=== PATIENT | female | born 1955 | race Caucasian/White ===

== ENCOUNTER 2020-09-03 09:40 | Outpatient (REF) | payer MEDICARE, SELFPAY ==
[2020-09-03 10:13] LABS: MANUAL DIFF FLAG NO
[2020-09-03 10:24] LABS: Basophils Absolute Auto 0.1 X10*3/uL (0.0-0.2); Basophils Percent Auto 0.5 % (0-2); Eosinophils Absolute Auto 0.2 X10*3/uL (0.0-0.4); Eosinophils Percent Auto 1.7 % (0-4); Hematocrit 38.8 % (37-47); Hemoglobin 12.1 g/dl (12.0-16.0); Imm Gran Abs Auto 0.03 X10*3/uL (0.00-0.03); Imm Gran Pct Auto 0.3 % (0.0-0.4); Lymphocytes Absolute Auto 2.8 X10*3/uL (1.2-4.9); Lymphocytes Percent Auto 29.8 % (20-40); Mean Corpuscular HGB Conc 31.2 g/dl (31.0-35.0); Mean Corpuscular Hemoglobin 27.4 pg (27.0-33.0); Mean Corpuscular Volume 87.8 fL (80-98); Mean Platelet Volume 11.3 fL (9.4-12.3); Monocytes Absolute Auto 0.6 X10*3/uL (0.1-1.2); Monocytes Percent Auto 5.9 % (2-11); Neutrophils Absolute Auto 5.7 X10*3/uL (2.0-8.3); Neutrophils Percent Auto 61.8 % (45-73); Platelet Count 336 X10*3/uL (160-400); Red Blood Count 4.42 X10*6/uL (4.20-5.50); Red Cell Distribution Width 13.7 % (11.0-16.0); White Blood Count 9.3 X10*3/uL (4.8-10.8)
[2020-09-03 10:55] LABS: Alanine Aminotransferase 14 U/L (0-31); Alkaline Phosphatase 103 U/L (39-117); Anion Gap 11 (12-20); Aspartate Amino Transferase 11 U/L (5-31); Bilirubin Total 0.3 mg/dL (0.0-1.0); Blood Urea Nitrogen 16 mg/dL (9-16); Calcium 9.3 mg/dL (8.4-10.2); Carbon Dioxide 34 mmol/L (22-29); Chloride 99 mmol/L (96-108); Cholesterol 141 mg/dL; Estimated Glomerular Filt Rate 60; Glucose Fasting 133 mg/dL (60-99); HDL Cholesterol 48 mg/dL; LDL Cholesterol Calculated 68 mg/dl; Potassium 4.7 mmol/l (3.3-5.1); Sodium 139 mmol/L (135-145); Total Protein 6.7 g/dL (6.5-8.0); Triglycerides 129 mg/dL
[2020-09-03 11:17] LABS: Folate 11.9 ng/mL (> or = 4.0); Vitamin B12 220 pg/mL (200-900)
[2020-09-03 11:19] LABS: Creatinine Urine 150.27 mg/dL; Microalbum/Creatinine Ratio Ur 4.6 ug/mg cr
[2020-09-03 13:29] LABS: Vitamin D 25-OH Total 45.3 ng/mL (>30)
== END 2020-09-03 09:41 | disposition home or self-care (01) ==
LOC: HO.LAB 09:40
PROVIDERS: PCP Internal Medicine; Visit Provider Internal Medicine
DX: E78.00 Pure hypercholesterolemia, unspecified (principal); E11.9 Type 2 diabetes mellitus without complications; D51.9 Vitamin B12 deficiency anemia, unspecified; E55.9 Vitamin D deficiency, unspecified
CPT/HCPCS: 36415; 80053; 80061; 82043; 82306; 82607; 82746; 85025

== ENCOUNTER → 2020-09-24 13:54 | Outpatient (BNVA) | payer MEDICARE, MEDICAID, SELFPAY | PROVIDERS: PCP Internal Medicine; Referring Provider Internal Medicine; Visit Provider Internal Medicine Endocrinology, Diabetes & Metabolism | DX: E11.65 Type 2 diabetes mellitus with hyperglycemia (principal); E11.42 Type 2 diabetes mellitus with diabetic polyneuropathy; E11.3299 Type 2 diabetes mellitus with mild nonproliferative diabetic retinopathy without macular edema, unspecified eye; I10 Essential (primary) hypertension; E78.5 Hyperlipidemia, unspecified; E66.01 Morbid (severe) obesity due to excess calories; E55.9 Vitamin D deficiency, unspecified; M85.80 Other specified disorders of bone density and structure, unspecified site; B37.2 Candidiasis of skin and nail; Z79.4 Long term (current) use of insulin | CPT/HCPCS: 82947; 99212 ==

== ENCOUNTER → 2020-09-29 | Outpatient (REF) | payer MEDICARE, MEDICAID, SELFPAY | LOC: HO.SL | PROVIDERS: Visit Provider Internal Medicine | DX: G47.30 Sleep apnea, unspecified (principal); E66.01 Morbid (severe) obesity due to excess calories; G47.10 Hypersomnia, unspecified | CPT/HCPCS: 95806 ==

== ENCOUNTER → 2020-10-15 12:58 | Outpatient (BNVA) | payer MEDICARE, SELFPAY | PROVIDERS: PCP Internal Medicine; Visit Provider Internal Medicine Pulmonary Disease | DX: G47.33 Obstructive sleep apnea (adult) (pediatric) (principal) | CPT/HCPCS: 99202 ==

== ENCOUNTER 2020-12-12 13:49 | Emergency (ER) | payer MEDICARE, SELFPAY ==
--- NOTE | ~2020-12-12 | CT_ITS ---
EXAMINATION: CT ABDOMEN AND PELVIS WITH CONTRAST CLINICAL INFORMATION: multiple abd surgeries. lower ttp. epigastric ttp COMPARISON: CTA chest 08/05/2017, CT abdomen pelvis 03/12/2016 TECHNIQUE: Multidetector volumetric images were obtained from the superior aspect of the liver through the pubic symphysis following administration 85 mL of Omnipaque 350 intravenous contrast. Sagittal and coronal reformatted images were obtained on the technologist's workstation. Oral contrast: No This CT examination was performed using dose optimization techniques as appropriate, variously including the following: *Automated exposure control *Adjustment of mA and/or kV according to patient size (this includes techniques or standardized protocols for targeted exams where dose is matched to indication/reason for exam; i.e. extremities or head) *Use of iterative reconstruction technique DLP: 1334 mGy-cm FINDINGS: LUNG BASES: The visualized lung bases are unremarkable. LIVER, GALLBLADDER, AND BILIARY TREE: The liver is normal in size, shape, and attenuation. No focal hepatic lesion or biliary ductal dilatation is present. The gallbladder is unremarkable with no evidence of radiopaque gallstones, gallbladder wall thickening, or obvious pericholecystic inflammatory changes. PANCREAS: Unremarkable. SPLEEN: Unremarkable. ADRENAL GLANDS: Unremarkable. KIDNEYS AND URETERS: The kidneys are normal in size, shape, and attenuation. An exophytic right upper pole 3.7 cm benign renal cysts present. No solid renal masses are seen. No hydronephrosis, hydroureter, or calculi seen. No perinephric stranding. BLADDER: Unremarkable. GASTROINTESTINAL TRACT: The small and large bowel are unremarkable. The appendix is not seen. ABDOMINAL WALL: No significant hernia is appreciated. LYMPH NODES: Normal. VASCULAR: Unremarkable. PELVIC VISCERA: Status post hysterectomy. An abnormal adnexal mass is not seen. No free intraperitoneal fluid is present OSSEOUS STRUCTURES: Unremarkable. A hemangioma is noted in L4. Mild degenerative changes are present in the lower thoracic spine. CT/CT abdomen pelvis w con IMPRESSION: No significant abnormality is seen. Incidental findings as described above.
[2020-12-12 14:05] VITALS: BP 143/68; PULSE 84; RESP 16; TEMP 36.1; O2SAT 95; BMI 46.5
[2020-12-12 14:35] LABS: Glucose Urine UA NEG (NEG); Leukocyte Esterase Urine NEG (NEG); Nitrite Urine NEG (NEG); Specific Gravity - Urine 1.025 (1.005-1.025); Urine Blood NEG (NEG); Urine Ketones 15 MG/DL (NEG); Urine Protein 1+ MG/DL (NEG-TRACE)
[2020-12-12 14:36] LABS: Appearance Urine HAZY; Color Urine DARK YELLOW
[2020-12-12 14:42] LABS: Bacteria Urine 2+ /LPF; Mucus Urine TRACE /LPF; RBC Urine 0 /HPF (0); Squamous Epithelial Cell Urine 2+ /LPF
--- NOTE | 2020-12-12 15:39 | ED.ABDPAIN ---
HPI - Abdominal Pain General Chief Complaint: Abdominal Pain Stated Complaint: VAGINAL PAIN Time Seen by Provider: 12/12/20 14:45 Source: patient Mode of arrival: ambulatory History of Present Illness HPI narrative: 65-year-old female with a past medical history of diabetes, hyperlipidemia, hypertension, morbid obesity, appendectomy, cholecystectomy, hysterectomy, adhesion removal surgery, presenting to the ED complaining of lower abdominal discomfort and dysuria x5 days. Also reports mid back pain. Denies fever, chills, nausea, vomiting, diarrhea, constipation, hematuria, vaginal bleeding/discharge MD elicited complaint: abdominal pain Related Data Previous Rx's Medication Instructions Recorded amitriptyline 50 mg tablet 50 mg PO BEDTIME 90 Days #90 tab 10/27/20 blood sugar diagnostic #150 ea 10/27/20 cholecalciferol (vitamin D3) 125 125 mcg PO DAILY 90 Days #90 cap 10/27/20 mcg (5,000 unit) capsule insulin lispro 100 unit/mL 10 unit SUBCUT TID 30 Days #9 ml 10/27/20 subcutaneous pen lancets 28 gauge 33 gauge MISCELLANEOUS QID 30 Days 10/27/20 #150 cap liraglutide 0.6 mg/0.1 mL (18 mg/3 1.8 mg SUBCUT DAILY 30 Days #9 ml 10/27/20 mL) subcutaneous pen injector lisinopril 10 mg tablet 10 mg PO DAILY 90 Days #90 tab 10/27/20 metformin 1,000 mg tablet 1,000 mg PO BID 90 Days #180 tab 10/27/20 nystatin 100,000 unit/gram topical 1 appl TOPICAL BID 30 Days #60 g 10/27/20 powder omeprazole 20 mg capsule,delayed 20 mg PO DAILY 90 Days #90 cap 10/27/20 release simvastatin 20 mg tablet 20 mg PO DAILY 90 Days #90 tab 10/27/20 insulin glargine 100 unit/mL (3 35 unit SUBCUT QPM 30 Days #10.5 ml 12/10/20 mL) subcutaneous pen cefuroxime axetil 250 mg PO BID 7 Days #14 tab 12/12/20 phenazopyridine [Pyridium] 100 mg PO TID PRN #6 tab 12/12/20 Allergies Allergy/AdvReac Type Severity Reaction Status Date / Time Beef Containing Products Allergy Mild HIVES/STOMACH Verified 10/30/20 13:57 [BEEF CONTAINING PRODUCTS] ISSUES mayonnaise [MAYONNAISE] Allergy Mild HIVES Verified 10/30/20 13:57 codeine Allergy Unknown fainting Verified 10/30/20 13:57 fish derived [FISH] Allergy Unknown N&V, Verified 10/30/20 13:57 ABDOMEN DISTENDED, ANAPHYLAXIS Review of Systems Review of Systems Constitutional: No Fever, No Chills Cardiovascular: No Chest Pain, No SOB Respiratory: No Cough, No Dyspnea Gastrointestinal: No Nausea, No Vomiting, No Diarrhea, No Constipation, + Abdominal pain Genitourinary: No irregular bleeding, + Dysuria, No Urinary Frequency, No Hematuria, No Flank Pain, No Urinary Flow Changes, No vaginal discharge or bleeding Musculoskeletal: No joint pain, No Myalgias, No Joint Swelling Skin: No Skin Lesions, No rash Yes all other systems are reviewed and are negative Physical Exam Vital Signs: Vital Signs: Last Vital Signs Temp 97.0 F 12/12/20 14:05 Pulse 84 12/12/20 14:05 Resp 16 12/12/20 14:05 BP 143/68 H 12/12/20 14:05 Pulse Ox 95 12/12/20 14:05 Body Mass Index 46.5 Const: General: cooperative and healthy appearing Orientation/consciousness: patient oriented x3 Limitations: no limitations HENMT: Head: Yes normal to inspection Ears: hearing grossly normal bilaterally General nose exam: Normal external nose present Face and sinus: Yes normal facial exam Eyes: General: appearance normal, both eyes and all related structures EOM: EOMs intact bilaterally Neck: Neck: Yes normal visual inspection Resp: Effort & Inspection: normal respiratory effort Auscultation: crackles Cardio: Rate: regular rate GI: Inspection: Yes normal to inspection Palpation (GI): Soft to palpation, Tenderness to palpation present (GI) in the epigastrum, in the LLQ, in the RLQ and suprapubicly; with no rebound tenderness, no guarding and not rigid : General: Yes no CVA tenderness Back/Spine/Pelvis: Back: no CVA tenderness Skin: Rashes: no rashes Wounds: no wounds Neuro: General: patient oriented x3 Gait exam (Neuro): Normal gait present Extrem: General: Yes normal to inspection Course Course Course Narrative: -potassium mildly elevated at 5.3 > Kayexalate ordered. Labs otherwise unremarkable -UA contaminated but with 2+ bacteria and mucus. Due to patient being symptomatic, with shared decision making will treat with antibiotics CT abdomen pelvis w con IMPRESSION: No significant abnormality is seen. Incidental findings as described above. > results discussed with patient in medical reception. Worrisome signs and symptoms and strict return precautions discussed. She verbalized understanding feel safe for discharge home MDM - Abdominal Pain MDM Narrative Medical decision making narrative: 65-year-old female with a past medical history of diabetes, hyperlipidemia, hypertension, morbid obesity, appendectomy, cholecystectomy, hysterectomy, adhesion removal surgery, presenting to the ED complaining of lower abdominal discomfort and dysuria x5 days. On exam VSS, NAD, well appearing, abd ttp diffusely lower and in epigastric region. Concern for diverticulitis vs SBO vs UTI vs ?pyelo. Plan: Labs, UA, CTAP, Re-evaluate Lab Data Result diagrams: 12/12/20 15:44 12/12/20 15:44 Labs: Lab Results 12/12/20 12/12/20 12/12/20 Range/Units 14:23 15:44 15:44 WBC 10.2 (4.8-10.8) X10*3/uL RBC 4.53 (4.20-5.50) X10*6/uL Hgb 12.0 (12.0-16.0) g/dl Hct 39.3 (37-47) % MCV 86.8 (80-98) fL MCH 26.5 L (27.0-33.0) pg MCHC 30.5 L (31.0-35.0) g/dl RDW 13.2 (11.0-16.0) % Plt Count 324 (160-400) X10*3/uL MPV 11.6 (9.4-12.3) fL Immature Gran % (Auto) 0.3 (0.0-0.4) % Neut % (Auto) 60.6 (45-73) % Lymph % (Auto) 30.2 (20-40) % [place] % (Auto) 6.8 (2-11) % Eos % (Auto) 1.6 (0-4) % Baso % (Auto) 0.5 (0-2) % Lymph # (Auto) 3.1 (1.2-4.9) X10*3/uL [place] # (Auto) 0.7 (0.1-1.2) X10*3/uL Eos # (Auto) 0.2 (0.0-0.4) X10*3/uL Baso # (Auto) 0.1 (0.0-0.2) X10*3/uL Abs Immat Gran (auto) 0.03 (0.00-0.03) X10*3/uL Absolute Neuts (auto) 6.2 (2.0-8.3) X10*3/uL Absolute Nucleated RBC 0.000 (0.0-0.012) X10*3/uL Nucleated RBC % (auto) 0.0 (0.0-0.2) /100WBC Hold Blue Top SEE NOTE Sodium (135-145) mmol/L Potassium (3.3-5.1) mmol/L Chloride (96-108) mmol/L Carbon Dioxide (22-29) mmol/L Anion Gap (12-20) BUN (9-16) mg/dL Creatinine (0.5-1.4) mg/dL Estim Creat Clear Calc Estimated GFR Random Glucose (60-115) mg/dL Calcium (8.4-10.2) mg/dL Magnesium (1.6-2.6) mg/dL Total Bilirubin (0.0-1.0) mg/dL Direct Bilirubin (0.0-0.5) mg/dL AST (5-31) U/L ALT (0-31) U/L Alkaline Phosphatase (39-117) U/L Total Protein (6.5-8.0) g/dL Albumin (3.5-5.0) g/dL Lipase (8-78) U/L Urine Color DARK YELLOW Urine Appearance HAZY Urine pH 6.0 (5.0-8.0) Ur Specific Christmas 1.025 (1.005-1.025) Urine Protein 1+ H (NEG-TRACE) MG/DL Urine Glucose (UA) NEG (NEG) MG/DL Urine Ketones 15 (NEG) MG/DL Urine Blood NEG (NEG) Urine Nitrite NEG (NEG) Ur Leukocyte Esterase NEG (NEG) Urine RBC 0 (0) /HPF Urine WBC 1-4 (0-4) /HPF Ur Squamous Epith Cells 2+ /LPF Urine Bacteria 2+ /LPF Urine Mucus TRACE /LPF 12/12/20 Range/Units 15:44 WBC (4.8-10.8) X10*3/uL RBC (4.20-5.50) X10*6/uL Hgb (12.0-16.0) g/dl Hct (37-47) % MCV (80-98) fL MCH (27.0-33.0) pg MCHC (31.0-35.0) g/dl RDW (11.0-16.0) % Plt Count (160-400) X10*3/uL MPV (9.4-12.3) fL Immature Gran % (Auto) (0.0-0.4) % Neut % (Auto) (45-73) % Lymph % (Auto) (20-40) % [place] % (Auto) (2-11) % Eos % (Auto) (0-4) % Baso % (Auto) (0-2) % Lymph # (Auto) (1.2-4.9) X10*3/uL [place] # (Auto) (0.1-1.2) X10*3/uL Eos # (Auto) (0.0-0.4) X10*3/uL Baso # (Auto) (0.0-0.2) X10*3/uL Abs Immat Gran (auto) (0.00-0.03) X10*3/uL Absolute Neuts (auto) (2.0-8.3) X10*3/uL Absolute Nucleated RBC (0.0-0.012) X10*3/uL Nucleated RBC % (auto) (0.0-0.2) /100WBC Hold Blue Top Sodium 138 (135-145) mmol/L Potassium 5.3 H (3.3-5.1) mmol/L Chloride 99 (96-108) mmol/L Carbon Dioxide 30 H (22-29) mmol/L Anion Gap 14 (12-20) BUN 16 (9-16) mg/dL Creatinine 0.98 (0.5-1.4) mg/dL Estim Creat Clear Calc 76.8 Estimated GFR 57 Random Glucose 182 H (60-115) mg/dL Calcium 9.6 (8.4-10.2) mg/dL Magnesium 1.6 (1.6-2.6) mg/dL Total Bilirubin 0.3 (0.0-1.0) mg/dL Direct Bilirubin < 0.2 (0.0-0.5) mg/dL AST 16 D (5-31) U/L ALT 13 (0-31) U/L Alkaline Phosphatase 115 (39-117) U/L Total Protein 7.3 (6.5-8.0) g/dL Albumin 3.9 (3.5-5.0) g/dL Lipase 29 (8-78) U/L Urine Color Urine Appearance Urine pH (5.0-8.0) Ur Specific Christmas (1.005-1.025) Urine Protein (NEG-TRACE) MG/DL Urine Glucose (UA) (NEG) MG/DL Urine Ketones (NEG) MG/DL Urine Blood (NEG) Urine Nitrite (NEG) Ur Leukocyte Esterase (NEG) Urine RBC (0) /HPF Urine WBC (0-4) /HPF Ur Squamous Epith Cells /LPF Urine Bacteria /LPF Urine Mucus /LPF Discharge Plan Discharge Clinical Impression: Abdominal pain Qualifiers: Abdominal location: lower abdomen, unspecified Qualified Code(s): R10.30 - Lower abdominal pain, unspecified Patient Disposition: Home, Self-Care Instructions: Dysuria (ED), Abdominal Pain (ED) Additional Instructions: Your blood work was reassuring today in the ED. Her urine was contaminated but had some elements of an infection. Ceftin as an antibiotic, take as prescribed. The CT scan did not show any acute findings. Follow up with her primary care doctor. If her symptoms persist or worsen, become unbearable, you have fever, nausea/vomiting, or diarrhea return to the ED Gutierrez an?lisis de garrett fue reconfortante hoy en el servicio de urgencias. Gutierrez orina estaba contaminada wilian ten?a algunos elementos de zain infecci?n. Ceftin cal antibi?tre, colby seg?n lo prescrito. La tomograf?a computarizada no mostr? seth?n hallazgo ana. Emigdio un seguimiento con gutierrez m?dico de atenci?n primaria. Si rudy s?ntomas persisten o empeoran, se vuelven insoportables, tiene fiebre, n?useas / v?mitos o diarrea, vuelva al servicio de urgencias. Prescriptions: New cefuroxime axetil 250 mg tablet 250 mg PO BID 7 Days Qty: 14 RF: 0 phenazopyridine [Pyridium] 100 mg tablet 100 mg PO TID PRN (Reason: pain) Qty: 6 RF: 0 No Action amitriptyline 50 mg tablet 50 mg PO BEDTIME 90 Days Qty: 90 RF: 3 (DME) FreeStyle Test Strip See Rx Instructions .ROUTE .MEDSUPPLY Qty: 150 RF: 6 cholecalciferol (vitamin D3) 125 mcg (5,000 unit) capsule 125 mcg PO DAILY 90 Days Qty: 90 RF: 3 insulin lispro [Humalog KwikPen Insulin] 100 unit/mL insulin pen 10 unit subcut TID 30 Days Qty: 9 RF: 3 lancets [TRUEplus Lancets] 28 gauge misc 33 gauge miscellaneous QID 30 Days Qty: 150 RF: 5 Victoza 3-Kareem 0.6 mg/0.1 mL (18 mg/3 mL) pen injector 1.8 mg subcut DAILY 30 Days Qty: 9 RF: 6 lisinopril 10 mg tablet 10 mg PO DAILY 90 Days Qty: 90 RF: 3 metformin 1,000 mg tablet 1,000 mg PO BID 90 Days Qty: 180 RF: 2 nystatin 100,000 unit/gram powder 1 appl topical BID 30 Days Qty: 60 RF: 3 omeprazole 20 mg capsule,delayed release(DR/EC) 20 mg PO DAILY 90 Days Qty: 90 RF: 3 simvastatin 20 mg tablet 20 mg PO DAILY 90 Days Qty: 90 RF: 3 Lantus Solostar U-100 Insulin 100 unit/mL (3 mL) insulin pen 35 unit subcut QPM 30 Days Qty: 10.5 RF: 1 Referrals: Jojo Chand MD [Primary Care Provider] - 2 days Print Language: Japanese [facility] Past Medical History Attestation statement: The following information was validated with the patient. 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 Maternal Grandfather Prostate cancer Maternal Uncle Throat cancer Social History Social History (Updated 10/30/20 @ 13:58 by Jojo Alcantar MD) Alcohol intake: never Smoking Status: Former smoker Tobacco Type: Cigarette Advance Directives: Yes Advance Directives Information Provided: Yes Advance Directives on File: No
[2020-12-12] MEDS: Famotidine/PF 20 MG/2 ML VIAL IVPUSH (15:46)
[2020-12-12] MEDS: Magnesium Hydrox/Alum Hydrox 30 ML ORAL.SUSP PO (15:46)
[2020-12-12] MEDS: Lidocaine HCl Viscous 2 % 15 ML SOLUTION MUCOUS MEM (15:46)
[2020-12-12 16:16] LABS: MANUAL DIFF FLAG NO
[2020-12-12 16:18] LABS: Basophils Absolute Auto 0.1 X10*3/uL (0.0-0.2); Basophils Percent Auto 0.5 % (0-2); Eosinophils Absolute Auto 0.2 X10*3/uL (0.0-0.4); Eosinophils Percent Auto 1.6 % (0-4); Hematocrit 39.3 % (37-47); Imm Gran Abs Auto 0.03 X10*3/uL (0.00-0.03); Imm Gran Pct Auto 0.3 % (0.0-0.4); Lymphocytes Absolute Auto 3.1 X10*3/uL (1.2-4.9); Lymphocytes Percent Auto 30.2 % (20-40); Mean Corpuscular HGB Conc 30.5 g/dl (31.0-35.0); Mean Corpuscular Hemoglobin 26.5 pg (27.0-33.0); Mean Corpuscular Volume 86.8 fL (80-98); Mean Platelet Volume 11.6 fL (9.4-12.3); Monocytes Absolute Auto 0.7 X10*3/uL (0.1-1.2); Monocytes Percent Auto 6.8 % (2-11); Neutrophils Absolute Auto 6.2 X10*3/uL (2.0-8.3); Neutrophils Percent Auto 60.6 % (45-73); Platelet Count 324 X10*3/uL (160-400); Red Blood Count 4.53 X10*6/uL (4.20-5.50); Red Cell Distribution Width 13.2 % (11.0-16.0); White Blood Count 10.2 X10*3/uL (4.8-10.8)
[2020-12-12 16:55] LABS: Alanine Aminotransferase 13 U/L (0-31); Albumin Level 3.9 g/dL (3.5-5.0); Alkaline Phosphatase 115 U/L (39-117); Anion Gap 14 (12-20); Aspartate Amino Transferase 16 U/L (5-31); Bilirubin Direct < 0.2 mg/dL (0.0-0.5); Bilirubin Total 0.3 mg/dL (0.0-1.0); Blood Urea Nitrogen 16 mg/dL (9-16); Calcium 9.6 mg/dL (8.4-10.2); Carbon Dioxide 30 mmol/L (22-29); Chloride 99 mmol/L (96-108); Creatinine Clr Calc Pharmacy 76.8; Estimated Glomerular Filt Rate 57; Glucose Random 182 mg/dL (60-115); Lipase 29 U/L (8-78); Magnesium 1.6 mg/dL (1.6-2.6); Potassium 5.3 mmol/L (3.3-5.1); Sodium 138 mmol/L (135-145); Total Protein 7.3 g/dL (6.5-8.0)
[2020-12-12] MEDS: iohexoL 350 MG/ML 100 ML INFUS..BTL IV (17:37)
--- NOTE | 2020-12-12 18:13 | ECG_ITS ---
Test Reason : elevated K+ Blood Pressure : / mmHG Vent. Rate : 083 BPM Atrial Rate : 083 BPM P-R Int : 148 ms QRS Dur : 102 ms QT Int : 374 ms P-R-T Axes : 068 016 063 degrees QTc Int : 439 ms Normal sinus rhythm Normal ECG When compared with ECG of 05-AUG-2017 18:56, No significant change was found Referred By: Bindu Menon Electronically Signed By:Greg Sheth
[2020-12-12] MEDS: Sodium Polystyrene Sulfon/Sorb 15 GM/60 ML ORAL.SUSP 30 GM PO (18:31)
[2020-12-12 18:44] VITALS: BP 139/58; PULSE 79; RESP 14; TEMP 37; O2SAT 93
== END 2020-12-12 19:45 | disposition home or self-care (01) ==
PROVIDERS: Physician Assistant; Emergency Provider Internal Medicine; PCP Internal Medicine
DX: R10.30 Lower abdominal pain, unspecified (principal); R10.2 Pelvic and perineal pain; I10 Essential (primary) hypertension; E78.5 Hyperlipidemia, unspecified; Z79.899 Other long term (current) drug therapy
CPT/HCPCS: 36415; 74177; 80048; 80076; 81001; 83690; 83735; 85025; 93005; 96374; 99283; 99284; Q9967

== ENCOUNTER → 2020-12-17 12:51 | Outpatient (BNVA) | payer MEDICARE, SELFPAY | PROVIDERS: PCP Internal Medicine; Visit Provider Internal Medicine Pulmonary Disease | DX: G47.33 Obstructive sleep apnea (adult) (pediatric) (principal) | CPT/HCPCS: 99212 ==

== ENCOUNTER 2020-12-19 13:49 | Outpatient (REF) | payer MEDICARE, SELFPAY ==
--- NOTE | ~2020-12-19 | MM_ITS ---
EXAMINATION: MM DIAGNOSTIC DIGITAL BREAST TOMOSYNTHESIS, BILATERAL CLINICAL INFORMATION: Right breast yearly screening. 6 month follow-up left breast study for calcifications. The lifetime risk of breast cancer based on the Tyrer-Cuzick Model is 2.2%. COMPARISON: Mammography: May 12, 2020 and studies dating back to April 25, 2012 TECHNIQUE: Digital breast tomosynthesis is performed in both the craniocaudal and mediolateral oblique views along with computer-aided detection (CAD). Synthesized 2D images are generated from the tomosynthesis. Spot magnification views in craniocaudal and 90 degree mediolateral views of the left breast performed. FINDINGS: The breasts are almost entirely fatty (ACR BI-RADS breast composition Category a). There are no new significant masses, abnormal calcifications, or other abnormalities. There is stable appearance of calcifications about the medial aspect of the left breast compared to prior studies of November 15, 2019 and May 12, 2020. Recommend bilateral mammography in one year with magnification views of the left breast at that time. Results are provided to the patient at time of visit by the technologist. MM/MM tomosynthesis diagnostic BI IMPRESSION: There are no significant changes from prior study. ASSESSMENT: BI-RADS 3: Probably Benign RECOMMENDATION: Diagnostic mammography at time of next annual exam, due in 12 months. This patient's information was entered into a reminder system with a target due date for their next mammogram.
== END 2020-12-19 13:50 | disposition home or self-care (01) ==
LOC: HO.MAMMO 13:49
PROVIDERS: PCP Internal Medicine; Visit Provider Internal Medicine
DX: R92.1 Mammographic calcification found on diagnostic imaging of breast (principal)
CPT/HCPCS: 77062; 77066

== ENCOUNTER → 2021-01-22 10:20 | Outpatient (BNVA) | payer MEDICARE, SELFPAY | PROVIDERS: PCP Internal Medicine; Referring Provider Internal Medicine; Visit Provider Nurse Practitioner Gerontology | DX: E11.65 Type 2 diabetes mellitus with hyperglycemia (principal); I10 Essential (primary) hypertension | CPT/HCPCS: 82947; 99212 ==

== ENCOUNTER → 2021-02-03 09:56 | Outpatient (BNVA) | payer MEDICARE, SELFPAY | PROVIDERS: PCP Internal Medicine; Visit Provider Internal Medicine Endocrinology, Diabetes & Metabolism | DX: Z13.89 Encounter for screening for other disorder (principal) | CPT/HCPCS: Q3014 ==

== ENCOUNTER 2021-02-16 07:48 | Outpatient (REF) | payer MEDICARE, MEDICAID, SELFPAY ==
[2021-02-16 09:00] LABS: Alanine Aminotransferase 8 U/L (0-31); Albumin Level 3.9 g/dL (3.5-5.0); Alkaline Phosphatase 102 U/L (39-117); Anion Gap 14 (12-20); Aspartate Amino Transferase 11 U/L (5-31); Bilirubin Total 0.4 mg/dL (0.0-1.0); Blood Urea Nitrogen 14 mg/dL (9-16); Calcium 9.5 mg/dL (8.4-10.2); Carbon Dioxide 31 mmol/L (22-29); Chloride 101 mmol/L (96-108); Cholesterol 134 mg/dL; Estimated Glomerular Filt Rate > 60; Glucose Fasting 153 mg/dL (60-99); HDL Cholesterol 48 mg/dL; LDL Cholesterol Calculated 59 mg/dl; Potassium 4.7 mmol/L (3.3-5.1); Sodium 141 mmol/L (135-145); Total Protein 6.7 g/dL (6.5-8.0); Triglycerides 138 mg/dL
[2021-02-24 11:12] LABS: Vitamin D 25-OH, D2 <4 ng/mL; Vitamin D 25-OH, D3 61 ng/mL; Vitamin D 25-OH, Total 61 ng/mL (30-100)
== END 2021-02-16 07:49 | disposition home or self-care (01) ==
LOC: HO.LAB 07:48
PROVIDERS: Absent Provider Internal Medicine Endocrinology, Diabetes & Metabolism; PCP Internal Medicine; Visit Provider Internal Medicine
DX: E78.5 Hyperlipidemia, unspecified (principal); E11.65 Type 2 diabetes mellitus with hyperglycemia; E55.9 Vitamin D deficiency, unspecified
CPT/HCPCS: 36415; 80053; 80061; 82306

== ENCOUNTER → 2021-05-05 09:51 | Outpatient (BNVA) | payer MEDICARE, MEDICAID, SELFPAY | PROVIDERS: PCP Internal Medicine; Visit Provider Internal Medicine Endocrinology, Diabetes & Metabolism | DX: E11.65 Type 2 diabetes mellitus with hyperglycemia (principal); E11.42 Type 2 diabetes mellitus with diabetic polyneuropathy; E11.3293 Type 2 diabetes mellitus with mild nonproliferative diabetic retinopathy without macular edema, bilateral; I10 Essential (primary) hypertension; E78.5 Hyperlipidemia, unspecified; E66.01 Morbid (severe) obesity due to excess calories; E55.9 Vitamin D deficiency, unspecified; M85.80 Other specified disorders of bone density and structure, unspecified site; Z79.4 Long term (current) use of insulin | CPT/HCPCS: 82947; 99212 ==

== ENCOUNTER → 2021-05-19 12:46 | Outpatient (REF) | payer MEDICARE, MEDICAID, SELFPAY ==
--- NOTE | 2021-05-19 13:14 | ECG_ITS ---
Hook-up date: 2021-05-19 13:07:00 Duration: 47:59:00 Test Indications: PALPITATIONS Medications: 492132 QRS complexes 7 Ventricular ectopics which represent <1 % of total QRS comp. 210 Supraventricular ectopics which represent <1 % of total QRS comp. * Paced QRS complexs which represent % of total QRS comp. VENTRICULAR ECTOPY 7 Isolated 0 Bigeminal Cycles 0 Couplets 0 Runs 0 Beats in Runs * Beats LONGEST at * BPM at :: -- * Beats FASTEST at * BPM at :: -- SUPRAVENTRICULAR ECTOPY 184 Isolated 8 Couplets 3 Runs 10 Beats in Runs 4 Beats LONGEST at 148 BPM at 00:29:02 2021-05-21 4 Beats FASTEST at 148 BPM at 00:29:02 2021-05-21 HEART RATES 55 MIN at 01:05:34 2021-05-20 80 AVG 117 MAX at 11:36:57 2021-05-21 LONGEST RR 1.2640 secs at 00:55:05 2021-05-20 S-T LEVELS Channel 1 - 128 mm at 13:07:00 2021-05-19 - 128 mm at 13:07:00 2021-05-19 Channel 2 - 128 mm at 13:07:00 2021-05-19 - 128 mm at 13:07:00 2021-05-19 Channel 3 - 128 mm at 03:22:61 -- - 128 mm at 03:22:61 Underlying rhythm is sinus; Average ventricular rate 80/min; range 55-117/min; Occasional Premature atrial complexes ; Rare Premature ventricular complexes ; No sustained arrhythmias; Chest pain in patient diary associated with sinus rhythm. Referred By: Jojo Alcantar Overread By: PHAN GAITAN
== END ==
LOC: HO.CARD 12:46
PROVIDERS: Visit Provider Internal Medicine
DX: R00.2 Palpitations (principal)
CPT/HCPCS: 93225; 93226

== ENCOUNTER 2021-08-21 08:42 | Outpatient (REF) | payer MEDICARE, MEDICAID, SELFPAY ==
[2021-08-21 09:42] LABS: Alanine Aminotransferase 9 U/L (0-31); Albumin Level 3.8 g/dL (3.5-5.0); Alkaline Phosphatase 108 U/L (39-117); Anion Gap 12 (12-20); Aspartate Amino Transferase 11 U/L (5-31); Bilirubin Total 0.3 mg/dL (0.0-1.0); Blood Urea Nitrogen 20 mg/dL (9-16); Calcium 9.4 mg/dL (8.4-10.2); Carbon Dioxide 31 mmol/L (22-29); Chloride 103 mmol/L (96-108); Cholesterol 128 mg/dL; Estimated Glomerular Filt Rate 58; Glucose Fasting 159 mg/dL (60-99); HDL Cholesterol 45 mg/dL; LDL Cholesterol Calculated 58 mg/dl; Potassium 4.6 mmol/L (3.3-5.1); Sodium 141 mmol/L (135-145); Total Protein 6.4 g/dL (6.5-8.0); Triglycerides 126 mg/dL
[2021-08-21 10:32] LABS: Creatinine Urine 103.64 mg/dL; Microalbumin Urine < 5.0 mg/L
== END 2021-08-21 08:43 | disposition home or self-care (01) ==
LOC: HO.LAB 08:42
PROVIDERS: PCP Internal Medicine; Visit Provider Internal Medicine
DX: E78.5 Hyperlipidemia, unspecified (principal); E11.65 Type 2 diabetes mellitus with hyperglycemia
CPT/HCPCS: 36415; 80053; 80061; 82043

== ENCOUNTER → 2021-12-17 12:46 | Outpatient (BNVA) | payer MEDICARE, SELFPAY | PROVIDERS: PCP Internal Medicine; Visit Provider Internal Medicine Pulmonary Disease | DX: G47.33 Obstructive sleep apnea (adult) (pediatric) (principal); Z99.89 Dependence on other enabling machines and devices | CPT/HCPCS: 99212 ==

== ENCOUNTER 2021-12-25 12:47 | Outpatient (REF) | payer MEDICARE, SELFPAY ==
--- NOTE | ~2021-12-25 | MM_ITS ---
EXAMINATION: MM DIAGNOSTIC DIGITAL BREAST TOMOSYNTHESIS, BILATERAL CLINICAL INFORMATION: Due for yearly. Follow-up calcifications medial left breast. The lifetime risk of breast cancer based on the Tyrer-Cuzick Model is 2%. COMPARISON: Mammography: 12/19/2020, 05/12/2020, 11/15/2019, 11/07/2019 (BI-RADS 0), 08/30/2018 TECHNIQUE: Digital breast tomosynthesis is performed in both the craniocaudal and mediolateral oblique views along with computer-aided detection (CAD). Synthesized 2D images are generated from the tomosynthesis. Additional views are obtained: Right CC, right MLO, left CC, left MLO, magnification left CC, magnification left LM. FINDINGS: There are scattered areas of fibroglandular density (ACR BI-RADS breast composition Category b). Parenchymal pattern is similar to prior exams and there is no developing density or interval mass or architectural abnormality. There are scattered vascular calcifications again seen. Axillary nodes are unremarkable. Skin contours are smooth. Calcifications for follow-up mid medial breast 9:00 position are similar in number and distribution to prior diagnostic exams. There has been no interval coarsening of the calcifications to confirm fibroadenomatous change. In addition, the calcifications appear heterogeneously coarse with some smaller foci of small groups. Stereotactic sampling is suggested. Results are discussed with the patient at time of visit. Management options discussed with patient. Patient is in agreement for stereotactic sampling. Results and recommendation called to office ([place]) for Dr. Armani Alcantar on 12/25/2021. MM/MM tomosynthesis diagnostic BI IMPRESSION: 1. Left: Although the left breast calcifications are stable in number, they remain heterogeneously coarse and show no interval fibroadenomatous type changes to clearly confirm benignity. 2. Right: No mammographic evidence of malignancy. ASSESSMENT: BI-RADS 4: Suspicious (subcategory 4A: Low suspicion for malignancy) RECOMMENDATION: Stereotactic sampling left breast calcifications. This patient's information was entered into a reminder system with a target due date for their next mammogram.
== END 2021-12-25 12:48 | disposition home or self-care (01) ==
LOC: HO.MAMMO 12:47
PROVIDERS: PCP Internal Medicine; Visit Provider Internal Medicine
DX: R92.1 Mammographic calcification found on diagnostic imaging of breast (principal)
CPT/HCPCS: 77062; 77066

== ENCOUNTER → 2021-12-28 07:51 | Outpatient (BNVA) | payer MEDICARE, SELFPAY | PROVIDERS: PCP Internal Medicine; Referring Provider Internal Medicine; Visit Provider Surgery | DX: R92.1 Mammographic calcification found on diagnostic imaging of breast (principal) | CPT/HCPCS: 99202 ==

== ENCOUNTER 2021-12-29 07:40 | Outpatient (REF) | payer MEDICARE, SELFPAY ==
--- NOTE | ~2021-12-29 | MM_ITS ---
EXAMINATION: STEREOTACTIC TOMOSYNTHESIS-GUIDED VACUUM-ASSISTED BREAST BIOPSY, LEFT SPECIMEN RADIOGRAPH, LEFT POST PROCEDURE DIGITAL MAMMOGRAM, LEFT CLINICAL INFORMATION: Heterogeneous coarse calcifications medial left breast for sampling. COMPARISON: Mammography 12/25/2021, 12/19/2020, 05/12/2020. TECHNIQUE/PROCEDURE: Informed consent was obtained from the patient after discussion of the benefits, risks, and alternatives to biopsy today. Patient appeared to understand. Gave opportunity for questions. Patient signed consent form. BIOPSY TABLE: [email or web address] Aff[employer]one Biopsy System. LESION: Heterogeneous coarse calcifications in linear distribution mid medial left breast. LOCAL ANESTHESIA: 10 mL carbonated 1% lidocaine; 10 mL 1% lidocaine with epinephrine. DERMATOTOMY: Single skin mae dermatotomy performed. NEEDLE: [employer] [place] 9-gauge vacuum assisted core biopsy device. APPROACH: medial lateral. TARGETING: Combination of digital breast tomosynthesis and stereotactic digital mammography used for targeting. CORES: 6. CLIP: [employer] Cylinder shaped marker. SPECIMEN RADIOGRAPH: Specimen radiograph is taken in separate room using digital mammography. The index calcifications are in the excised cores. There are over 15 calcifications in the cores. POST PROCEDURE UNILATERAL DIGITAL MAMMOGRAM: The post biopsy mammogram is performed in separate room using separate digital mammography equipment from the biopsy procedure. CC and ML views are obtained. There are scattered areas of fibroglandular density (breast composition category: b). The clip marker is in position. The calcifications are decreased at the biopsy site. No gross hematoma. The patient tolerated the procedure well. No immediate complications. Home instructions reviewed with the patient. Final pathology results are pending. MM/MM stereotactic biopsy LT IMPRESSION: 1. Digital tomosynthesis-guided core biopsy left breast with clip placement. 2. Specimen radiograph taken and post procedure mammogram. There is satisfactory positioning of the biopsy clip. 3. Final pathology results pending. An addendum report will be issued.
[2021-12-29] MEDS: Lidocaine HCl 1 % 20 ML VIAL 9 ML SUBCUT (09:09)
[2021-12-29] MEDS: Sodium Bicarbonate 8.4% 50 MEQ/50 ML VIAL SUBCUT (09:10)
== END 2021-12-29 07:41 | disposition home or self-care (01) ==
LOC: HO.MAMMO 07:40
PROVIDERS: PCP Surgery; Visit Provider Surgery
DX: R92.1 Mammographic calcification found on diagnostic imaging of breast (principal)
CPT/HCPCS: 19081; 88305; A4648

== ENCOUNTER → 2022-01-06 11:27 | Outpatient (BNVA) | payer MEDICARE, SELFPAY | PROVIDERS: PCP Internal Medicine; Visit Provider Surgery | DX: R92.1 Mammographic calcification found on diagnostic imaging of breast (principal) | CPT/HCPCS: 99212 ==

== ENCOUNTER 2022-01-21 09:07 | Outpatient (REF) | payer MEDICARE, SELFPAY ==
--- NOTE | ~2022-01-21 | MM_ITS ---
EXAMINATION: BONE DENSITOMETRY CLINICAL INDICATION: Menopause. COMPARISON: Previous BD dated 11/22/2018 and baseline BD dated 06/30/2012. TECHNIQUE: Using a [employer] DXA System (software version: 13.1) manufactured by [employer], dual-energy x-ray absorptiometry was performed of the lumbar spine and left hip. The images are of good technical quality. Summary results are attached. FINDINGS: AP SPINE L1-L4: Current: BMD 1.124 g/cm2, Z-score 0.0, T-score -0.5, normal, 0.6% increase from previous, 7.8% increase from baseline (<5% change is not significant). Prior: BMD 1.117 g/cm2. Baseline: BMD 1.043 g/cm2. LEFT FEMUR, NECK: Current: BMD 1.091 g/cm2, Z-score 1.1, T-score 0.4, normal. Prior: BMD 1.113 g/cm2. Baseline: BMD 1.040 g/cm2. LEFT FEMUR, TOTAL: Current: BMD 1.171 g/cm2, Z-score 1.7, T-score 1.3, normal, 1.3% decrease from previous, 0.8% decrease from baseline (<5% change is not significant). Prior: BMD 1.187 g/cm2. Baseline: BMD 1.180 g/cm2. IDENTIFIED RISK FACTORS: Early menopause, bilateral oophorectomy, hysterectomy, secondary osteoporosis. HISTORY OF FRACTURE: None listed. MEDICATIONS: None listed. MM/XR DEXA axial skeleton IMPRESSION: 1. DIAGNOSIS: Normal bone density based on the lowest T-score value of -0.5 in the lumbar spine applying World Health Organization criteria. 2. 10-YEAR FRACTURE RISK PREDICTION, FRAX: According to the guidelines, FRAX calculation should only be performed on patients in the osteopenia bone density category. Therefore, FRAX was not performed on this patient. 3. Treatment Recommendations: NOF guidelines recommend consideration for treatment in postmenopausal women and men age 50 and older presenting with the following: -A hip or vertebral (clinical or morphometric) fracture. -T-score less than or equal to -2.5 at the femoral neck or spine after appropriate evaluation to exclude secondary causes. -Low bone mass at the hip or spine and a 10-year fracture probability by FRAX of greater than or equal to 3% for hip fracture or greater than or equal to 20% for major osteoporotic fracture based on the [place] adapted WHO algorithm. 4. Other Recommendations: All treatment decisions require clinical judgment and consideration of individual patient factors, including patient preferences, comorbidities, previous drug use, risk factors not captured in the FRAX model (e.g. frailty, falls, vitamin D deficiency, increased bone turnover, interval significant decline in bone density) and possible under or overestimation of fracture risk by FRAX. FUTURE SCAN RECOMMENDATION: People with diagnosed cases of osteoporosis or at high risk for fracture should have regular bone mineral density tests. For patients eligible for Medicare, routine testing is allowed once every 2 years. The testing frequency can be increased to one year for patients who have rapidly progressing disease, those who are receiving or discontinuing medical therapy to restore bone mass, or have additional risk factors.
== END 2022-01-21 09:08 | disposition home or self-care (01) ==
LOC: HO.MAMMO 09:07
PROVIDERS: PCP Internal Medicine; Visit Provider Internal Medicine
DX: Z13.820 Encounter for screening for osteoporosis (principal); Z78.0 Asymptomatic menopausal state
CPT/HCPCS: 77080

== ENCOUNTER → 2022-02-10 09:22 | Outpatient (BNVA) | payer MEDICARE, SELFPAY | PROVIDERS: PCP Internal Medicine; Visit Provider Nurse Practitioner Gerontology | DX: E11.65 Type 2 diabetes mellitus with hyperglycemia (principal); E11.42 Type 2 diabetes mellitus with diabetic polyneuropathy; E11.3293 Type 2 diabetes mellitus with mild nonproliferative diabetic retinopathy without macular edema, bilateral; I10 Essential (primary) hypertension; E78.5 Hyperlipidemia, unspecified; E66.01 Morbid (severe) obesity due to excess calories; Z68.42 Body mass index [BMI] 45.0-49.9, adult; E55.9 Vitamin D deficiency, unspecified; Z79.4 Long term (current) use of insulin | CPT/HCPCS: 82947; 99212 ==

== ENCOUNTER 2022-04-27 09:02 | Outpatient (REF) | payer OTHER, SELFPAY ==
[2022-04-27 10:17] LABS: Creatinine Urine 84.22 mg/dL; Microalbum/Creatinine Ratio Ur 5.9 ug/mg cr
[2022-04-27 10:31] LABS: Alanine Aminotransferase 13 U/L (0-31); Albumin Level 3.8 g/dL (3.5-5.0); Alkaline Phosphatase 110 U/L (39-117); Anion Gap 11 (12-20); Aspartate Amino Transferase 13 U/L (5-31); Bilirubin Total 0.2 mg/dL (0.0-1.0); Blood Urea Nitrogen 19 mg/dL (9-16); Calcium 8.9 mg/dL (8.4-10.2); Carbon Dioxide 31 mmol/L (22-29); Chloride 101 mmol/L (96-108); Cholesterol 130 mg/dL; Estimated Glomerular Filt Rate > 60; Glucose Fasting 170 mg/dL (60-99); HDL Cholesterol 45 mg/dL; LDL Cholesterol Calculated 56 mg/dl; Potassium 5.2 mmol/L (3.3-5.1); Sodium 138 mmol/L (135-145); Total Protein 6.6 g/dL (6.5-8.0); Triglycerides 148 mg/dL
[2022-04-30 17:12] LABS: Vitamin D 25-OH, D2 <4 ng/mL; Vitamin D 25-OH, D3 34 ng/mL; Vitamin D 25-OH, Total 34 ng/mL (30-100)
== END 2022-04-27 09:03 | disposition home or self-care (01) ==
LOC: HO.LAB 09:02
PROVIDERS: PCP Internal Medicine; Visit Provider Internal Medicine
DX: K21.9 Gastro-esophageal reflux disease without esophagitis (principal); E11.9 Type 2 diabetes mellitus without complications; E78.5 Hyperlipidemia, unspecified; E55.9 Vitamin D deficiency, unspecified
CPT/HCPCS: 36415; 80053; 80061; 82043; 82306

== ENCOUNTER → 2022-05-04 10:03 | Outpatient (REF) | payer OTHER, SELFPAY ==
--- NOTE | 2022-05-04 10:08 | ECG_ITS ---
Test Reason : R07.9 CP Blood Pressure : / mmHG Vent. Rate : 078 BPM Atrial Rate : 078 BPM P-R Int : 162 ms QRS Dur : 108 ms QT Int : 378 ms P-R-T Axes : 066 031 068 degrees QTc Int : 430 ms Normal sinus rhythm Normal ECG When compared with ECG of 12-DEC-2020 19:37, No significant change was found Referred By: Jojo Alcantar Electronically Signed By:DAJUAN CORNEJO MD
== END ==
LOC: HO.CARD 10:03
PROVIDERS: PCP Internal Medicine; Visit Provider Internal Medicine
DX: R07.9 Chest pain, unspecified (principal)
CPT/HCPCS: 93005

== ENCOUNTER 2022-08-23 08:43 | Outpatient (REF) | payer OTHER, SELFPAY ==
[2022-08-23 09:34] LABS: Creatinine Urine 81.22 mg/dL; Microalbum/Creatinine Ratio Ur 8.6 ug/mg cr
[2022-08-23 10:34] LABS: Alanine Aminotransferase 16 U/L (0-31); Albumin Level 3.9 g/dL (3.5-5.0); Alkaline Phosphatase 131 U/L (39-117); Anion Gap 14 (12-20); Aspartate Amino Transferase 14 U/L (5-31); Bilirubin Total 0.2 mg/dL (0.0-1.0); Blood Urea Nitrogen 23 mg/dL (9-16); Calcium 9.8 mg/dL (8.4-10.2); Carbon Dioxide 33 mmol/L (22-29); Chloride 103 mmol/L (96-108); Cholesterol 126 mg/dL; Estimated Glomerular Filt Rate > 60; Glucose Fasting 54 mg/dL (60-99); HDL Cholesterol 48 mg/dL; LDL Cholesterol Calculated 57 mg/dl; Potassium 4.8 mmol/L (3.3-5.1); Sodium 145 mmol/L (135-145); Total Protein 6.6 g/dL (6.5-8.0); Triglycerides 105 mg/dL
== END 2022-08-23 08:44 | disposition home or self-care (01) ==
LOC: HO.LAB 08:43
PROVIDERS: PCP Internal Medicine; Visit Provider Internal Medicine
DX: E11.65 Type 2 diabetes mellitus with hyperglycemia (principal); E78.5 Hyperlipidemia, unspecified
CPT/HCPCS: 36415; 80053; 80061; 82043

== ENCOUNTER 2022-12-24 07:56 | Outpatient (REF) | payer OTHER, SELFPAY ==
[2022-12-24 09:30] LABS: Creatinine Urine 166.56 mg/dL
[2022-12-24 09:32] LABS: Alanine Aminotransferase 12 U/L (0-31); Albumin Level 3.8 g/dL (3.5-5.0); Alkaline Phosphatase 118 U/L (39-117); Anion Gap 15 (12-20); Aspartate Amino Transferase 13 U/L (5-31); Bilirubin Total 0.3 mg/dL (0.0-1.0); Blood Urea Nitrogen 19 mg/dL (9-16); Calcium 9.3 mg/dL (8.4-10.2); Carbon Dioxide 30 mmol/L (22-29); Chloride 102 mmol/L (96-108); Cholesterol 170 mg/dL; Estimated Glomerular Filt Rate > 60; Glucose Fasting 143 mg/dL (60-99); HDL Cholesterol 40 mg/dL; LDL Cholesterol Calculated 99 mg/dl; Sodium 142 mmol/L (135-145); Total Protein 6.8 g/dL (6.5-8.0); Triglycerides 159 mg/dL
[2022-12-24 09:53] LABS: Vitamin D 25-OH Total 42.1 ng/mL (>30)
== END 2022-12-24 07:57 | disposition home or self-care (01) ==
LOC: HO.LAB 07:56
PROVIDERS: PCP Internal Medicine; Visit Provider Internal Medicine
DX: E11.42 Type 2 diabetes mellitus with diabetic polyneuropathy (principal); E78.5 Hyperlipidemia, unspecified; E55.9 Vitamin D deficiency, unspecified
CPT/HCPCS: 36415; 80053; 80061; 82043; 82306

== ENCOUNTER 2022-12-29 15:11 | Outpatient (REF) | payer OTHER, SELFPAY ==
--- NOTE | ~2022-12-29 | XR_ITS ---
EXAMINATION: XR CHEST CLINICAL INFORMATION: R05.9 - Cough, unspecified COMPARISON: Chest radiographs 08/16/2019, 08/05/2017; CT abdomen 12/12/2020. TECHNIQUE: 2 views of the chest were obtained. FINDINGS: The lungs are clear and there is no airspace consolidation or groundglass opacity. The costophrenic sulci are well-defined. There is mild prominence cardiopericardial silhouette similar to prior studies. There is epicardial areolar tissue on CT likely relating to the overall size. The hilar and mediastinal contours and visualized bony structures are stable. XR/XR chest 2V IMPRESSION: No acute intrathoracic disease.
--- NOTE | ~2022-12-29 | XR_ITS ---
EXAMINATION: XR LUMBOSACRAL SPINE CLINICAL INFORMATION: Left sciatica. COMPARISON: None TECHNIQUE: AP and lateral views of the lumbar spine and lateral view of the lumbosacral junction. FINDINGS: Vertebral body heights and alignment are normal. There is moderate disc space narrowing at L5-S1. The remaining disc spaces are well-maintained. No acute fracture or spondylolisthesis is seen. There is multi-level thoracolumbar spondylosis. The posterior elements are intact. There are aortic atherosclerotic calcifications. XR/XR lumbar spine 2-3V IMPRESSION: 1. There is moderate degenerative disc disease at L5-S1. 2. There is multi-level thoracolumbar spondylosis.
[2022-12-29 16:30] LABS: Influenza A PCR NEGATIVE (Negative); Influenza B PCR NEGATIVE (Negative); Resp Syncy Virus RNA Qual PCR NEGATIVE (Negative); SARS COV2 PCR INHOUSE NEGATIVE (Negative)
== END 2022-12-29 15:12 | disposition home or self-care (01) ==
LOC: HO.XRAY 15:11
PROVIDERS: PCP Internal Medicine; Visit Provider Internal Medicine
DX: Z20.822 Contact with and (suspected) exposure to COVID-19 (principal); R05.9 Cough, unspecified; M54.32 Sciatica, left side; R09.89 Other specified symptoms and signs involving the circulatory and respiratory systems
CPT/HCPCS: 0241U; 71046; 72100

== ENCOUNTER → 2023-01-19 13:13 | Outpatient (BNVA) | payer OTHER, SELFPAY | PROVIDERS: PCP Internal Medicine; Visit Provider Internal Medicine Pulmonary Disease | DX: G47.33 Obstructive sleep apnea (adult) (pediatric) (principal); E66.01 Morbid (severe) obesity due to excess calories; Z68.42 Body mass index [BMI] 45.0-49.9, adult; Z99.89 Dependence on other enabling machines and devices | CPT/HCPCS: 99212 ==

== ENCOUNTER 2023-01-31 14:30 | Outpatient (REF) | payer OTHER, SELFPAY ==
--- NOTE | ~2023-01-31 | MM_ITS ---
EXAMINATION: MM SCREENING DIGITAL BREAST TOMOSYNTHESIS, BILATERAL CLINICAL INFORMATION: Screening. Asymptomatic. Benign left stereotactic biopsy 12/29/2021 (fibroadenomatous change and calcifications). The lifetime risk of breast cancer based on the Tyrer-Cuzick Model is 2%. COMPARISON: Mammography: 12/29/2021, 12/25/2021, 12/19/2020, 05/12/2020 TECHNIQUE: Digital breast tomosynthesis is performed in both the craniocaudal and mediolateral oblique views along with computer-aided detection (CAD). Synthesized 2D images are generated from the tomosynthesis. Additional views are obtained: Right CC, left CC x2, bilateral MLO. FINDINGS: There are scattered areas of fibroglandular density (ACR BI-RADS breast composition Category b). There are no significant masses, abnormal calcifications, or other abnormalities. No architectural abnormality or developing density or significant change from prior studies. There is biopsy clip marker mid 9:00 left breast. The axilla and skin contours are unremarkable. MM/MM tomosynthesis screening BI IMPRESSION: No mammographic evidence of malignancy. ASSESSMENT: BI-RADS 1: Negative RECOMMENDATION: Routine annual mammography screening. This patient's information was entered into a reminder system with a target due date for their next mammogram.
== END 2023-01-31 14:31 | disposition home or self-care (01) ==
LOC: HO.MAMMO 14:30
PROVIDERS: Visit Provider Internal Medicine
DX: Z12.31 Encounter for screening mammogram for malignant neoplasm of breast (principal)
CPT/HCPCS: 77063; 77067

== ENCOUNTER 2023-02-21 13:00 | Outpatient (RCR) | payer OTHER, SELFPAY ==
--- NOTE | 2023-02-10 15:59 | MHC.PT.EP ---
[facility] [place] Office [place] Office [place] Office [address] Renard Araujo [address] [phone] F: [phone] F: [phone] F: [phone] F: [phone] Physical Therapy Plan of Care Date of Evaluation: Date of Surgery: N/A Diagnosis: intervertebral disc degeneration of lumbar region (RC) Assessment: pt is a 67 y/o female presenting to physical therapy w/ referring diagnosis of intervertebral disc degeneration. pt stated she has had PT in the past w/ little effect. She did not seem interested in education provided by this therapist. pt overall does not seem very motivated. Impairments include pain, decreased range of motion, decreased strength, impaired functional mobility, impaired postural awareness, and altered ambulation mechanics. pt is a poor candidate for skilled PT due to age, potential remediation of impairments, typical disease/condition progression and prognosis, comorbidities, and motivation. pt would benefit from skilled PT intervention to provide a tailored strengthening and stretching exercise program, functional training, gait training, postural re-training, neuromuscular re-education, modalities as needed for pain, equipment safety demonstration. Frequency and Duration: The patient will be seen 2x/wk for 3 wks Short Term Goals: pt will be I w/ HEP to promote self-management of condition. pt will use lumbar roll to promote neutral spine w/ seated ADLs. Long-Term Goals: pt will report a statistically significant improvement in self-reported outcome measure, LEFI, to promote return to PLOF. pt will demo proper sit<>stand mechanics x5 reps w/o verbal cueing. Treatment Plan: Modalities to reduce pain, spasms and effusion. Manual therapy to restore motion and function. Therapeutic exercise to improve strength and flexibility. Neuromuscular re-education for posture and balance. Therapeutic activities to return to functional activities of daily living. Electronically signed by: Gabriela Patino PT, DPT Please sign and return to therapist. Thank you for your referral.
--- NOTE | 2023-02-21 13:37 | MHC.PT.DC ---
[facility] [place] Office [place] Office [place] Office [address] Renard Araujo 140 [facility] [phone] F: [phone] F: [phone] F: [phone] F: [phone] Physical Therapy Discharge Report Diagnosis: intervertebral disc degeneration of lumbar region (RC) Date of Surgery: N/A Date of Evaluation: 02/10/23 Date of Discharge: 02/21/23 Treatments to Date: 3 Cancellations to Date: 0 No Shows to Date: 0 Discharge Status: Patient Elected to Stop Recommend MD Follow-up Discharge Summary: The patient expressed at the initial evaluation that she has tried physical therapy in the past with no relief. She did not want to participate in physical therapy this time but was encouraged to try some gentle therapeutic exercise. She was not motivated and refused to even try gentle seated exercises. She was educated that if she is not going to participate she will be discharged from physical therapy. She decided she does not wish to return to PT at this time. Please ensure the patient is willing to comply with recommendations from physical therapy before sending another referral. Electronically signed by: Gabriela Patino PT, DPT Please sign and return to therapist. Thank you for your referral.
== END 2023-02-21 13:37 | disposition home or self-care (01) ==
LOC: HO.PT 13:00
PROVIDERS: PCP Internal Medicine; Visit Provider Internal Medicine
DX: M51.36 Other intervertebral disc degeneration, lumbar region (principal)
CPT/HCPCS: 97110; 97162

== ENCOUNTER 2023-06-04 19:44 | Emergency (ER) | payer OTHER, SELFPAY ==
--- NOTE | ~2023-06-04 | XR_ITS ---
EXAMINATION: XR CHEST CLINICAL INFORMATION: Pain. COMPARISON: Chest radiograph 12/29/2022. TECHNIQUE: 2 views of the chest were obtained. FINDINGS: Stable prominence of the cardiomediastinal silhouette. Similar degree of mild diffuse interstitial thickening. No new focal airspace opacity, pleural effusion or pneumothorax. No acute osseous findings. The visualized upper abdomen is within normal limits. Thoracic spondylosis. XR/XR chest 2V IMPRESSION: No acute cardiopulmonary findings.
[2023-06-04 19:46] VITALS: BP 128/55; PULSE 82; RESP 19; TEMP 36.6; O2SAT 94; BMI 45.3
--- NOTE | 2023-06-04 19:46 | ECG_ITS ---
Test Reason : CHEST PAIN Blood Pressure : / mmHG Vent. Rate : 083 BPM Atrial Rate : 083 BPM P-R Int : 154 ms QRS Dur : 104 ms QT Int : 358 ms P-R-T Axes : 028 005 054 degrees QTc Int : 420 ms Normal sinus rhythm Cannot rule out Anterior infarct , age undetermined Abnormal ECG When compared with ECG of 04-MAY-2022 10:14, No significant change was found Referred By: Yoan Walker Electronically Signed By:Greg Sheth
--- NOTE | 2023-06-04 19:51 | ED_ITS ---
HPI - General Adult General Chief complaint: Chest Pain Stated complaint: chest pain Time Seen by Provider: 06/04/23 22:15 Source: patient, family and provider relations specialist Mode of arrival: ambulatory Limitations: no limitations History of Present Illness HPI narrative: 67-year-old female came in for evaluation of sternal chest pain for 3 days, pain started as intermittent for the 1st 2 days now the pain is constant patient feel it like dull aching pain in the midsternum pain is radiating to the left shoulder and left arm, pain is worse with taking a deep breath, no trauma to the chest, no recent travel, no lower extremity swelling or edema. Pain is not associated with shortness of breath or coughing, patient gets chest pain sporadically. Related Data Home Medications Medication Instructions Recorded Confirmed pen needle, diabetic 32 gauge x #50 ea 03/11/21 12/29/22 (BD Ultra-Fine Mary Lou Pen Needle) Previous Rx's Medication Instructions Recorded blood-glucose meter (OneTouch #1 ea 01/06/21 Verio Flex Start kit) nystatin 100,000 unit/gram topical 1 appl topical BID 30 days #60 02/03/21 powder grams lancets 28 gauge (TRUEplus Lancets) 33 gauge miscellaneous QID 30 days 05/05/21 #150 caps lisinopril 10 mg tablet 10 mg PO DAILY 90 days #90 tabs 10/07/21 insulin lispro 100 unit/mL 12 - 16 unit (0.12 - 0.16 mL) 02/10/22 subcutaneous pen (Humalog KwikPen subcut TID 30 days #15 mL (U-100) Insulin) blood sugar diagnostic (OneTouch #100 ea 06/02/22 Verio test strips) albuterol sulfate 2.5 mg/3 mL 2.5 mg (3 mL) inhalation Q6H PRN 09/24/22 (0.083 %) solution for nebulization bronchospasm 30 days #75 mL Ventolin HFA 90 mcg/actuation 2 puff inhalation Q6H PRN 01/19/23 aerosol inhaler (albuterol sulfate) shortness of breath or wheezing 30 days #8 grams amitriptyline 50 mg tablet 50 mg PO BEDTIME 90 days #90 tabs 01/19/23 montelukast 10 mg tablet 10 mg PO DAILY 90 days #90 tabs 01/31/23 pen needle, diabetic 32 gauge x #400 ea 01/31/23 5/32 (BD Mary Lou 2nd Gen Pen Needle) omeprazole 40 mg capsule,delayed 40 mg PO DAILY 90 days #90 caps 03/10/23 release naproxen 500 mg tablet 500 mg PO BID 90 days #180 tabs 03/17/23 insulin glargine U-300 conc 300 40 unit (0.1333 mL) subcut BEDTIME 05/02/23 unit/mL (3 mL) subcutaneous pen 30 days #3.999 mL (Toujeo Max U-300 SoloStar) metformin 1,000 mg tablet 1,000 mg PO BID 90 days #180 tabs 05/02/23 liraglutide 0.6 mg/0.1 mL (18 mg/3 1.8 mg (0.3 mL) subcut DAILY 30 05/30/23 mL) subcutaneous pen injector days #9 mL (Victoza 3-Kareem) simvastatin 20 mg tablet 20 mg PO DAILY 90 days #90 tabs 06/03/23 lisinopril 10 mg tablet 10 mg PO DAILY 90 days #90 tabs 06/17/23 Allergies Allergy/AdvReac Type Severity Reaction Status Date / Time codeine Allergy Intermediate fainting Verified 06/04/23 19:55 fish derived [FISH] Allergy Intermediate N&V, Verified 06/04/23 19:55 ABDOMEN DISTENDED, ANAPHYLAXIS Beef Containing Products Allergy Mild HIVES/STOMACH Verified 06/04/23 19:55 [BEEF CONTAINING PRODUCTS] ISSUES mayonnaise [MAYONNAISE] Allergy Mild HIVES Verified 06/04/23 19:55 Review of Systems Review of Systems: All other systems are reviewed and are negative Constitutional: Reports as per HPI and Reports no additional constitutional complaints Eyes: Reports as per HPI and Reports no additional eye complaints Reports system reviewed and no additional complaints, except as documented Cardiovascular: Reports as per HPI and Reports no additional cardiovascular complaints Respiratory: Reports as per HPI and Reports no additional respiratory complaints Gastrointestinal: Reports as per HPI and Reports no additional gastrointestinal complaints Genitourinary: Reports no additional female genitourinary complaints Musculoskeletal: Reports no additional musculoskeletal complaints Skin/Breast: Reports system reviewed and no additional complaints, except as docu Psychiatric: Reports no additional psychiatric complaints Endocrine: Reports no additional endocrine complaints Hematologic/Lymphatic: Reports no additional hematologic/lymphatic complaints Allergic/Immunologic: Reports no additional allergic/immunologic complaints Reports system reviewed and no additional complaints, except as documented and Reports Abnormal speech present [facility] Past Medical History Medical History Breast calcification, left Diabetes type 2, uncontrolled Diabetic polyneuropathy associated with type 2 diabetes mellitus Dyslipidemia GERD (gastroesophageal reflux disease) Hypertension longterm (current) use of insulin Mild non proliferative diabetic retinopathy Morbid obesity Osteopenia Palpitation Physical exam Postmenopausal Vitamin D deficiency Yeast dermatitis Surgical History History of appendectomy History of cholecystectomy History of surgery S/P LYNDA-BSO (total abdominal hysterectomy and bilateral salpingo-oophorectomy) Family History Family History Father Hypertension Diabetes CVD (cardiovascular disease) Mother No problems noted. Maternal Grandfather Prostate cancer Maternal Uncle Throat cancer Sister Ovary cancer Social History Social History Housing: Apartment Alcohol intake: never Patient Tobacco Use Status: Former Tobacco user Tobacco use type: Cigarette e-Cigarette/Vaping Use: Never Used Second Hand Smoke Exposure: No Advance Directives: No Advance Directives Information Provided: No service: No Current occupational status: disabled Cognitive needs: Yes Hearing needs: No Vision needs: Yes Physical Exam ED Vital Signs: Vital Signs - 24 hr 06/04/23 19:46 06/04/23 20:49 06/04/23 22:21 Temperature 98 F 99.0 F 98.7 F Pulse Rate 82 88 86 Respiratory Rate 19 15 17 Blood Pressure 128/55 L 117/48 L 117/48 L Pulse Oximetry 94 97 94 Oxygen Delivery Method Room Air Room Air Nasal Cannula Oxygen Flow Rate 2 BMI result Body Mass Index 45.3 Vital signs have been reviewed as appeared to be correct. Blood pressure normal. Heart rate normal. Respiration rate normal. Temperature normal. Oxygen saturation normal. Appearance: Alert. Oriented X3. No acute distress. Head: Normal external exam. Normocephalic. Atraumatic. No Nava signs noted. No raccoon eyes noted Eyes: PERRLA. EOMI. Conjunctiva and sclera normal. Eyelids normal. ENT: TM's Normal. Pharynx normal. Uvula midline. Moist mucous membranes. No trismus noted. No drooling noted. No muffled voice noted. Neck: Normal inspection. Neck supple. FROM. No adenopathy. Thyroid Normal. No meningeal signs. No neck mass noted. CVS: Normal heart rate and rhythm. Heart sound normal. No murmurs noted. Pulses normal throughout. Respiratory: No respiratory distress. Painless inspiration. Breath sounds normal. No wheezes/rales/rhonchi noted. Reproducible chest pain over the sternum. No accessory muscle usage noted or decreased air movement noted. Abdomen: Soft and nontender. Bowel sounds normal in all 4 quadrants. No distention noted. No organomegaly noted. No visible injury noted. Back: No CVA tenderness. Full range of motion noted. Skin: Skin warm and dry. Normal skin color. Normal skin turgor. No rashes/lesions/lacerations noted. Extremities: No lower extremity edema. Extremities exhibit normal range of motion. Extremities nontender. Neuro: Oriented X 3. Cranial nerve exam: II-XII are grossly intact No motor deficit. No sensory deficit. Reflexes normal. Course Course Course Narrative: RME- 67-year-old female presents for evaluation of chest pain that has been present for the last 2 days. Plan for labs, EKG, chest x-ray. Medications Administered Discontinued Medications Generic Name Dose Route Start Last Admin Trade Name Freq PRN Reason Stop Dose Admin Al Hydroxide/Mg Hydroxide 30 ml 06/04/23 22:46 06/04/23 23:13 Magnesium Hydrox/Alum Hydrox 30 Ml Oral.Susp PO 06/04/23 22:47 30 ml ONCE ONE Administration Oxycodone HCl 5 mg 06/04/23 22:45 06/04/23 23:13 Oxycodone Hcl Immed Release 5 Mg Tablet PO 06/04/23 22:46 5 mg ONCE ONE Administration Medical Decision Making Lab Data 06/04/23 20:16 06/04/23 20:16 Labs: Lab Results 06/04/23 06/04/23 06/04/23 Range/Units 20:16 20:16 20:16 WBC 11.4 H (4.8-10.8) X10*3/uL RBC 4.36 (4.20-5.50) X10*6/uL Hgb 11.7 L (12.0-16.0) g/dl Hct 37.6 (37.0-47.0) % MCV 86.2 (80.0-98.0) fL MCH 26.8 L (27.0-33.0) pg MCHC 31.1 (31.0-35.0) g/dl RDW 13.4 (11.0-16.0) % Plt Count 301 (160-400) X10*3/uL MPV 11.1 (9.4-12.3) fL Immature Gran % (Auto) 0.4 (0.0-0.4) % Neut % (Auto) 62.1 (45-73) % Lymph % (Auto) 29.4 (20-40) % [place] % (Auto) 5.3 (2-11) % Eos % (Auto) 2.4 (0-4) % Baso % (Auto) 0.4 (0-2) % Lymph # (Auto) 3.3 (1.2-4.9) X10*3/uL [place] # (Auto) 0.6 (0.1-1.2) X10*3/uL Eos # (Auto) 0.3 (0.0-0.4) X10*3/uL Baso # (Auto) 0.1 (0.0-0.2) X10*3/uL Abs Immat Gran (auto) 0.04 H (0.00-0.03) X10*3/uL Absolute Neuts (auto) 7.1 (2.0-8.3) x10*3/uL Absolute Nucleated RBC 0.000 (0.0-0.012) X10*3/uL Nucleated RBC % (auto) 0.0 (0.0-0.2) /100WBC PT 10.8 L (11.1-13.3) SEC INR 0.9 (0.9-1.1) APTT 32.3 (26.0-36.4) SEC D-Dimer High Sensitivty < 150 NG/ML Sodium 141 (135-145) mmol/L Potassium 4.8 (3.3-5.1) mmol/L Chloride 103 (96-108) mmol/L Carbon Dioxide 30 H (22-29) mmol/L Anion Gap 13 (12-20) BUN 14 (9-16) mg/dL Creatinine 0.94 (0.5-1.4) mg/dL Estim Creat Clear Calc 76.6 Estimated GFR 59 Random Glucose 181 H (60-115) mg/dL Calcium 9.9 D (8.4-10.2) mg/dL Total Bilirubin 0.2 (0.0-1.0) mg/dL AST 10 (5-31) U/L ALT 12 (0-31) U/L Alkaline Phosphatase 101 (39-117) U/L Troponin I High Sens (<3.5-17.0) ng/L Total Protein 7.1 (6.5-8.0) g/dL Albumin 3.7 (3.5-5.0) g/dL Lipase 17 (8-78) U/L 06/04/23 Range/Units 20:16 WBC (4.8-10.8) X10*3/uL RBC (4.20-5.50) X10*6/uL Hgb (12.0-16.0) g/dl Hct (37.0-47.0) % MCV (80.0-98.0) fL MCH (27.0-33.0) pg MCHC (31.0-35.0) g/dl RDW (11.0-16.0) % Plt Count (160-400) X10*3/uL MPV (9.4-12.3) fL Immature Gran % (Auto) (0.0-0.4) % Neut % (Auto) (45-73) % Lymph % (Auto) (20-40) % [place] % (Auto) (2-11) % Eos % (Auto) (0-4) % Baso % (Auto) (0-2) % Lymph # (Auto) (1.2-4.9) X10*3/uL [place] # (Auto) (0.1-1.2) X10*3/uL Eos # (Auto) (0.0-0.4) X10*3/uL Baso # (Auto) (0.0-0.2) X10*3/uL Abs Immat Gran (auto) (0.00-0.03) X10*3/uL Absolute Neuts (auto) (2.0-8.3) x10*3/uL Absolute Nucleated RBC (0.0-0.012) X10*3/uL Nucleated RBC % (auto) (0.0-0.2) /100WBC PT (11.1-13.3) SEC INR (0.9-1.1) APTT (26.0-36.4) SEC D-Dimer High Sensitivty NG/ML Sodium (135-145) mmol/L Potassium (3.3-5.1) mmol/L Chloride (96-108) mmol/L Carbon Dioxide (22-29) mmol/L Anion Gap (12-20) BUN (9-16) mg/dL Creatinine (0.5-1.4) mg/dL Estim Creat Clear Calc Estimated GFR Random Glucose (60-115) mg/dL Calcium (8.4-10.2) mg/dL Total Bilirubin (0.0-1.0) mg/dL AST (5-31) U/L ALT (0-31) U/L Alkaline Phosphatase (39-117) U/L Troponin I High Sens < 2.7 (<3.5-17.0) ng/L Total Protein (6.5-8.0) g/dL Albumin (3.5-5.0) g/dL Lipase (8-78) U/L Discharge Plan Discharge Clinical Impression: Atypical chest pain Patient Disposition: Home, Self-Care Instructions: Chest Pain (ED) Prescriptions: No Action (DME) blood-glucose meter [OneTouch Verio Flex Start] Kit See Rx Instructions .ROUTE .MEDSUPPLY Qty: 1 0RF Rx Instructions: Four times a day (DME) pen needle, diabetic [BD Ultra-Fine Mary Lou Pen Needle] 32 gauge x 5/32 needle See Rx Instructions .ROUTE .MEDSUPPLY Qty: 50 Rx Instructions: As directed 5 times a day lisinopril 10 mg tablet 10 mg PO DAILY 90 Days Qty: 90 3RF Hold Instructions: Dose Change (DME) OneTouch Verio test strips Strip See Rx Instructions .ROUTE .MEDSUPPLY Qty: 100 11RF Rx Instructions: Four times a day albuterol sulfate 2.5 mg /3 mL (0.083 %) solution for nebulization 2.5 mg inhalation Q6H PRN (Reason: bronchospasm) 30 Days Qty: 75 0RF albuterol sulfate [Ventolin HFA] 90 mcg/actuation HFA aerosol inhaler 2 puff inhalation Q6H PRN (Reason: shortness of breath or wheezing) 30 Days Qty: 8 1RF amitriptyline 50 mg tablet 50 mg PO BEDTIME 90 Days Qty: 90 3RF montelukast 10 mg tablet 10 mg PO DAILY 90 Days Qty: 90 3RF (DME) pen needle, diabetic [BD Mary Lou 2nd Gen Pen Needle] 32 gauge x 5/32 needle See Rx Instructions .MEDSUPPLY Qty: 400 4RF Rx Instructions: 5 times a day omeprazole 40 mg capsule,delayed release(DR/EC) 40 mg PO DAILY 90 Days Qty: 90 1RF naproxen 500 mg tablet 500 mg PO BID 90 Days Qty: 180 1RF metformin 1,000 mg tablet 1,000 mg PO BID 90 Days Qty: 180 2RF Toujeo Max U-300 SoloStar 300 unit/mL (3 mL) insulin pen 40 unit subcut BEDTIME 30 Days Qty: 3.999 4RF Victoza 3-Kareem 0.6 mg/0.1 mL (18 mg/3 mL) pen injector 1.8 mg subcut DAILY 30 Days Qty: 9 0RF simvastatin 20 mg tablet 20 mg PO DAILY 90 Days Qty: 90 0RF lisinopril 10 mg tablet 10 mg PO DAILY 90 Days Qty: 90 0RF nystatin 100,000 unit/gram powder 1 appl topical BID 30 Days Qty: 60 3RF lancets [TRUEplus Lancets] 28 gauge misc 33 gauge miscellaneous QID 30 Days Qty: 150 5RF insulin lispro [Humalog KwikPen Insulin] 100 unit/mL insulin pen 12 - 16 unit subcut TID 30 Days Qty: 15 6RF Referrals: Jojo Chand MD [Primary Care Provider] - Discharge Date/Time: 06/05/23 00:15
[2023-06-04 20:20] LABS: MANUAL DIFF FLAG NO
[2023-06-04 20:22] LABS: Basophils Absolute Auto 0.1 X10*3/uL (0.0-0.2); Basophils Percent Auto 0.4 % (0-2); Eosinophils Absolute Auto 0.3 X10*3/uL (0.0-0.4); Eosinophils Percent Auto 2.4 % (0-4); Hematocrit 37.6 % (37.0-47.0); Hemoglobin 11.7 g/dl (12.0-16.0); Imm Gran Abs Auto 0.04 X10*3/uL (0.00-0.03); Imm Gran Pct Auto 0.4 % (0.0-0.4); Lymphocytes Absolute Auto 3.3 X10*3/uL (1.2-4.9); Lymphocytes Percent Auto 29.4 % (20-40); Mean Corpuscular HGB Conc 31.1 g/dl (31.0-35.0); Mean Corpuscular Hemoglobin 26.8 pg (27.0-33.0); Mean Corpuscular Volume 86.2 fL (80.0-98.0); Mean Platelet Volume 11.1 fL (9.4-12.3); Monocytes Absolute Auto 0.6 X10*3/uL (0.1-1.2); Monocytes Percent Auto 5.3 % (2-11); Neutrophils Absolute Auto 7.1 x10*3/uL (2.0-8.3); Neutrophils Percent Auto 62.1 % (45-73); Platelet Count 301 X10*3/uL (160-400); Red Blood Count 4.36 X10*6/uL (4.20-5.50); Red Cell Distribution Width 13.4 % (11.0-16.0); White Blood Count 11.4 X10*3/uL (4.8-10.8)
[2023-06-04 20:37] LABS: Alanine Aminotransferase 12 U/L (0-31); Albumin Level 3.7 g/dL (3.5-5.0); Alkaline Phosphatase 101 U/L (39-117); Anion Gap 13 (12-20); Aspartate Amino Transferase 10 U/L (5-31); Bilirubin Total 0.2 mg/dL (0.0-1.0); Blood Urea Nitrogen 14 mg/dL (9-16); Calcium 9.9 mg/dL (8.4-10.2); Carbon Dioxide 30 mmol/L (22-29); Chloride 103 mmol/L (96-108); Creatinine Clr Calc Pharmacy 76.6; Estimated Glomerular Filt Rate 59; Glucose Random 181 mg/dL (60-115); Lipase 17 U/L (8-78); Potassium 4.8 mmol/L (3.3-5.1); Sodium 141 mmol/L (135-145); Total Protein 7.1 g/dL (6.5-8.0)
[2023-06-04 20:49] VITALS: BP 117/48; PULSE 88; RESP 15; TEMP 37.2; O2SAT 97
[2023-06-04 20:51] LABS: INTERNATIONAL NORM RATIO 0.9 (0.9-1.1); Prothrombin Time 10.8 SEC (11.1-13.3)
[2023-06-04 20:54] LABS: Partial Thromboplastin Time 32.3 SEC (26.0-36.4)
[2023-06-04 20:58] LABS: Troponin-I High Sensitivity < 2.7 ng/L (<3.5-17.0)
[2023-06-04 22:21] VITALS: BP 117/48; PULSE 86; RESP 17; TEMP 37.1; O2SAT 94
--- NOTE | 2023-06-04 22:45 | ED_ITS ---
HPI - Chest Pain General Chief Complaint: Chest Pain Stated Complaint: chest pain Time Seen by Provider: 06/04/23 22:15 Related Data Home Medications Medication Instructions Recorded Confirmed pen needle, diabetic 32 gauge x #50 ea 03/11/21 12/29/22 (BD Ultra-Fine Mary Lou Pen Needle) Previous Rx's Medication Instructions Recorded blood-glucose meter (OneTouch #1 ea 01/06/21 Verio Flex Start kit) nystatin 100,000 unit/gram topical 1 appl topical BID 30 days #60 02/03/21 powder grams lancets 28 gauge (TRUEplus Lancets) 33 gauge miscellaneous QID 30 days 05/05/21 #150 caps lisinopril 10 mg tablet 10 mg PO DAILY 90 days #90 tabs 10/07/21 insulin lispro 100 unit/mL 12 - 16 unit (0.12 - 0.16 mL) 02/10/22 subcutaneous pen (Humalog KwikPen subcut TID 30 days #15 mL (U-100) Insulin) blood sugar diagnostic (OneTouch #100 ea 06/02/22 Verio test strips) albuterol sulfate 2.5 mg/3 mL 2.5 mg (3 mL) inhalation Q6H PRN 09/24/22 (0.083 %) solution for nebulization bronchospasm 30 days #75 mL Ventolin HFA 90 mcg/actuation 2 puff inhalation Q6H PRN 01/19/23 aerosol inhaler (albuterol sulfate) shortness of breath or wheezing 30 days #8 grams amitriptyline 50 mg tablet 50 mg PO BEDTIME 90 days #90 tabs 01/19/23 montelukast 10 mg tablet 10 mg PO DAILY 90 days #90 tabs 01/31/23 pen needle, diabetic 32 gauge x #400 ea 01/31/23 (BD Mary Lou 2nd Gen Pen Needle) omeprazole 40 mg capsule,delayed 40 mg PO DAILY 90 days #90 caps 03/10/23 release naproxen 500 mg tablet 500 mg PO BID 90 days #180 tabs 03/17/23 lisinopril 10 mg tablet 10 mg PO DAILY 90 days #90 tabs 03/23/23 insulin glargine U-300 conc 300 40 unit (0.1333 mL) subcut BEDTIME 05/02/23 unit/mL (3 mL) subcutaneous pen 30 days #3.999 mL (Toujeo Max U-300 SoloStar) metformin 1,000 mg tablet 1,000 mg PO BID 90 days #180 tabs 05/02/23 liraglutide 0.6 mg/0.1 mL (18 mg/3 1.8 mg (0.3 mL) subcut DAILY 30 05/30/23 mL) subcutaneous pen injector days #9 mL (Victoza 3-Kareem) simvastatin 20 mg tablet 20 mg PO DAILY 90 days #90 tabs 06/03/23 Allergies Allergy/AdvReac Type Severity Reaction Status Date / Time codeine Allergy Intermediate fainting Verified 06/04/23 19:55 fish derived [FISH] Allergy Intermediate N&V, Verified 06/04/23 19:55 ABDOMEN DISTENDED, ANAPHYLAXIS Beef Containing Products Allergy Mild HIVES/STOMACH Verified 06/04/23 19:55 [BEEF CONTAINING PRODUCTS] ISSUES mayonnaise [MAYONNAISE] Allergy Mild HIVES Verified 06/04/23 19:55 PMFSH Past Medical History Medical History Breast calcification, left Diabetes type 2, uncontrolled Diabetic polyneuropathy associated with type 2 diabetes mellitus Dyslipidemia GERD (gastroesophageal reflux disease) Hypertension correction (current) use of insulin Mild non proliferative diabetic retinopathy Morbid obesity Osteopenia Palpitation Physical exam Postmenopausal Vitamin D deficiency Yeast dermatitis Surgical History History of appendectomy History of cholecystectomy History of surgery S/P LYNDA-BSO (total abdominal hysterectomy and bilateral salpingo-oophorectomy) Family History Family History Father Hypertension Diabetes CVD (cardiovascular disease) Mother No problems noted. Maternal Grandfather Prostate cancer Maternal Uncle Throat cancer Sister Ovary cancer Social History Social History Housing: Apartment Alcohol intake: never Patient Tobacco Use Status: Former Tobacco user Tobacco use type: Cigarette e-Cigarette/Vaping Use: Never Used Second Hand Smoke Exposure: No Advance Directives: No Advance Directives Information Provided: No service: No Current occupational status: disabled Cognitive needs: Yes Hearing needs: No Vision needs: Yes Physical Exam Vital Signs: Vital Signs: Last Vital Signs Temp 98.7 F 06/04/23 22:21 Pulse 86 06/04/23 22:21 Resp 17 06/04/23 22:21 BP 117/48 L 06/04/23 22:21 Pulse Ox 94 06/04/23 22:21 O2 Del Method Nasal Cannula 06/04/23 22:21 O2 Flow Rate 2 06/04/23 22:21 BMI result Body Mass Index 45.3 Vital signs have been reviewed as appeared to be correct. Blood pressure normal. Heart rate normal. Respiration rate normal. Temperature normal. Oxygen saturation normal. Appearance: Alert. Oriented X3. No acute distress. Head: Normal external exam. Normocephalic. Atraumatic. No Nava signs noted. No raccoon eyes noted Eyes: PERRLA. EOMI. Conjunctiva and sclera normal. Eyelids normal. ENT: TM's Normal. Pharynx normal. Uvula midline. Moist mucous membranes. No trismus noted. No drooling noted. No muffled voice noted. Neck: Normal inspection. Neck supple. FROM. No adenopathy. Thyroid Normal. No meningeal signs. No neck mass noted. CVS: Normal heart rate and rhythm. Heart sound normal. No murmurs noted. Pulses normal throughout. Respiratory: No respiratory distress. Painless inspiration. Breath sounds normal. No wheezes/rales/rhonchi noted. Chest nontender. No accessory muscle usage noted or decreased air movement noted. Abdomen: Soft and nontender. Bowel sounds normal in all 4 quadrants. No distention noted. No organomegaly noted. No visible injury noted. Back: No CVA tenderness. Full range of motion noted. Skin: Skin warm and dry. Normal skin color. Normal skin turgor. No rashe s/lesions/lacerations noted. Extremities: No lower extremity edema. Extremities exhibit normal range of motion. Extremities nontender. Neuro: Oriented X 3. Cranial nerve exam: II-XII are grossly intact No motor deficit. No sensory deficit. Reflexes normal. Course Course Course Narrative: Feels better after was given GI cocktail, oxycodone. Medications Administered Discontinued Medications Generic Name Dose Route Start Last Admin Trade Name Freq PRN Reason Stop Dose Admin Al Hydroxide/Mg Hydroxide 30 ml 06/04/23 22:46 06/04/23 23:13 Magnesium Hydrox/Alum Hydrox 30 Ml Oral.Susp PO 06/04/23 22:47 30 ml ONCE ONE Administration Oxycodone HCl 5 mg 06/04/23 22:45 06/04/23 23:13 Oxycodone Hcl Immed Release 5 Mg Tablet PO 06/04/23 22:46 5 mg ONCE ONE Administration Medical Decision Making Differential Diagnosis Differential Diagnoses: The differential diagnosis associated with the presentation includes (ACS, pulmonary embolism, pneumonia, pneumothorax, electrolyte abnormality, severe anemia.) Admission/Observation Consideration of admission/observation: Escalation of care including admission/observation considered Lab Data MDM Lab Attestation statement: I reviewed the patient's lab results. 06/04/23 20:16 06/04/23 20:16 Labs: Lab Results 06/04/23 06/04/23 06/04/23 Range/Units 20:16 20:16 20:16 WBC 11.4 H (4.8-10.8) X10*3/uL RBC 4.36 (4.20-5.50) X10*6/uL Hgb 11.7 L (12.0-16.0) g/dl Hct 37.6 (37.0-47.0) % MCV 86.2 (80.0-98.0) fL MCH 26.8 L (27.0-33.0) pg MCHC 31.1 (31.0-35.0) g/dl RDW 13.4 (11.0-16.0) % Plt Count 301 (160-400) X10*3/uL MPV 11.1 (9.4-12.3) fL Immature Gran % (Auto) 0.4 (0.0-0.4) % Neut % (Auto) 62.1 (45-73) % Lymph % (Auto) 29.4 (20-40) % [place] % (Auto) 5.3 (2-11) % Eos % (Auto) 2.4 (0-4) % Baso % (Auto) 0.4 (0-2) % Lymph # (Auto) 3.3 (1.2-4.9) X10*3/uL [place] # (Auto) 0.6 (0.1-1.2) X10*3/uL Eos # (Auto) 0.3 (0.0-0.4) X10*3/uL Baso # (Auto) 0.1 (0.0-0.2) X10*3/uL Abs Immat Gran (auto) 0.04 H (0.00-0.03) X10*3/uL Absolute Neuts (auto) 7.1 (2.0-8.3) x10*3/uL Absolute Nucleated RBC 0.000 (0.0-0.012) X10*3/uL Nucleated RBC % (auto) 0.0 (0.0-0.2) /100WBC PT 10.8 L (11.1-13.3) SEC INR 0.9 (0.9-1.1) APTT 32.3 (26.0-36.4) SEC D-Dimer High Sensitivty < 150 NG/ML Sodium 141 (135-145) mmol/L Potassium 4.8 (3.3-5.1) mmol/L Chloride 103 (96-108) mmol/L Carbon Dioxide 30 H (22-29) mmol/L Anion Gap 13 (12-20) BUN 14 (9-16) mg/dL Creatinine 0.94 (0.5-1.4) mg/dL Estim Creat Clear Calc 76.6 Estimated GFR 59 Random Glucose 181 H (60-115) mg/dL Calcium 9.9 D (8.4-10.2) mg/dL Total Bilirubin 0.2 (0.0-1.0) mg/dL AST 10 (5-31) U/L ALT 12 (0-31) U/L Alkaline Phosphatase 101 (39-117) U/L Troponin I High Sens (<3.5-17.0) ng/L Total Protein 7.1 (6.5-8.0) g/dL Albumin 3.7 (3.5-5.0) g/dL Lipase 17 (8-78) U/L 06/04/23 Range/Units 20:16 WBC (4.8-10.8) X10*3/uL RBC (4.20-5.50) X10*6/uL Hgb (12.0-16.0) g/dl Hct (37.0-47.0) % MCV (80.0-98.0) fL MCH (27.0-33.0) pg MCHC (31.0-35.0) g/dl RDW (11.0-16.0) % Plt Count (160-400) X10*3/uL MPV (9.4-12.3) fL Immature Gran % (Auto) (0.0-0.4) % Neut % (Auto) (45-73) % Lymph % (Auto) (20-40) % [place] % (Auto) (2-11) % Eos % (Auto) (0-4) % Baso % (Auto) (0-2) % Lymph # (Auto) (1.2-4.9) X10*3/uL [place] # (Auto) (0.1-1.2) X10*3/uL Eos # (Auto) (0.0-0.4) X10*3/uL Baso # (Auto) (0.0-0.2) X10*3/uL Abs Immat Gran (auto) (0.00-0.03) X10*3/uL Absolute Neuts (auto) (2.0-8.3) x10*3/uL Absolute Nucleated RBC (0.0-0.012) X10*3/uL Nucleated RBC % (auto) (0.0-0.2) /100WBC PT (11.1-13.3) SEC INR (0.9-1.1) APTT (26.0-36.4) SEC D-Dimer High Sensitivty NG/ML Sodium (135-145) mmol/L Potassium (3.3-5.1) mmol/L Chloride (96-108) mmol/L Carbon Dioxide (22-29) mmol/L Anion Gap (12-20) BUN (9-16) mg/dL Creatinine (0.5-1.4) mg/dL Estim Creat Clear Calc Estimated GFR Random Glucose (60-115) mg/dL Calcium (8.4-10.2) mg/dL Total Bilirubin (0.0-1.0) mg/dL AST (5-31) U/L ALT (0-31) U/L Alkaline Phosphatase (39-117) U/L Troponin I High Sens < 2.7 (<3.5-17.0) ng/L Total Protein (6.5-8.0) g/dL Albumin (3.5-5.0) g/dL Lipase (8-78) U/L Independent Interpretation I performed an independent interpretation of an: EKG (Normal sinus rhythm at 84 beats per minute, normal intervals, no ST-T changes, no change from previous EKG pr and) and Plain X-Ray (Chest: No acute intrathoracic pathology.) Radiology Impression Discussion of test interpretation with radiology: I have reviewed the radiologist's reading. Discharge Plan Discharge Clinical Impression: Atypical chest pain Patient Disposition: Home, Self-Care Instructions: Chest Pain (ED) Prescriptions: No Action (DME) blood-glucose meter [OneTouch Verio Flex Start] Kit See Rx Instructions .ROUTE .MEDSUPPLY Qty: 1 0RF Rx Instructions: Four times a day (DME) pen needle, diabetic [BD Ultra-Fine Mary Lou Pen Needle] 32 gauge x 5/32 needle See Rx Instructions .ROUTE .MEDSUPPLY Qty: 50 Rx Instructions: As directed 5 times a day lisinopril 10 mg tablet 10 mg PO DAILY 90 Days Qty: 90 3RF Hold Instructions: Dose Change (DME) OneTouch Verio test strips Strip See Rx Instructions .ROUTE .MEDSUPPLY Qty: 100 11RF Rx Instructions: Four times a day albuterol sulfate 2.5 mg /3 mL (0.083 %) solution for nebulization 2.5 mg inhalation Q6H PRN (Reason: bronchospasm) 30 Days Qty: 75 0RF albuterol sulfate [Ventolin HFA] 90 mcg/actuation HFA aerosol inhaler 2 puff inhalation Q6H PRN (Reason: shortness of breath or wheezing) 30 Days Qty: 8 1RF amitriptyline 50 mg tablet 50 mg PO BEDTIME 90 Days Qty: 90 3RF montelukast 10 mg tablet 10 mg PO DAILY 90 Days Qty: 90 3RF (DME) pen needle, diabetic [BD Mary Lou 2nd Gen Pen Needle] 32 gauge x 5/32 needle See Rx Instructions .MEDSUPPLY Qty: 400 4RF Rx Instructions: 5 times a day omeprazole 40 mg capsule,delayed release(DR/EC) 40 mg PO DAILY 90 Days Qty: 90 1RF naproxen 500 mg tablet 500 mg PO BID 90 Days Qty: 180 1RF lisinopril 10 mg tablet 10 mg PO DAILY 90 Days Qty: 90 0RF metformin 1,000 mg tablet 1,000 mg PO BID 90 Days Qty: 180 2RF Toujeo Max U-300 SoloStar 300 unit/mL (3 mL) insulin pen 40 unit subcut BEDTIME 30 Days Qty: 3.999 4RF Victoza 3-Kareem 0.6 mg/0.1 mL (18 mg/3 mL) pen injector 1.8 mg subcut DAILY 30 Days Qty: 9 0RF simvastatin 20 mg tablet 20 mg PO DAILY 90 Days Qty: 90 0RF nystatin 100,000 unit/gram powder 1 appl topical BID 30 Days Qty: 60 3RF lancets [TRUEplus Lancets] 28 gauge misc 33 gauge miscellaneous QID 30 Days Qty: 150 5RF insulin lispro [Humalog KwikPen Insulin] 100 unit/mL insulin pen 12 - 16 unit subcut TID 30 Days Qty: 15 6RF Referrals: Jojo Chand MD [Primary Care Provider] -
[2023-06-04 23:09] LABS: D Dimer High Sensitivity < 150 NG/ML
[2023-06-04] MEDS: Magnesium Hydrox/Alum Hydrox 30 ML ORAL.SUSP PO (23:13)
[2023-06-04] MEDS: oxyCODONE HCl Immed Release 5 MG TABLET PO (23:13)
[2023-06-05 00:14] VITALS: BP 124/46; PULSE 76; RESP 18; TEMP 37.2; O2SAT 93
== END 2023-06-05 00:15 | disposition home or self-care (01) ==
PROVIDERS: Physician Assistant; Emergency Provider Emergency Medicine; PCP Internal Medicine
DX: R07.89 Other chest pain (principal); I10 Essential (primary) hypertension; E11.9 Type 2 diabetes mellitus without complications; E78.5 Hyperlipidemia, unspecified; E66.01 Morbid (severe) obesity due to excess calories; Z68.42 Body mass index [BMI] 45.0-49.9, adult; Z79.4 Long term (current) use of insulin; Z79.899 Other long term (current) drug therapy
CPT/HCPCS: 36415; 71046; 80053; 83690; 84484; 85025; 85379; 85610; 85730; 93005; 99284

== ENCOUNTER → 2023-06-04 19:46 | Outpatient (BNV) | payer OTHER, SELFPAY | PROVIDERS: Emergency Provider Emergency Medicine; PCP Internal Medicine; Visit Provider Internal Medicine Cardiovascular Disease | DX: R94.31 Abnormal electrocardiogram [ECG] [EKG] (principal); R07.9 Chest pain, unspecified | CPT/HCPCS: 93010 ==

== ENCOUNTER 2023-08-01 21:44 | Emergency (ER) | payer OTHER, SELFPAY ==
[2023-08-01 22:18] VITALS: BP 142/57; PULSE 90; RESP 16; TEMP 36.4; O2SAT 92; BMI 44.9
[2023-08-01 23:02] LABS: Alanine Aminotransferase 9 U/L (0-31); Alkaline Phosphatase 112 U/L (39-117); Anion Gap 16 (12-20); Aspartate Amino Transferase 11 U/L (5-31); Bilirubin Total 0.3 mg/dL (0.0-1.0); Blood Urea Nitrogen 17 mg/dL (9-16); Calcium 9.5 mg/dL (8.4-10.2); Carbon Dioxide 25 mmol/L (22-29); Chloride 104 mmol/L (96-108); Creatinine Clr Calc Pharmacy 79.6; Estimated Glomerular Filt Rate > 60; Glucose Random 196 mg/dL (60-115); Potassium 4.2 mmol/L (3.3-5.1); Sodium 141 mmol/L (135-145); Total Protein 7.5 g/dL (6.5-8.0)
[2023-08-01 23:10] LABS: Troponin-I High Sensitivity < 2.7 ng/L (<3.5-17.0)
[2023-08-01 23:29] VITALS: BP 150/60; PULSE 76; PULSE 78; RESP 18; TEMP 37; O2SAT 91
--- NOTE | 2023-08-01 23:35 | ED.CHESTPAIN ---
HPI - Chest Pain General Chief Complaint: Chest Pain Stated Complaint: chest pain Time Seen by Provider: 08/01/23 23:29 Source: patient Mode of arrival: ambulatory Limitations: no limitations History of Present Illness HPI narrative: Patient with history of diabetes, dyslipidemia, hypertension, sleep apnea on CPAP and oxygen at night time comes in for midsternal chest pain sharp in character started at 20:00 while at rest with pain in the shoulder also pain increases on deep inspiration had similar pain in 06/15 workup was negative but patient never followed up with PCP or medical investigator for further workup Related Data Home Medications Medication Instructions Recorded Confirmed pen needle, diabetic 32 gauge x #50 ea 03/11/21 12/29/22 (BD Ultra-Fine Mary Lou Pen Needle) Previous Rx's Medication Instructions Recorded blood-glucose meter (OneTouch #1 ea 01/06/21 Verio Flex Start kit) nystatin 100,000 unit/gram topical 1 appl topical BID 30 days #60 02/03/21 powder grams lancets 28 gauge (TRUEplus Lancets) 33 gauge miscellaneous QID 30 days 05/05/21 #150 caps lisinopril 10 mg tablet 10 mg PO DAILY 90 days #90 tabs 10/07/21 albuterol sulfate 2.5 mg/3 mL 2.5 mg (3 mL) inhalation Q6H PRN 09/24/22 (0.083 %) solution for nebulization bronchospasm 30 days #75 mL Ventolin HFA 90 mcg/actuation 2 puff inhalation Q6H PRN 01/19/23 aerosol inhaler (albuterol sulfate) shortness of breath or wheezing 30 days #8 grams amitriptyline 50 mg tablet 50 mg PO BEDTIME 90 days #90 tabs 01/19/23 montelukast 10 mg tablet 10 mg PO DAILY 90 days #90 tabs 01/31/23 pen needle, diabetic 32 gauge x #400 ea 01/31/23 (BD Mary Lou 2nd Gen Pen Needle) omeprazole 40 mg capsule,delayed 40 mg PO DAILY 90 days #90 caps 03/10/23 release naproxen 500 mg tablet 500 mg PO BID 90 days #180 tabs 03/17/23 insulin glargine U-300 conc 300 40 unit (0.1333 mL) subcut BEDTIME 05/02/23 unit/mL (3 mL) subcutaneous pen 30 days #3.999 mL (Toujeo Max U-300 SoloStar) metformin 1,000 mg tablet 1,000 mg PO BID 90 days #180 tabs 05/02/23 simvastatin 20 mg tablet 20 mg PO DAILY 90 days #90 tabs 06/03/23 lisinopril 10 mg tablet 10 mg PO DAILY 90 days #90 tabs 06/17/23 insulin lispro 100 unit/mL 12 - 16 unit (0.12 - 0.16 mL) 06/23/23 subcutaneous pen (Humalog KwikPen subcut TID 30 days #15 mL (U-100) Insulin) blood sugar diagnostic (OneTouch #100 ea 07/26/23 Verio test strips) liraglutide 0.6 mg/0.1 mL (18 mg/3 1.8 mg (0.3 mL) subcut DAILY 30 08/01/23 mL) subcutaneous pen injector days #9 mL (Victoza 3-Kareem) Allergies Allergy/AdvReac Type Severity Reaction Status Date / Time codeine Allergy Intermediate fainting Verified 08/01/23 22:21 fish derived [FISH] Allergy Intermediate N&V, Verified 08/01/23 22:21 ABDOMEN DISTENDED, ANAPHYLAXIS Beef Containing Products Allergy Mild HIVES/STOMACH Verified 08/01/23 22:21 [BEEF CONTAINING PRODUCTS] ISSUES mayonnaise [MAYONNAISE] Allergy Mild HIVES Verified 08/01/23 22:21 Review of Systems Review of Systems: Yes all other systems are reviewed and are negative [facility] Past Medical History Medical History Breast calcification, left Diabetes type 2, uncontrolled Diabetic polyneuropathy associated with type 2 diabetes mellitus Dyslipidemia GERD (gastroesophageal reflux disease) Hypertension snf (current) use of insulin Mild non proliferative diabetic retinopathy Morbid obesity Osteopenia Palpitation Physical exam Postmenopausal Vitamin D deficiency Yeast dermatitis Surgical History History of appendectomy History of cholecystectomy History of surgery S/P LYNDA-BSO (total abdominal hysterectomy and bilateral salpingo-oophorectomy) Family History Family History Father Hypertension Diabetes CVD (cardiovascular disease) Mother No problems noted. Maternal Grandfather Prostate cancer Maternal Uncle Throat cancer Sister Ovary cancer Social History Social History Housing: Apartment Alcohol intake: never Patient Tobacco Use Status: Former Tobacco user Tobacco use type: Cigarette e-Cigarette/Vaping Use: Never Used Second Hand Smoke Exposure: No Advance Directives: No Advance Directives Information Provided: Yes service: No Current occupational status: disabled Cognitive needs: Yes Hearing needs: No Vision needs: Yes Physical Exam Vital Signs: Vital Signs: Last Vital Signs Temp 98.6 F 08/01/23 23:29 Pulse 78 08/01/23 23:29 Resp 18 08/01/23 23:29 BP 150/60 H 08/01/23 23:29 Pulse Ox 96 08/01/23 23:44 O2 Del Method Nasal Cannula 08/01/23 23:44 O2 Flow Rate 2 08/01/23 23:44 BMI result Body Mass Index 44.9 Appearance: Alert. Oriented X3. No acute distress. Eyes: No pallor or icterus ENT: Pharynx normal. Oral Mucosa moist Neck: Normal inspection. Neck supple. CVS: Normal heart rate and rhythm. Pulses normal. No murmur/rub or gallop, tenderness to lower mid chest Respiratory: No respiratory distress. Equal air entry bilateral, no wheezing/rales/rhonchi Abdomen: Soft and nontender. Bowel sounds are present, no mass palpable, no CVA tenderness Skin: Skin warm and dry. Normal skin color. Normal skin turgor. Extremities: No lower extremity edema. No calf tenderness Neuro: Oriented X 3. No motor deficit. Medications Administered Discontinued Medications Generic Name Dose Route Start Last Admin Trade Name Freq PRN Reason Stop Dose Admin Aspirin 162 mg 08/02/23 00:10 08/02/23 00:20 Aspirin 81 Mg Tab.Chew PO 08/02/23 00:11 162 mg ONCE ONE Administration Medical Decision Making Medical Decision Making [facility] Narrative: Patient has atypical chest pain with history of same 2 months ago with workup negative patient had normal EKG and normal troponin will repeat a troponin 2 hours re-evaluate meanwhile patient will receive aspirin Repeat troponin also negative vitals are stable discharge patient home advised to take aspirin daily and advised to follow-up with PCP for further evaluate Differential Diagnosis Differential Diagnoses: The differential diagnosis associated with the presentation includes ACS/atypical chest pain/costochondritis/musculoskeletal pain Lab Data [facility] Lab Attestation statement: I reviewed the patient's lab results. 08/01/23 22:38 08/01/23 22:38 Labs: Lab Results 08/01/23 08/02/23 Range/Units 22:38 00:28 WBC 11.8 H (4.8-10.8) X10*3/uL RBC 4.29 (4.20-5.50) X10*6/uL Hgb 11.5 L (12.0-16.0) g/dl Hct 37.0 (37.0-47.0) % MCV 86.2 (80.0-98.0) fL MCH 26.8 L (27.0-33.0) pg MCHC 31.1 (31.0-35.0) g/dl RDW 13.6 (11.0-16.0) % Plt Count 320 (160-400) X10*3/uL MPV 11.1 (9.4-12.3) fL Absolute Nucleated RBC 0.000 (0.0-0.012) X10*3/uL Nucleated RBC % (auto) 0.0 (0.0-0.2) /100WBC Sodium 141 (135-145) mmol/L Potassium 4.2 (3.3-5.1) mmol/L Chloride 104 (96-108) mmol/L Carbon Dioxide 25 (22-29) mmol/L Anion Gap 16 (12-20) BUN 17 H (9-16) mg/dL Creatinine 0.90 (0.5-1.4) mg/dL Estim Creat Clear Calc 79.6 Estimated GFR > 60 Random Glucose 196 H (60-115) mg/dL Calcium 9.5 (8.4-10.2) mg/dL Total Bilirubin 0.3 (0.0-1.0) mg/dL AST 11 (5-31) U/L ALT 9 (0-31) U/L Alkaline Phosphatase 112 (39-117) U/L Troponin I High Sens < 2.7 < 2.7 (<3.5-17.0) ng/L Total Protein 7.5 (6.5-8.0) g/dL Albumin 4.0 (3.5-5.0) g/dL Independent Interpretation I performed an independent interpretation of an: EKG Interpretation: Normal sinus rhythm heart rate 89 beats per minute normal interval normal axis no acute ST-T changes no acute ischemia Discharge Plan Discharge Clinical Impression: Atypical chest pain Patient Disposition: Home, Self-Care Instructions: Chest Pain (ED) Additional Instructions: Cause of your chest pain is not very clear, so far your blood workup is normal and your cardiogram is normal Take baby aspirin daily and follow with PCP for further evaluation Prescriptions: No Action (DME) blood-glucose meter [Basketball [place]Touch Verio Flex Start] Kit See Rx Instructions .ROUTE .MEDSUPPLY Qty: 1 0RF Rx Instructions: Four times a day (DME) pen needle, diabetic [BD Ultra-Fine Mary Lou Pen Needle] 32 gauge x 5/32 needle See Rx Instructions .ROUTE .MEDSUPPLY Qty: 50 Rx Instructions: As directed 5 times a day lisinopril 10 mg tablet 10 mg PO DAILY 90 Days Qty: 90 3RF Hold Instructions: Dose Change albuterol sulfate 2.5 mg /3 mL (0.083 %) solution for nebulization 2.5 mg inhalation Q6H PRN (Reason: bronchospasm) 30 Days Qty: 75 0RF albuterol sulfate [Ventolin HFA] 90 mcg/actuation HFA aerosol inhaler 2 puff inhalation Q6H PRN (Reason: shortness of breath or wheezing) 30 Days Qty: 8 1RF amitriptyline 50 mg tablet 50 mg PO BEDTIME 90 Days Qty: 90 3RF montelukast 10 mg tablet 10 mg PO DAILY 90 Days Qty: 90 3RF (DME) pen needle, diabetic [BD Mary Lou 2nd Gen Pen Needle] 32 gauge x 5/32 needle See Rx Instructions .MEDSUPPLY Qty: 400 4RF Rx Instructions: 5 times a day omeprazole 40 mg capsule,delayed release(DR/EC) 40 mg PO DAILY 90 Days Qty: 90 1RF naproxen 500 mg tablet 500 mg PO BID 90 Days Qty: 180 1RF metformin 1,000 mg tablet 1,000 mg PO BID 90 Days Qty: 180 2RF Toujeo Max U-300 SoloStar 300 unit/mL (3 mL) insulin pen 40 unit subcut BEDTIME 30 Days Qty: 3.999 4RF simvastatin 20 mg tablet 20 mg PO DAILY 90 Days Qty: 90 0RF lisinopril 10 mg tablet 10 mg PO DAILY 90 Days Qty: 90 0RF insulin lispro [Humalog KwikPen Insulin] 100 unit/mL insulin pen 12 - 16 unit subcut TID 30 Days Qty: 15 6RF (DME) OneTouch Verio test strips Strip See Rx Instructions .ROUTE .MEDSUPPLY Qty: 100 11RF Rx Instructions: Four times a day Victoza 3-Kareem 0.6 mg/0.1 mL (18 mg/3 mL) pen injector 1.8 mg subcut DAILY 30 Days Qty: 9 0RF nystatin 100,000 unit/gram powder 1 appl topical BID 30 Days Qty: 60 3RF lancets [TRUEplus Lancets] 28 gauge misc 33 gauge miscellaneous QID 30 Days Qty: 150 5RF
--- NOTE | 2023-08-01 23:43 | PC.NURSE ---
pt placed on 2L NC as pt reports sob; sats 91% on RA; unsure of baseline. pt reports intermitten o2 use at home. 2x attempts for IV placement; unable to at this time.
[2023-08-01 23:44] VITALS: O2SAT 96
--- NOTE | 2023-08-02 00:43 | PC.NURSE ---
pt medicated per dec. repeat troponin drawn and sent to lab.
== END 2023-08-02 01:46 | disposition home or self-care (01) ==
PROVIDERS: Emergency Provider Internal Medicine
DX: R07.89 Other chest pain (principal); G47.30 Sleep apnea, unspecified; Z87.891 Personal history of nicotine dependence; Z79.899 Other long term (current) drug therapy
CPT/HCPCS: 36415; 80053; 84484; 85027; 93005; 96374; 99284; 99285; J1885

== ENCOUNTER 2023-09-02 10:59 | Outpatient (AMB) | payer OTHER, SELFPAY ==
[2023-09-02 11:09] VITALS: BP 152/60; PULSE 91; O2SAT 92; BMI 44.4
--- NOTE | 2023-09-02 11:09 | MHC.PC.OV ---
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: Yes Fish Cutting Machine Operator Name: [email or web address] [id number] Information Interpreted: non-clinical & clinical Wing Commander: Not Required per policy Accompanied by: Self / Same As Patient Allergies codeine Allergy (Intermediate, Verified 09/02/23 11:38) fainting fish derived [FISH] Allergy (Intermediate, Verified 09/02/23 11:38) N&V, ABDOMEN DISTENDED, ANAPHYLAXIS Beef Containing Products [BEEF CONTAINING PRODUCTS] Allergy (Mild, Verified 09/02/23 11:38) HIVES/STOMACH ISSUES mayonnaise [MAYONNAISE] Allergy (Mild, Verified 09/02/23 11:38) HIVES Medication List - Last Reconciled 09/02/23 by RADHA Arias albuterol sulfate 2.5 mg (3 mL) inhalation Q6H PRN 30 days amitriptyline 50 mg PO BEDTIME 90 days blood sugar diagnostic (Studio BloomedTouch Verio test strips) Four times a day blood-glucose meter ([employer] BloomedTouch Verio Flex Start kit) Four times a day insulin glargine U-300 conc (Toujeo Max U-300 SoloStar) 40 units (0.1333 mL) subcut BEDTIME 30 days insulin lispro (Humalog KwikPen (U-100) Insulin) 12 - 16 units (0.12 - 0.16 mL) subcut TID 30 days lancets (TRUEplus Lancets) 33 gauge miscellaneous QID 30 days liraglutide (Victoza 3-Kareem) 1.8 mg (0.3 mL) subcut DAILY 30 days lisinopril 10 mg PO DAILY 90 days lisinopril 10 mg PO DAILY 90 days metformin 1,000 mg PO BID 90 days montelukast 10 mg PO DAILY 90 days naproxen 500 mg PO BID 90 days nystatin 1 appl topical BID 30 days omeprazole 40 mg PO DAILY 90 days pen needle, diabetic (BD Mary Lou 2nd Gen Pen Needle) 5 times a day pen needle, diabetic (BD Ultra-Fine Mary Lou Pen Needle) As directed 5 times a day simvastatin 20 mg PO DAILY 90 days Ventolin HFA 90 mcg/actuation (albuterol sulfate) 2 puffs inhalation Q6H PRN 30 days NS Tobacco use date assessed: 12/29/22 Fall risk assessment: 2 + Falls in past year Last assessed Fall Risk: 09/02/23 Dental Screening Dental Screen Date: 09/02/23 Did you have a dental visit in the last 12 months?: No Did you have a dental problem in the last 6 months where you did not have access to dental care?: No Was dental information given to patient?: Patient has dentist HPI HPI Comments History of Present Illness Details 68-year-old female PMH significant for type 2 DM, HTN, Vit D deficiency, GERD, QUIRINO and lumbar degenerative disc disease. Patient presents today for ER follow up from June for CP, troponin unremarkable, EKG: Normal sinus rhythm RSR' or QR pattern in V1 suggests right ventricular conduction delay,Intra-ventricular conduction delay, no significant changes from previous EKG. Patient reports she continues to experience chest pain every 3 days or stone patient states chest pain is a left-sided sharp feeling that lasts 5 seconds and then resolves. Patient states it occurs after cleaning and then when she stops to rest she feels the pain. Patient states she was recommended follow-up with PCP for stress test. Denies any chest pain at this time. 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 Maternal Grandfather Prostate cancer Maternal Uncle Throat cancer Sister Ovary cancer Social History Housing: Apartment Alcohol intake: never Patient Tobacco Use Status: Former Tobacco user Tobacco use type: Cigarette e-Cigarette/Vaping Use: Never Used Second Hand Smoke Exposure: No service: No Current occupational status: disabled Cognitive needs: Yes Hearing needs: No Vision needs: Yes Female Reproductive History Menstrual Age of Menarche: 13 Questionnaire PHQ-9 Over the last 2 weeks, how often have you been bothered by any of the following problems? 1. Little interest or pleasure in doing things: not at all 2. Feeling down, depressed, or hopeless: not at all 3. Trouble falling or staying asleep, or sleeping too much: not at all 4. Feeling tired or having little energy: not at all 5. Poor appetite or overeating: not at all 6. Feeling bad about yourself - or that you are a failure or have let yourself or your family down: not at all 7. Trouble concentrating on things, such as reading the newspaper or watching television: not at all 8. Moving or speaking so slowly that other people could have noticed. Or the opposite - being so fidgety or restless that you have been moving around a lot more than usual: not at all 9. Thoughts that you would be better off or of hurting yourself in some way: not at all Total score: 0 Depression Screening Interpretation: Negative Depression Screening Done: Yes [id number] - PHQ-9 Billing: Yes Source: Developed by Drs. Migue Coburn, Sixto Rothman and colleagues, with an educational pepito from [employer] Thrive Questionnaire Date Thrive assessed: 12/29/22 AUDIT C Alcohol Use Questionnaire (AUDIT-C) 1. How often do you have a drink containing alcohol?: Never Total Score: 0 SABRINA-7 AMB Questionnaire SABRINA-7 Date SABRINA - 7 assessed: 12/29/22 Source: Developed by Drs. Migue Coburn, Sixto Rothman and colleagues, with an educational pepito from [employer] Review of Systems Const Denies chills, Denies fatigue, Denies fever(s) and Denies poor appetite Eyes Denies no additional complaints ENT Reports Normal hearing present Card Denies chest pain, Denies syncope, Denies rapid heart rate and Denies dyspnea Resp Denies cough and Denies dyspnea GI Denies change in stool character, Denies constipation, Denies diarrhea, Denies nausea and Denies vomiting Denies urinary frequency, Denies dysuria and Denies urinary urgency Neuro Reports Normal hearing present, Denies confusion and Denies syncope Psych Denies confusion Endo Denies fatigue Physical exam (Primary Care) Vital Signs: Last Vital Signs Pulse 91 09/02/23 11:09 BP 152/60 H 09/02/23 11:09 Pulse Ox 92 09/02/23 11:09 Oxygen Delivery Method Room Air 09/02/23 11:09 BMI result Body Mass Index 44.4 Tobacco/Smoking Status: Tobacco use Status Tobacco use date assessed 12/29/22 09/02/23 11:10 Patient Tobacco Use Status Former Tobacco user 09/02/23 11:10 Tobacco use type Cigarette 09/02/23 11:10 e-Cigarette/Vaping Use Never Used 09/02/23 11:10 PHQ-9: PHQ-9 Score PHQ-9: Total score 0 09/02/23 12:20 Depression Screening Interpretation: Negative Thrive Assessment: Date of Thrive Assessment Date Thrive assessed 12/29/22 09/02/23 11:10 Const General: No confusion Orientation/consciousness: No confusion HENMT Head: Yes normocephalic and Yes atraumatic Eyes Conjunctivae: conjunctivae normal Chest Chest palpation & inspection: normal inspection of the chest Resp Effort & Inspection: normal respiratory effort Auscultation: clear to auscultation bilaterally, no crackles, no rhonchi and no wheezes Cardio Rate: regular rate Rhythm: regular rhythm Heart sounds: S1 normal heart sound present and S2 normal heart sound present GI Inspection: Yes normal to inspection Neuro General: No confusion Cranial nerves: Yes Normal hearing present Extrem General: No edema Assessment and Plan Assessment & Plan (1) Chest pain: Code(s): R07.9 - Chest pain, unspecified Plan: Stress disorder and referral entered to Cardiology for further evaluation. (2) Diabetes type 2, uncontrolled: Code(s): E11.65 - Type 2 diabetes mellitus with hyperglycemia Qualifiers: Glycemic state: with hyperglycemia Qualified Code(s): E11.65 - Type 2 diabetes mellitus with hyperglycemia Plan: Hemoglobin A1c and fasting glucose ordered. Continue on current medications (3) Hypertension: Code(s): I10 - Essential (primary) hypertension Qualifiers: Hypertension type: essential hypertension Qualified Code(s): I10 - Essential (primary) hypertension Plan: Continue on lisinopril 10 mg daily. Follow low-salt diet and exercise. Plan Follow-up with PCP in 3 months. Orders: Orders Hemoglobin A1c Today E11.65 - Type 2 diabetes mellitus with hyperglycemia Lipid Panel Today Z13.220 - Encounter for screening for lipoid disorders CA lexiscan stress w phillip Today R07.9 - Chest pain, unspecified Complete Blood Count Auto Diff Today Z13.0 - Encounter for screening for diseases of the blood and blood-forming organs and certain disorders involving the immune mechanism Comprehensive [place]. Panel Fast Today I10 - Essential (primary) hypertension TSH reflex Free T4 Today Z13.29 - Encounter for screening for other suspected endocrine disorder NM cardiolite stress test Today R07.9 - Chest pain, unspecified Referrals Cardiology Referral R07.9 - Chest pain, unspecified Coding Level of Care Code Est Pt Level 4 (63895) Diagnoses Chest pain R07.9 Uncontrolled type 2 diabetes mellitus with hyperglycemia E11.65 Glycemic state: with hyperglycemia Essential hypertension I10 Hypertension type: essential hypertension
== END 2023-09-02 11:47 | disposition home or self-care (01) ==
PROVIDERS: Visit Provider Nurse Practitioner Family
DX: R07.9 Chest pain, unspecified (principal); E11.65 Type 2 diabetes mellitus with hyperglycemia; I10 Essential (primary) hypertension
CPT/HCPCS: 99214

== ENCOUNTER 2023-09-23 09:43 | Outpatient (AMB) | payer OTHER, SELFPAY ==
[2023-09-23 09:45] VITALS: BP 142/74; PULSE 85; O2SAT 94; BMI 44.6
--- NOTE | 2023-09-23 09:45 | MHC.OFFVIS ---
Intake Vital Signs 09/23/23 09:45 Height 5 ft 5 in Weight 267 lb 13.786 oz BMI 44.6 BP 142/74 H Blood Pressure Location Rt brachial Position Sitting Pulse 85 Pulse Source Doppler Pulse Oximetry (%) 94 Oxygen Delivery Method Room Air Intake Visit Reasons: Pulm Clearance (Colonoscopy/Dr. 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 Sams) HPI Details 68-year-old lady with underlying morbid obesity followed for severe obstructive sleep apnea with respiratory event index of 60.? She continues to use CPAP therapy with good control of her underlying symptoms.? She denies any current pulmonary or sleep related concerns or complaints. Patient is scheduled for surveillance colonoscopy and pulmonary risk assessment was requested. 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 Maternal Grandfather Prostate cancer Maternal Uncle Throat cancer Sister Ovary cancer Social History Housing: Apartment Alcohol intake: never Patient Tobacco Use Status: Former Tobacco user Tobacco use type: Cigarette e-Cigarette/Vaping Use: Never Used Second Hand Smoke Exposure: No service: No Current occupational status: disabled Cognitive needs: Yes Hearing needs: No Vision needs: Yes Female Reproductive History Menstrual Age of Menarche: 13 Review of Systems Const Denies daytime sleepiness, Denies excessive sweating, Denies fatigue, Denies fever(s), Denies lethargy, Denies malaise, Denies night sweats, Denies snoring and Denies weight loss Eyes Denies blurry vision and Denies itchy eyes ENT Denies nasal congestion, Denies post nasal drip, Denies sinus pain, Denies sinus pressure and Denies other ( Thrush) Card Denies chest pain, Denies pedal edema, Denies dyspnea, Denies orthopnea and Denies paroxysmal nocturnal dyspnea Resp Denies cough, Denies hemoptysis, Denies excessive phlegm production, Denies dyspnea, Denies snoring and Denies wheezing GI Denies abdominal pain and Denies heartburn Musc Denies myalgias, Denies arthralgias and Denies joint swelling Skin/Breast Denies rash Neuro Denies memory loss and Denies seizure-like activity Psych Denies abnormal sleep pattern, Denies anxiety and Denies memory loss Endo Denies excessive sweating, Denies fatigue and Denies heat intolerance Bryce/Lymph Denies easy bruising Aller/Immun Denies itchy eyes, Denies seasonal rhinorrhea and Denies wheezing Physical Exam Vital Signs: Last Vital Signs Pulse 85 09/23/23 09:45 BP 142/74 H 09/23/23 09:45 Pulse Ox 94 09/23/23 09:45 Oxygen Delivery Method Room Air 09/23/23 09:45 BMI result Body Mass Index 44.6 Const General: no acute distress and alert Nutritional Appearance: obese Orientation/consciousness: Other orientation findings ( oriented) HEENT Head: Yes atraumatic Eyes General: appearance normal, both eyes and all related structures Sclerae: sclerae normal EOM: EOMs intact bilaterally Neck Neck: Yes supple Lymphatic: no lymphadenopathy noted Resp Effort & Inspection: normal respiratory effort and no use of accessory muscles Auscultation: clear to auscultation bilaterally Cardio Rate: regular rate Rhythm: regular rhythm Heart sounds: no gallops, no murmurs and no rubs Skin General skin exam: other ( warm) Extrem General: No clubbing, No cyanosis and No edema Assessment & Plan Assessment & Plan (1) Sleep apnea: Code(s): G47.30 - Sleep apnea, unspecified Plan: Well controlled on current CPAP therapy. Continue CPAP therapy. (2) Preop pulmonary/respiratory exam: Code(s): Z01.811 - Encounter for preprocedural respiratory examination Plan: Patient is at low risk for pulmonary preoperative complications for the proposed colonoscopy with a cavity at patient is likely to developed intraoperative hypoxia with sedation secondary to underlying severe QUIRINO, unless airway is secured with an LMA or ETT. Coding Level of Care Code Est Pt Level 4 (01533) Diagnoses Sleep apnea G47.30 Preop pulmonary/respiratory exam Z01.811
== END 2023-09-23 09:57 | disposition home or self-care (01) ==
PROVIDERS: PCP Internal Medicine; Visit Provider Internal Medicine Pulmonary Disease
DX: G47.30 Sleep apnea, unspecified (principal); Z01.811 Encounter for preprocedural respiratory examination
CPT/HCPCS: 99214

== ENCOUNTER → 2023-09-23 09:43 | Outpatient (BNVA) | payer OTHER, SELFPAY | PROVIDERS: PCP Internal Medicine; Visit Provider Internal Medicine Pulmonary Disease | DX: Z01.811 Encounter for preprocedural respiratory examination (principal); G47.30 Sleep apnea, unspecified | CPT/HCPCS: 99212 ==

== ENCOUNTER → 2023-10-25 10:10 | Outpatient (REF) | payer OTHER, SELFPAY ==
--- NOTE | 2023-10-25 10:14 | CA_ITS ---
Acquisition Time: 2023-10-25 10:39:03 Total Exercise Time: 00:02:00 Test Indications: CP, LBBB Medications: SEE H Protocol: LEXISCAN Max HR: 105 BPM 69% of Pred: 152 BPM Max BP: 140/070 mmHG Max Work Load: 1.1 METS Pharmacological stress test with Lexiscan injection while sitting and kicking her legs, without anginal symptoms, without arrhythmias, with normotensive response to injection, with nondiagnoisitic EKGs. Aminophylline 75mg IVP given to reverse Lexiscan. Nuclear images pending. Test reviewed with Dr. Sheth. Referred By: Elvia Villela Overread By: Shalini Méndez
== END ==
LOC: HO.CARD 10:10
PROVIDERS: PCP Nurse Practitioner Family; Visit Provider Nurse Practitioner Family
DX: R07.9 Chest pain, unspecified (principal)
CPT/HCPCS: 78452; 93017; A9500; J0280; J2785

== ENCOUNTER → 2023-10-25 10:14 | Outpatient (BNV) | payer OTHER, SELFPAY | PROVIDERS: PCP Nurse Practitioner Family; Visit Provider Nurse Practitioner | DX: R07.9 Chest pain, unspecified (principal) | CPT/HCPCS: 78452; 93016; 93018; 99291 ==

== ENCOUNTER 2023-11-29 13:14 | Outpatient (AMB) | payer OTHER, SELFPAY ==
--- NOTE | 2023-11-29 13:27 | MHC.OFFVIS ---
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/O'Sandra Intake Note: NPV Br[employer] Tube Bender Required: No Accompanied by: Son Allergies codeine Allergy (Intermediate, Verified 11/29/23 13:31) fainting fish derived [FISH] Allergy (Intermediate, Verified 11/29/23 13:31) N&V, ABDOMEN DISTENDED, ANAPHYLAXIS Beef Containing Products [BEEF CONTAINING PRODUCTS] Allergy (Mild, Verified 11/29/23 13:31) HIVES/STOMACH ISSUES mayonnaise [MAYONNAISE] Allergy (Mild, Verified 11/29/23 13:31) HIVES Medication List - Last Reconciled 11/29/23 by Eric Velazuqez MD albuterol sulfate 2.5 mg (3 mL) inhalation Q6H PRN 30 days amitriptyline 50 mg PO BEDTIME blood sugar diagnostic (S[employer] EnergyTouch Verio test strips) Four times a day blood-glucose meter ([employer] Verio Flex Start kit) Four times a day insulin glargine U-300 conc (Toujeo Max U-300 SoloStar) 40 units (0.1333 mL) subcut BEDTIME 30 days insulin lispro (Humalog KwikPen (U-100) Insulin) 12 - 16 units (0.12 - 0.16 mL) subcut TID 30 days lancets (TRUEplus Lancets) 33 gauge miscellaneous QID 30 days liraglutide (Victoza 3-Kareem) 1.8 mg (0.3 mL) subcut DAILY 30 days lisinopril 10 mg PO DAILY 90 days metformin 1,000 mg PO BID 90 days montelukast 10 mg PO DAILY 90 days naproxen 500 mg PO BID 90 days nystatin 1 appl topical BID 30 days omeprazole 40 mg PO DAILY 90 days pen needle, diabetic (BD Mary Lou 2nd Gen Pen Needle) 5 times a day pen needle, diabetic (BD Ultra-Fine Mary Lou Pen Needle) As directed 5 times a day simvastatin 20 mg PO DAILY 90 days Ventolin HFA 90 mcg/actuation (albuterol sulfate) 2 puffs inhalation Q6H PRN 30 days NS HPI HPI Comments History of Present Illness Details Pura is here for consultation regarding chest pains. She has been seen in the past for same reason and has undergone workup including coronary CTA. That did not reveal any significant findings. Patient states that she still gets chest pains off and on. Somewhat random and no specific patterns. Can happen any time. Nonexertional. No known cardiac issues like coronary disease myocardial infarction. She has repeated another stress test recently. 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 Maternal Grandfather Prostate cancer Maternal Uncle Throat cancer Sister Ovary cancer Social History Housing: Apartment Alcohol intake: never Patient Tobacco Use Status: Former Tobacco user Tobacco use type: Cigarette e-Cigarette/Vaping Use: Never Used Second Hand Smoke Exposure: No service: No Current occupational status: disabled Cognitive needs: Yes Hearing needs: No Vision needs: Yes Female Reproductive History Menstrual Age of Menarche: 13 Review of Systems Const Denies chills, Denies daytime sleepiness, Denies fatigue, Denies fever(s), Denies frequent falls, Denies night sweats, Denies snoring, Denies weakness, Denies weight gain and Denies weight loss Eyes Denies loss of vision ENT Denies dizziness and Denies hearing loss Card Denies chest pain, Denies chest pain with activity, Denies syncope, Denies rapid heart rate, Denies edema, Denies claudication, Denies leg edema, Denies lightheadedness and Denies orthopnea Resp Denies cough, Denies excessive phlegm production, Denies snoring and Denies wheezing GI Denies abdominal pain, Denies hematochezia, Denies change in bowel habits, Denies change in stool character, Denies heartburn, Denies nausea and Denies vomiting Denies hematuria, Denies urinary frequency and Denies dysuria Musc Denies arthralgias, Denies muscle weakness, Denies numbness and Denies tingling Skin/Breast Denies nail changes and Denies rash Neuro Denies Abnormal speech present, Denies dizziness, Denies syncope, Denies frequent falls, Denies loss of vision, Denies memory loss, Denies numbness, Denies tingling and Denies weakness Psych Denies depression and Denies memory loss Endo Denies fatigue Aller/Immun Denies wheezing Physical Exam Vital Signs: Last Vital Signs Pulse 92 11/29/23 13:30 BP 142/76 H 11/29/23 13:30 BMI result Body Mass Index 44.4 Const General: comfortable and no acute distress Orientation/consciousness: patient oriented x3 HEENT Other: Unremarkable Head: Yes normal to inspection Neck Neck: Yes normal visual inspection Chest Chest palpation & inspection: normal inspection of the chest Resp Auscultation: clear to auscultation bilaterally Cardio Palpation: normal PMI Heart sounds: S1 normal heart sound present, S2 normal heart sound present, no gallops, Murmur heart sound present systolic II/ and at the right sternal border and no rubs GI Palpation (GI): Soft to palpation Back/Spine/Pelvis Other: unremarkable Skin General skin exam: no rashes or lesions noted Neuro General: patient oriented x3 Speech: No Abnormal speech present Extrem General: Yes normal to inspection Psych Mental Status: mental status grossly normal Assessment & Plan Assessment & Plan (1) Chest pain: Code(s): R07.9 - Chest pain, unspecified (2) Morbid obesity: Code(s): E66.01 - Morbid (severe) obesity due to excess calories (3) Hypertension: Code(s): I10 - Essential (primary) hypertension Qualifiers: Hypertension type: essential hypertension Qualified Code(s): I10 - Essential (primary) hypertension (4) Diabetic polyneuropathy associated with type 2 diabetes mellitus: Code(s): E11.42 - Type 2 diabetes mellitus with diabetic polyneuropathy (5) Dyslipidemia: Code(s): E78.5 - Hyperlipidemia, unspecified Plan Atypical chest pain; multiple risk factors. EKG with sinus rhythm 89/Min; nonspecific interventricular conduction delay but no ischemic findings. Available high sensitivity troponins are unremarkable. Recent myocardial perfusion imaging study shows normal perfusion. She has had a prior perfusion imaging study from 2016 which was also normal. Coronary CTA from 2017 shows no significant CAD. Overall, no clear evidence of coronary etiology for symptoms. For the aortic sclerotic murmur, we will get an echocardiogram. Otherwise, reassurance only. Orders: Orders CA echo transthoracic complete Today I25.10 - Atherosclerotic heart disease of [place] coronary artery without angina pectoris Medications: Changed From amitriptyline 50 mg PO BEDTIME 90 days 90 tabs 3RF To amitriptyline 50 mg PO BEDTIME Coding Level of Care Code New Pt Level 3 (57199) Diagnoses Chest pain R07.9 Morbid obesity E66.01 Essential hypertension I10 Hypertension type: essential hypertension Diabetic polyneuropathy associated with type 2 diabetes mellitus E11.42 Dyslipidemia E78.5
[2023-11-29 13:30] VITALS: BP 142/76; PULSE 92; BMI 44.4
== END 2023-11-29 14:32 | disposition home or self-care (01) ==
PROVIDERS: PCP Nurse Practitioner Family; Visit Provider Internal Medicine
DX: R07.9 Chest pain, unspecified (principal); E66.01 Morbid (severe) obesity due to excess calories; I10 Essential (primary) hypertension; E11.42 Type 2 diabetes mellitus with diabetic polyneuropathy; E78.5 Hyperlipidemia, unspecified
CPT/HCPCS: 99203

== ENCOUNTER → 2023-11-29 13:14 | Outpatient (BNVA) | payer OTHER, SELFPAY | PROVIDERS: PCP Nurse Practitioner Family; Visit Provider Internal Medicine | DX: R07.9 Chest pain, unspecified (principal); I10 Essential (primary) hypertension; E11.42 Type 2 diabetes mellitus with diabetic polyneuropathy; E78.5 Hyperlipidemia, unspecified; E66.01 Morbid (severe) obesity due to excess calories; Z68.41 Body mass index [BMI] 40.0-44.9, adult | CPT/HCPCS: 99202 ==

== ENCOUNTER → 2023-12-20 12:37 | Outpatient (REF) | payer OTHER, SELFPAY ==
--- NOTE | 2023-12-20 12:39 | CA_ITS ---
Transthoracic Echocardiogram Patient (Last, First, Middle): Pura Gamboa, Gender: Female Date of : 1955 Age: 68 Procedure Date: 12/20/2023 Procedure Type: Transthoracic Echocardiogram Location: OP Height: 165.1 cm Weight: 126.1 kg BSA: 2.28 m2 Heart Rate: bpm BP: 132 / 80 mmHg Public Health Outreach Worker: Referring MD: Eric Velazquez MD Symptoms: I25.10 - Atherosclerotic heart disease of [place] coronary artery without... Study Quality: Fair ECG Rhythm: Sinus Conclusions: - The left ventricular systolic function is normal. The calculated ejection fraction is 63% by biplane method. - There is mild aortic valve stenosis. Findings Left Ventricle Normal left ventricular cavity size. There is mildly increased left ventricular wall thickness. The left ventricular systolic function is normal. The calculated ejection fraction is 63% by biplane method. There is no evidence of regional wall motion abnormalities. Diastolic function is normal for age. Right Ventricle Mildly increased right ventricular cavity size. There is normal right ventricular systolic function. Atria Both atria are normal in size. Aortic Valve There is mild calcification of the aortic valve. There is mild aortic valve stenosis. There is no aortic valve regurgitation. Mitral Valve The mitral valve appears normal. There is no mitral valve regurgitation. There is no mitral valve stenosis. Pulmonic Valve The pulmonic valve is likely normal. Tricuspid Valve There is trace tricuspid valve regurgitation. There is no evidence of pulmonary hypertension. Great Vessels The asc aorta is normal in size. Venous The inferior vena cava is normal in size and collapses greater than 50% with inspiration. Pericardium/Pleural There is no evidence of pericardial effusion. Prior Study Comparison Changes noted compared to prior study dated: 12/11/2015. Mild aortic stenosis noted. Measurements 2D Linear Measurements IVSd: 1.26 0.6-0.9/0.6-1.0 cm LVIDd: 5.18 3.9-5.3/4.2-5.9 cm LVIDd Index: 2.27 2.4-3.2/2.2-3.1 cm/m2 LVIDs: 2.97 2.0-3.6 cm LVPWd: 1.26 0.7-1.1 cm Ao Root: 3.30 2.1-3.5 cm LA Diam: 3.80 2.7-3.8/3.0-4.0 cm LAIDs Index: 1.67 1.5-2.3 cm/m2 LV Mass: 330.24 67-162/88-224 g LV Mass Index: 144.84 43-95/49-115 g/m2 LVOT Diam: 2.30 3.0+(-)1.3 cm 2D Systolic Function EF 4C: 65.90 >55% EF 2C: 59.60 >55% EF BiP: 62.80 >55% Mitral Valve MV Pk E: 0.49 MV PK A: 0.67 MV Decel Time: 128.00 E/A: 0.70 E'Lateral: 8.70 E'Medial: 5.44 E/E' Med: 9.10 E/E' Lat: 5.70 PHT: 37.00 MVA PHT: 5.95 Decel Gem: 3.85 Aortic Valve AoV Pk Victor Hugo: 2.38 AoV Mn Victor Hugo: 1.48 AoV VTI: 0.50 AoV Pk Grad: 23.00 Aov Mn Grad: 11.00 LYDIA Cont.VTI: 1.92 LVOT LVOT Pk Victor Hugo: 1.15 LVOT Mn Victor Hugo: 0.72 LVOT VTI: 0.23 LVOT Pk Grad: 5.00 LVOT Mn Grad: 3.00 LVOT Diam: 2.30 LVOT Area: 4.15 Diastolic Function MV Pk E: 0.49 MV Pk A: 0.67 E/A: 0.70 E'Medial: 5.44 E/E' Med: 9.10 E' Laterial: 8.70 E/E' Lat: 5.70 Right Ventricle TAPSE (mm): 29.00 TVS' Victor Hugo: 12.00 Tricuspid Valve TR Pk Victor Hugo: 2.23 TR Pk Grad: 20.00 RA Press: 3.00 RVSP: 23.00 Great Vessels Aorta Ao Root-2D: 3.30 2.0-3.7 cm Ao Asc: 3.50 2.1-3.4 cm Pulmonary Valve PV Pk Victor Hugo: 1.34 Peak PV Grad: 7.00 Updated in Other Vendor System with Status of Final Eric Velazquez MD electronically signed on 12/21/2023 9:27:54 AM with status of Final
== END ==
LOC: HO.CARD 12:37
PROVIDERS: PCP Nurse Practitioner Family; Visit Provider Internal Medicine
DX: I25.10 Atherosclerotic heart disease of native coronary artery without angina pectoris (principal)
CPT/HCPCS: 93306

== ENCOUNTER → 2023-12-20 12:39 | Outpatient (BNV) | payer OTHER, SELFPAY | PROVIDERS: PCP Nurse Practitioner Family; Visit Provider Internal Medicine | DX: I25.10 Atherosclerotic heart disease of native coronary artery without angina pectoris (principal) | CPT/HCPCS: 93306 ==

== ENCOUNTER 2024-01-04 14:18 | Outpatient (AMB) | payer OTHER, SELFPAY ==
[2024-01-04 14:41] VITALS: BP 136/72; BMI 44.6
--- NOTE | 2024-01-04 14:41 | MHC.PC.OV ---
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 Required: No Accompanied by: Self / Same As Patient Allergies codeine Allergy (Intermediate, Verified 01/04/24 15:07) fainting fish derived [FISH] Allergy (Intermediate, Verified 01/04/24 15:07) N&V, ABDOMEN DISTENDED, ANAPHYLAXIS Beef Containing Products [BEEF CONTAINING PRODUCTS] Allergy (Mild, Verified 01/04/24 15:07) HIVES/STOMACH ISSUES mayonnaise [MAYONNAISE] Allergy (Mild, Verified 01/04/24 15:07) HIVES Medication List - Last Reconciled 01/04/24 by Jojo Alcantar MD albuterol sulfate 2.5 mg (3 mL) inhalation Q6H PRN 30 days amitriptyline 50 mg PO BEDTIME blood sugar diagnostic (Playground SessionsTouch Verio test strips) Four times a day blood-glucose meter (Playground Sessions[employer] Verio Flex Start kit) Four times a day insulin glargine U-300 conc (Toujeo Max U-300 SoloStar) 40 units (0.1333 mL) subcut BEDTIME 30 days insulin lispro (Humalog KwikPen (U-100) Insulin) 12 - 16 units (0.12 - 0.16 mL) subcut TID 30 days lancets (TRUEplus Lancets) 33 gauge miscellaneous QID 30 days lisinopril 10 mg PO DAILY 90 days metformin 1,000 mg PO BID 90 days montelukast 10 mg PO DAILY 90 days naproxen 500 mg PO BID 90 days nystatin 1 appl topical BID 30 days omeprazole 40 mg PO DAILY 90 days pen needle, diabetic (BD Mary Lou 2nd Gen Pen Needle) 5 times a day pen needle, diabetic (BD Ultra-Fine Mary Lou Pen Needle) As directed 5 times a day simvastatin 20 mg PO DAILY 90 days tirzepatide (Mounjaro) 2.5 mg (0.5 mL) subcut QWEEK 4 weeks Ventolin HFA 90 mcg/actuation (albuterol sulfate) 2 puffs inhalation Q6H PRN 30 days NS Tobacco use date assessed: 01/04/24 Fall risk assessment: No Falls in past year Last assessed Fall Risk: 01/04/24 Dental Screening Dental Screen Date: 01/04/24 Did you have a dental visit in the last 12 months?: Yes Did you have a dental problem in the last 6 months where you did not have access to dental care?: No Was dental information given to patient?: Patient has dentist HPI HPI Comments History of Present Illness Details This is a 68-year-old female with diabetes mellitus type 2 on long-term current use of insulin and morbid obesity that comes for her physical exam. A1c elevated and I will increase Toujeo from 40 units to 45 units. She will start Mounjaro this week. Diabetic eye exam was close to a year ago when she already has an appointment for this year. Mammogram done 2022. Bone density done 2021. Colonoscopy done 2016 and require another colonoscopy this year but she said that it was canceled and I told her to call them again. No chest pain or shortness of breath. She is morbidly obese with a BMI of 44.6 and declines weight loss surgery. Was advised to do diet and exercise to lose weight. 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 Maternal Grandfather Prostate cancer Maternal Uncle Throat cancer Sister Ovary cancer Social History Housing: Apartment Alcohol intake: never Patient Tobacco Use Status: Former Tobacco user Tobacco use type: Cigarette e-Cigarette/Vaping Use: Never Used Second Hand Smoke Exposure: No service: No Current occupational status: disabled Cognitive needs: Yes Hearing needs: No Vision needs: Yes Female Reproductive History Menstrual Age of Menarche: 13 Questionnaire PHQ-9 Over the last 2 weeks, how often have you been bothered by any of the following problems? 1. Little interest or pleasure in doing things: not at all 2. Feeling down, depressed, or hopeless: not at all 3. Trouble falling or staying asleep, or sleeping too much: not at all 4. Feeling tired or having little energy: not at all 5. Poor appetite or overeating: not at all 6. Feeling bad about yourself - or that you are a failure or have let yourself or your family down: not at all 7. Trouble concentrating on things, such as reading the newspaper or watching television: not at all 8. Moving or speaking so slowly that other people could have noticed. Or the opposite - being so fidgety or restless that you have been moving around a lot more than usual: not at all 9. Thoughts that you would be better off or of hurting yourself in some way: not at all Total score: 0 Depression Screening Interpretation: Negative Depression Screening Done: Yes 67025 - PHQ-9 Billing: Yes Source: Developed by Drs. Migue Coburn, Mone Whatley, Sixto Lynne and colleagues, with an educational pepito from [employer]. Thrive Questionnaire Date Thrive assessed: 01/04/24 I am a: Patient What is your living situation today?: I have a steady place to live Within the past 12 months, did the food you bought not last and you didn't have the money to get more?: Never true Within the past 12 months, did you worry whether your food would run out before you got money to buy more?: Never true Do you have trouble paying for medicines?: No Do you have trouble getting transportation to medical appointments?: No Do you have trouble paying your heating and electricity bill?: No Do you have trouble taking care of your child, family member or friend?: No Do you have trouble with day-to-day activities such as bathing, preparing meals, shopping, managing finances, etc.?: No Are you currently unemployed and looking for a job?: No Are you interested in more education?: No Please select the resources that you would like help with: None Currently or been in a relationship where the following occur: no concerns reported THRIVE Score: 0 AUDIT C Alcohol Use Questionnaire (AUDIT-C) 1. How often do you have a drink containing alcohol?: Never Total Score: 0 Score Reviewed/Action Taken: No SABRINA-7 AMB Questionnaire SABRINA-7 Date SABRINA - 7 assessed: 01/04/24 Feeling nervous, anxious, or on edge: 0 = Not at all Not being able to stop or control worryin = Not at all Worrying too much about different things: 0 = Not at all Trouble relaxin = Not at all Being so restless that it is hard to sit still: 0 = Not at all Becoming easily annoyed or irritable: 0 = Not at all Feeling afraid as if something awful might happen: 0 = Not at all Total SABRINA-7 score (0-4 normal; 5-9 mild; 10-14 moderate; 15-21 severe): 0 Source: Developed by Drs. Migue Coburn, Mone Whatley, Sixto Lynne and colleagues, with an educational pepito from [employer]. Review of Systems Const All systems reviewed & are unremarkable except as noted in HPI and below Eyes Reports no additional complaints, Denies change in vision and Denies other visual disturbances Card Denies chest pain at rest, Denies chest pain with activity, Denies edema, Denies irregular heart rhythm, Denies claudication, Denies dyspnea, Denies dyspnea on exertion, Denies orthopnea, Denies paroxysmal nocturnal dyspnea and Denies slow heart rate Resp Denies cough, Denies dyspnea and Denies dyspnea on exertion GI Denies abdominal pain, Denies change in bowel habits, Denies excessive flatus, Denies nausea and Denies vomiting Denies urinary incontinence, Denies urinary hesitancy and Denies urinary urgency Musc Denies abnormal gait, Denies atrophy, Denies deformity and Denies limited range of motion Skin/Breast Denies bleeding lesions, Denies changing lesions and Denies rash Neuro Denies abnormal gait and Denies lack of coordination Physical exam (Primary Care) Vital Signs: Last Vital Signs BP 136/72 01/04/24 14:41 BMI result Body Mass Index 44.6 Tobacco/Smoking Status: Tobacco use Status Tobacco use date assessed 01/04/24 01/04/24 14:46 Patient Tobacco Use Status Former Tobacco user 01/04/24 14:46 Tobacco use type Cigarette 01/04/24 14:46 e-Cigarette/Vaping Use Never Used 01/04/24 14:46 PHQ-9: PHQ-9 Score PHQ-9: Total score 0 01/04/24 14:46 Depression Screening Interpretation: Negative Thrive Assessment: Date of Thrive Assessment Date Thrive assessed 01/04/24 01/04/24 14:46 Currently or been in a relationship where the following occur: no concerns reported Const Orientation/consciousness: patient oriented x3 HENMT Head: Yes normal to inspection, Yes normocephalic and Yes atraumatic Ears: external ears normal Eyes General: appearance normal, both eyes and all related structures Eyelids: Yes eyelids normal Conjunctivae: conjunctivae normal Neck Neck: Yes normal visual inspection and Yes supple Resp Effort & Inspection: normal respiratory effort Auscultation: clear to auscultation bilaterally Cardio Jugular venous distension: no JVD Rate: regular rate Rhythm: regular rhythm Heart sounds: S1 normal heart sound present and S2 normal heart sound present GI Inspection: Yes normal to inspection Palpation (GI): Soft to palpation and nontender Auscultation: normal bowel sounds Skin General skin exam: no rashes or lesions noted Neuro General: patient oriented x3 and no focal motor deficits Extrem General: Yes full ROM Psych Appearance: grossly normal Results AMB Hemoglobin A1c AMB Hemoglobin A1c 9.2 % Last Edit by JOSSELYN Friedman on 01/04/24 14:48 Results Reviewed Results Reviewed: Laboratory Last Values Hgb A1c (Clinic) 9.2 % (4.0-6.0) H 01/04/24 14:38 Assessment and Plan Assessment & Plan (1) Physical exam: Code(s): Z00.00 - Encounter for general adult medical examination without abnormal findings Plan: Repeat in a year. 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 Start Mounjaro. A1c goal is equal or less than 7%. (3) Morbid obesity: Code(s): E66.01 - Morbid (severe) obesity due to excess calories Plan: Start diet and exercise. BMI goal is less than 30. Orders: Orders XR DEXA axial skeleton Today N95.9 - Unspecified menopausal and perimenopausal disorder AMB Hemoglobin A1c Today E11.9 - Type 2 diabetes mellitus without complications, Z79.4 - longterm (current) use of insulin Complete Blood Count Auto Diff Today D64.9 - Anemia, unspecified IRON PROFILE Today D64.9 - Anemia, unspecified Lipid Panel Today E78.5 - Hyperlipidemia, unspecified Microalbumin, Random (w Creat) Today E11.9 - Type 2 diabetes mellitus without complications Vitamin D 25-OH Total Today E55.9 - Vitamin D deficiency, unspecified Comprehensive [place]. Panel Fast Today E11.9 - Type 2 diabetes mellitus without complications, Z79.4 - longterm (current) use of insulin Medications: Changed From insulin glargine U-300 conc (Toujeo Max U-300 SoloStar) 40 units (0.1333 mL) subcut BEDTIME 30 days 3.999 mL 4RF E11.65 - Type 2 diabetes mellitus with hyperglycemia To insulin glargine U-300 conc (Toujeo Max U-300 SoloStar) 45 units (0.15 mL) subcut BEDTIME 30 days 4.5 mL 4RF E11.65 - Type 2 diabetes mellitus with hyperglycemia Refilled albuterol sulfate 2.5 mg (3 mL) inhalation Q6H 30 days PRN 75 mL 0RF bronchospasm Ventolin HFA 90 mcg/actuation (albuterol sulfate) 2 puffs inhalation Q6H 30 days PRN 8 grams 1RF shortness of breath or wheezing NS Coding Level of Care Code Est Pt Prev Care >65y(82147) Diagnoses Physical exam Z00.00 Diabetes mellitus, with long-term current use of insulin E11.9; Z79.4 Morbid obesity E66.01 Time Spent (min) 36
== END 2024-01-04 15:18 | disposition home or self-care (01) ==
PROVIDERS: Visit Provider Internal Medicine
DX: Z00.00 Encounter for general adult medical examination without abnormal findings (principal); E11.65 Type 2 diabetes mellitus with hyperglycemia; E66.01 Morbid (severe) obesity due to excess calories; Z68.41 Body mass index [BMI] 40.0-44.9, adult; Z79.4 Long term (current) use of insulin
CPT/HCPCS: 83036; 99397

== ENCOUNTER 2024-01-25 11:09 | Outpatient (REF) | payer OTHER, SELFPAY ==
--- NOTE | ~2024-01-25 | MM_ITS ---
EXAMINATION: BONE DENSITOMETRY CLINICAL INDICATION: Menopause. COMPARISON: Previous BD dated 01/21/2022 and baseline BD dated 06/30/2012. TECHNIQUE: Using a Spherix DXA System (software version: 13.1) manufactured by [email or web address], dual-energy x-ray absorptiometry was performed of the lumbar spine and left hip. The images are of good technical quality. Summary results are attached. FINDINGS: LEFT FEMUR, NECK: Current: BMD 1.133 g/cm2, Z-score 1.5, T-score 0.7, normal. Prior: BMD 1.091 g/cm2. Baseline: BMD 1.040 g/cm2. LEFT FEMUR, TOTAL: Current: BMD 1.172 g/cm2, Z-score 1.8, T-score 1.3, normal, 0.1% increase from previous, 0.7% decrease from baseline (<5% change is not significant). Prior: BMD 1.171 g/cm2. Baseline: BMD 1.180 g/cm2. AP SPINE L2-L4 (excluding L1): The data of L1-L4 has been changed to exclude the L1 vertebral body, because degenerative sclerosis at this level may cause overestimation of lumbar spine density. Current: BMD 1.181 g/cm2, Z-score 0.3, T-score -0.2, normal, 5.2% increase from previous, 14.7% increase from baseline (<5% change is not significant). Prior: BMD 1.123 g/cm2. Baseline: BMD 1.030 g/cm2. IDENTIFIED RISK FACTORS: Early menopause, hysterectomy, bilateral oophorectomy, rheumatoid arthritis, secondary osteoporosis. HISTORY OF FRACTURE: None listed. MEDICATIONS: Bisphosphonate. MM/XR DEXA axial skeleton IMPRESSION: 1. DIAGNOSIS: Normal bone density based on the lowest T-score value of -0.2 in the lumbar spine applying World Health Organization criteria. 2. 10-YEAR FRACTURE RISK PREDICTION, FRAX: According to the guidelines, FRAX calculation should only be performed on patients in the osteopenia bone density category. Therefore, FRAX was not performed on this patient. 3. Treatment Recommendations: NOF guidelines recommend consideration for treatment in postmenopausal women and men age 50 and older presenting with the following: -A hip or vertebral (clinical or morphometric) fracture. -T-score less than or equal to -2.5 at the femoral neck or spine after appropriate evaluation to exclude secondary causes. -Low bone mass at the hip or spine and a 10-year fracture probability by FRAX of greater than or equal to 3% for hip fracture or greater than or equal to 20% for major osteoporotic fracture based on the [place] adapted WHO algorithm. 4. Other Recommendations: All treatment decisions require clinical judgment and consideration of individual patient factors, including patient preferences, comorbidities, previous drug use, risk factors not captured in the FRAX model (e.g. frailty, falls, vitamin D deficiency, increased bone turnover, interval significant decline in bone density) and possible under or overestimation of fracture risk by FRAX. FUTURE SCAN RECOMMENDATION: People with diagnosed cases of osteoporosis or at high risk for fracture should have regular bone mineral density tests. For patients eligible for Medicare, routine testing is allowed once every 2 years. The testing frequency can be increased to one year for patients who have rapidly progressing disease, those who are receiving or discontinuing medical therapy to restore bone mass, or have additional risk factors.
== END 2024-01-25 11:10 | disposition home or self-care (01) ==
LOC: HO.MAMMO 11:09
PROVIDERS: PCP Internal Medicine; Visit Provider Internal Medicine
DX: Z13.820 Encounter for screening for osteoporosis (principal); Z78.0 Asymptomatic menopausal state
CPT/HCPCS: 77080

== ENCOUNTER 2024-02-09 13:09 | Outpatient (REF) | payer OTHER, SELFPAY ==
--- NOTE | ~2024-02-09 | MM_ITS ---
EXAMINATION: MM SCREENING DIGITAL BREAST TOMOSYNTHESIS, BILATERAL CLINICAL INFORMATION: Screening. Asymptomatic. COMPARISON: Mammography: This study is compared with prior exams dating back to 2019. TECHNIQUE: Digital breast tomosynthesis is performed in both the craniocaudal and mediolateral oblique views along with computer-aided detection (CAD). Synthesized 2D images are generated from the tomosynthesis. FINDINGS: There are scattered areas of fibroglandular density (ACR BI-RADS breast composition Category b). There are no significant masses, abnormal calcifications, or other abnormalities. There is a tissue marker present in the left breast from prior benign percutaneous biopsy. It is associated with few, unchanged, coarse benign calcifications. MM/MM tomosynthesis screening BI IMPRESSION: No mammographic evidence of malignancy. ASSESSMENT: BI-RADS BI-RADS 2 - Benign Findings RECOMMENDATION: Routine annual mammography screening. 1 year F/U This examination should not preclude the clinical evaluation of a suspicious palpable abnormality. This patient's information was entered into a reminder system with a target due date for their next mammogram.
== END 2024-02-09 13:10 | disposition home or self-care (01) ==
LOC: HO.MAMMO 13:09
PROVIDERS: PCP Internal Medicine; Visit Provider Internal Medicine
DX: Z12.31 Encounter for screening mammogram for malignant neoplasm of breast (principal)
CPT/HCPCS: 77063; 77067

== ENCOUNTER → 2024-02-09 13:30 | Outpatient (BNV) | payer OTHER, SELFPAY | PROVIDERS: PCP Internal Medicine; Visit Provider Radiology Diagnostic Radiology | DX: Z12.31 Encounter for screening mammogram for malignant neoplasm of breast (principal) | CPT/HCPCS: 77063; 77067 ==

== ENCOUNTER 2024-02-20 13:01 | Outpatient (AMB) | payer OTHER, SELFPAY ==
[2024-02-20 13:06] VITALS: BP 128/77; PULSE 76; O2SAT 92; BMI 45.3
--- NOTE | 2024-02-20 13:06 | A.OFFVIS_ITS ---
Vital Signs 02/20/24 13:06 Height 5 ft 5 in Weight 272 lb 4.334 oz BMI 45.3 BP 128/77 Blood Pressure Location Lt brachial Position Sitting Pulse 76 Pulse Source Doppler Pulse Oximetry (%) 92 Oxygen Delivery Method Room Air Intake Visit Reasons: quirino Senior Group Manager Required: Yes Senior Group Manager Name: Mirna Jose Maria Smith Allergies codeine Allergy (Intermediate, Verified 02/20/24 13:11) fainting fish derived [FISH] Allergy (Intermediate, Verified 02/20/24 13:11) N&V, ABDOMEN DISTENDED, ANAPHYLAXIS Beef Containing Products [BEEF CONTAINING PRODUCTS] Allergy (Mild, Verified 02/20/24 13:11) HIVES/STOMACH ISSUES mayonnaise [MAYONNAISE] Allergy (Mild, Verified 02/20/24 13:11) HIVES HPI HPI quirino: Details: 68-year-old lady with underlying morbid obesity followed for severe obstructive sleep apnea with respiratory event index of 60.? She continues to use CPAP therapy with good control of her underlying symptoms.? She denies any current pulmonary or sleep related concerns or complaints. FOR[facility]LY [facility] Medical History Physical exam Postmenopausal Breast calcification, left GERD (gastroesophageal reflux disease) Palpitation Yeast dermatitis Mild non proliferative diabetic retinopathy Osteopenia Vitamin D deficiency Morbid obesity Dyslipidemia Hypertension correction (current) use of insulin Diabetic polyneuropathy associated with type 2 diabetes mellitus Diabetes type 2, uncontrolled Surgical History H/O colonoscopy History of surgery S/P LYNDA-BSO (total abdominal hysterectomy and bilateral salpingo-oophorectomy) History of cholecystectomy History of appendectomy Family History Father Hypertension Diabetes CVD (cardiovascular disease) Mother No problems noted. Maternal Grandfather Prostate cancer Maternal Uncle Throat cancer Sister Ovary cancer Social History Housing: Apartment Alcohol intake: never Patient Tobacco Use Status: Former Tobacco user Tobacco use type: Cigarette e-Cigarette/Vaping Use: Never Used Second Hand Smoke Exposure: No service: No Current occupational status: disabled Cognitive needs: Yes Hearing needs: No Vision needs: Yes Female Reproductive History Menstrual Age of Menarche: 13 Review of Systems Const Denies daytime sleepiness, Denies excessive sweating, Denies fatigue, Denies fever(s), Denies lethargy, Denies malaise, Denies night sweats, Denies snoring and Denies weight loss Eyes Denies blurry vision and Denies itchy eyes ENT Denies nasal congestion, Denies post nasal drip, Denies sinus pain, Denies sinus pressure and Denies other ( Thrush) Card Denies chest pain, Denies pedal edema, Denies dyspnea, Denies orthopnea and Denies paroxysmal nocturnal dyspnea Resp Denies cough, Denies hemoptysis, Denies excessive phlegm production, Denies dyspnea, Denies snoring and Denies wheezing GI Denies abdominal pain and Denies heartburn Musc Denies myalgias, Denies arthralgias and Denies joint swelling Skin/Breast Denies rash Neuro Denies memory loss and Denies seizure-like activity Psych Denies abnormal sleep pattern, Denies anxiety and Denies memory loss Endo Denies excessive sweating, Denies fatigue and Denies heat intolerance Bryce/Lymph Denies easy bruising Aller/Immun Denies itchy eyes, Denies seasonal rhinorrhea and Denies wheezing Physical Exam Vital Signs: Last Vital Signs Pulse 76 02/20/24 13:06 BP 128/77 02/20/24 13:06 Pulse Ox 92 02/20/24 13:06 Oxygen Delivery Method Room Air 02/20/24 13:06 BMI result Body Mass Index 45.3 Const General: no acute distress and alert Nutritional Appearance: obese Orientation/consciousness: Other orientation findings ( oriented) HEENT Head: Yes atraumatic Eyes General: appearance normal, both eyes and all related structures Sclerae: sclerae normal EOM: EOMs intact bilaterally Neck Neck: Yes supple Lymphatic: no lymphadenopathy noted Resp Effort & Inspection: normal respiratory effort and no use of accessory muscles Auscultation: clear to auscultation bilaterally Cardio Rate: regular rate Rhythm: regular rhythm Heart sounds: no gallops, no murmurs and no rubs Skin General skin exam: other ( warm) Extrem General: No clubbing, No cyanosis and No edema Assessment & Plan Assessment & Plan (1) QUIRINO (obstructive sleep apnea): Code(s): G47.33 - Obstructive sleep apnea (adult) (pediatric) Category: Medical Plan: Well controlled on current CPAP therapy. Continue CPAP therapy. Coding Level of Care Code Est Pt Level 3 (09159) Diagnoses QUIRINO (obstructive sleep apnea) G47.33
== END 2024-02-20 13:36 | disposition home or self-care (01) ==
PROVIDERS: PCP Nurse Practitioner Family; Visit Provider Internal Medicine Pulmonary Disease
DX: G47.33 Obstructive sleep apnea (adult) (pediatric) (principal)
CPT/HCPCS: 99213

== ENCOUNTER → 2024-02-20 13:01 | Outpatient (BNVA) | payer OTHER, SELFPAY | PROVIDERS: PCP Nurse Practitioner Family; Visit Provider Internal Medicine Pulmonary Disease | DX: G47.33 Obstructive sleep apnea (adult) (pediatric) (principal); Z99.89 Dependence on other enabling machines and devices | CPT/HCPCS: 99212 ==

== ENCOUNTER 2024-05-04 08:13 | Outpatient (REF) | payer OTHER, SELFPAY ==
[2024-05-04 08:22] LABS: MANUAL DIFF FLAG NO
[2024-05-04 09:06] LABS: Basophils Absolute Auto 0.1 X10*3/uL (0.0-0.2); Basophils Percent Auto 0.8 % (0-2); Eosinophils Absolute Auto 0.2 X10*3/uL (0.0-0.4); Eosinophils Percent Auto 1.8 % (0-4); Hematocrit 37.2 % (37.0-47.0); Hemoglobin 11.1 g/dl (12.0-16.0); Imm Gran Abs Auto 0.02 X10*3/uL (0.00-0.03); Imm Gran Pct Auto 0.2 % (0.0-0.4); Lymphocytes Percent Auto 33.8 % (20-40); Mean Corpuscular HGB Conc 29.8 g/dl (31.0-35.0); Mean Corpuscular Hemoglobin 25.8 pg (27.0-33.0); Mean Corpuscular Volume 86.3 fL (80.0-98.0); Mean Platelet Volume 11.2 fL (9.4-12.3); Monocytes Absolute Auto 0.6 X10*3/uL (0.1-1.2); Monocytes Percent Auto 7.1 % (2-11); Neutrophils Absolute Auto 4.9 x10*3/uL (2.0-8.3); Neutrophils Percent Auto 56.3 % (45-73); Platelet Count 306 X10*3/uL (160-400); Red Blood Count 4.31 X10*6/uL (4.20-5.50); Red Cell Distribution Width 14.6 % (11.0-16.0); White Blood Count 8.8 X10*3/uL (4.8-10.8)
[2024-05-04 09:30] LABS: Creatinine Urine 66.28 mg/dL; Microalbum/Creatinine Ratio Ur 7.5 ug/mg cr (<30)
[2024-05-04 09:35] LABS: Alanine Aminotransferase 9 U/L (0-31); Albumin Level 3.8 g/dL (3.5-5.0); Alkaline Phosphatase 92 U/L (39-117); Anion Gap 11 (12-20); Aspartate Amino Transferase 12 U/L (5-31); Bilirubin Total 0.3 mg/dL (0.0-1.0); Blood Urea Nitrogen 14 mg/dL (9-16); Calcium 9.8 mg/dL (8.4-10.2); Carbon Dioxide 32 mmol/L (22-29); Chloride 104 mmol/L (96-108); Cholesterol 125 mg/dL (<200); Estimated Glomerular Filt Rate > 60; Glucose Fasting 73 mg/dL (60-99); HDL Cholesterol 42 mg/dL (>40); Iron 63 mcg/dL (30-160); LDL Cholesterol Calculated 59 mg/dL (<100); Percent Iron Saturation 20 % (15-50); Potassium 4.6 mmol/L (3.3-5.1); Sodium 142 mmol/L (135-145); Total Iron Binding Capacity 312 mcg/dL (228-428); Triglycerides 120 mg/dL (<150); Unsaturated Iron Binding 249 ug/dL
[2024-05-04 09:51] LABS: Vitamin D 25-OH Total 39.6 ng/mL (>30)
== END 2024-05-04 08:14 | disposition home or self-care (01) ==
LOC: HO.LAB 08:13
PROVIDERS: PCP Internal Medicine; Visit Provider Internal Medicine
DX: D64.9 Anemia, unspecified (principal); R07.9 Chest pain, unspecified; E55.9 Vitamin D deficiency, unspecified; E11.9 Type 2 diabetes mellitus without complications; E78.5 Hyperlipidemia, unspecified
CPT/HCPCS: 36415; 80053; 80061; 82043; 82306; 82570; 83540; 85025

== ENCOUNTER 2024-05-09 14:51 | Outpatient (AMB) | payer OTHER, SELFPAY ==
--- NOTE | 2024-05-09 14:53 | MHC.PC.OV ---
Vital Signs 05/09/24 14:58 Height 5 ft 5 in Weight 266 lb BMI 44.3 BP 136/68 Blood Pressure Location Lt brachial Position Sitting Intake Visit Reasons: 4mth f/u - see comments Intake Note: Patient here for a 4 month follow up Sql Manager Required: No Accompanied by: Self / Same As Patient Allergies codeine Allergy (Intermediate, Verified 05/09/24 15:16) fainting fish derived [FISH] Allergy (Intermediate, Verified 05/09/24 15:16) N&V, ABDOMEN DISTENDED, ANAPHYLAXIS Beef Containing Products [BEEF CONTAINING PRODUCTS] Allergy (Mild, Verified 05/09/24 15:16) HIVES/STOMACH ISSUES mayonnaise [MAYONNAISE] Allergy (Mild, Verified 05/09/24 15:16) HIVES Medication List - Last Reconciled 05/09/24 by Jojo Alcantar MD albuterol sulfate 2.5 mg (3 mL) inhalation Q6H PRN 30 days amitriptyline 50 mg PO BEDTIME 90 days blood sugar diagnostic (OneTouch Verio test strips) Four times a day blood-glucose meter (OneTouch Verio Flex Start kit) Four times a day insulin glargine U-300 conc (Toujeo Max U-300 SoloStar) 45 units (0.15 mL) subcut BEDTIME 30 days insulin lispro (Humalog KwikPen (U-100) Insulin) 12 - 16 units (0.12 - 0.16 mL) subcut TID 30 days lancets (TRUEplus Lancets) 33 gauge miscellaneous QID 30 days lisinopril 10 mg PO DAILY 90 days metformin 1,000 mg PO BID 90 days montelukast 10 mg PO DAILY 90 days naproxen 500 mg PO BID 90 days nystatin 1 appl topical BID 30 days omeprazole 40 mg PO DAILY 90 days pen needle, diabetic (BD Mary Lou 2nd Gen Pen Needle) 5 times a day pen needle, diabetic (BD Ultra-Fine Mary Lou Pen Needle) As directed 5 times a day simvastatin 20 mg PO DAILY 90 days tirzepatide (Mounjaro) 5 mg (0.5 mL) subcut QWEEK 4 weeks Ventolin HFA 90 mcg/actuation (albuterol sulfate) 2 puffs inhalation Q6H PRN 30 days NS Tobacco use date assessed: 01/04/24 Dental Screening Dental Screen Date: 01/04/24 HPI HPI Comments History of Present Illness Details This is a 68-year-old female with hypertension, diabetes mellitus type 2, dyslipidemia and morbid obesity that comes today for follow-up on her conditions. Blood pressure stable. A1c elevated and I will increase Mounjaro and insulin. LDL within goal. Blood pressure stable. She is morbidly obese with a BMI of 44.3 and was advised to do diet and exercise. Declines weight loss surgery. 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 Maternal Grandfather Prostate cancer Maternal Uncle Throat cancer Sister Ovary cancer Social History Housing: Apartment Alcohol intake: never Patient Tobacco Use Status: Former Tobacco user Tobacco use type: Cigarette e-Cigarette/Vaping Use: Never Used Second Hand Smoke Exposure: No service: No Current occupational status: disabled Cognitive needs: Yes Hearing needs: No Vision needs: Yes Female Reproductive History Menstrual Age of Menarche: 13 Questionnaire PHQ-9 Over the last 2 weeks, how often have you been bothered by any of the following problems? 1. Little interest or pleasure in doing things: not at all 2. Feeling down, depressed, or hopeless: not at all 3. Trouble falling or staying asleep, or sleeping too much: not at all 4. Feeling tired or having little energy: not at all 5. Poor appetite or overeating: not at all 6. Feeling bad about yourself - or that you are a failure or have let yourself or your family down: not at all 7. Trouble concentrating on things, such as reading the newspaper or watching television: not at all 8. Moving or speaking so slowly that other people could have noticed. Or the opposite - being so fidgety or restless that you have been moving around a lot more than usual: not at all 9. Thoughts that you would be better off or of hurting yourself in some way: not at all Total score: 0 Depression Screening Interpretation: Negative Depression Screening Done: Yes [id number] - PHQ-9 Billing: Yes Source: Developed by Drs. Migue Coburn, Mone Whatley, Sixto Lynne and colleagues, with an educational pepito from [employer]. Thrive Questionnaire Date Thrive assessed: 01/04/24 AUDIT C Alcohol Use Questionnaire (AUDIT-C) 1. How often do you have a drink containing alcohol?: Never Total Score: 0 SABRINA-7 AMB Questionnaire SABRINA-7 Date SABRINA - 7 assessed: 05/09/24 Feeling nervous, anxious, or on edge: 0 = Not at all Not being able to stop or control worryin = Not at all Worrying too much about different things: 0 = Not at all Trouble relaxin = Not at all Being so restless that it is hard to sit still: 0 = Not at all Becoming easily annoyed or irritable: 0 = Not at all Feeling afraid as if something awful might happen: 0 = Not at all Total SABRINA-7 score (0-4 normal; 5-9 mild; 10-14 moderate; 15-21 severe): 0 Source: Developed by Drs. Migue Coburn, Mone Whatley, Sixto Lynne and colleagues, with an educational pepito from [employer]. SABRINA-7 Assessment Billing SABRINA-7 Assessment Tool: SABRINA-7 Assessment 22218 Review of Systems Const All systems reviewed & are unremarkable except as noted in HPI and below Card Denies chest pain at rest, Denies chest pain with activity, Denies edema, Denies irregular heart rhythm, Denies claudication, Denies dyspnea, Denies dyspnea on exertion, Denies orthopnea, Denies paroxysmal nocturnal dyspnea and Denies slow heart rate Resp Denies cough, Denies dyspnea and Denies dyspnea on exertion GI Denies abdominal pain, Denies change in bowel habits, Denies excessive flatus, Denies nausea and Denies vomiting Physical exam (Primary Care) Vital Signs: Last Vital Signs BP 136/68 05/09/24 14:58 BMI result Body Mass Index 44.3 Tobacco/Smoking Status: Tobacco use Status Tobacco use date assessed 01/04/24 05/09/24 14:56 Patient Tobacco Use Status Former Tobacco user 05/09/24 14:56 Tobacco use type Cigarette 05/09/24 14:56 e-Cigarette/Vaping Use Never Used 05/09/24 14:56 PHQ-9: PHQ-9 Score PHQ-9: Total score 0 05/09/24 16:08 Depression Screening Interpretation: Negative Thrive Assessment: Date of Thrive Assessment Date Thrive assessed 01/04/24 05/09/24 14:56 Resp Effort & Inspection: normal respiratory effort Auscultation: clear to auscultation bilaterally Cardio Jugular venous distension: no JVD Rate: regular rate Rhythm: regular rhythm Heart sounds: S1 normal heart sound present and S2 normal heart sound present Extrem General: Yes full ROM Results AMB Hemoglobin A1c AMB Hemoglobin A1c 8.4 % Last Edit by JOSSELYN Friedman on 05/09/24 15:07 Results Reviewed Results Reviewed: Laboratory Last Values Hgb A1c (Clinic) 8.4 % (4.0-6.0) H 05/09/24 14:52 Assessment and Plan Assessment & Plan (1) Diabetes mellitus, with long-term current use of insulin: Code(s): E11.9 - Type 2 diabetes mellitus without complications; Z79.4 - watermelon inspector (current) use of insulin Qualifiers: Diabetes mellitus type: type 2 Diabetes mellitus complication status: with hyperglycemia Qualified Code(s): E11.65 - Type 2 diabetes mellitus with hyperglycemia; Z79.4 - assisted (current) use of insulin Plan: Increase insulin and Mounjaro. A1c goal is equal or less than 7%. (2) Morbid obesity: Code(s): E66.01 - Morbid (severe) obesity due to excess calories Plan: Declines weight loss surgery. BMI goal is less than 30. Start diet and exercise. (3) Dyslipidemia: Code(s): E78.5 - Hyperlipidemia, unspecified Plan: Continue statins. Repeat lipid panel. LDL goal is less than 70. (4) Hypertension: Code(s): I10 - Essential (primary) hypertension Qualifiers: Hypertension type: essential hypertension Qualified Code(s): I10 - Essential (primary) hypertension Plan: Continue lisinopril. Blood pressure goal is equal or less than 130/80. Orders: Orders Microalbumin, Random (w Creat) 4 Months E11.9 - Type 2 diabetes mellitus without complications AMB Hemoglobin A1c Today E11.9 - Type 2 diabetes mellitus without complications, Z79.4 - assisted (current) use of insulin Lipid Panel 4 Months E78.5 - Hyperlipidemia, unspecified Vitamin D 25-OH Total 4 Months E55.9 - Vitamin D deficiency, unspecified Comprehensive [facility]. Panel Fast 4 Months E11.9 - Type 2 diabetes mellitus without complications, Z79.4 - assisted (current) use of insulin Referrals Gastroenterology Referral Z12.11 - Encounter for screening for malignant neoplasm of colon Medications: New tirzepatide (Mounjaro) 7.5 mg (0.5 mL) subcut QWEEK 4 weeks 2 mL 0RF E11.9 - Type 2 diabetes mellitus without complications, Z79.4 - assisted (current) use of insulin Changed From insulin glargine U-300 conc (Toujeo Max U-300 SoloStar) 45 units (0.15 mL) subcut BEDTIME 30 days 4.5 mL 4RF E11.65 - Type 2 diabetes mellitus with hyperglycemia To insulin glargine U-300 conc (Toujeo Max U-300 SoloStar) 50 units (0.1667 mL) subcut BEDTIME 30 days 5.001 mL 4RF E11.65 - Type 2 diabetes mellitus with hyperglycemia Discontinued tirzepatide (Mounjaro) Discontinued Reason: Patient Completed Course 5 mg (0.5 mL) subcut QWEEK 4 weeks 2 mL 0RF Coding Level of Care Code Est Pt Level 4 (60346) Complex EM visit Add On G2211 Diagnoses Type 2 diabetes mellitus with hyperglycemia, with long-term current use of insulin E11.65; Z79.4 Diabetes mellitus type: type 2 Diabetes mellitus complication status: with hyperglycemia Morbid obesity E66.01 Dyslipidemia E78.5 Essential hypertension I10 Hypertension type: essential hypertension Additional Codes SABRINA-7 Assessment Billing - SABRINA-7 Assessment Tool: SABRINA-7 Assessment [id number] ([id number]) Time Spent (min) 23
[2024-05-09 14:58] VITALS: BP 136/68; BMI 44.3
== END 2024-05-09 15:28 | disposition home or self-care (01) ==
PROVIDERS: PCP Nurse Practitioner Family; Visit Provider Internal Medicine
DX: E11.65 Type 2 diabetes mellitus with hyperglycemia (principal); Z79.4 Long term (current) use of insulin; E66.01 Morbid (severe) obesity due to excess calories; Z68.41 Body mass index [BMI] 40.0-44.9, adult; E11.69 Type 2 diabetes mellitus with other specified complication; E78.5 Hyperlipidemia, unspecified; I10 Essential (primary) hypertension
CPT/HCPCS: 83036; 99214; G2211

== ENCOUNTER 2024-06-13 09:43 | Outpatient (AMB) | payer OTHER, SELFPAY ==
--- NOTE | 2024-06-13 09:46 | A.OFFVIS_ITS ---
Vital Signs 06/13/24 09:59 Pulse 84 Pulse Source Pulse Oximeter Intake Visit Reasons: Type 2 DM-confirmed Intake Note: Patient presents today to re-establish treatment for Type 2 Diabetes Mellitus: Last Diabetic eye exam was on: See flanging roll operator every 3 months for injections, [facility]. next appt 07/04/2024. Last Podiatry exam was on: Does not see a Datastage Consultant Most recent HbA1c: 8.4%, 05/09/2024 Random Glucose- 172mg/dL, Today Anatomic Pathologist Required: Yes Anatomic Pathologist Language: Kettle Tender Services: Anatomic Pathologist Present Anatomic Pathologist Name: JOSSELYN Vaughn/LIBRA Davidson Accompanied by: Self / Same As Patient Allergies codeine Allergy (Intermediate, Verified 06/13/24 10:15) fainting fish derived [FISH] Allergy (Intermediate, Verified 06/13/24 10:15) N&V, ABDOMEN DISTENDED, ANAPHYLAXIS Beef Containing Products [BEEF CONTAINING PRODUCTS] Allergy (Mild, Verified 06/13/24 10:15) HIVES/STOMACH ISSUES mayonnaise [MAYONNAISE] Allergy (Mild, Verified 06/13/24 10:15) HIVES HPI Comments Details: Patient is a 68-year-old female with DM type 2 diagnosed 1986 presenting for follow up. Last seen in endocrine in 2021. Past medical history: Diabetes type 2, hypertension, hyperlipidemia, GERD, depression PTSD, QUIRINO obesity. Micro and macrovascular complications: Neuropathy and h/o CVA Diabetes medications: Toujeo 50 (increased 1 month ago from 45) Humalog 10/04/16, mounjaro 7.5%, metformin 1000 mg bid. Using alpha lipoic acid 600 mg daily for neuropathy. Compliant with medications Blood glucose monitoring: One touch download. Checking 3 times daily. Fasting average 128. Target 56%, low 3%. Majority of high blood glucose readings between 10 and midnight. Patient snacks around 9. Symptoms reported: Reports tingling. Denies numbness, cramping in lower extremities Hypoglycemia: when she goes too long without eating, generally afternoon Hyperglycemia: gets body aches Diet: Breakfast: crackers or hot cereal, coffee, Lunch: soup or skips , Dinner: rice, beans, chicken, Snacks: denies , Drinks throughout day: water, cranberry juice Exercise: limited, uses cane Computer Typesetter - CDE education: in past Datastage Consultant: denies Dental exam: goes every 6 months Ophthalmology evaluation: q3 months. nonproliferative diabetic retinopathy in both eyes ROS CONSTITUTIONAL: Denies weight loss, fever and chills. HEENT: Denies changes in vision and hearing. RESPIRATORY: Denies SOB and cough. CV: Denies palpitations and CP GI: Denies abdominal pain, nausea, vomiting and diarrhea. : Denies dysuria and urinary frequency. MSK: Denies new myalgia and joint pain. SKIN: Denies rash and pruritus. NEUROLOGICAL: Denies headache PSYCHIATRIC: Denies recent changes in mood. PHYSICAL EXAM: GENERAL: Alert and oriented x 3. NAD EYES: EOMI. Anicteric. HENT: Moist mucous membranes. No scleral icterus. No cervical lymphadenopathy. LUNGS: Clear to auscultation bilaterally. CARDIOVASCULAR: Regular rate and rhythm. No murmur. No JVD. ABDOMEN: Soft, non-tender +bs EXTREMITIES: No edema. Non-tender. SKIN: No rashes or lesions. Warm. NEUROLOGIC: No focal neurological deficits. CN II-XII grossly intact PSYCHIATRIC: Cooperative. Appropriate mood and affect COUNTS INCLUDE 234 BEDS AT THE [facility] Medical History Physical exam Postmenopausal Breast calcification, left GERD (gastroesophageal reflux disease) Palpitation Yeast dermatitis Mild non proliferative diabetic retinopathy Osteopenia Vitamin D deficiency Morbid obesity Dyslipidemia Hypertension terminal operator (current) use of insulin Diabetic polyneuropathy associated with type 2 diabetes mellitus Diabetes type 2, uncontrolled Surgical History H/O colonoscopy History of surgery S/P LYNDA-BSO (total abdominal hysterectomy and bilateral salpingo-oophorectomy) History of cholecystectomy History of appendectomy Family History Father Hypertension Diabetes CVD (cardiovascular disease) Mother No problems noted. Maternal Grandfather Prostate cancer Maternal Uncle Throat cancer Sister Ovary cancer Social History Housing: Apartment Alcohol intake: never Patient Tobacco Use Status: Former Tobacco user Tobacco use type: Cigarette e-Cigarette/Vaping Use: Never Used Second Hand Smoke Exposure: No service: No Current occupational status: disabled Cognitive needs: Yes Hearing needs: No Vision needs: Yes Female Reproductive History Menstrual Age of Menarche: 13 Physical Exam Vital Signs: Last Vital Signs Pulse 84 06/13/24 09:59 Assessment & Plan Assessment & Plan (1) Diabetes mellitus, with long-term current use of insulin: Code(s): E11.9 - Type 2 diabetes mellitus without complications; Z79.4 - terminal operator (current) use of insulin Category: Medical Qualifiers: Diabetes mellitus type: type 2 Diabetes mellitus complication status: with hyperglycemia Qualified Code(s): E11.65 - Type 2 diabetes mellitus with hyperglycemia; Z79.4 - terminal operator (current) use of insulin Plan: Patients fasting glucose has improved with the recent increase in mounjaro to 7.5 and the increase of toujeo to 50. Will continue those doses untl next A1C based on readings. Discussed improving evening snack choices-lower carb Return in 2 months (2) Morbid obesity: Code(s): E66.01 - Morbid (severe) obesity due to excess calories Category: Medical Plan: Continue mounjaro (3) Diabetic polyneuropathy associated with type 2 diabetes mellitus: Code(s): E11.42 - Type 2 diabetes mellitus with diabetic polyneuropathy Category: Medical Plan: stable (4) Mild non proliferative diabetic retinopathy: Code(s): E11.3299 - Type 2 diabetes mellitus with mild nonproliferative diabetic retinopathy without macular edema, unspecified eye Category: Medical Qualifiers: Diabetes mellitus type: type 2 Diabetes mellitus macular edema: without macular edema Laterality: bilateral Qualified Code(s): E11.3293 - Type 2 diabetes mellitus with mild nonproliferative diabetic retinopathy without macular edema, bilateral Plan: continue q3 months ophtho Coding Level of Care Code Est Pt Level 4 (04856) Diagnoses Type 2 diabetes mellitus with hyperglycemia, with long-term current use of insulin E11.65; Z79.4 Diabetes mellitus type: type 2 Diabetes mellitus complication status: with hyperglycemia Morbid obesity E66.01 Diabetic polyneuropathy associated with type 2 diabetes mellitus E11.42 Mild nonproliferative diabetic retinopathy of both eyes without macular edema associated with type 2 diabetes mellitus E11.3293 Diabetes mellitus type: type 2 Diabetes mellitus macular edema: without macular edema Laterality: bilateral
[2024-06-13 09:59] VITALS: PULSE 84
[2024-06-13 10:08] LABS: Glucose, Whole Blood 172 mg/dL (60-115)
== END 2024-06-13 10:17 | disposition home or self-care (01) ==
PROVIDERS: PCP Internal Medicine; Visit Provider Internal Medicine
DX: E11.65 Type 2 diabetes mellitus with hyperglycemia (principal); Z79.4 Long term (current) use of insulin; E66.01 Morbid (severe) obesity due to excess calories; E11.42 Type 2 diabetes mellitus with diabetic polyneuropathy; E11.3293 Type 2 diabetes mellitus with mild nonproliferative diabetic retinopathy without macular edema, bilateral
CPT/HCPCS: 99214

== ENCOUNTER → 2024-06-13 09:43 | Outpatient (BNVA) | payer OTHER, SELFPAY | PROVIDERS: PCP Internal Medicine; Visit Provider Internal Medicine | DX: E11.65 Type 2 diabetes mellitus with hyperglycemia (principal); E11.42 Type 2 diabetes mellitus with diabetic polyneuropathy; E11.3293 Type 2 diabetes mellitus with mild nonproliferative diabetic retinopathy without macular edema, bilateral; E66.01 Morbid (severe) obesity due to excess calories; Z79.4 Long term (current) use of insulin | CPT/HCPCS: 82947; 99212 ==

== ENCOUNTER 2024-08-15 10:12 | Outpatient (AMB) | payer OTHER, SELFPAY ==
[2024-08-15 10:19] VITALS: BP 134/70; PULSE 81; BMI 44.0
--- NOTE | 2024-08-15 10:19 | A.OFFVIS_ITS ---
Vital Signs 08/15/24 10:19 Height 5 ft 5 in Weight 264 lb 8.875 oz BMI 44.0 BP 134/70 Blood Pressure Location Rt brachial Position Sitting Pulse 81 Pulse Source Pulse Oximeter Intake Visit Reasons: DM/CONFIRMED Intake Note: Patient presents today for follow-up on Type 2 Diabetes Mellitus: Last Diabetic eye exam was on: See transmission rebuilder every 3 months for injections, [facility]. Next appt 08/16/2024. Last Podiatry exam was on: Does not see a Husker Operator Most recent HbA1c: 7.5%, 08/15/2024 Random Glucose- 154 mg/dL, Today Joy Operator Required: Yes Joy Operator Language: Behavioral Psychologist Services: Joy Operator Present Joy Operator Name: JOSSELYN Vaughn/LIBRA Davidson Accompanied by: Self / Same As Patient Allergies codeine Allergy (Intermediate, Verified 06/13/24 10:15) fainting fish derived [FISH] Allergy (Intermediate, Verified 06/13/24 10:15) N&V, ABDOMEN DISTENDED, ANAPHYLAXIS Beef Containing Products [BEEF CONTAINING PRODUCTS] Allergy (Mild, Verified 06/13/24 10:15) HIVES/STOMACH ISSUES mayonnaise [MAYONNAISE] Allergy (Mild, Verified 06/13/24 10:15) HIVES HPI Comments Details: Patient is a 68-year-old female with DM type 2 diagnosed 1986 presenting for follow up Past medical history: Diabetes type 2, hypertension, hyperlipidemia, GERD, depression PTSD, QUIRINO, obesity. Micro and macrovascular complications: Neuropathy and h/o CVA Diabetes medications: Toujeo 50 Humalog 10/04/16, mounjaro 7.5%, metformin 1000 mg bid. A1C 7.5% from 8.4%. Using alpha lipoic acid 600 mg daily for neuropathy. Compliant with medications Blood glucose monitoring: One touch download. Checking 3 times daily. Average 114 range 50-200. A few lows between 3 and 7 pm. Says she has skipped lunch after taking lunch time insulin at times. Her appetite is decreased with the mounjaro Symptoms reported: Mild lower extremity neuropathy Hypoglycemia: when she goes too long without eating, generally afternoon. 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 nonproliferative diabetic retinopathy in both eyes ROS CONSTITUTIONAL: Denies weight loss, fever and chills. HEENT: Denies changes in vision and hearing. RESPIRATORY: Denies SOB and cough. CV: Denies palpitations and CP GI: Denies abdominal pain, nausea, vomiting and diarrhea. : Denies dysuria and urinary frequency. MSK: Denies new myalgia and joint pain. SKIN: Denies rash and pruritus. NEUROLOGICAL: Denies headache PSYCHIATRIC: Denies recent changes in mood. PHYSICAL EXAM: GENERAL: Alert and oriented x 3. NAD EYES: EOMI. Anicteric. HENT: Moist mucous membranes. No scleral icterus. No cervical lymphadenopathy. LUNGS: Clear to auscultation bilaterally. CARDIOVASCULAR: Regular rate and rhythm. No murmur. No JVD. ABDOMEN: Soft, non-tender +bs EXTREMITIES: No edema. Non-tender. SKIN: No rashes or lesions. Warm. NEUROLOGIC: No focal neurological deficits. CN II-XII grossly intact PSYCHIATRIC: Cooperative. Appropriate mood and affect [facility] Medical History Physical exam Postmenopausal Breast calcification, left GERD (gastroesophageal reflux disease) Palpitation Yeast dermatitis Mild non proliferative diabetic retinopathy Osteopenia Vitamin D deficiency Morbid obesity Dyslipidemia Hypertension intermediate (current) use of insulin Diabetic polyneuropathy associated with type 2 diabetes mellitus Diabetes type 2, uncontrolled Surgical History H/O colonoscopy History of surgery S/P LYNDA-BSO (total abdominal hysterectomy and bilateral salpingo-oophorectomy) History of cholecystectomy History of appendectomy Family History Father Hypertension Diabetes CVD (cardiovascular disease) Mother No problems noted. Maternal Grandfather Prostate cancer Maternal Uncle Throat cancer Sister Ovary cancer Social History Housing: Apartment Alcohol intake: never Patient Tobacco Use Status: Former Tobacco user Tobacco use type: Cigarette e-Cigarette/Vaping Use: Never Used Second Hand Smoke Exposure: No service: No Current occupational status: disabled Cognitive needs: Yes Hearing needs: No Vision needs: Yes Female Reproductive History Menstrual Age of Menarche: 13 Physical Exam Vital Signs: Last Vital Signs Pulse 81 08/15/24 10:19 BP 134/70 08/15/24 10:19 BMI result Body Mass Index 44.0 Results AMB Hemoglobin A1c AMB Hemoglobin A1c 7.5 % Last Edit by JOSSELYN Vaughn on 08/15/24 10:53 Results Reviewed Results Reviewed: Laboratory Last Values Glucose (Clinic) 157 mg/dL (60-115) H 08/15/24 10:24 Hgb A1c (Clinic) 7.5 % (4.0-6.0) H 08/15/24 10:52 Assessment & Plan Assessment & Plan (1) Diabetes mellitus, with long-term current use of insulin: Code(s): E11.9 - Type 2 diabetes mellitus without complications; Z79.4 - intermediate (current) use of insulin Category: Medical Qualifiers: Diabetes mellitus complication status: with hyperglycemia Diabetes mellitus type: type 2 Qualified Code(s): E11.65 - Type 2 diabetes mellitus with hyperglycemia; Z79.4 - intermediate (current) use of insulin Plan: Continue current medication regimen. She continues to lose weight with mounjaro. Stop lunch time humalog as she often ends up not eating. Return in 3 months. Advised to call if experiencing hypoglycemia in interim Orders: Orders AMB Hemoglobin A1c Today E11.42 - Type 2 diabetes mellitus with diabetic polyneuropathy Medications: Changed From insulin lispro (Humalog KwikPen (U-100) Insulin) 12 - 16 units (0.12 - 0.16 mL) subcut TID 30 days 15 mL 6RF E11.65 - Type 2 diabetes mellitus with hyperglycemia To insulin lispro (Humalog KwikPen (U-100) Insulin) 12 - 16 units (0.12 - 0.16 mL) subcut BID 15 mL 6RF 30 days E11.65 - Type 2 diabetes mellitus with hyperglycemia Coding Level of Care Code Est Pt Level 4 (23094) Diagnoses Type 2 diabetes mellitus with hyperglycemia, with long-term current use of insulin E11.65; Z79.4 Diabetes mellitus complication status: with hyperglycemia Diabetes mellitus type: type 2
[2024-08-15 10:29] LABS: Glucose, Whole Blood 157 mg/dL (60-115)
== END 2024-08-15 10:38 | disposition home or self-care (01) ==
PROVIDERS: PCP Internal Medicine; Visit Provider Internal Medicine
DX: E11.65 Type 2 diabetes mellitus with hyperglycemia (principal); Z79.4 Long term (current) use of insulin; E11.42 Type 2 diabetes mellitus with diabetic polyneuropathy

== ENCOUNTER → 2024-08-15 10:12 | Outpatient (BNVA) | payer OTHER, SELFPAY | PROVIDERS: PCP Internal Medicine; Visit Provider Internal Medicine | DX: E11.65 Type 2 diabetes mellitus with hyperglycemia (principal); Z79.4 Long term (current) use of insulin | CPT/HCPCS: 82947; 83036; 99212 ==

== ENCOUNTER 2024-08-27 06:38 | Outpatient (REF) | payer OTHER, SELFPAY ==
[2024-08-27 06:55] LABS: MANUAL DIFF FLAG NO
[2024-08-27 07:39] LABS: Basophils Absolute Auto 0.1 X10*3/uL (0.0-0.2); Basophils Percent Auto 0.7 % (0-2); Eosinophils Absolute Auto 0.3 X10*3/uL (0.0-0.4); Eosinophils Percent Auto 2.9 % (0-4); Hematocrit 37.2 % (37.0-47.0); Hemoglobin 11.3 g/dl (12.0-16.0); Imm Gran Abs Auto 0.04 X10*3/uL (0.00-0.03); Imm Gran Pct Auto 0.4 % (0.0-0.4); Lymphocytes Percent Auto 32.7 % (20-40); Mean Corpuscular HGB Conc 30.4 g/dl (31.0-35.0); Mean Corpuscular Hemoglobin 26.2 pg (27.0-33.0); Mean Corpuscular Volume 86.1 fL (80.0-98.0); Mean Platelet Volume 11.1 fL (9.4-12.3); Monocytes Absolute Auto 0.7 X10*3/uL (0.1-1.2); Monocytes Percent Auto 7.3 % (2-11); Neutrophils Absolute Auto 5.1 x10*3/uL (2.0-8.3); Platelet Count 308 X10*3/uL (160-400); Red Blood Count 4.32 X10*6/uL (4.20-5.50); Red Cell Distribution Width 15.9 % (11.0-16.0); White Blood Count 9.1 X10*3/uL (4.8-10.8)
[2024-08-27 08:04] LABS: Estimated Average Glucose 160 mg/dL; Hemoglobin A1C 165.8107 umol/L; Hemoglobin A1c % 7.2 % (<6.0); Total Hemoglobin (HGBA1C) 3018.1086 umol/L
[2024-08-27 08:29] LABS: Microalbum/Creatinine Ratio Ur 26.8 ug/mg cr (<30)
[2024-08-27 08:47] LABS: Alanine Aminotransferase 16 U/L (0-31); Albumin Level 3.8 g/dL (3.5-5.0); Alkaline Phosphatase 106 U/L (39-117); Anion Gap 15 (12-20); Aspartate Amino Transferase 23 U/L (5-31); Bilirubin Total 0.2 mg/dL (0.0-1.0); Blood Urea Nitrogen 22 mg/dL (9-16); Calcium 9.2 mg/dL (8.4-10.2); Carbon Dioxide 27 mmol/L (22-29); Chloride 102 mmol/L (96-108); Cholesterol 111 mg/dL (<200); Estimated Glomerular Filt Rate 60; Glucose Fasting 126 mg/dL (60-99); HDL Cholesterol 40 mg/dL (>40); LDL Cholesterol Calculated 37 mg/dL (<100); Potassium 4.3 mmol/L (3.3-5.1); Sodium 140 mmol/L (135-145); Triglycerides 173 mg/dL (<150)
[2024-08-27 08:51] LABS: TSH reflex Free T4 2.66 uIU/mL (0.32-4.0)
[2024-08-27 08:52] LABS: Vitamin D 25-OH Total 37.6 ng/mL (>30)
== END 2024-08-27 06:39 | disposition home or self-care (01) ==
LOC: HO.LAB 06:38
PROVIDERS: Nurse Practitioner Family; PCP Internal Medicine; Visit Provider Internal Medicine
DX: E11.65 Type 2 diabetes mellitus with hyperglycemia (principal); Z13.0 Encounter for screening for diseases of the blood and blood-forming organs and certain disorders involving the immune mechanism; Z13.29 Encounter for screening for other suspected endocrine disorder; Z13.220 Encounter for screening for lipoid disorders; I10 Essential (primary) hypertension; E55.9 Vitamin D deficiency, unspecified; E11.9 Type 2 diabetes mellitus without complications
CPT/HCPCS: 36415; 80053; 80061; 82043; 82306; 82570; 83036; 84443; 85025

== ENCOUNTER 2024-09-17 16:02 | Outpatient (AMB) | payer OTHER, SELFPAY ==
--- NOTE | 2024-09-17 16:12 | MHC.PC.OV ---
Vital Signs 09/17/24 16:19 Height 5 ft 5 in Weight 264 lb BMI 43.9 BP 132/70 Blood Pressure Location Lt brachial Position Sitting Intake Visit Reasons: dm Intake Note: Patient here for a follow up DM Car Chaser Required: No Accompanied by: Self / Same As Patient Allergies codeine Allergy (Intermediate, Verified 09/17/24 16:53) fainting fish derived [FISH] Allergy (Intermediate, Verified 09/17/24 16:53) N&V, ABDOMEN DISTENDED, ANAPHYLAXIS Beef Containing Products [BEEF CONTAINING PRODUCTS] Allergy (Mild, Verified 09/17/24 16:53) HIVES/STOMACH ISSUES mayonnaise [MAYONNAISE] Allergy (Mild, Verified 09/17/24 16:53) HIVES Medication List - Last Reconciled 09/17/24 by Jojo Alcantar MD albuterol sulfate 2.5 mg (3 mL) inhalation Q6H PRN 30 days amitriptyline 50 mg PO BEDTIME 90 days blood sugar diagnostic (TechTol ImagingTouch Verio test strips) Four times a day blood-glucose meter (TechTol ImagingTouch Verio Flex Start kit) Four times a day insulin glargine U-300 conc (Toujeo Max U-300 SoloStar) 50 units (0.1667 mL) subcut BEDTIME 30 days insulin lispro (Humalog KwikPen (U-100) Insulin) 12 - 16 units (0.12 - 0.16 mL) subcut BID 30 days lancets (TRUEplus Lancets) 33 gauge miscellaneous QID 30 days lisinopril 10 mg PO DAILY 90 days metformin 1,000 mg PO BID 90 days montelukast 10 mg PO DAILY 90 days naproxen 500 mg PO BID 90 days nystatin 1 appl topical BID 30 days omeprazole 40 mg PO DAILY 90 days pen needle, diabetic (BD Mary Lou 2nd Gen Pen Needle) 5 times a day pen needle, diabetic (BD Ultra-Fine Mary Lou Pen Needle) As directed 5 times a day simvastatin 20 mg PO DAILY 90 days tirzepatide (Mounjaro) 7.5 mg (0.5 mL) subcut QWEEK 4 weeks Ventolin HFA 90 mcg/actuation (albuterol sulfate) 2 puffs inhalation Q6H PRN 30 days NS Tobacco use date assessed: 01/04/24 Fall risk assessment: No Falls in past year Last assessed Fall Risk: 09/17/24 Dental Screening Dental Screen Date: 09/17/24 Did you have a dental visit in the last 12 months?: No Did you have a dental problem in the last 6 months where you did not have access to dental care?: No Was dental information given to patient?: Patient has dentist HPI HPI Comments History of Present Illness Details The patient is a 69-year-old female presenting with diabetes, hypertension, hyperlipidemia, and obesity for follow-up. The patient has a history of type 2 diabetes mellitus managed with Metformin 1000 mg twice daily. Recent labs indicated an HbA1c of 7.2%, which is slightly above the target goal of 7%. Hypertension is well-controlled at present, with a blood pressure reading of 132/70 mmHg. She is on Lisinopril 10 mg daily. The patient also manages hyperlipidemia with Simvastatin 20 mg daily, and recent labs show LDL levels below 70 mg/dL. The patient has a BMI of 43.9, indicating morbid obesity, and is on a weekly GLP-1 receptor agonist therapy. A history of depression is being treated with Amitriptyline 50 mg nightly. Allergic rhinitis is treated with Montelukast 10 mg. The patient experiences chronic back pain and uses Naproxen 500 mg as needed. She has allergies to codeine, fish, and mayonnaise. Recent diagnostic tests, including a stress test, were completed with negative findings. A minor elevation in urinalysis protein was noted, warranting re-evaluation in December if persistent. [facility] Medical History Physical exam Postmenopausal Breast calcification, left GERD (gastroesophageal reflux disease) Palpitation Yeast dermatitis Mild non proliferative diabetic retinopathy Osteopenia Vitamin D deficiency Morbid obesity Dyslipidemia Hypertension senior living (current) use of insulin Diabetic polyneuropathy associated with type 2 diabetes mellitus Diabetes type 2, uncontrolled Surgical History H/O colonoscopy History of surgery S/P LYNDA-BSO (total abdominal hysterectomy and bilateral salpingo-oophorectomy) History of cholecystectomy History of appendectomy Family History Father Hypertension Diabetes CVD (cardiovascular disease) Mother No problems noted. Maternal Grandfather Prostate cancer Maternal Uncle Throat cancer Sister Ovary cancer Social History Housing: Apartment Alcohol intake: never Patient Tobacco Use Status: Former Tobacco user Tobacco use type: Cigarette e-Cigarette/Vaping Use: Never Used Second Hand Smoke Exposure: No service: No Current occupational status: disabled Cognitive needs: Yes Hearing needs: No Vision needs: Yes Female Reproductive History Menstrual Age of Menarche: 13 Questionnaire Thrive Questionnaire Date Thrive assessed: 01/04/24 SABRINA-7 AMB Questionnaire SABRINA-7 Date SABRINA - 7 assessed: 05/09/24 Source: Developed by Drs. Migue Coburn, Mone Whatley, Sixto Lynne and colleagues, with an educational pepito from [employer]. Review of Systems Const All systems reviewed & are unremarkable except as noted in HPI and below Card Denies chest pain at rest, Denies chest pain with activity, Denies edema, Denies irregular heart rhythm, Denies claudication, Denies dyspnea, Denies dyspnea on exertion, Denies orthopnea, Denies paroxysmal nocturnal dyspnea and Denies slow heart rate Resp Denies cough, Denies dyspnea and Denies dyspnea on exertion GI Denies abdominal pain, Denies change in bowel habits, Denies excessive flatus, Denies nausea and Denies vomiting Denies urinary incontinence, Denies urinary hesitancy and Denies urinary urgency Musc Denies atrophy, Denies deformity and Denies limited range of motion Skin/Breast Denies bleeding lesions, Denies changing lesions and Denies rash Physical exam (Primary Care) Vital Signs: Last Vital Signs BP 132/70 09/17/24 16:19 BMI result Body Mass Index 43.9 BMI Assessment/Plan discussion: High BMI High, discussed plan: lifestyle, weight reduction, dietary and physical activity Tobacco/Smoking Status: Tobacco use Status Tobacco use date assessed 01/04/24 09/17/24 16:15 Patient Tobacco Use Status Former Tobacco user 09/17/24 16:15 Tobacco use type Cigarette 09/17/24 16:15 e-Cigarette/Vaping Use Never Used 09/17/24 16:15 Thrive Assessment: Date of Thrive Assessment Date Thrive assessed 01/04/24 09/17/24 16:15 Resp Effort & Inspection: normal respiratory effort Auscultation: clear to auscultation bilaterally Cardio Jugular venous distension: no JVD Rate: regular rate Rhythm: regular rhythm Heart sounds: S1 normal heart sound present and S2 normal heart sound present Extrem General: Yes full ROM Office Procedures Flu Questionnaire Does the patient have a severe egg allergy?: No Does the patient have severe life threatening allergies?: No Does the patient have a fever or illness today?: No Has the patient ever had Guillain-Palestine Syndrome?: No Has the patient ever had any past reaction to a flu shot?: No Immunizations Fluarix Triv 5299-2254 (PF) 45 mcg (15 mcg x 3)/0.5 mL IM syringe Performing Provider: Jojo Alcantar MD [facility] [place] [facility] Administered by: JOSSELYN Friedman on 09/17/24 16:26 Dose Route Admin Location Dispensed Lot Number Expiration Date NDC Developer Programmer Analyst 0.5 mL IM Left Deltoid 0.5 mL [id number] 04/22/25 [id number] [employer] VIS Given Date VIS Provided VIS Publication Date 09/17/24 Single Vaccine 21 Eligibility Eligibility Date Funding Source Not [facility] Eligible 09/17/24 Private Coding Level of Care Code Est Pt Level 4 (75468) Complex EM visit Add On G2211 Diagnoses Type 2 diabetes mellitus with hyperglycemia, with long-term current use of insulin E11.65; Z79.4 Diabetes mellitus type: type 2 Diabetes mellitus complication status: with hyperglycemia Morbid obesity E66.01 Dyslipidemia E78.5 Essential hypertension I10 Hypertension type: essential hypertension Time Spent (min) 23 Assessment & Plan Assessment & Plan (1) Diabetes mellitus, with long-term current use of insulin: Code(s): E11.9 - Type 2 diabetes mellitus without complications; Z79.4 - senior living (current) use of insulin Category: Medical Qualifiers: Diabetes mellitus type: type 2 Diabetes mellitus complication status: with hyperglycemia Qualified Code(s): E11.65 - Type 2 diabetes mellitus with hyperglycemia; Z79.4 - senior living (current) use of insulin (2) Morbid obesity: Code(s): E66.01 - Morbid (severe) obesity due to excess calories Category: Medical (3) Dyslipidemia: Code(s): E78.5 - Hyperlipidemia, unspecified Category: Medical (4) Hypertension: Code(s): I10 - Essential (primary) hypertension Category: Medical Qualifiers: Hypertension type: essential hypertension Qualified Code(s): I10 - Essential (primary) hypertension Plan - Type 2 Diabetes Mellitus: Continue Metformin 1000 mg BID. Aim for A1c reduction to meet target. Maintain diet and exercise intervention. Consider GLP-1 receptor agonist adherence and adjust as necessary. - Essential Hypertension: Continue Lisinopril 10 mg. Monitor blood pressure regularly. - Hyperlipidemia: Continue Simvastatin 20 mg daily. - Morbid Obesity: Continue GLP-1 receptor agonist therapy once a week. Encourage diet and exercise. - Depression: Continue Amitriptyline 50 mg nightly. - Allergic Rhinitis: Continue Montelukast 10 mg. - Chronic Back Pain: Use Naproxen 500 mg as needed for pain relief. - Medication Allergies: Production Repairer on avoiding codeine, fish, and mayonnaise. Patient was informed and verbally consented to the use of an ambient scribe for clinic note documentation during this visit. During the visit, I discussed with the patient the importance of maintaining good glycemic control to prevent complications related to type 2 diabetes mellitus. We reviewed her current medication regimen and emphasized adherence to both pharmacologic and lifestyle measures. For hypertension and hyperlipidemia, I highlighted the positive impact of current medication and encouraged ongoing monitoring and adherence to therapy. In regard to obesity, we discussed the significance of weight loss and the role of GLP-1 receptor agonists, as well as the importance of diet and exercise. I advised reevaluating the slightly elevated protein in the urine in December to determine if physical therapy resident referral is necessary. We addressed the patient's allergies and ensured she avoids known allergens. Orders: Orders Microalbumin, Random (w Creat) 4 Months R80.9 - Proteinuria, unspecified Comprehensive Bath. Panel Fast 4 Months E11.65 - Type 2 diabetes mellitus with hyperglycemia, Z79.4 - senior living (current) use of insulin Influenza [id number] Immunization Today Z23 - Encounter for immunization Lipid Panel 4 Months E78.5 - Hyperlipidemia, unspecified Medications: Refilled tirzepatide (Mounjaro) 7.5 mg (0.5 mL) subcut QWEEK 2 mL 0RF 4 weeks E11.9 - Type 2 diabetes mellitus without complications, Z79.4 - keno terminal operator (current) use of insulin insulin glargine U-300 conc (Toujeo Max U-300 SoloStar) 50 units (0.1667 mL) subcut BEDTIME 5.001 mL 4RF 30 days E11.65 - Type 2 diabetes mellitus with hyperglycemia Patient Instructions: - Continue current medication regimen as prescribed. - Monitor blood sugar and blood pressure at home as advised. - Adhere to prescribed diet and exercise plan for weight management. - Schedule lab work for December to reassess protein levels in urine. - Avoid allergenic substances: codeine, fish, and mayonnaise. - Return for follow-up as scheduled or if new symptoms develop.
[2024-09-17 16:19] VITALS: BP 132/70; BMI 43.9
== END 2024-09-17 17:00 | disposition home or self-care (01) ==
PROVIDERS: PCP Internal Medicine; Visit Provider Internal Medicine
DX: E11.65 Type 2 diabetes mellitus with hyperglycemia (principal); Z79.4 Long term (current) use of insulin; E66.01 Morbid (severe) obesity due to excess calories; Z68.41 Body mass index [BMI] 40.0-44.9, adult; E78.5 Hyperlipidemia, unspecified; I10 Essential (primary) hypertension

== ENCOUNTER → 2024-09-17 16:02 | Outpatient (BNVA) | payer OTHER, SELFPAY | PROVIDERS: PCP Internal Medicine; Visit Provider Internal Medicine | DX: Z23 Encounter for immunization (principal); E11.65 Type 2 diabetes mellitus with hyperglycemia; E66.01 Morbid (severe) obesity due to excess calories; E78.5 Hyperlipidemia, unspecified; I10 Essential (primary) hypertension; Z79.4 Long term (current) use of insulin | CPT/HCPCS: 90471; 90656; 99212 ==

== ENCOUNTER 2024-10-05 12:36 | Outpatient (AMB) | payer OTHER, SELFPAY ==
--- OUTSIDE RECORDS SUMMARY | 2024-10-05 12:38 | XMS_ITS ---
Author Organization [facility] Address [address] [place] [address] Care Team Providers Care Brim Rounder Name Role Phone Jojo Chand Primary Care Provider Unavailab Migue Singh Unavailable [phone] REASON FOR VISIT screening, hx polyps Encounters Encounter Location Date Provider Diagnosis [facility] [address] [place], [place] [id number] 09/28/2023 Migue Sams PLAN OF TREATMENT No Information
--- OUTSIDE RECORDS SUMMARY | 2024-10-05 12:38 | XMS_ITS ---
Author Organization [facility] Address [address] [place] [address] Care Team Providers Care Rotor Balancer Name Role Phone Jojo Chand Primary Care Provider Unavailab Migue Singh Unavailable [phone] REASON FOR VISIT cancel appt Encounters Encounter Location Date Provider Diagnosis [facility] [address] [place] [address] 09/26/2023 Migue Sams PLAN OF TREATMENT No Information
--- OUTSIDE RECORDS SUMMARY | 2024-10-05 12:38 | XMS_ITS ---
Author Organization [facility] Address [address] [place] [address] Care Team Providers Care Breastfeeding Program Coordinator Name Role Phone Jojo Chand Primary Care Provider Unavailab Migue Singh [phone] Fink pulmonary clearance and Victoza adjustment for the 09/28 procedure Encounters Encounter Location Date Provider Diagnosis [facility] [address] [place] [id number] 09/21/2023 Migue Sams PLAN OF TREATMENT No Information
--- OUTSIDE RECORDS SUMMARY | 2024-10-05 12:39 | XMS_ITS | Patient Health Record ---
Author Organization [facility] Address [address] [place] [address] Care Team Providers Care Credit Card Specialist Name Role Phone Jojo Chand Primary Care Provider UnavailMigue Rajput Unavailable [phone] ALLERGIES Allergen (clinical drug ingredient) Drug/Non Drug Allergy documented on EMR Reaction Allergy Type Onset Date Status Codeine Phosphate Unknown Drug Allergy Active beef, mayonaise (uncoded) Unknown Allergy Active REASON FOR REFERRAL No Information MEDICATIONS Medication SIG (Take, Route, Frequency, Duration) Notes Start Date End Date Status Dulcolax (colon prep) 5 MG take at 3:00 p.m and 7:00p.m. Orally two tablets twice a day for one day for 1 day 06/24/2023 Active ProAir HFA Active flovent HFA Active Simvastatin Active MiraLax (colon prep) 17 GM/SCOOP 1 238Gm bottle mixed with Gatorade or Crystal Light Orally begin at 5:00 p.m. the day before the procedure for 1 days 06/24/2023 Active Amitriptyline HCl Ac tive iron Not-Taking Calcium Carbonate-Vitamin D3 Active Vitamin B12 Active V-Go 30 Active Ergocalciferol Activ e Cyanocobalamin ER Ac tive Omeprazole 20 MG Orally Once a day Active Lisinopril Active HumaLOG Active Singulair Active metFORMIN HCl Active Aspir-81 81 MG 1 tablet Orally Once a day Not-Taking Victoza Active Acetaminophen 500 MG 2 capsules as neede d Orally every 6 hrs Active IMMUNIZATIONS Vaccine Route Administration Date Status Comme nts Influenza Unknown 09/14/2022 Administered SOCIAL HISTORY Tobacco Use: Social History Observation Description Date Details (start date - stop date) Former Smoker NA - NA Sex Assigned At : Social History Observation Description Sex Assigned At Unknown Tobacco Use/Smoking Question Answer Notes Patient is a former smoker How long has it been since you last smoked? > 10 years Alcohol Screen Question Answer Notes Did you have a drink containing alcohol in the p ast year? No Points 0 Interpretation Negative PROBLEMS Problem Type ICD Code Onset Dates Problem Status W/U Status Risk SNOMED Code Notes Problem Encounter for screening for malignant neoplasm of colon (Z12.11) Active confirmed 344078507 Problem Preprocedural examination (Z01.818) Active confirmed 998957636 Problem Hx of adenomatous colonic polyps (Z86.010) Active confirmed 258330497 Problem Diarrhea, unspecified type (R19.7) Active confirmed 18380703 Problem History of adenomatous polyp of colon (Z86.010) Active confirmed 269546094 Problem Colon cancer screening (Z12.11) Active confirmed [id number] PLAN OF TREATMENT Future Test Test Name Order Date COLONOSCOPY 04/12/2017 COLONOSCOPY 06/24/2023 Insurance Providers Payer Name Payer Address Payer Phone Subscriber Number Group Number Insured Name Patient Relationship to Insured Coverage Start Date Coverage End Date [facility] [address] [address] [place] [address] [id number] PRANYA MARX Self - patient is the insured MEDICARE OF [place] [address] [place] [address] [id number] MARXPRANAY MERCHANT Self - patient is the insured MEDICAID OF [facility] [address] [place] [address] [id number] MARXPRANAY MERCHANT Self - patient is the insured MEDICAL (GENERAL) HISTORY Medical History History ICD Code IDDM type 2 Hypertension Hypercholesterolemia Sciatica Depression Anemia- due to Vit B12 deficiency Asthma GERD Vitamin D deficency Negative colonoscopy in 03/[address] Rodriguez EGD with me in 1999--GERD-no Ortega's Sleep apnea--uses CPAP and nighttime oxy gen Colonoscopy 06/2017--1 small tubular adenoma, diverticulosis--somewhat limited prep Denies SC,CVA,renal disease Surgical History Surgery Date(Month/Year) LYNDA Cholecystectomy Appendectomy
--- NOTE | 2024-10-05 12:51 | MHC.OFFVIS ---
Vital Signs 10/05/24 13:08 Height 5 ft 5 in Weight 261 lb 7.492 oz BMI 43.5 BP 122/70 Blood Pressure Location Lt brachial Position Sitting Pulse 80 Pulse Source Pulse Oximeter Pulse Oximetry (%) 94 Oxygen Delivery Method Room Air Intake Visit Reasons: pre colonoscopy Intake Note: PT REPORTS NEW ONSET OF CHEST PAIN/TIGHTNESS, SHORTNESS OF BREATH, LABORED BREATHING, LOW OXYGEN SATURATION. PT STATES THAT SHE HAS HAD SIMILAR SX BEFORE BUT THAT TODAY FEELS SOMEWHAT DIFFERENT. NEW PATIENT Pura presents in office today for a scheduled colo scrn Prior hx of colo/egd? [address] Sams. Pt did not want to see [facility] anymore because of their lack of communication and organization. Meds and Allergies reviewed? Y Any significant concerns or questions? Pt has B/L lower quadrant abd pain which radiates into their back. Pt also reports intermittent diarrhea. Pt denies any other sx at this time. Pharmacy verified? [facility] Security Flex Utility Officer Required: Yes Security Flex Utility Officer Services: Security Flex Utility Officer Offered & Declined Security Flex Utility Officer Name: Humberto Kathleen632 Information Interpreted: non-clinical & clinical Accompanied by: Spouse Allergies codeine Allergy (Intermediate, Verified 10/05/24 12:59) fainting fish derived [FISH] Allergy (Intermediate, Verified 10/05/24 12:59) N&V, ABDOMEN DISTENDED, ANAPHYLAXIS Beef Containing Products [BEEF CONTAINING PRODUCTS] Allergy (Mild, Verified 10/05/24 12:59) HIVES/STOMACH ISSUES mayonnaise [MAYONNAISE] Allergy (Mild, Verified 10/05/24 12:59) HIVES HPI HPI pre colonoscopy: Details: 69-year-old female here for preprocedural meeting to discuss a screening colonoscopy. She is referred by Jojo Chand. PMX QUIRINO Diabetes Morbid obesity Hypertension High cholesterol Lumbar degenerative disc disease with sciatica Diabetic retinopathy Osteopenia GERD Tubular adenoma * SURGICAL HISTORY Colonoscopy-2011, 2017= small TA; Sams Abdominal adhesion surgery Hysterectomy Cholecystectomy Appendectomy * ALLERGIES Codeine Fish - vomiting (NOT CONFIRMED WITH ALLERGY TESTING) Beef - vomiting Mayonnaise - vomiting * YellowSchedule LABS: Laboratory Tests 08/27/24 06:53 WBC 9.1 Hgb 11.3 L Hct 37.2 MCV 86.1 MCH 26.2 L Plt Count 308 Estimated GFR 60 Hemoglobin A1c % 7.2 H Total Bilirubin 0.2 AST 23 ALT 16 Alkaline Phosphatase [address] GAITAN NOTE Plan Atypical chest pain; multiple risk factors. EKG with sinus rhythm 89/Min; nonspecific interventricular conduction delay but no ischemic findings. Available high sensitivity troponins are unremarkable. Recent myocardial perfusion imaging study shows normal perfusion. She has had a prior perfusion imaging study from 2016 which was also normal. Coronary CTA from 2017 shows no significant CAD. Overall, no clear evidence of coronary etiology for symptoms. For the aortic sclerotic murmur, we will get an echocardiogram. Otherwise, reassurance only. TODAY'S VISIT The patient had prior scopes by Dr. Sams the last in 2017 with a small tubular adenoma. She says she had a scope scheduled with Dr. Sams, but she had already prepped when they called to cancel!! The patient says that her chest tightness has been going on for a while and has been ruled as non cardiac and likely muscular by cardiology. She has a bulge and pain in the rectum, likely a roid and she usually has some bowel irritability going back and forth between CIC and diarrhea. Mostly she has CIC and in the past used Miralax, senna, fiber, colace and dulcolax w/o sufficient effect. This has worsened since she has been on Mounjaro. I will start a trial of Linzess 145mcg. She has GERD that is well controlled on her omeprazole. She denies any respiratory problems. There are no prior problems with anesthesia and sedation. No ID problems. She had a TA in 2017. Return office visit in 6 weeks to evaluate the Linzess. [facility] Medical History (Updated 10/05/24 @ 15:07 by RIKA Gore) Diabetes type 2, uncontrolled Yeast dermatitis Palpitation Postmenopausal Physical exam Sleep apnea Cough Chest pain Preop pulmonary/respiratory exam Screen for colon cancer Breast calcification, left GERD (gastroesophageal reflux disease) Mild non proliferative diabetic retinopathy Osteopenia Vitamin D deficiency Morbid obesity Dyslipidemia Hypertension FDC (current) use of insulin Diabetic polyneuropathy associated with type 2 diabetes mellitus Surgical History (Updated 10/04/24 @ 13:58 by JOSSELYN Gore H/O colonoscopy History of surgery S/P LYNDA-BSO (total abdominal hysterectomy and bilateral salpingo-oophorectomy) History of cholecystectomy History of appendectomy Family History Father Hypertension Diabetes CVD (cardiovascular disease) Mother No problems noted. Maternal Grandfather Prostate cancer Maternal Uncle Throat cancer Sister Ovary cancer Social History Housing: Apartment Alcohol intake: never Patient Tobacco Use Status: Former Tobacco user Tobacco use type: Cigarette e-Cigarette/Vaping Use: Never Used Second Hand Smoke Exposure: No service: No Current occupational status: disabled Cognitive needs: Yes Hearing needs: No Vision needs: Yes Female Reproductive History Menstrual Age of Menarche: 13 Review of Systems Const Denies fatigue, Denies fever(s), Denies night sweats, Denies poor appetite, Reports snoring and Denies weight loss ENT Reports Normal hearing present, Denies dental pain, Denies dysphagia, Denies hearing loss, Denies mouth pain, Denies odynophagia, Denies throat swelling, Denies tongue swelling and Reports other (Dentition adequate) Card Reports no additional complaints Resp Reports snoring GI Details: Denies abdominal pain, Denies melena, Denies bloating, Reports hematochezia, Reports constipation, Denies GI cramping, Denies dysphagia, Denies excessive flatus, Denies early satiety, Reports heartburn, Denies diarrhea, Denies nausea, Denies odynophagia, Denies vomiting and Denies hematemesis Musc Details: Noncardiac costochondritis Reports back pain Skin/Breast Denies pruritus, Denies lesions, Denies rash and Denies jaundice Neuro Reports Normal hearing present and Denies Abnormal speech present Endo Denies fatigue Aller/Immun Denies throat swelling and Denies tongue swelling Physical Exam Vital Signs: Last Vital Signs Pulse 80 10/05/24 13:08 BP 122/70 10/05/24 13:08 Pulse Ox 94 10/05/24 13:08 Oxygen Delivery Method Room Air 10/05/24 13:08 BMI result Body Mass Index 43.5 Const General: cooperative, no acute distress, well developed and well groomed Nutritional Appearance: well nourished and obese Orientation/consciousness: oriented to person, oriented to place and oriented to time Limitations: language barrier and ambulation with cane HEENT Head: Yes normocephalic and Yes atraumatic Eyes General: appearance normal, both eyes and all related structures Pupils: Equal, round and reactive pupils present Neck Neck: Yes normal visual inspection and Yes no lymphadenopathy Thyroid: Thyroid normal Resp Effort & Inspection: normal respiratory effort and able to speak in complete sentences Auscultation: clear to auscultation bilaterally Cardio Rate: regular rate Rhythm: regular rhythm Heart sounds: Normal, physiologic split S2 sound present Peripheral pulses: radial pulses present and posterior tibial pulses present GI Inspection: No distended, Yes Abdominal panniculus present, Yes obesity and Yes scar Palpation (GI): Soft to palpation, nontender, no guarding, not rigid and No hepatosplenomegaly present Percussion: Yes normal to percussion Auscultation: normal bowel sounds Rectal Exam - Female: deferred Abdomen image: 1. surgical scars 2. Skin General skin exam: no rashes or lesions noted, turgor normal, skin not dry, no jaundice, No spider nevi and no striae Rashes: no rashes Nails: normal Neuro General: oriented to person, oriented to place and oriented to time Cranial nerves: Yes Equal, round and reactive pupils present and Yes Normal hearing present Speech: No Abnormal speech present Extrem General: Yes normal to inspection, No clubbing, No cyanosis and No edema Psych Appearance: grossly normal and well kempt Mental Status: mental status grossly normal Speech and movement: Normal speech and movement present Affect: normal affect Attitude: cooperative Thought process: Normal thought process present and not confabulating Thought content: Normal thought content present Insight: Limited insight present (Psych) Judgement: Limited judgement present (Psych) Assessment & Plan Assessment & Plan (1) Pre-op examination: Code(s): Z01.818 - Encounter for other preprocedural examination Category: Medical (2) Tubular adenoma of colon: Code(s): D12.6 - Benign neoplasm of colon, unspecified Category: Medical (3) Chronic idiopathic constipation: Code(s): K59.04 - Chronic idiopathic constipation Category: Medical (4) QUIRINO (obstructive sleep apnea): Code(s): G47.33 - Obstructive sleep apnea (adult) (pediatric) Category: Medical (5) Morbid obesity: Code(s): E66.01 - Morbid (severe) obesity due to excess calories Category: Medical Plan The patient had prior scopes by Dr. Sams the last in 2017 with a small tubular adenoma. She says she had a scope scheduled with Dr. Sams, but she had already prepped when they called to cancel!! The patient says that her chest tightness has been going on for a while and has been ruled as non cardiac and likely muscular by cardiology. She has a bulge and pain in the rectum, likely a roid and she usually has some bowel irritability going back and forth between CIC and diarrhea. Mostly she has CIC and in the past used Miralax, senna, fiber, colace and dulcolax w/o sufficient effect. This has worsened since she has been on Mounjaro. I will start a trial of Linzess 145mcg. She has GERD that is well controlled on her omeprazole. She denies any respiratory problems, but she does have QUIRINO and is morbidly obese. There are no prior problems with anesthesia and sedation. No ID problems. She had a TA in 2017. Return office visit in 6 weeks to evaluate the Linzess. Orders: Orders Colonoscopy - GI Use Only Today D12.6 - Benign neoplasm of colon, unspecified, E66.01 - Morbid (severe) obesity due to excess calories, G47.33 - Obstructive sleep apnea (adult) (pediatric), Z01.818 - Encounter for other preprocedural examination Medications: New bisacodyl (Dulcolax (bisacodyl)) 10 mg (2 x 5 mg) PO BEDTIME 4 tabs 0RF 2 days linaclotide (Linzess) Take first thing in the morning with a full glass of water. 145 mcg PO QAM 30 caps 3RF K58.1 - Irritable bowel syndrome with constipation polyethylene glycol 3350 (Miralax) 238 grams PO ONCE 238 grams 0RF colonoscopy prep 1 day Coding Level of Care Code New Pt Level 3 (01727) Diagnoses Pre-op examination Z01.818 Tubular adenoma of colon D12.6 Chronic idiopathic constipation K59.04 QUIRINO (obstructive sleep apnea) G47.33 Morbid obesity E66.01
[2024-10-05 13:08] VITALS: BP 122/70; PULSE 80; O2SAT 94; BMI 43.5
== END 2024-10-05 13:42 | disposition home or self-care (01) ==
PROVIDERS: PCP Internal Medicine; Visit Provider Nurse Practitioner
DX: K59.04 Chronic idiopathic constipation (principal); Z01.818 Encounter for other preprocedural examination; Z86.0100 Personal history of colon polyps, unspecified
CPT/HCPCS: 99203

== ENCOUNTER → 2024-10-05 12:36 | Outpatient (BNVA) | payer OTHER, SELFPAY | PROVIDERS: PCP Internal Medicine; Visit Provider Nurse Practitioner | DX: Z01.818 Encounter for other preprocedural examination (principal); K58.1 Irritable bowel syndrome with constipation; K59.04 Chronic idiopathic constipation; D12.6 Benign neoplasm of colon, unspecified; G47.33 Obstructive sleep apnea (adult) (pediatric); E66.01 Morbid (severe) obesity due to excess calories; Z68.41 Body mass index [BMI] 40.0-44.9, adult | CPT/HCPCS: 99202 ==

== ENCOUNTER 2024-11-15 10:06 | Outpatient (AMB) | payer OTHER, SELFPAY ==
[2024-11-15 10:09] VITALS: BP 118/76; PULSE 76; BMI 43.3
--- NOTE | 2024-11-15 10:09 | A.OFFVIS_ITS ---
Vital Signs 11/15/24 10:09 Height 5 ft 5 in Weight 260 lb 2.327 oz BMI 43.3 BP 118/76 Blood Pressure Location Rt brachial Position Sitting Pulse 76 Pulse Source Pulse Oximeter Intake Visit Reasons: Type 2 DM Intake Note: Patient presents today for follow-up on Type 2 Diabetes Mellitus: Last Diabetic eye exam was on: See parliamentary librarian every 3 months for injections, last appt on 08/16/2024. Last Podiatry exam was on: Does not see a Lehr Tender Most recent HbA1c: 7.2%, 08/27/2024 Random Glucose- 195 mg/dL, Today Optical Manager Required: Yes Optical Manager Language: Machinist First Class Services: Optical Manager Present Optical Manager Name: JOSSELYN Vaughn/LIBRA Davidson Accompanied by: Self / Same As Patient Allergies codeine Allergy (Intermediate, Verified 11/15/24 10:14) fainting fish derived [FISH] Allergy (Intermediate, Verified 11/15/24 10:14) N&V, ABDOMEN DISTENDED, ANAPHYLAXIS Beef Containing Products [BEEF CONTAINING PRODUCTS] Allergy (Mild, Verified 11/15/24 10:14) HIVES/STOMACH ISSUES mayonnaise [MAYONNAISE] Allergy (Mild, Verified 11/15/24 10:14) HIVES Medication List - Last Reconciled 11/15/24 by Babita Perez MD albuterol sulfate 2.5 mg (3 mL) inhalation Q6H PRN 30 days amitriptyline 50 mg PO BEDTIME 90 days bisacodyl (Dulcolax (bisacodyl)) 10 mg (2 x 5 mg) PO BEDTIME 2 days blood sugar diagnostic (Array StormTouch Verio test strips) Four times a day blood-glucose meter (OneTouch Verio Flex Start kit) Four times a day insulin glargine U-300 conc (Toujeo Max U-300 SoloStar) 50 units (0.1667 mL) subcut BEDTIME 30 days insulin lispro (Humalog KwikPen (U-100) Insulin) 12 - 16 units (0.12 - 0.16 mL) subcut BID 30 days lancets (TRUEplus Lancets) 33 gauge miscellaneous QID 30 days linaclotide (Linzess) 145 mcg PO QAM lisinopril 10 mg PO DAILY 90 days metformin 1,000 mg PO BID 90 days montelukast 10 mg PO DAILY 90 days naproxen 500 mg PO BID 90 days nystatin 1 appl topical BID 30 days omeprazole 40 mg PO DAILY 90 days pen needle, diabetic (BD Mary Lou 2nd Gen Pen Needle) 5 times a day pen needle, diabetic (BD Ultra-Fine Mary Lou Pen Needle) As directed 5 times a day polyethylene glycol 3350 (Miralax) 238 grams PO ONCE 1 day simvastatin 20 mg PO DAILY 90 days tirzepatide (Mounjaro) 7.5 mg (0.5 mL) subcut QWEEK 4 weeks Ventolin HFA 90 mcg/actuation (albuterol sulfate) 2 puffs inhalation Q6H PRN 30 days NS HPI Comments Details: Patient is a 69 year-old female with DM type 2 diagnosed 1986 presenting for follow up Past medical history: Diabetes type 2, hypertension, hyperlipidemia, GERD, depression PTSD, QUIRINO, obesity. Micro and macrovascular complications: Neuropathy and h/o CVA Diabetes medications: Toujeo 50 Humalog 12/usually skips lunch 16, mounjaro 7.5%, metformin 1000 mg bid. A1C 7.2% from 7.5% from 8.4%. Using alpha lipoic acid 600 mg daily for neuropathy. Compliant with medications Blood glucose monitoring: One touch download. Checking 3 times daily. Average 162 range 110-317. A few lows between 3 and 7 pm. Says she has skipped lunch after taking lunch time insulin at times. Her appetite is decreased with the mounjaro Symptoms reported: Mild lower extremity neuropathy Hypoglycemia: when she goes too long without eating, generally afternoon. Infrequent Hyperglycemia: gets body aches Diet: Breakfast: crackers or hot cereal, coffee, Lunch: soup or skips , Dinner: rice, beans, chicken, Snacks: denies , Drinks throughout day: water, cranberry juice Exercise: limited, uses cane Technology Architect - CDE education: in past Lehr Tender: denies Dental exam: goes every 6 months Ophthalmology evaluation: q3 months. nonproliferative diabetic retinopathy in both eyes ROS CONSTITUTIONAL: Denies weight loss, fever and chills. HEENT: Denies changes in vision and hearing. RESPIRATORY: Denies SOB and cough. CV: Denies palpitations and CP GI: Denies abdominal pain, nausea, vomiting and diarrhea. : Denies dysuria and urinary frequency. MSK: Denies new myalgia and joint pain. SKIN: Denies rash and pruritus. NEUROLOGICAL: Denies headache PSYCHIATRIC: Denies recent changes in mood. PHYSICAL EXAM: GENERAL: Obese Alert and oriented x 3. NAD EYES: EOMI. Anicteric. HENT: Moist mucous membranes. No scleral icterus. No cervical lymphadenopathy. LUNGS: Clear to auscultation bilaterally. CARDIOVASCULAR: Regular rate and rhythm. systolic murmur. No JVD. ABDOMEN: Soft, non-tender +bs EXTREMITIES: No edema. Non-tender. SKIN: No rashes or lesions. Warm. NEUROLOGIC: No focal neurological deficits. CN II-XII grossly intact PSYCHIATRIC: Cooperative. 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 Maternal Grandfather Prostate cancer Maternal Uncle Throat cancer Sister Ovary cancer Social History Housing: Apartment Alcohol intake: never Patient Tobacco Use Status: Former Tobacco user Tobacco use type: Cigarette e-Cigarette/Vaping Use: Never Used Second Hand Smoke Exposure: No service: No Current occupational status: disabled Cognitive needs: Yes Hearing needs: No Vision needs: Yes Female Reproductive History Menstrual Age of Menarche: 13 Physical Exam Vital Signs: Last Vital Signs Pulse 76 11/15/24 10:09 BP 118/76 11/15/24 10:09 BMI result Body Mass Index 43.3 Results Reviewed Results Reviewed: Laboratory Last Values Glucose (Clinic) 195 mg/dL (60-115) H 11/15/24 10:15 Assessment & Plan Assessment & Plan (1) Diabetes mellitus, with long-term current use of insulin: Code(s): E11.9 - Type 2 diabetes mellitus without complications; Z79.4 - jail (current) use of insulin Category: Medical Qualifiers: Diabetes mellitus complication status: with hyperglycemia Diabetes mellitus type: type 2 Qualified Code(s): E11.65 - Type 2 diabetes mellitus with hyperglycemia; Z79.4 - ad terminal makeup operator (current) use of insulin Plan: close to controlled on current regimen though some highs over the past two weeks She still could benefit from significant weight loss-will increase her mounjaro which she has been tolerating well She will return in 3 months for follow up (2) Mild non proliferative diabetic retinopathy: Code(s): E11.3299 - Type 2 diabetes mellitus with mild nonproliferative diabetic retinopathy without macular edema, unspecified eye Category: Medical Qualifiers: Diabetes mellitus macular edema: without macular edema Diabetes mellitus type: type 2 Laterality: bilateral Qualified Code(s): E11.3293 - Type 2 diabetes mellitus with mild nonproliferative diabetic retinopathy without macular edema, bilateral Plan: Continues regular eye exams Medications: New tirzepatide (Mounjaro) 10 mg (0.5 mL) subcut QWEEK 6 mL 3RF OneTouch Ultra Test (blood sugar diagnostic) 3 times daily 400 ea 3RF NS E11.65 - Type 2 diabetes mellitus with hyperglycemia, Z79.4 - ad terminal makeup operator (current) use of insulin Coding Level of Care Code Est Pt Level 4 (84255) Diagnoses Type 2 diabetes mellitus with hyperglycemia, with long-term current use of insulin E11.65; Z79.4 Diabetes mellitus complication status: with hyperglycemia Diabetes mellitus type: type 2 Mild nonproliferative diabetic retinopathy of both eyes without macular edema associated with type 2 diabetes mellitus E11.3293 Diabetes mellitus macular edema: without macular edema Diabetes mellitus type: type 2 Laterality: bilateral
[2024-11-15 10:19] LABS: Glucose, Whole Blood 195 mg/dL (60-115)
== END 2024-11-15 10:36 | disposition home or self-care (01) ==
PROVIDERS: PCP Internal Medicine; Visit Provider Internal Medicine
DX: E11.65 Type 2 diabetes mellitus with hyperglycemia (principal); Z79.4 Long term (current) use of insulin; E11.3293 Type 2 diabetes mellitus with mild nonproliferative diabetic retinopathy without macular edema, bilateral

== ENCOUNTER → 2024-11-15 10:06 | Outpatient (BNVA) | payer OTHER, SELFPAY | PROVIDERS: PCP Internal Medicine; Visit Provider Internal Medicine | DX: E11.65 Type 2 diabetes mellitus with hyperglycemia (principal); E11.3293 Type 2 diabetes mellitus with mild nonproliferative diabetic retinopathy without macular edema, bilateral; Z79.4 Long term (current) use of insulin | CPT/HCPCS: 82947; 99212 ==

== ENCOUNTER 2025-01-07 06:42 | Outpatient (REF) | payer OTHER, SELFPAY ==
[2025-01-07 07:39] LABS: Alanine Aminotransferase 12 U/L (0-31); Albumin Level 3.6 g/dL (3.5-5.0); Alkaline Phosphatase 106 U/L (39-117); Anion Gap 13 (12-20); Aspartate Amino Transferase 15 U/L (5-31); Bilirubin Total 0.2 mg/dL (0.0-1.0); Blood Urea Nitrogen 21 mg/dL (9-16); Calcium 9.3 mg/dL (8.4-10.2); Carbon Dioxide 29 mmol/L (22-29); Chloride 106 mmol/L (96-108); Cholesterol 109 mg/dL (<200); Estimated Glomerular Filt Rate 59; Glucose Fasting 120 mg/dL (60-99); HDL Cholesterol 36 mg/dL (>40); LDL Cholesterol Calculated 44 mg/dL (<100); Potassium 4.8 mmol/L (3.3-5.1); Sodium 143 mmol/L (135-145); Triglycerides 146 mg/dL (<150)
[2025-01-07 09:47] LABS: Creatinine Urine 42.07 mg/dL; Microalbum/Creatinine Ratio Ur 16.6 ug/mg cr (<30)
== END 2025-01-07 06:43 | disposition home or self-care (01) ==
LOC: HO.LAB 06:42
PROVIDERS: PCP Internal Medicine; Visit Provider Internal Medicine
DX: E11.9 Type 2 diabetes mellitus without complications (principal); Z79.4 Long term (current) use of insulin; R80.9 Proteinuria, unspecified; E78.5 Hyperlipidemia, unspecified
CPT/HCPCS: 36415; 80053; 80061; 82043; 82570

== ENCOUNTER 2025-01-10 12:42 | Outpatient (AMB) | payer OTHER, SELFPAY ==
--- NOTE | 2025-01-10 12:51 | A.OFFPC_ITS ---
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: Yes Wind Energy Project Manager Language: Pipe Processor Name: Jojo Alcantar MD Information Interpreted: non-clinical & clinical Accompanied by: Self / Same As Patient Allergies codeine Allergy (Intermediate, Verified 01/10/25 12:54) fainting fish derived [FISH] Allergy (Intermediate, Verified 01/10/25 12:54) N&V, ABDOMEN DISTENDED, ANAPHYLAXIS Beef Containing Products [BEEF CONTAINING PRODUCTS] Allergy (Mild, Verified 01/10/25 12:54) HIVES/STOMACH ISSUES mayonnaise [MAYONNAISE] Allergy (Mild, Verified 01/10/25 12:54) HIVES Tobacco use date assessed: 01/10/25 Fall risk assessment: No Falls in past year Last assessed Fall Risk: 01/10/25 Dental Screening Dental Screen Date: 01/10/25 Did you have a dental visit in the last 12 months?: No Did you have a dental problem in the last 6 months where you did not have access to dental care?: No Was dental information given to patient?: Patient has dentist HPI HPI Comments History of Present Illness Details The patient is a 69-year-old female presenting for her annual physical examination and health maintenance. She manages her Type 2 Diabetes Mellitus with a regimen that includes insulin and Mounjaro, and she notes a recent uptick in her Hemoglobin A1c. The patient reports gradual weight loss but requires further monitoring due to the increase in A1c. She also has a known history of intestinal adenomatous polyps and plans for surveillance colonoscopy in 2026. Previous bone density scans have been unremarkable. Her surgical history includes a hysterectomy and removal of the gallbladder and appendix, all for benign conditions. She reports no alcohol consumption and has quit smoking. Her family history is significant for her father's chronic conditions, while her mother has no similar issues. Continued screening for breast cancer via mammography is advised for this year. - Annual physical examination - Hemoglobin A1c monitoring; most recent 7.9 - Lipid panel; recent LDL at 44 - Follow-up mammography recommended for this year - Bone density scan normal (2023), follo w-up planned for 2025 - Colonoscopy surveillance for adenomato us polyp in 2026 - Vaccination: tetanus vaccine administe red - Eye examination in July revealed bi lateral diabetic retinopathy [facility] Medical History (Updated 01/10/25 @ 15:37 by Jojo Alcantar MD) Physical exam Diabetes type 2, uncontrolled Yeast dermatitis Palpitation Postmenopausal Sleep apnea Cough Chest pain Preop pulmonary/respiratory exam Screen for colon cancer Breast calcification, left GERD (gastroesophageal reflux disease) Mild non proliferative diabetic retinopathy Osteopenia Vitamin D deficiency Morbid obesity Dyslipidemia Hypertension 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 Maternal Grandfather Prostate cancer Maternal Uncle Throat cancer Sister Ovary cancer Social History Housing: Apartment Alcohol intake: never Patient Tobacco Use Status: Former Tobacco user Tobacco use type: Cigarette e-Cigarette/Vaping Use: Never Used Second Hand Smoke Exposure: No service: No Current occupational status: disabled Cognitive needs: Yes Hearing needs: No Vision needs: Yes Female Reproductive History Menstrual Age of Menarche: 13 Questionnaire PHQ-9 Over the last 2 weeks, how often have you been bothered by any of the following problems? 1. Little interest or pleasure in doing things: not at all 2. Feeling down, depressed, or hopeless: not at all 3. Trouble falling or staying asleep, or sleeping too much: not at all 4. Feeling tired or having little energy: not at all 5. Poor appetite or overeating: not at all 6. Feeling bad about yourself - or that you are a failure or have let yourself or your family down: not at all 7. Trouble concentrating on things, such as reading the newspaper or watching television: not at all 8. Moving or speaking so slowly that other people could have noticed. Or the opposite - being so fidgety or restless that you have been moving around a lot more than usual: not at all 9. Thoughts that you would be better off or of hurting yourself in some way: not at all Total score: 0 Depression Screening Interpretation: Negative Depression Screening Done: Yes 52964 - PHQ-9 Billing: Yes Source: Developed by Drs. Migue Coburn, Mone Whatley, Sixto Lynne and colleagues, with an educational pepito from [employer]. Thrive Questionnaire Date Thrive assessed: 01/10/25 I am a: Patient What is your living situation today?: I have a steady place to live Within the past 12 months, did the food you bought not last and you didn't have the money to get more?: Never true Within the past 12 months, did you worry whether your food would run out before you got money to buy more?: Never true Do you have trouble paying for medicines?: No Do you have trouble getting transportation to medical appointments?: No Do you have trouble paying your heating and electricity bill?: No Do you have trouble taking care of your child, family member or friend?: No Do you have trouble with day-to-day activities such as bathing, preparing meals, shopping, managing finances, etc.?: No Are you currently unemployed and looking for a job?: No Are you interested in more education?: No Please select the resources that you would like help with: None Currently or been in a relationship where the following occur: No concerns reported THRIVE Score: 0 AUDIT C Alcohol Use Questionnaire (AUDIT-C) 1. How often do you have a drink containing alcohol?: Never Total Score: 0 Score Reviewed/Action Taken: No SABRINA-7 AMB Questionnaire SABRINA-7 Date SABRINA - 7 assessed: 01/10/25 Feeling nervous, anxious, or on edge: 0 = Not at all Not being able to stop or control worryin = Not at all Worrying too much about different things: 0 = Not at all Trouble relaxin = Not at all Being so restless that it is hard to sit still: 0 = Not at all Becoming easily annoyed or irritable: 0 = Not at all Feeling afraid as if something awful might happen: 0 = Not at all Total SABRINA-7 score (0-4 normal; 5-9 mild; 10-14 moderate; 15-21 severe): 0 Source: Developed by Drs. Migue Coburn, Mone Whatley, Sixto Lynne and colleagues, with an educational pepito from [employer]. SABRINA-7 Assessment Billing SABRINA-7 Assessment Tool: SABRINA-7 Assessment 47827 Review of Systems Const All systems reviewed & are unremarkable except as noted in HPI and below Card Denies chest pain at rest, Denies chest pain with activity, Denies edema, Denies irregular heart rhythm, Denies claudication, Denies dyspnea, Denies dyspnea on exertion, Denies orthopnea, Denies paroxysmal nocturnal dyspnea and Denies slow heart rate Resp Denies cough, Denies dyspnea and Denies dyspnea on exertion GI Denies abdominal pain, Denies change in bowel habits, Denies excessive flatus, Denies nausea and Denies vomiting Denies urinary incontinence, Denies urinary hesitancy and Denies urinary urgency Musc Denies atrophy, Denies deformity and Denies limited range of motion Skin/Breast Denies bleeding lesions, Denies changing lesions and Denies rash Physical exam (Primary Care) Vital Signs: Last Vital Signs BP 130/62 01/10/25 12:53 BMI result Body Mass Index 42.8 BMI Assessment/Plan discussion: High BMI High, discussed plan: lifestyle, weight reduction, dietary and physical activity Tobacco/Smoking Status: Tobacco use Status Tobacco use date assessed 01/10/25 01/10/25 12:55 Patient Tobacco Use Status Former Tobacco user 01/10/25 12:55 Tobacco use type Cigarette 01/10/25 12:55 e-Cigarette/Vaping Use Never Used 01/10/25 12:55 PHQ-9: PHQ-9 Score PHQ-9: Total score 0 01/10/25 13:27 Depression Screening Interpretation: Negative Thrive Assessment: Date of Thrive Assessment Date Thrive assessed 01/10/25 01/10/25 12:55 Currently or been in a relationship where the following occur: No concerns reported HENMT Head: Yes normal to inspection, Yes normocephalic and Yes atraumatic Ears: external ears normal Eyes General: appearance normal, both eyes and all related structures Eyelids: Yes eyelids normal Conjunctivae: conjunctivae normal Neck Neck: Yes normal visual inspection and Yes supple Resp Effort & Inspection: normal respiratory effort Auscultation: clear to auscultation bilaterally Cardio Jugular venous distension: no JVD Rate: regular rate Rhythm: regular rhythm Heart sounds: S1 normal heart sound present and S2 normal heart sound present GI Inspection: Yes normal to inspection Palpation (GI): Soft to palpation and nontender Auscultation: normal bowel sounds Skin General skin exam: no rashes or lesions noted Neuro General: no focal motor deficits Extrem General: Yes full ROM Psych Appearance: grossly normal Results AMB Hemoglobin A1c AMB Hemoglobin A1c 7.9 % Last Edit by JOSSELYN Friedman on 01/10/25 13:0 9 Immunizations Boostrix Tdap 2.5 Lf unit-8 mcg-5 Lf/0.5 mL intramuscular syringe Performing Provider: Jojo Alcantar MD Performing Location: [facility] [place] Administered by: JOSSELYN Friedman on 01/10/25 13:27 Dose Route Admin Location Dispensed Lot Number Expiration Date NDC Outside Medical Sales Representative 0.5 mL IM Left Deltoid 0.5 mL [id number] 04/06/27 [id number] [employer] VIS Given Date VIS Provided VIS Publication Date 01/10/25 Single Vaccine 21 Eligibility Eligibility Date Funding Source Not [facility] Eligible 01/10/25 Private Results Reviewed Results Reviewed: Laboratory Last Values Hgb A1c (Clinic) 7.9 % (4.0-6.0) H 01/10/25 13:08 Coding Level of Care Code Est Pt Prev Care >65y(82710) Diagnoses Physical exam Z00.00 Type 2 diabetes mellitus with hyperglycemia, with long-term current use of insulin E11.65; Z79.4 Diabetes mellitus type: type 2 Diabetes mellitus complication status: with hyperglycemia Mild nonproliferative diabetic retinopathy of both eyes without macular edema associated with type 2 diabetes mellitus E11.3293 Diabetes mellitus type: type 2 Diabetes mellitus macular edema: without macular edema Laterality: bilateral Morbid obesity E66.01 Diabetic polyneuropathy associated with type 2 diabetes mellitus E11.42 Additional Codes SABRINA-7 Assessment Billing - SABRINA-7 Assessment Tool: SABRINA-7 Assessment 21699 ([id number]) PHQ-9 - 67967 - PHQ-9 Billing: Yes ([id number]) Time Spent (min) 34 Assessment & Plan Assessment & Plan (1) Physical exam: Code(s): Z00.00 - Encounter for general adult medical examination without abnormal findings Category: Medical (2) Diabetes mellitus, with long-term current use of insulin: Code(s): E11.9 - Type 2 diabetes mellitus without complications; Z79.4 - oil heaterman (current) use of insulin Category: Medical Qualifiers: Diabetes mellitus type: type 2 Diabetes mellitus complication status: with hyperglycemia Qualified Code(s): E11.65 - Type 2 diabetes mellitus with hyperglycemia; Z79.4 - oil heaterman (current) use of insulin (3) Mild non proliferative diabetic retinopathy: Code(s): E11.3299 - Type 2 diabetes mellitus with mild nonproliferative diabetic retinopathy without macular edema, unspecified eye Category: Medical Qualifiers: Diabetes mellitus type: type 2 Diabetes mellitus macular edema: without macular edema Laterality: bilateral Qualified Code(s): E11.3293 - Type 2 diabetes mellitus with mild nonproliferative diabetic retinopathy without macular edema, bilateral (4) Morbid obesity: Code(s): E66.01 - Morbid (severe) obesity due to excess calories Category: Medical (5) Diabetic polyneuropathy associated with type 2 diabetes mellitus: Code(s): E11.42 - Type 2 diabetes mellitus with diabetic polyneuropathy Category: Medical Plan Management for Type 2 Diabetes Mellitus continues with insulin and Mounjaro, monitoring Hemoglobin A1c with dietary adjustments as needed. Hyperlipidemia management with statin therapy is effective, with recent results showing satisfactory LDL levels. We emphasis preventive care, recommending mammography this year and ensuring ongoing surveillance for adenomatous colon polyp. Continued monitoring for diabetic retinopathy is advised, with the patient informed of the need to report any visual changes promptly. Encouragement is given to sustain her weight loss efforts alongside the healthcare management plan. Patient was informed and verbally consented to the use of an ambient scribe for clinic note documentation during this visit. We reviewed the increase in Hemoglobin A1c and discussed maintaining current therapeutic regimens while considering dietary modifications. The benefits of ongoing statin use were deducted, along with the impressive reduction in LDL levels. We emphasized the importance of scheduled screening appointments for breast cancer and regular follow-ups for diabetic eye health. The patient was counselled on the significance of her weight loss, and given reinforcement for her efforts, we discussed the importance of complying with the advised colonoscopy timeline. Tetanus vaccine administration was completed to maintain up-to-date immunization status. Orders: Orders AMB Hemoglobin A1c Today E11.65 - Type 2 diabetes mellitus with hyperglycemia, Z79.4 - oil heaterman (current) use of insulin MM tomosynthesis screening BI Today Z12.31 - Encounter for screening mammogram for malignant neoplasm of breast TDaP Immunization Today Z23 - Encounter for immunization Patient Instructions: - Continue current medication regimen and monitor blood sugars - Follow recommended dietary modifications for glycemic control - Schedule mammography for this year - Monitor any changes in vision and report immediately - Keep up with statin therapy to manage cholesterol levels - Maintain scheduled follow-ups for preventive care, including colonoscopy - Continue weight management efforts - Adhere to immunization schedule for preventive health
[2025-01-10 12:53] VITALS: BP 130/62; BMI 42.8
== END 2025-01-10 13:26 | disposition home or self-care (01) ==
LOC: HO.HMCH 12:43
PROVIDERS: PCP Internal Medicine; Visit Provider Internal Medicine
DX: Z00.00 Encounter for general adult medical examination without abnormal findings (principal); E11.65 Type 2 diabetes mellitus with hyperglycemia; Z79.4 Long term (current) use of insulin; E11.3293 Type 2 diabetes mellitus with mild nonproliferative diabetic retinopathy without macular edema, bilateral; E66.01 Morbid (severe) obesity due to excess calories; E11.42 Type 2 diabetes mellitus with diabetic polyneuropathy; Z23 Encounter for immunization

== ENCOUNTER → 2025-01-10 12:42 | Outpatient (BNVA) | payer OTHER, SELFPAY | PROVIDERS: PCP Internal Medicine; Visit Provider Internal Medicine | DX: Z00.00 Encounter for general adult medical examination without abnormal findings (principal); E11.65 Type 2 diabetes mellitus with hyperglycemia; Z23 Encounter for immunization; E11.3293 Type 2 diabetes mellitus with mild nonproliferative diabetic retinopathy without macular edema, bilateral; E11.42 Type 2 diabetes mellitus with diabetic polyneuropathy; E66.01 Morbid (severe) obesity due to excess calories; Z68.41 Body mass index [BMI] 40.0-44.9, adult; Z79.4 Long term (current) use of insulin; Z71.3 Dietary counseling and surveillance | CPT/HCPCS: 83036; 90471; 90715; 96127; 99397 ==

== ENCOUNTER 2025-01-24 11:26 | Outpatient (AMB) | payer OTHER, SELFPAY ==
--- NOTE | 2025-01-24 11:32 | MHC.OFFVIS ---
Vital Signs 01/24/25 11:50 Height 5 ft 5 in Weight 257 lb 7.999 oz BMI 42.8 BP 107/52 L Blood Pressure Location Rt brachial Position Sitting Pulse 76 Intake Visit Reasons: 6 wk f/u r/s 11/23/24 Intake Note: Patient in office today in follow up of CIC. CC: The patient reports doing well but states that she recently ran out of her medications and began to experience some abd pain. Civilian Technician Required: Yes Civilian Technician Language: [place] Citizen Allergies codeine Allergy (Intermediate, Verified 01/24/25 11:57) fainting fish derived [FISH] Allergy (Intermediate, Verified 01/24/25 11:57) N&V, ABDOMEN DISTENDED, ANAPHYLAXIS Beef Containing Products [BEEF CONTAINING PRODUCTS] Allergy (Mild, Verified 01/24/25 11:57) HIVES/STOMACH ISSUES mayonnaise [MAYONNAISE] Allergy (Mild, Verified 01/24/25 11:57) HIVES HPI HPI 6 wk f/u r/s 11/23/24: Details: Assessment & Plan (1) Pre-op examination: Code(s): Z01.818 - Encounter for other preprocedural examination Category: Medical (2) Tubular adenoma of colon: Code(s): D12.6 - Benign neoplasm of colon, unspecified Category: Medical (3) Chronic idiopathic constipation: Code(s): K59.04 - Chronic idiopathic constipation Category: Medical (4) QUIRINO (obstructive sleep apnea): Code(s): G47.33 - Obstructive sleep apnea (adult) (pediatric) Category: Medical (5) Morbid obesity: Code(s): E66.01 - Morbid (severe) obesity due to excess calories Category: Medical Plan The patient had prior scopes by Dr. Sams the last in 2017 with a small tubular adenoma. She says she had a scope scheduled with Dr. Sams, but she had already prepped when they called to cancel!! The patient says that her chest tightness has been going on for a while and has been ruled as non cardiac and likely muscular by cardiology. She has a bulge and pain in the rectum, likely a roid and she usually has some bowel irritability going back and forth between CIC and diarrhea. Mostly she has CIC and in the past used Miralax, senna, fiber, colace and dulcolax w/o sufficient effect. This has worsened since she has been on Mounjaro. I will start a trial of Linzess 145mcg. She has GERD that is well controlled on her omeprazole. She denies any respiratory problems, but she does have QUIRINO and is morbidly obese. There are no prior problems with anesthesia and sedation. No ID problems. She had a TA in 2017. Return office visit in 6 weeks to evaluate the Linzess. Orders: Orders Colonoscopy - GI Use Only Today D12.6 - Benign neoplasm of colon, unspecified, E66.01 - Morbid (severe) obesity due to excess calories, G47.33 - Obstructive sleep apnea (adult) (pediatric), Z01.818 - Encounter for other preprocedural examination Medications: New bisacodyl (Dulcolax (bisacodyl)) 10 mg (2 x 5 mg) PO BEDTIME 4 tabs 0RF 2 days linaclotide (Linzess) Take first thing in the morning with a full glass of water. 145 mcg PO QAM 30 caps 3RF K58.1 - Irritable bowel syndrome with constipation polyethylene glycol 3350 (Miralax) 238 grams PO ONCE 238 grams 0RF colonoscopy prep 1 day COLONOSCOPY does not appear to have been scheduled BIOPSY TODAY'S VISIT [place] Citizen #[employer] She continues to do well on her Linzess 145mcg and her omeprazole. She has not yet heard about colonoscopy scheduling and I think it may be that a work note was never sent. I will resend that today and reassure her that she should here in the next 3-4 weeks. She denies any respiratory problems, but she does have QUIRINO and is morbidly obese. There are no prior problems with anesthesia and sedation. No ID problems. She had a TA in 2017. 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 Maternal Grandfather Prostate cancer Maternal Uncle Throat cancer Sister Ovary cancer Social History Housing: Apartment Alcohol intake: never Patient Tobacco Use Status: Former Tobacco user Tobacco use type: Cigarette e-Cigarette/Vaping Use: Never Used Second Hand Smoke Exposure: No service: No Current occupational status: disabled Cognitive needs: Yes Hearing needs: No Vision needs: Yes Female Reproductive History Menstrual Age of Menarche: 13 Review of Systems Const Denies fatigue, Denies fever(s), Denies night sweats, Denies poor appetite and Denies weight loss ENT Reports Normal hearing present, Denies dental pain, Denies dysphagia, Denies hearing loss, Denies mouth pain, Denies odynophagia, Denies throat swelling, Denies tongue swelling and Reports other (Dentition adequate) Card Reports no additional complaints Resp Reports no additional complaints GI Details: Denies abdominal pain, Denies melena, Denies bloating, Denies hematochezia, Reports constipation, Denies GI cramping, Denies dysphagia, Denies excessive flatus, Denies early satiety, Reports heartburn, Denies diarrhea, Denies nausea, Denies odynophagia, Denies vomiting and Denies hematemesis Skin/Breast Denies pruritus, Denies lesions, Denies rash and Denies jaundice Neuro Reports Normal hearing present and Denies Abnormal speech present Endo Denies fatigue Aller/Immun Denies throat swelling and Denies tongue swelling Physical Exam Vital Signs: Last Vital Signs Pulse 76 01/24/25 11:50 BP 107/52 L 01/24/25 11:50 BMI result Body Mass Index 42.8 Const General: cooperative, no acute distress, well developed and well groomed Nutritional Appearance: well nourished and obese morbidly obese Orientation/consciousness: oriented to person, oriented to place and oriented to time Limitations: language barrier and ambulation with cane HEENT Head: Yes normocephalic and Yes atraumatic Eyes General: appearance normal, both eyes and all related structures Pupils: Equal, round and reactive pupils present Neck Neck: Yes normal visual inspection and Yes no lymphadenopathy Thyroid: Thyroid normal Resp Effort & Inspection: normal respiratory effort and able to speak in complete sentences Auscultation: clear to auscultation bilaterally Cardio Rate: regular rate Rhythm: regular rhythm Heart sounds: Normal, physiologic split S2 sound present Peripheral pulses: radial pulses present and posterior tibial pulses present GI Inspection: No distended, Yes Abdominal panniculus present and Yes obesity Palpation (GI): Soft to palpation, nontender, no guarding, not rigid and No hepatosplenomegaly present Percussion: Yes normal to percussion Auscultation: normal bowel sounds Rectal Exam - Female: deferred Skin General skin exam: no rashes or lesions noted, turgor normal, skin not dry, no jaundice, No spider nevi and no striae Rashes: no rashes Nails: normal Neuro General: oriented to person, oriented to place and oriented to time Cranial nerves: Yes Equal, round and reactive pupils present and Yes Normal hearing present Speech: No Abnormal speech present Extrem General: Yes normal to inspection, No clubbing, No cyanosis and No edema Psych Appearance: grossly normal and well kempt Mental Status: mental status grossly normal Speech and movement: Normal speech and movement present Affect: normal affect Attitude: cooperative Thought process: Normal thought process present and not confabulating Thought content: Normal thought content present Insight: Limited insight present (Psych) Judgement: Limited judgement present (Psych) Assessment & Plan Assessment & Plan (1) Chronic idiopathic constipation: Code(s): K59.04 - Chronic idiopathic constipation Category: Medical (2) Tubular adenoma of colon: Code(s): D12.6 - Benign neoplasm of colon, unspecified Category: Medical (3) GERD (gastroesophageal reflux disease): Code(s): K21.9 - Gastro-esophageal reflux disease without esophagitis Category: Medical Qualifiers: Esophagitis presence: esophagitis presence not specified Qualified Code(s): K21.9 - Gastro-esophageal reflux disease without esophagitis Plan [place] Citizen #[employer] Live She continues to do well on her Linzess 145mcg and her omeprazole. She has not yet heard about colonoscopy scheduling and I think it may be that a work note was never sent. I will resend that today and reassure her that she should here in the next 3-4 weeks. She denies any respiratory problems, but she does have QUIRINO and is morbidly obese. There are no prior problems with anesthesia and sedation. No ID problems. She had a TA in 2017. Return office visit in 6 months and of course after the colonoscopy Medications: Refilled bisacodyl (Dulcolax (bisacodyl)) 10 mg (2 x 5 mg) PO BEDTIME 4 tabs 0RF 2 days linaclotide (Linzess) Take first thing in the morning with a full glass of water. 145 mcg PO QAM 30 caps 6RF K58.1 - Irritable bowel syndrome with constipation omeprazole 40 mg PO DAILY 90 caps 1RF 90 days polyethylene glycol 3350 (Miralax) 238 grams PO ONCE 238 grams 0RF colonoscopy prep 1 day Coding Level of Care Code Est Pt Level 3 (39973) Diagnoses Chronic idiopathic constipation K59.04 Tubular adenoma of colon D12.6 Gastroesophageal reflux disease, unspecified whether esophagitis present K21.9 Esophagitis presence: esophagitis presence not specified
[2025-01-24 11:50] VITALS: BP 107/52; PULSE 76; BMI 42.8
--- OUTSIDE RECORDS SUMMARY | 2025-01-24 12:43 | XMS_ITS ---
Author Organization [facility] Address [address] [place] [address] Care Team Providers Care Neonatal Social Worker Name Role Phone Jojo Chand Primary Care Provider Unavailab Migue Singh [phone] REASON FOR VISIT screening, hx polyps Encounters Encounter Location Date Provider Diagnosis [facility] [place] [facility] [address], [place] [id number] 09/28/2023 Migue Sams Plan Of Treatment No Information Progress Notes * MARXKELLYADOB:[birth year] (69 yo F)Acc No.[id number]:09/28/2023 COLON WITH MAC Patient:?ARASELI PRANAY Provider:?Migue Sams MD :1955???Age:68 Y???Sex:Female D ate:09/28/2023 Address:[address] [place], [place] [id number] Pcp:Jojo Alcantar Subjective: * Chief Complaints: * ???1. Screening, hx polyps. * Medical History:? Objective: * Vitals:? Assessment: Plan: * Treatment: * * The named appointment provid er may or may not be the originator of this progress note, and it is not deemed complete until electronically signed by the appointment provider. Sign off status: Pending * Provider:?Migue Sams MD Date:? 023 Generated for Maurice boggs/Cristiano/eTransmitting on:?01/24/2025 12:43 PM EDT
--- OUTSIDE RECORDS SUMMARY | 2025-01-24 12:43 | XMS_ITS ---
Author Organization [facility] Address [address] [place] [address] Care Team Providers Care Grocery Deliverer Name Role Phone Jojo Chand Primary Care Provider Unavailab Migue Singh [phone] REASON FOR VISIT cancel appt Encounters Encounter Location Date Provider Diagnosis [facility] [address] [place] [address] 09/26/2023 Migue Sams Plan Of Treatment No Information Progress Notes * SOLOMON MARXB:[birth year] (68 yo F)Acc No.[id number]:09/26/2023 Patient:?IVAN MARXDALIA :1955???Age:68 Y???Sex:Female Address:[address] [place] [address] , [place] [address] * true * Date:? Generated for Maurice boggs/Cristiano/eTransmitting on:?01/24/2025 12:43 PM EDT
--- OUTSIDE RECORDS SUMMARY | 2025-01-24 12:43 | XMS_ITS ---
Author Organization [facility] Address [address] [place] [address] Care Team Providers Care Gis Software Developer Name Role Phone Jojo Chand Primary Care Provider Unavailab Migue Singh [phone] Fink pulmonary clearance and Victoza adjustment for the 09/28 procedure Encounters Encounter Location Date Provider Diagnosis [facility] [address] [place] [address] 09/21/2023 Migue Sams Plan Of Treatment No Information Progress Notes * SOLOMON MARXB:[birth year] (68 yo F)Acc No.[id number]:09/21/2023 Patient:?MARX PRANAY :1955???Age:68 Y???Sex:Female Address:[address] [place] [address] , [place] [address] * true * Date:? Generated for Nickyi flakita/Cristiano/eTransmitting on:?01/24/2025 12:43 PM EDT
--- OUTSIDE RECORDS SUMMARY | 2025-01-24 12:43 | XMS_ITS | Patient Health Record ---
Author Organization [facility] Address [address] [place] [address] Care Team Providers Care Web Design Instructor Name Role Phone Jojo Chand Primary Care Provider UnavailMigue Rajput Unavailable [phone] Allergies Allergen (clinical drug ingredient) Drug/Non Drug Allergy documented on EMR Reaction Allergy Type Onset Date Status Codeine Phosphate Unknown Drug Allergy Active beef, mayonaise (uncoded) Unknown Allergy Active Reason For Referral No Information Medications Medication SIG (Take, Route, Frequency, Duration) Notes [...] neede d Orally every 6 hrs Active Immunizations Vaccine Route Administration Date Status Comme nts Influenza Unknown 09/14/2022 Administered Social History Tobacco Use: Social History Observation Description Date Details (start date - stop date) Former Smoker NA - NA Tobacco Use/Smoking Question Answer Notes Patient is a former smoker How long has it been since you last smoked? > 10 years Alcohol Screen Question Answer Notes Did you have a drink containing alcohol in the p ast year? No Points 0 Interpretation Negative Section Notes: Former smoker over 30 years ago; no sig alcohol Former smoker over 30 years ago; no sig alcohol Former smoker over 30 years ago; no sig alcohol Problems Problem Type SNOMED Code ICD Code Onset Dates Problem Status W/U Status Risk Notes Problem 062414332 Colon cancer screening (Z12.11) Active confirmed Problem 828557868 Encounter for screening for malignant neoplasm of colon (Z12.11) Active confirmed Problem 682137390 History of adenomatous polyp of colon (Z86.010) Active confirmed Problem 470717718 Preprocedural examination (Z01.818) Active confirmed Problem 579049094 Hx of adenomatou s colonic polyps (Z86.010) Active confirmed Problem 07386652 Diarrhea, unspecified type (R19.7) Active confirmed Plan Of Treatment Future Test Test Name Order Date COLONOSCOPY 04/12/2017 COLONOSCOPY 06/24/2023 Insurance Providers Payer Name Payer Address Payer Phone Subscriber Number Group Number Insured Name Patient Relationship to Insured Coverage Start Date Coverage End Date [facility] [address] [address] [place] [address] [id number] PRANAY MARX Self - patient is the insured MEDICARE OF [place] [address] [place] [address] [id number] PRANAY MARX Self - patient is the insured MEDICAID OF [facility] [address] [place] [address] [id number] PRANAY MARX Self - patient is the insured Medical (General) History Medical History History ICD Code IDDM type 2 Hypertension Hypercholesterolemia Sciatica Depression Anemia- due to Vit B12 deficiency Asthma GERD Vitamin D deficency Negative colonoscopy in 03/[address] Rodriguez EGD with me in 1999--GERD-no Ortega's Sleep apnea--uses CPAP and nighttime oxy gen Colonoscopy 06/2017--1 small tubular adenoma, diverticulosis--somewhat limited prep Denies [place],CVA,renal disease Surgical History Surgery Date(Month/Year) LYNDA Cholecystectomy Appendectomy
== END 2025-01-24 12:43 | disposition home or self-care (01) ==
LOC: HO.HGI 11:27
PROVIDERS: PCP Internal Medicine; Visit Provider Nurse Practitioner
DX: K59.04 Chronic idiopathic constipation (principal); D12.6 Benign neoplasm of colon, unspecified; K21.9 Gastro-esophageal reflux disease without esophagitis
CPT/HCPCS: 99213

== ENCOUNTER → 2025-01-24 11:26 | Outpatient (BNVA) | payer OTHER, SELFPAY | PROVIDERS: PCP Internal Medicine; Visit Provider Nurse Practitioner | DX: K59.04 Chronic idiopathic constipation (principal); K58.1 Irritable bowel syndrome with constipation; K21.9 Gastro-esophageal reflux disease without esophagitis; G47.33 Obstructive sleep apnea (adult) (pediatric); D12.6 Benign neoplasm of colon, unspecified; E66.01 Morbid (severe) obesity due to excess calories; Z68.41 Body mass index [BMI] 40.0-44.9, adult | CPT/HCPCS: 99212 ==

== ENCOUNTER 2025-02-06 12:35 | Outpatient (AMB) | payer OTHER, SELFPAY ==
--- NOTE | 2025-02-06 12:37 | MHC.OFFVIS ---
Vital Signs 02/06/25 12:38 Height 5 ft 5 in Weight 263 lb 3.711 oz BMI 43.8 BP 110/58 L Blood Pressure Location Lt brachial Position Sitting Pulse 76 Pulse Source Pulse Oximeter Pulse Oximetry (%) 93 Oxygen Delivery Method Room Air Intake Visit Reasons: DM Intake Note: Patient presents today for follow-up on Type 2 Diabetes Mellitus: Last Diabetic eye exam was on: december 2024 Last Podiatry exam was on: Does not see a Dealer Account Manager Most recent HbA1c: 7.9%, 01/10/2025 Random Glucose- _190___ mg/dL, Today Station Mechanic Apprentice Required: Yes Station Mechanic Apprentice Name: [email or web address] [id number] Information Interpreted: non-clinical & clinical Accompanied by: Self / Same As Patient Allergies codeine Allergy (Intermediate, Verified 02/06/25 12:38) fainting fish derived [FISH] Allergy (Intermediate, Verified 02/06/25 12:38) N&V, ABDOMEN DISTENDED, ANAPHYLAXIS Beef Containing Products [BEEF CONTAINING PRODUCTS] Allergy (Mild, Verified 02/06/25 12:38) HIVES/STOMACH ISSUES mayonnaise [MAYONNAISE] Allergy (Mild, Verified 02/06/25 12:38) HIVES Medication List - Last Reconciled 02/06/25 by Babita Perez MD albuterol sulfate 2.5 mg (3 mL) inhalation Q6H PRN 30 days amitriptyline 50 mg PO BEDTIME 90 days blood sugar diagnostic (ApplePie CapitalTouch Verio test strips) Four times a day blood-glucose meter (ApplePie CapitalTouch Verio Flex Start kit) Four times a day insulin glargine U-300 conc (Toujeo Max U-300 SoloStar) 54 units (0.18 mL) subcut BEDTIME 90 days insulin lispro (Humalog KwikPen (U-100) Insulin) 12 - 16 units (0.12 - 0.16 mL) subcut BID 30 days lancets (TRUEplus Lancets) 33 gauge miscellaneous QID 30 days linaclotide (Linzess) 145 mcg PO QAM lisinopril 10 mg PO DAILY 90 days metformin 1,000 mg PO BID 90 days montelukast 10 mg PO DAILY 90 days naproxen 500 mg PO BID 90 days nystatin 1 appl topical BID 30 days omeprazole 40 mg PO DAILY 90 days OneTouch Ultra Test (blood sugar diagnostic) 3 times daily NS pen needle, diabetic (BD Mary Lou 2nd Gen Pen Needle) 5 times a day pen needle, diabetic (BD Ultra-Fine Mary Lou Pen Needle) As directed 5 times a day polyethylene glycol 3350 (Miralax) 238 grams PO ONCE 1 day simvastatin 20 mg PO DAILY 90 days tirzepatide (Mounjaro) 12.5 mg (0.5 mL) subcut QWEEK Ventolin HFA 90 mcg/actuation (albuterol sulfate) 2 puffs inhalation Q6H PRN 30 days NS HPI Comments Details: Patient is a 69 year-old female with DM type 2 diagnosed 1986 presenting for follow up Past medical history: Diabetes type 2, hypertension, hyperlipidemia, GERD, depression PTSD, QUIRINO, obesity. Micro and macrovascular complications: Neuropathy and h/o CVA Diabetes medications: Toujeo 50, Humalog 12-16 BID, mounjaro 10, metformin 1000 mg bid. A1C 7.9% from 7.2% from 8.4%. Using alpha lipoic acid 600 mg daily for neuropathy. Compliant with medications Blood glucose monitoring: One touch. No more lows between 3 and 7 pm off lunch humalog. Symptoms reported: Mild lower extremity neuropathy Hypoglycemia: when she goes too long without eating, generally afternoon. 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 nonproliferative diabetic retinopathy in both eyes ROS CONSTITUTIONAL: Denies weight loss, fever and chills. HEENT: Denies changes in vision and hearing. RESPIRATORY: Denies SOB and cough. CV: Denies palpitations and CP GI: Denies abdominal pain, nausea, vomiting and diarrhea. : Denies dysuria and urinary frequency. MSK: Denies new myalgia and joint pain. SKIN: Denies rash and pruritus. NEUROLOGICAL: Denies headache PSYCHIATRIC: Denies recent changes in mood. PHYSICAL EXAM: GENERAL: Obese Alert and oriented x 3. NAD EYES: EOMI. Anicteric. HENT: Moist mucous membranes. No scleral icterus. No cervical lymphadenopathy. LUNGS: Clear to auscultation bilaterally. CARDIOVASCULAR: Regular rate and rhythm. systolic murmur. No JVD. ABDOMEN: Soft, non-tender +bs EXTREMITIES: No edema. Non-tender. SKIN: No rashes or lesions. Warm. NEUROLOGIC: No focal neurological deficits. CN II-XII grossly intact PSYCHIATRIC: Cooperative. Appropriate mood and affect [facility] Medical History Physical exam Diabetes type 2, uncontrolled Yeast dermatitis Palpitation Postmenopausal Sleep apnea Cough Chest pain Preop pulmonary/respiratory exam Screen for colon cancer Breast calcification, left GERD (gastroesophageal reflux disease) Mild non proliferative diabetic retinopathy Osteopenia Vitamin D deficiency Morbid obesity Dyslipidemia Hypertension [facility] (current) use of insulin Diabetic polyneuropathy associated with type 2 diabetes mellitus Surgical History H/O colonoscopy History of surgery S/P LYNDA-BSO (total abdominal hysterectomy and bilateral salpingo-oophorectomy) History of cholecystectomy History of appendectomy Family History Father Hypertension Diabetes CVD (cardiovascular disease) Mother No problems noted. Maternal Grandfather Prostate cancer Maternal Uncle Throat cancer Sister Ovary cancer Social History Housing: Apartment Alcohol intake: never Patient Tobacco Use Status: Former Tobacco user Tobacco use type: Cigarette e-Cigarette/Vaping Use: Never Used Second Hand Smoke Exposure: No service: No Current occupational status: disabled Cognitive needs: Yes Hearing needs: No Vision needs: Yes Female Reproductive History Menstrual Age of Menarche: 13 Physical Exam Vital Signs: Last Vital Signs Pulse 76 02/06/25 12:38 BP 110/58 L 02/06/25 12:38 Pulse Ox 93 02/06/25 12:38 Oxygen Delivery Method Room Air 02/06/25 12:38 BMI result Body Mass Index 43.8 Results Reviewed Results Reviewed: Laboratory Last Values Glucose (Clinic) 190 mg/dL (60-115) H 02/06/25 12:47 Assessment & Plan Assessment & Plan (1) Diabetes mellitus, with long-term current use of insulin: Code(s): E11.9 - Type 2 diabetes mellitus without complications; Z79.4 - [facility] (current) use of insulin Category: Medical Qualifiers: Diabetes mellitus type: type 2 Diabetes mellitus complication status: with hyperglycemia Qualified Code(s): E11.65 - Type 2 diabetes mellitus with hyperglycemia; Z79.4 - [facility] (current) use of insulin Plan Uncontrolled. 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 Changed From insulin glargine U-300 conc (Toujeo Max U-300 SoloStar) 50 units (0.1667 mL) subcut BEDTIME 30 days 5.001 mL 4RF E11.65 - Type 2 diabetes mellitus with hyperglycemia To insulin glargine U-300 conc (Toujeo Max U-300 SoloStar) 54 units (0.18 mL) subcut BEDTIME 90 days 45 mL 4RF E11.65 - Type 2 diabetes mellitus with hyperglycemia Discontinued tirzepatide (Mounjaro) Discontinued Reason: Doctor's Order 10 mg (0.5 mL) subcut QWEEK 6 mL 3RF Coding Level of Care Code Est Pt Level 4 (82010) Diagnoses Type 2 diabetes mellitus with hyperglycemia, with long-term current use of insulin E11.65; Z79.4 Diabetes mellitus type: type 2 Diabetes mellitus complication status: with hyperglycemia
[2025-02-06 12:38] VITALS: BP 110/58; PULSE 76; O2SAT 93; BMI 43.8
[2025-02-06 12:57] LABS: Glucose, Whole Blood 190 mg/dL (60-115)
--- OUTSIDE RECORDS SUMMARY | 2025-02-06 14:50 | XMS_ITS | Patient Health Record ---
Author Organization [facility] Address [address] [place] [address] Care Team Providers Care Ribbon Lap Machine Tender Name Role Phone Jojo Chand Primary Care Provider UnavailMigue Rajput Unavailable [phone] Allergies Allergen (clinical drug ingredient) Drug/Non Drug [...] Problem Status W/U Status Risk Notes Problem 715584411 Colon cancer screening (Z12.11) Active confirmed Problem 613263978 Encounter for screening for malignant neoplasm of colon (Z12.11) Active confirmed Problem 652216672 History of adenomatous polyp of colon (Z86.010) Active confirmed Problem 477950145 Preprocedural examination (Z01.818) Active confirmed Problem 315347599 Hx of adenomatou s colonic polyps (Z86.010) Active confirmed Problem 09369307 Diarrhea, unspecified type (R19.7) Active confirmed Plan Of Treatment Future Test Test Name Order Date COLONOSCOPY 04/12/2017 COLONOSCOPY 06/24/2023 Insurance Providers Payer Name Payer Address Payer Phone Subscriber Number Group Number Insured Name Patient Relationship to Insured Coverage Start Date Coverage End Date [facility] [address] [address] [place] [address] [id number] PRANAY MARX Self - patient is the insured MEDICARE OF [place] [address] [place] [address] [id number] PRANAY MARX Self - patient is the insured MEDICAID OF [facility] [address] [place] [address] [id number] PRANAY MARX Self - patient is the insured Medical (General) History Medical History History ICD Code IDDM type 2 Hypertension Hypercholesterolemia Sciatica Depression Anemia- due to Vit B12 deficiency Asthma GERD Vitamin D deficency Negative colonoscopy in 03/[address] Rodriguez EGD with me in 1999--GERD-no Ortega's Sleep apnea--uses CPAP and nighttime oxy gen Colonoscopy 06/2017--1 small tubular adenoma, diverticulosis--somewhat limited prep Denies [place],CVA,renal disease Surgical History Surgery Date(Month/Year) LYNDA Cholecystectomy Appendectomy
--- OUTSIDE RECORDS SUMMARY | 2025-02-06 14:51 | XMS_ITS ---
Author Organization [facility] Address [address] [place] [address] Care Team Providers Care Phone Screener Name Role Phone Jojo Chand Primary Care Provider Unavailab Migue Singh [phone] REASON FOR VISIT cancel appt Encounters Encounter Location Date Provider Diagnosis [facility] [address] [place] [address] 09/26/2023 Migue Sams Plan Of Treatment No Information Progress Notes * SOLOMON MARXB:[birth year] (68 yo F)Acc No.[id number]:09/26/2023 Patient:?ARASELI PRANAY :1955???Age:68 Y???Sex:Female Address:[address] [place] [address] , [place] [address] * true * Date:? Generated for Maurice boggs/Cristiano/eTransmitting on:?02/06/2025 02:50 PM EDT
--- OUTSIDE RECORDS SUMMARY | 2025-02-06 14:51 | XMS_ITS ---
Author Organization [facility] Address [address] [place] [address] Care Team Providers Care Construction Tech Name Role Phone Jojo Chand Primary Care Provider Unavailab Migue Singh [phone] REASON FOR VISIT screening, hx polyps Encounters Encounter Location Date Provider Diagnosis [facility] [place] [address] [place], [place] [phone] 09/28/2023 Migue Sams Plan Of Treatment No Information Progress Notes * MARXKELLYADOB:[birth year] (69 yo F)Acc No.[id number]:09/28/2023 COLON WITH MAC Patient:?ARASELI PRANAY Provider:?Migue Sams MD :1955???Age:68 Y???Sex:Female D ate:09/28/2023 Address:[address] [place], [place] [id number] Pcp:Jojo Alcantar Subjective: * Chief Complaints: * [...] MD Date:? 023 Generated for Maurice boggs/Cristiano/eTransmitting on:?02/06/2025 02:50 PM EDT
--- OUTSIDE RECORDS SUMMARY | 2025-02-06 14:51 | XMS_ITS ---
Author Organization [facility] Address [address] [place] [address] Care Team Providers Care Machine Captain Name Role Phone Jojo Chand Primary Care Provider Unavailab Migue Singh [phone] Fink pulmonary clearance and Victoza adjustment for the 09/28 procedure Encounters Encounter Location Date Provider Diagnosis [facility] [address] [place] [address] 09/21/2023 Migue Sams Plan Of Treatment No Information Progress Notes * SOLOMON MARXB:[birth year] (68 yo F)Acc No.[id number]:09/21/2023 Patient:?ARASELI PRANAY :1955???Age:68 Y???Sex:Female Address:[address] [place] [address] , [place] [address] * true * Date:? Generated for Nickyi flakita/Cristiano/eTransmitting on:?02/06/2025 02:50 PM EDT
== END 2025-02-06 13:14 | disposition home or self-care (01) ==
LOC: HO.ENCR 12:36
PROVIDERS: PCP Internal Medicine; Visit Provider Internal Medicine
DX: E11.65 Type 2 diabetes mellitus with hyperglycemia (principal); Z79.4 Long term (current) use of insulin

== ENCOUNTER → 2025-02-06 12:35 | Outpatient (BNVA) | payer OTHER, SELFPAY | PROVIDERS: PCP Internal Medicine; Visit Provider Internal Medicine | DX: E11.65 Type 2 diabetes mellitus with hyperglycemia (principal); Z79.4 Long term (current) use of insulin | CPT/HCPCS: 82947; 99212 ==

== ENCOUNTER 2025-02-20 13:14 | Outpatient (AMB) | payer OTHER, SELFPAY ==
--- NOTE | 2025-02-20 13:38 | MHC.OFFVIS ---
Vital Signs 02/20/25 13:39 Height 5 ft 5 in Weight 257 lb 15.053 oz BMI 42.9 BP 130/64 Blood Pressure Location Lt brachial Position Sitting Pulse 81 Pulse Source Doppler Pulse Oximetry (%) 92 Oxygen Delivery Method Room Air Intake Visit Reasons: asthma Tourist Adviser Required: Yes Tourist Adviser Name: Mirna Moise Luis Allergies codeine Allergy (Intermediate, Verified 02/06/25 12:38) fainting fish derived [FISH] Allergy (Intermediate, Verified 02/06/25 12:38) N&V, ABDOMEN DISTENDED, ANAPHYLAXIS Beef Containing Products [BEEF CONTAINING PRODUCTS] Allergy (Mild, Verified 02/06/25 12:38) HIVES/STOMACH ISSUES mayonnaise [MAYONNAISE] Allergy (Mild, Verified 02/06/25 12:38) HIVES HPI HPI asthma: Details: 69-year-old lady with underlying morbid obesity followed for severe obstructive sleep apnea with respiratory event index of 60 and nocturnal hypoxia with nocturnal supplemental oxygen.? She continues to use CPAP therapy with good control of her underlying symptoms.? Patient does complain of dyspnea and episodes of hypoxia with ambulation that she noted when she was using her personal oximeter. She also complains of worsening environmental allergies and wheezing. [facility] Medical History (Updated 02/20/25 @ 14:19 by Thong Portillo MD) Physical exam Diabetes type 2, uncontrolled Yeast dermatitis Palpitation Postmenopausal Sleep apnea Cough Chest pain Preop pulmonary/respiratory exam Screen for colon cancer Breast calcification, left GERD (gastroesophageal reflux disease) Mild non proliferative diabetic retinopathy Osteopenia Vitamin D deficiency Morbid obesity Dyslipidemia Hypertension [facility] (current) use of insulin Diabetic polyneuropathy associated with type 2 diabetes mellitus Surgical History (Updated 02/15/25 @ 07:59 by Allyssa Stover) H/O colonoscopy (~07/13/17) History of surgery S/P LYNDA-BSO (total abdominal hysterectomy and bilateral salpingo-oophorectomy) History of cholecystectomy History of appendectomy Family History Father Hypertension Diabetes CVD (cardiovascular disease) Mother No problems noted. Maternal Grandfather Prostate cancer Maternal Uncle Throat cancer Sister Ovary cancer Social History Housing: Apartment Alcohol intake: never Patient Tobacco Use Status: Former Tobacco user Tobacco use type: Cigarette e-Cigarette/Vaping Use: Never Used Second Hand Smoke Exposure: No service: No Current occupational status: disabled Cognitive needs: Yes Hearing needs: No Vision needs: Yes Female Reproductive History Menstrual Age of Menarche: 13 Review of Systems Const Denies daytime sleepiness, Denies excessive sweating, Denies fatigue, Denies fever(s), Denies lethargy, Denies malaise, Denies night sweats, Denies snoring and Denies weight loss Eyes Denies blurry vision and Denies itchy eyes ENT Denies nasal congestion, Denies post nasal drip, Denies sinus pain, Denies sinus pressure and Denies other ( Thrush) Card Denies chest pain, Denies pedal edema, Denies dyspnea, Reports dyspnea on exertion, Denies orthopnea and Denies paroxysmal nocturnal dyspnea Resp Denies cough, Denies hemoptysis, Denies excessive phlegm production, Denies dyspnea, Reports dyspnea on exertion, Denies snoring and Reports wheezing GI Denies abdominal pain and Denies heartburn Musc Denies myalgias, Denies arthralgias and Denies joint swelling Skin/Breast Denies rash Neuro Denies memory loss and Denies seizure-like activity Psych Denies abnormal sleep pattern, Denies anxiety and Denies memory loss Endo Denies excessive sweating, Denies fatigue and Denies heat intolerance Bryce/Lymph Denies easy bruising Aller/Immun Denies itchy eyes, Denies seasonal rhinorrhea and Reports wheezing Physical Exam Vital Signs: Last Vital Signs Pulse 81 02/20/25 13:39 BP 130/64 02/20/25 13:39 Pulse Ox 92 02/20/25 13:39 Oxygen Delivery Method Room Air 02/20/25 13:39 BMI result Body Mass Index 42.9 Const General: no acute distress and alert Nutritional Appearance: obese Orientation/consciousness: Other orientation findings ( oriented) HEENT Head: Yes atraumatic Eyes General: appearance normal, both eyes and all related structures Sclerae: sclerae normal EOM: EOMs intact bilaterally Neck Neck: Yes supple Lymphatic: no lymphadenopathy noted Resp Effort & Inspection: normal respiratory effort and no use of accessory muscles Auscultation: clear to auscultation bilaterally Cardio Rate: regular rate Rhythm: regular rhythm Heart sounds: no gallops, no murmurs and no rubs Skin General skin exam: other ( warm) Extrem General: No clubbing, No cyanosis and No edema Assessment & Plan Assessment & Plan (1) Asthma: Code(s): J45.909 - Unspecified asthma, uncomplicated Category: Medical Plan: Likely asthma of unclear severity. Continue albuterol MDI/nebs. Add Breo. Will obtain full PFT. (2) QUIRINO (obstructive sleep apnea): Code(s): G47.33 - Obstructive sleep apnea (adult) (pediatric) Category: Medical Plan: Underlying severe QUIRINO well controlled on current CPAP therapy. Continue CPAP therapy. Therapy and compliance report reviewed - patient is benefitting from and is compliant with noninvasive positive pressure ventilation treatment, using it greater than 70% of the time, more than 4 hours per night. (3) Environmental allergies: Code(s): Z91.09 - Other allergy status, other than to drugs and biological substances Category: Medical Plan: Will obtain IgE level, CBC with differential, and RAST panel. (4) Supplemental oxygen dependent: Code(s): Z99.81 - Dependence on supplemental oxygen Category: Medical Plan: 6 minute walk test/supplemental oxygen evaluation performed. Patient requires supplemental oxygen at 1 L continuous flow to maintain normal oximetry with exertion. Updated order placed with [facility]. Patient also requires nocturnal oxygen. Orders: Orders PFT pulmonary function test Today J45.909 - Unspecified asthma, uncomplicated Resp Allergy Profile Region I Today Z91.09 - Other allergy status, other than to drugs and biological substances Complete Blood Count Auto Diff Today Z91.09 - Other allergy status, other than to drugs and biological substances Medications: New fluticasone furoate-vilanterol 200-25 mcg/dose (Breo Ellipta) 1 inh inhalation DAILY 1 ea 6RF J45.909 - Unspecified asthma, uncomplicated Coding Level of Care Code Est Pt Level 4 (31431) Complex EM visit Add On G2211 Diagnoses Asthma J45.909 QUIRINO (obstructive sleep apnea) G47.33 Environmental allergies Z91.09 Supplemental oxygen dependent Z99.81
[2025-02-20 13:39] VITALS: BP 130/64; PULSE 81; O2SAT 92; BMI 42.9
[2025-02-20 14:47] VITALS: PULSE 77; O2SAT 90
== END 2025-02-20 14:18 | disposition home or self-care (01) ==
LOC: HO.HPS 13:14
PROVIDERS: PCP Internal Medicine; Visit Provider Internal Medicine Pulmonary Disease
DX: J45.909 Unspecified asthma, uncomplicated (principal); G47.33 Obstructive sleep apnea (adult) (pediatric); Z91.09 Other allergy status, other than to drugs and biological substances; Z99.81 Dependence on supplemental oxygen
CPT/HCPCS: 94618; 99214; G2211

== ENCOUNTER → 2025-02-20 13:14 | Outpatient (BNVA) | payer OTHER, SELFPAY | PROVIDERS: PCP Internal Medicine; Visit Provider Internal Medicine Pulmonary Disease | DX: G47.33 Obstructive sleep apnea (adult) (pediatric) (principal); G47.34 Idiopathic sleep related nonobstructive alveolar hypoventilation; E66.01 Morbid (severe) obesity due to excess calories; J45.909 Unspecified asthma, uncomplicated; Z91.09 Other allergy status, other than to drugs and biological substances; Z68.41 Body mass index [BMI] 40.0-44.9, adult; Z99.81 Dependence on supplemental oxygen; Z99.89 Dependence on other enabling machines and devices | CPT/HCPCS: 94618; 99212 ==

== ENCOUNTER 2025-03-01 10:00 | Outpatient (REF) | payer OTHER, SELFPAY ==
[2025-03-01 10:10] LABS: MANUAL DIFF FLAG NO
--- OUTSIDE RECORDS SUMMARY | 2025-03-01 10:32 | XMS_ITS | Patient Health Record ---
Author Organization [facility] Address [address] [place] [address] Care Team Providers Care Management Professor Name Role Phone Jojo Chand Primary Care Provider UnavailMigue Rajput Unavailable [phone] Allergies Allergen (clinical drug ingredient) Drug/Non Drug [...] Problem Status W/U Status Risk Notes Problem 933714477 Colon cancer screening (Z12.11) Active confirmed Problem 003190786 Encounter for screening for malignant neoplasm of colon (Z12.11) Active confirmed Problem 600577980 History of adenomatous polyp of colon (Z86.010) Active confirmed Problem 626804057 Preprocedural examination (Z01.818) Active confirmed Problem 006238007 Hx of adenomatou s colonic polyps (Z86.010) Active confirmed Problem 55431049 Diarrhea, unspecified type (R19.7) Active confirmed Plan Of Treatment Future Test Test Name Order Date COLONOSCOPY 04/12/2017 COLONOSCOPY 06/24/2023 Insurance Providers Payer Name Payer Address Payer Phone Subscriber Number Group Number Insured Name Patient Relationship to Insured Coverage Start Date Coverage End Date [facility] [address] [address] [place] [address] [id number] PRANAY MARX Self - patient is the insured MEDICARE OF [place] [address] [place] [address] [id number] PRANAY MARX Self - patient is the insured MEDICAID OF [facility] [address] [place] [address] [id number] PRANAY MARX Self - patient is the insured Medical (General) History Medical History History ICD Code IDDM type 2 Hypertension Hypercholesterolemia Sciatica Depression Anemia- due to Vit B12 deficiency Asthma GERD Vitamin D deficency Negative colonoscopy in 03/[address] Rodriguez EGD with me in 1999--GERD-no Ortega's Sleep apnea--uses CPAP and nighttime oxy gen Colonoscopy 06/2017--1 small tubular adenoma, diverticulosis--somewhat limited prep Denies CT,CVA,renal disease Surgical History Surgery Date(Month/Year) LYNDA Cholecystectomy Appendectomy
--- OUTSIDE RECORDS SUMMARY | 2025-03-01 10:32 | XMS_ITS ---
Author Organization [facility] Address [address] [place] [address] Care Team Providers Care Condominium Property Manager Name Role Phone Jojo Chand Primary Care Provider Unavailab Migue Singh [phone] REASON FOR VISIT screening, hx polyps Encounters Encounter Location Date Provider Diagnosis [facility] [address] [place], [place] [id number] 09/28/2023 Migue Sams Plan Of Treatment No Information Progress Notes * MARXKELLYADOB:[birth year] (69 yo F)Acc No.[id number]:09/28/2023 COLON WITH MAC Patient:?ARASELI PRANAY Provider:?Migue Sams MD :1955???Age:68 Y???Sex:Female D ate:09/28/2023 Address:[address] [place], [place] [id number] Pcp:Jojo Alcantar Subjective: * Chief Complaints: * [...] MD Date:? 023 Generated for Maurice boggs/Cristiano/eTransmitting on:?03/01/2025 10:32 AM EDT
--- OUTSIDE RECORDS SUMMARY | 2025-03-01 10:32 | XMS_ITS ---
Author Organization [facility] Address [address] [place] [address] Care Team Providers Care Cloth Bin Packer Name Role Phone Jojo Chand Primary Care Provider Unavailab Migue Singh [phone] REASON FOR VISIT cancel appt Encounters Encounter Location Date Provider Diagnosis [facility] [address] [place] [address] 09/26/2023 Migue Sams Plan Of Treatment No Information Progress Notes * SOLOMON MARXB:[birth year] (68 yo F)Acc No.[id number]:09/26/2023 Patient:?VIDAL MARXLIA :1955???Age:68 Y???Sex:Female Address:[address] [place] [address] , [place] [address] * true * Date:? Generated for Maurice boggs/Cristiano/eTransmitting on:?03/01/2025 10:32 AM EDT
--- OUTSIDE RECORDS SUMMARY | 2025-03-01 10:32 | XMS_ITS ---
Author Organization [facility] Address [address] [place] [address] Care Team Providers Care Parachute Taper Name Role Phone Jojo Chand Primary Care Provider Unavailab Migue Singh [phone] Fink pulmonary clearance and Victoza adjustment for the 09/28 procedure Encounters Encounter Location Date Provider Diagnosis [facility] [address] [place] [address] 09/21/2023 Migue Sams Plan Of Treatment No Information Progress Notes * SOLOMON MARXB:[birth year] (68 yo F)Acc No.[id number]:09/21/2023 Patient:?MARX, PRANAY :1955???Age:68 Y???Sex:Female Address:[address] [place] [address] , [place] [address] * true * Date:? Generated for Nickyi flakita/Cristiano/eTransmitting on:?03/01/2025 10:32 AM EDT
[2025-03-01 10:38] LABS: Basophils Absolute Auto 0.1 X10*3/uL (0.0-0.2); Basophils Percent Auto 0.8 % (0-2); Eosinophils Absolute Auto 0.2 X10*3/uL (0.0-0.4); Eosinophils Percent Auto 1.7 % (0-4); Hemoglobin 10.7 g/dl (12.0-16.0); Imm Gran Abs Auto 0.14 X10*3/uL (0.00-0.03); Imm Gran Pct Auto 1.5 % (0.0-0.4); Lymphocytes Absolute Auto 3.1 X10*3/uL (1.2-4.9); Mean Corpuscular HGB Conc 30.6 g/dl (31.0-35.0); Mean Corpuscular Hemoglobin 26.6 pg (27.0-33.0); Mean Corpuscular Volume 86.8 fL (80.0-98.0); Mean Platelet Volume 11.6 fL (9.4-12.3); Monocytes Absolute Auto 0.6 X10*3/uL (0.1-1.2); Monocytes Percent Auto 6.2 % (2-11); Neutrophils Absolute Auto 5.3 x10*3/uL (2.0-8.3); Neutrophils Percent Auto 56.8 % (45-73); Platelet Count 290 X10*3/uL (160-400); Red Blood Count 4.03 X10*6/uL (4.20-5.50); Red Cell Distribution Width 15.2 % (11.0-16.0); White Blood Count 9.2 X10*3/uL (4.8-10.8)
[2025-03-09 10:49] LABS: Class Alternaria alternata 0; Class Aspergillus fumigatus 0; Class Bermuda Grass 0; Class Birch 0; Class Cat Dander 0; Class Cladosporium herbarum 0; Class Cockroach 0; Class Common Ragweed 0; Class Cottonwood 0; Class Derm. pterony 0; Class Dermatophagoides farinae 0; Class Dog Dander 0; Class Elm 0; Class Maple Box Elder 0; Class Mountain Cedar 0; Class Mouse Urine Protein 0; Class Mugwort 0; Class Oak 0; Class Penicillium crysogenum 0; Class Rough Pigweed 0; Class Sheep Sorrel 0; Class Sycamore 0; Class Timothy Grass 0; Class Walnut Tree 0; Class White Ash 0; Class White Mulberry 0; D001 IgE D pteronyssinus <0.10 kU/L; D002 - IgE D farinae <0.10 kU/L; E001 - IgE Cat Dander <0.10 kU/L; E005 - IgE Dog Dander <0.10 kU/L; E072-IgE Mouse Urine <0.10 kU/L; G002 IgE Bermuda Grass <0.10 kU/L; G006 - IgE Timothy Grass <0.10 kU/L; I006-IgE Cockroach, German <0.10 kU/L; Immunoglobulin E 11 kU/L (<OR=114); M001 IgE Penicillium chrysogen <0.10 kU/L; M002 - IgE Cladosporium herbar <0.10 kU/L; M003 - IgE Aspergillus fumigat <0.10 kU/L; M006 - IgE Alternaria alternat <0.10 kU/L; T001 IgE Maple/Box Elder <0.10 kU/L; T003 IgE Common Silver Birch <0.10 kU/L; T006 - IgE Cedar, Mountain <0.10 kU/L; T007 - IgE Oak, White <0.10 kU/L; T008 IgE Elm, American <0.10 kU/L; T010 - IgE Walnut <0.10 kU/L; T011 - IgE Maple Leaf Sycamore <0.10 kU/L; T014 - IgE Cottonwood <0.10 kU/L; T015 - IgE Ash, White <0.10 kU/L; T070 - IgE White Mulberry <0.10 kU/L; W001 - IgE Ragweed, Short <0.10 kU/L; W006 - IgE Mugwort <0.10 kU/L; W014 IgE Pigweed, Common <0.10 kU/L; W018 IgE Sheep Sorrel <0.10 kU/L
== END 2025-03-01 10:01 | disposition home or self-care (01) ==
LOC: HO.LAB 10:00
PROVIDERS: PCP Internal Medicine; Visit Provider Internal Medicine Pulmonary Disease
DX: Z91.09 Other allergy status, other than to drugs and biological substances (principal)
CPT/HCPCS: 36415; 82785; 85025; 86003

== ENCOUNTER 2025-03-12 08:58 | Outpatient (REF) | payer OTHER, SELFPAY ==
--- OUTSIDE RECORDS SUMMARY | 2025-03-12 09:29 | XMS_ITS ---
Author Organization [facility] Address [address] [place] [address] Care Team Providers Care Fur Grader Name Role Phone Jojo Chand Primary Care Provider Unavailab Migue Singh [phone] REASON FOR VISIT cancel appt Encounters Encounter Location Date Provider Diagnosis [facility] [address] [place] [address] 09/26/2023 Migue Sams Plan Of Treatment No Information Progress Notes * SOLOMON MARXB:[birth year] (68 yo F)Acc No.[id number]:09/26/2023 Patient:?IVAN MARXDALIA :1955???Age:68 Y???Sex:Female Address:[address] [place] [address] , [place] [address] * true * Date:? Generated for Maurice boggs/Cristiano/eTransmitting on:?03/12/2025 09:29 AM EDT
--- OUTSIDE RECORDS SUMMARY | 2025-03-12 09:29 | XMS_ITS | Patient Health Record ---
Author Organization [facility] Address [address] [place] [address] Care Team Providers Care Pump Service Supervisor Name Role Phone Jojo Chand Primary Care Provider UnavailMigue Rajput Unavailable [phone] Allergies Allergen (clinical drug ingredient) Drug/Non Drug [...] Problem Status W/U Status Risk Notes Problem 363852196 Colon cancer screening (Z12.11) Active confirmed Problem 230594748 Encounter for screening for malignant neoplasm of colon (Z12.11) Active confirmed Problem 855186627 History of adenomatous polyp of colon (Z86.010) Active confirmed Problem 184690216 Preprocedural examination (Z01.818) Active confirmed Problem 660939545 Hx of adenomatou s colonic polyps (Z86.010) Active confirmed Problem 31807357 Diarrhea, unspecified type (R19.7) Active confirmed Plan Of Treatment Future Test Test Name Order Date COLONOSCOPY 04/12/2017 COLONOSCOPY 06/24/2023 Insurance Providers Payer Name Payer Address Payer Phone Subscriber Number Group Number Insured Name Patient Relationship to Insured Coverage Start Date Coverage End Date [facility] [address] [address] [place] [address] [id number] PRANAY MARX Self - patient is the insured MEDICARE OF [place] [address] [place] [address] [id number] PRANAY MARX Self - patient is the insured MEDICAID OF [facility] [address] [place] [address] [id number] PRANAY MARX Self - patient is the insured Medical (General) History Medical History History ICD Code IDDM type 2 Hypertension Hypercholesterolemia Sciatica Depression Anemia- due to Vit B12 deficiency Asthma GERD Vitamin D deficency Negative colonoscopy in 03/[address] Rodriguez EGD with me in 1999--GERD-no Ortega's Sleep apnea--uses CPAP and nighttime oxy gen Colonoscopy 06/2017--1 small tubular adenoma, diverticulosis--somewhat limited prep Denies [place],CVA,renal disease Surgical History Surgery Date(Month/Year) LYNDA Cholecystectomy Appendectomy
--- OUTSIDE RECORDS SUMMARY | 2025-03-12 09:29 | XMS_ITS ---
Author Organization [facility] Address [address] [place] [address] Care Team Providers Care Semiconductor Technician Name Role Phone Jojo Chand Primary Care Provider Unavailab Migue Singh [phone] Fink pulmonary clearance and Victoza adjustment for the 09/28 procedure Encounters Encounter Location Date Provider Diagnosis [facility] [address] [place] [address] 09/21/2023 Migue Sams Plan Of Treatment No Information Progress Notes * SOLOMON MRAXB:[birth year] (68 yo F)Acc No.[id number]:09/21/2023 Patient:?MARX PRANAY :1955???Age:68 Y???Sex:Female Address:[address] [place] [address] , [place] [address] * true * Date:? Generated for Nickyi flakita/Cristiano/eTransmitting on:?03/12/2025 09:29 AM EDT
--- OUTSIDE RECORDS SUMMARY | 2025-03-12 09:30 | XMS_ITS ---
Author Organization [facility] Address [address] [place] [address] Care Team Providers Care Photogrammetric Engineer Name Role Phone Jojo Chand Primary Care Provider Unavailab Migue Singh [phone] REASON FOR VISIT screening, hx polyps Encounters Encounter Location Date Provider Diagnosis [facility] [facility] [address] [place], [place] [id number] 09/28/2023 Migue Sams Plan Of Treatment No Information Progress Notes * MARXKELLYADOB:[birth year] (69 yo F)Acc No.[id number]:09/28/2023 COLON WITH MAC Patient:?ARASELI PRANAY Provider:?Migue Sams MD :1955???Age:68 Y???Sex:Female D ate:09/28/2023 Address:[address] [place], [place] [id number] Pcp:Jojo Alcantar Subjective: * Chief Complaints: * [...] MD Date:? 023 Generated for Maurice boggs/Cristiano/eTransmitting on:?03/12/2025 09:29 AM EDT
== END 2025-03-12 08:59 | disposition home or self-care (01) ==
LOC: HO.MAMMO 08:58
PROVIDERS: PCP Internal Medicine; Visit Provider Internal Medicine
DX: Z12.31 Encounter for screening mammogram for malignant neoplasm of breast (principal)
CPT/HCPCS: 77063; 77067

== ENCOUNTER → 2025-03-12 09:15 | Outpatient (BNV) | payer OTHER, SELFPAY | PROVIDERS: PCP Internal Medicine; Visit Provider Internal Medicine | DX: Z12.31 Encounter for screening mammogram for malignant neoplasm of breast (principal) | CPT/HCPCS: 77063; 77067 ==

== ENCOUNTER 2025-03-28 13:04 | Outpatient (AMB) | payer OTHER, SELFPAY ==
--- NOTE | 2025-03-28 13:10 | A.OFFVIS_ITS ---
Vital Signs 03/28/25 13:18 Height 5 ft 5 in Weight 249 lb 1.957 oz BMI 41.5 BP 146/76 H Blood Pressure Location Rt brachial Position Sitting Pulse 86 Pulse Source Pulse Oximeter Pulse Oximetry (%) 92 Oxygen Delivery Method Room Air Intake Visit Reasons: CIC Intake Note: Established patient for mgmt of CIC. CC; C.O. BL LQ pain intermittently, constipation w/o evidence of hemorrhoids per pt. Pt denies any additional sx or concerns at this time. Confirms taking all active Rx. Airline Lounge Receptionist Required: Yes Airline Lounge Receptionist Services: Airline Lounge Receptionist Offered & Declined Accompanied by: Spouse Allergies codeine Allergy (Intermediate, Verified 03/28/25 13:17) fainting fish derived [FISH] Allergy (Intermediate, Verified 03/28/25 13:17) N&V, ABDOMEN DISTENDED, ANAPHYLAXIS Beef Containing Products [BEEF CONTAINING PRODUCTS] Allergy (Mild, Verified 03/28/25 13:17) HIVES/STOMACH ISSUES mayonnaise [MAYONNAISE] Allergy (Mild, Verified 03/28/25 13:17) HIVES HPI HPI CIC: Details: Assessment & Plan (1) Chronic idiopathic constipation: Code(s): K59.04 - Chronic idiopathic constipation Category: Medical (2) Tubular adenoma of colon: Code(s): D12.6 - Benign neoplasm of colon, unspecified Category: Medical (3) GERD (gastroesophageal reflux disease): Code(s): K21.9 - Gastro-esophageal reflux disease without esophagitis Category: Medical Qualifiers: Esophagitis presence: esophagitis presence not specified Qualified Code(s): K21.9 - Gastro-esophageal reflux disease without esophagitis Plan Swazi #Odalys Live She continues to do well on her Linzess 145mcg and her omeprazole. She has not yet heard about colonoscopy scheduling and I think it may be that a work note was never sent. I will resend that today and reassure her that she should here in the next 3-4 weeks. She denies any respiratory problems, but she does have QUIRINO and is morbidly obese. There are no prior problems with anesthesia and sedation. No ID problems. She had a TA in 2017. Return office visit in 6 months and of course after the colonoscopy Medications: Refilled bisacodyl (Dulcolax (bisacodyl)) 10 mg (2 x 5 mg) PO BEDTIME 4 tabs 0RF 2 days linaclotide (Linzess) Take first thing in the morning with a full glass of water. 145 mcg PO QAM 30 caps 6RF K58.1 - Irritable bowel syndrome with constipation omeprazole 40 mg PO DAILY 90 caps 1RF 90 days polyethylene glycol 3350 (Miralax) 238 grams PO ONCE 238 grams 0RF colonoscopy prep 1 day COLONOSCOPY BIOPSY TODAYS VISIT Swazi #Pt declines to use video box, tries and then MANDY live. She has been rx'ed oxygen for ambulation recently and asks questions about what is the highest oxygen # I encourage her to speak wtih her pulm, as when to use oxygen depending on her individual needs and her specific dx. I did tell them the normal range of SaO2, but whether pushing for a higher Sa02 is not always a good thing depending on the diagnosis and they should follow the use as prescribed by the specialist - if she feels that she needs more with certain conditions, she should bring this up with this provider and they can best guide her. She continues to do well on her Linzess 145mcg and her omeprazole. ROV 6 mos. She has not yet heard to schedule colonoscopy. [facility] Medical History (Updated 03/28/25 @ 13:17 by RIKA Gore) Physical exam Diabetes type 2, uncontrolled Yeast dermatitis Palpitation Postmenopausal Sleep apnea Cough Chest pain Preop pulmonary/respiratory exam Screen for colon cancer Breast calcification, left GERD (gastroesophageal reflux disease) Mild non proliferative diabetic retinopathy Osteopenia Vitamin D deficiency Morbid obesity Dyslipidemia Hypertension correction (current) use of insulin Diabetic polyneuropathy associated with type 2 diabetes mellitus Surgical History H/O colonoscopy (~07/13/17) History of surgery S/P LYNDA-BSO (total abdominal hysterectomy and bilateral salpingo-oophorectomy) History of cholecystectomy History of appendectomy Family History Father Hypertension Diabetes CVD (cardiovascular disease) Mother No problems noted. Maternal Grandfather Prostate cancer Maternal Uncle Throat cancer Sister Ovary cancer Social History Housing: Apartment Alcohol intake: never Patient Tobacco Use Status: Former Tobacco user Tobacco use type: Cigarette e-Cigarette/Vaping Use: Never Used Second Hand Smoke Exposure: No service: No Current occupational status: disabled Cognitive needs: Yes Hearing needs: No Vision needs: Yes Female Reproductive History Menstrual Age of Menarche: 13 Review of Systems Const Denies fatigue, Denies fever(s), Denies night sweats, Denies poor appetite and Denies weight loss ENT Reports Normal hearing present, Denies dental pain, Denies dysphagia, Denies hearing loss, Denies mouth pain, Denies odynophagia, Denies throat swelling, Denies tongue swelling and Reports other (Dentition adequate) Card Reports no additional complaints and Reports dyspnea on exertion Resp Reports dyspnea on exertion GI Details: Denies abdominal pain, Denies melena, Denies bloating, Denies hematochezia, Reports constipation, Denies GI cramping, Denies dysphagia, Denies excessive flatus, Denies early satiety, Reports heartburn, Denies diarrhea, Denies nausea, Denies odynophagia, Denies vomiting and Denies hematemesis Skin/Breast Denies pruritus, Denies lesions, Denies rash and Denies jaundice Neuro Reports Normal hearing present and Denies Abnormal speech present Endo Denies fatigue Aller/Immun Denies throat swelling and Denies tongue swelling Physical Exam Const General: cooperative, no acute distress, well developed and well groomed Nutritional Appearance: well nourished and obese morbidly obese Orientation/consciousness: oriented to person, oriented to place and oriented to time Limitations: language barrier and ambulation with cane HEENT Head: Yes normocephalic and Yes atraumatic Eyes General: appearance normal, both eyes and all related structures Pupils: Equal, round and reactive pupils present Neck Neck: Yes normal visual inspection and Yes no lymphadenopathy Thyroid: Thyroid normal Resp Effort & Inspection: normal respiratory effort and able to speak in complete sentences Auscultation: clear to auscultation bilaterally Cardio Rate: regular rate Rhythm: regular rhythm Heart sounds: Normal, physiologic split S2 sound present Peripheral pulses: radial pulses present and posterior tibial pulses present GI Inspection: No distended, Yes Abdominal panniculus present and Yes obesity Palpation (GI): Soft to palpation, nontender, no guarding, not rigid and No hepatosplenomegaly present Percussion: Yes normal to percussion Auscultation: normal bowel sounds Rectal Exam - Female: deferred Skin General skin exam: no rashes or lesions noted, turgor normal, skin not dry, no jaundice, No spider nevi and no striae Rashes: no rashes Nails: normal Neuro General: oriented to person, oriented to place and oriented to time Cranial nerves: Yes Equal, round and reactive pupils present and Yes Normal hearing present Speech: No Abnormal speech present Extrem General: Yes normal to inspection, No clubbing, No cyanosis and No edema Psych Appearance: grossly normal and well kempt Mental Status: mental status grossly normal Speech and movement: Normal speech and movement present Affect: normal affect Attitude: cooperative Thought process: Normal thought process present and not confabulating Thought content: Normal thought content present Insight: Limited insight present (Psych) Judgement: Limited judgement present (Psych) Assessment & Plan Assessment & Plan (1) Chronic idiopathic constipation: Code(s): K59.04 - Chronic idiopathic constipation Category: Medical (2) Tubular adenoma of colon: Code(s): D12.6 - Benign neoplasm of colon, unspecified Category: Medical (3) GERD (gastroesophageal reflux disease): Code(s): K21.9 - Gastro-esophageal reflux disease without esophagitis Category: Medical Qualifiers: Esophagitis presence: esophagitis presence not specified Qualified Code(s): K21.9 - Gastro-esophageal reflux disease without esophagitis Plan Swazi #Pt declines to use video box, tries and then MANDY live. She has been rx'ed oxygen for ambulation recently and asks questions about what is the highest oxygen # I encourage her to speak wtih her pulm, as when to use oxygen depending on her individual needs and her specific dx. I did tell them the normal range of SaO2, but whether pushing for a higher Sa02 is not always a good thing depending on the diagnosis and they should foillow the use as prescribed by the specialist - if she feels that she needs more with certain conditions, she should bring this up with this provider and they can best guide her. She continues to do well on her Linzess 145mcg and her omeprazole. ROV 6 mos. She has not yet heard to schedule colonoscopy. COLONOSCOPY BIOPSY Medications: Refilled omeprazole 40 mg PO DAILY 90 days 90 caps 1RF linaclotide (Linzess) Take first thing in the morning with a full glass of water. 145 mcg PO QAM 30 caps 6RF K58.1 - Irritable bowel syndrome with constipation Coding Level of Care Code Est Pt Level 3 (21099) Diagnoses Chronic idiopathic constipation K59.04 Tubular adenoma of colon D12.6 Gastroesophageal reflux disease, unspecified whether esophagitis present K21.9 Esophagitis presence: esophagitis presence not specified
[2025-03-28 13:18] VITALS: BP 146/76; PULSE 86; O2SAT 92; BMI 41.5
--- OUTSIDE RECORDS SUMMARY | 2025-03-28 15:16 | XMS_ITS | Patient Health Record ---
Author Organization [facility] Address [address] [place] [address] Care Team Providers Care Forex Trader Name Role Phone Jojo Chand Primary Care Provider UnavailMigue Rajput Unavailable [phone] Allergies Allergen (clinical drug ingredient) Drug/Non Drug [...] Problem Status W/U Status Risk Notes Problem 028870805 Colon cancer screening (Z12.11) Active confirmed Problem 206210685 Encounter for screening for malignant neoplasm of colon (Z12.11) Active confirmed Problem 809948835 History of adenomatous polyp of colon (Z86.010) Active confirmed Problem 116616536 Preprocedural examination (Z01.818) Active confirmed Problem 575534123 Hx of adenomatou s colonic polyps (Z86.010) Active confirmed Problem 23342650 Diarrhea, unspecified type (R19.7) Active confirmed Plan Of Treatment Future Test Test Name Order Date COLONOSCOPY 04/12/2017 COLONOSCOPY 06/24/2023 Insurance Providers Payer Name Payer Address Payer Phone Subscriber Number Group Number Insured Name Patient Relationship to Insured Coverage Start Date Coverage End Date [facility] [address] [address] [place] [address] [id number] PRANAY MARX Self - patient is the insured MEDICARE OF [place] [address] [place] [address] [id number] PRANAY MARX Self - patient is the insured MEDICAID OF [facility] [address] [place] [address] [id number] PRANAY MARX Self - patient is the insured Medical (General) History Medical History History ICD Code IDDM type 2 Hypertension Hypercholesterolemia Sciatica Depression Anemia- due to Vit B12 deficiency Asthma GERD Vitamin D deficency Negative colonoscopy in 03/[address] Rodriguez EGD with me in 1999--GERD-no Ortega's Sleep apnea--uses CPAP and nighttime oxy gen Colonoscopy 06/2017--1 small tubular adenoma, diverticulosis--somewhat limited prep Denies [place],CVA,renal disease Surgical History Surgery Date(Month/Year) LYNDA Cholecystectomy Appendectomy
== END 2025-03-28 13:49 | disposition home or self-care (01) ==
LOC: HO.HGI 13:05
PROVIDERS: PCP Internal Medicine; Visit Provider Nurse Practitioner
DX: K59.04 Chronic idiopathic constipation (principal); D12.6 Benign neoplasm of colon, unspecified; K21.9 Gastro-esophageal reflux disease without esophagitis
CPT/HCPCS: 99213

== ENCOUNTER → 2025-03-28 13:04 | Outpatient (BNVA) | payer OTHER, SELFPAY | PROVIDERS: PCP Internal Medicine; Visit Provider Nurse Practitioner | DX: K58.1 Irritable bowel syndrome with constipation (principal); K59.04 Chronic idiopathic constipation; K21.9 Gastro-esophageal reflux disease without esophagitis | CPT/HCPCS: 99212 ==

== ENCOUNTER 2025-04-04 12:47 | Outpatient (REF) | payer OTHER, SELFPAY ==
[2025-04-04 14:06] VITALS: PULSE 73; O2SAT 95
--- OUTSIDE RECORDS SUMMARY | 2025-04-04 14:43 | XMS_ITS | Patient Health Record ---
Author Organization [facility] Address [address] [place] [address] Care Team Providers Care Circular Sawyer Stone Name Role Phone Jojo Chand Primary Care Provider UnavailMigue Rajput Unavailable [phone] Allergies Allergen (clinical drug ingredient) Drug/Non Drug [...] Problem Status W/U Status Risk Notes Problem 283746602 Colon cancer screening (Z12.11) Active confirmed Problem 593877736 Encounter for screening for malignant neoplasm of colon (Z12.11) Active confirmed Problem 687332135 History of adenomatous polyp of colon (Z86.010) Active confirmed Problem 745481366 Preprocedural examination (Z01.818) Active confirmed Problem 501610664 Hx of adenomatou s colonic polyps (Z86.010) Active confirmed Problem 53698987 Diarrhea, unspecified type (R19.7) Active confirmed Plan Of Treatment Future Test Test Name Order Date COLONOSCOPY 04/12/2017 COLONOSCOPY 06/24/2023 Insurance Providers Payer Name Payer Address Payer Phone Subscriber Number Group Number Insured Name Patient Relationship to Insured Coverage Start Date Coverage End Date [facility] [address] [address] [place] [address] [id number] PRANAY MARX Self - patient is the insured MEDICARE OF [place] [address] [place] [address] [id number] PRANAY MARX Self - patient is the insured MEDICAID OF [facility] [address] [place] [address] [id number] PRANAY MARX Self - patient is the insured Medical (General) History Medical History History ICD Code IDDM type 2 Hypertension Hypercholesterolemia Sciatica Depression Anemia- due to Vit B12 deficiency Asthma GERD Vitamin D deficency Negative colonoscopy in 03/[address] Rodriguez EGD with me in 1999--GERD-no Ortega's Sleep apnea--uses CPAP and nighttime oxy gen Colonoscopy 06/2017--1 small tubular adenoma, diverticulosis--somewhat limited prep Denies [place],CVA,renal disease Surgical History Surgery Date(Month/Year) LYNDA Cholecystectomy Appendectomy
--- NOTE | 2025-04-05 14:02 | PFT_ITS ---
Flows: FEV1: 84 % of predicted at 1.93 L FVC: 79 % of predicted at 2.34 L FEV1/FVC: 82 % Bronchodilator response: Absent Volumes: Patient unable to perform lung volume maneuvers. Diffusion capacity: Normal Impression: Normal spirometry. No bronchodilator response. Patient unable to perform lung volume maneuvers. MTDD
== END 2025-04-04 12:48 | disposition home or self-care (01) ==
LOC: HO.RESP 12:47
PROVIDERS: PCP Internal Medicine; Visit Provider Internal Medicine Pulmonary Disease
DX: J45.909 Unspecified asthma, uncomplicated (principal)
CPT/HCPCS: 94010; 94640; 94727; 94729

== ENCOUNTER 2025-04-05 12:57 | Outpatient (AMB) | payer OTHER, SELFPAY ==
--- OUTSIDE RECORDS SUMMARY | 2025-04-05 13:22 | XMS_ITS | Patient Health Record ---
Author Organization [facility] Address [address] [place] [address] Care Team Providers Care Youth Accommodation Support Worker Name Role Phone Jojo Chand Primary Care Provider UnavailMigue Rajput Unavailable [phone] Allergies Allergen (clinical drug ingredient) Drug/Non Drug [...] Problem Status W/U Status Risk Notes Problem 768821018 Colon cancer screening (Z12.11) Active confirmed Problem 834571337 Encounter for screening for malignant neoplasm of colon (Z12.11) Active confirmed Problem 402801285 History of adenomatous polyp of colon (Z86.010) Active confirmed Problem 922708697 Preprocedural examination (Z01.818) Active confirmed Problem 550393162 Hx of adenomatou s colonic polyps (Z86.010) Active confirmed Problem 37804416 Diarrhea, unspecified type (R19.7) Active confirmed Plan Of Treatment Future Test Test Name Order Date COLONOSCOPY 04/12/2017 COLONOSCOPY 06/24/2023 Insurance Providers Payer Name Payer Address Payer Phone Subscriber Number Group Number Insured Name Patient Relationship to Insured Coverage Start Date Coverage End Date [facility] [address] [address] [place] [address] [id number] PRANAY MAXR Self - patient is the insured MEDICARE OF [place] [address] [place] [address] [id number] PRANAY MARX Self - patient is the insured MEDICAID OF [facility] [address] [place] [address] [id number] PRANAY MARX Self - patient is the insured Medical (General) History Medical History History ICD Code IDDM type 2 Hypertension Hypercholesterolemia Sciatica Depression Anemia- due to Vit B12 deficiency Asthma GERD Vitamin D deficency Negative colonoscopy in 03/[address] Rodriguez EGD with me in 1999--GERD-no Ortega's Sleep apnea--uses CPAP and nighttime oxy gen Colonoscopy 06/2017--1 small tubular adenoma, diverticulosis--somewhat limited prep Denies [place],CVA,renal disease Surgical History Surgery Date(Month/Year) LYNDA Cholecystectomy Appendectomy
[2025-04-05 13:58] VITALS: BP 124/67; PULSE 81; O2SAT 89; BMI 41.4
--- NOTE | 2025-04-05 13:58 | MHC.OFFVIS ---
Vital Signs 04/05/25 13:58 Height 5 ft 5 in Weight 249 lb BMI 41.4 BP 124/67 Blood Pressure Location Rt brachial Position Sitting Pulse 81 Pulse Source Pulse Oximeter Pulse Oximetry (%) 89 L Oxygen Delivery Method Nasal Cannula Oxygen Flow Rate 1 Intake Visit Reasons: Asthma Circle Cutting Saw Operator Required: Yes Circle Cutting Saw Operator Name: Mirna Moise C.L.M Allergies codeine Allergy (Intermediate, Verified 04/05/25 14:00) fainting fish derived [FISH] Allergy (Intermediate, Verified 04/05/25 14:00) N&V, ABDOMEN DISTENDED, ANAPHYLAXIS Beef Containing Products [BEEF CONTAINING PRODUCTS] Allergy (Mild, Verified 04/05/25 14:00) HIVES/STOMACH ISSUES mayonnaise [MAYONNAISE] Allergy (Mild, Verified 04/05/25 14:00) HIVES HPI HPI Asthma: Details: 69-year-old lady with underlying morbid obesity followed for severe obstructive sleep apnea with respiratory event index of 60 and nocturnal hypoxia with nocturnal supplemental oxygen.? She continues to use CPAP therapy with good control of her underlying symptoms.? She also continues on daytime supplemental oxygen at 1 L continuous flow. Patient has completed her pulmonary function test that is essentially normal. Her chest imaging also shows no underlying pulmonary pathology. Patient did complete her immunologic workup that is essentially normal. 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 Maternal Grandfather Prostate cancer Maternal Uncle Throat cancer Sister Ovary cancer Social History Housing: Apartment Alcohol intake: never Patient Tobacco Use Status: Former Tobacco user Tobacco use type: Cigarette e-Cigarette/Vaping Use: Never Used Second Hand Smoke Exposure: No service: No Current occupational status: disabled Cognitive needs: Yes Hearing needs: No Vision needs: Yes Female Reproductive History Menstrual Age of Menarche: 13 Review of Systems Const Denies daytime sleepiness, Denies excessive sweating, Denies fatigue, Denies fever(s), Denies lethargy, Denies malaise, Denies night sweats, Denies snoring and Denies weight loss Eyes Denies blurry vision and Denies itchy eyes ENT Denies nasal congestion, Denies post nasal drip, Denies sinus pain, Denies sinus pressure and Denies other ( Thrush) Card Denies chest pain, Denies pedal edema, Denies dyspnea, Reports dyspnea on exertion, Denies orthopnea and Denies paroxysmal nocturnal dyspnea Resp Denies cough, Denies hemoptysis, Denies excessive phlegm production, Denies dyspnea, Reports dyspnea on exertion, Denies snoring and Denies wheezing GI Denies abdominal pain and Denies heartburn Musc Denies myalgias, Denies arthralgias and Denies joint swelling Skin/Breast Denies rash Neuro Denies memory loss and Denies seizure-like activity Psych Denies abnormal sleep pattern, Denies anxiety and Denies memory loss Endo Denies excessive sweating, Denies fatigue and Denies heat intolerance Bryce/Lymph Denies easy bruising Aller/Immun Denies itchy eyes, Denies seasonal rhinorrhea and Denies wheezing Physical Exam Vital Signs: Last Vital Signs Pulse 81 04/05/25 13:58 BP 124/67 04/05/25 13:58 Pulse Ox 89 L 04/05/25 13:58 Oxygen Delivery Method Nasal Cannula 04/05/25 13:58 Oxygen Flow Rate 1 04/05/25 13:58 BMI result Body Mass Index 41.4 Const General: no acute distress and alert Nutritional Appearance: obese Orientation/consciousness: Other orientation findings ( oriented) HEENT Head: Yes atraumatic Eyes General: appearance normal, both eyes and all related structures Sclerae: sclerae normal EOM: EOMs intact bilaterally Neck Neck: Yes supple Lymphatic: no lymphadenopathy noted Resp Effort & Inspection: normal respiratory effort and no use of accessory muscles Auscultation: clear to auscultation bilaterally Cardio Rate: regular rate Rhythm: regular rhythm Heart sounds: no gallops, no murmurs and no rubs Skin General skin exam: other ( warm) Extrem General: No clubbing, No cyanosis and No edema Assessment & Plan Assessment & Plan (1) Supplemental oxygen dependent: Code(s): Z99.81 - Dependence on supplemental oxygen Category: Medical Plan: Continue supplemental oxygen to maintain O2 saturation above 88%. (2) QUIRINO (obstructive sleep apnea): Code(s): G47.33 - Obstructive sleep apnea (adult) (pediatric) Category: Medical Plan: Well controlled on CPAP therapy. Continue CPAP therapy. (3) Dyspnea on exertion: Code(s): R06.09 - Other forms of dyspnea Category: Medical Plan: Results of pulmonary function testing and chest imaging reviewed, essentially in a normal. Will obtain cardiopulmonary exercise test and refer to Cardiology. Orders: Orders CA cardiopulmonary stress test Today R06.09 - Other forms of dyspnea Referrals Cardiology Referral R06.09 - Other forms of dyspnea Coding Level of Care Code Est Pt Level 4 (11104) Complex EM visit Add On G2211 Diagnoses Supplemental oxygen dependent Z99.81 QUIRINO (obstructive sleep apnea) G47.33 Dyspnea on exertion R06.09
== END 2025-04-05 14:10 | disposition home or self-care (01) ==
LOC: HO.HPS 12:58
PROVIDERS: PCP Internal Medicine; Visit Provider Internal Medicine Pulmonary Disease
DX: Z99.81 Dependence on supplemental oxygen (principal); G47.33 Obstructive sleep apnea (adult) (pediatric); R06.09 Other forms of dyspnea; J45.909 Unspecified asthma, uncomplicated
CPT/HCPCS: 94060; 94727; 99214; G2211

== ENCOUNTER → 2025-04-05 12:57 | Outpatient (BNVA) | payer OTHER, SELFPAY | PROVIDERS: PCP Internal Medicine; Visit Provider Internal Medicine Pulmonary Disease | DX: G47.33 Obstructive sleep apnea (adult) (pediatric) (principal); R06.09 Other forms of dyspnea; Z99.81 Dependence on supplemental oxygen | CPT/HCPCS: 99212 ==

== ENCOUNTER 2025-05-02 07:44 | Outpatient (REF) | payer OTHER, SELFPAY ==
[2025-05-02 08:46] LABS: Alanine Aminotransferase 11 U/L (0-31); Albumin Level 3.9 g/dL (3.5-5.0); Alkaline Phosphatase 105 U/L (39-117); Anion Gap 11 (12-20); Aspartate Amino Transferase 17 U/L (5-31); Blood Urea Nitrogen 18 mg/dL (9-16); Calcium 9.6 mg/dL (8.4-10.2); Carbon Dioxide 31 mmol/L (22-29); Chloride 105 mmol/L (96-108); Cholesterol 122 mg/dL (<200); Estimated Glomerular Filt Rate 52; HDL Cholesterol 44 mg/dL (>40); Potassium 4.1 mmol/L (3.3-5.1); Sodium 143 mmol/L (135-145); Total Protein 6.9 g/dL (6.5-8.0); Triglycerides 119 mg/dL (<150)
== END 2025-05-02 07:45 | disposition home or self-care (01) ==
LOC: HO.LAB 07:44
PROVIDERS: PCP Internal Medicine; Visit Provider Internal Medicine
DX: E11.65 Type 2 diabetes mellitus with hyperglycemia (principal); Z79.4 Long term (current) use of insulin; E78.5 Hyperlipidemia, unspecified
CPT/HCPCS: 36415; 80053; 80061

== ENCOUNTER 2025-05-08 12:37 | Outpatient (AMB) | payer OTHER, SELFPAY ==
--- NOTE | 2025-05-08 12:45 | A.OFFVIS_ITS ---
Vital Signs 05/08/25 12:46 Height 5 ft 5 in Weight 251 lb 5.231 oz BMI 41.8 BP 126/64 Blood Pressure Location Rt brachial Position Sitting Pulse 82 Pulse Source Pulse Oximeter Pulse Oximetry (%) 96 Oxygen Delivery Method Room Air Intake Visit Reasons: DM follow up Intake Note: Patient presents today for follow-up on Type 2 Diabetes Mellitus: Last Diabetic eye exam was on: 08/16/2024, [facility]. Last Podiatry exam was on: Does not see a Clipper Operator Most recent HbA1c: 7.0%, 05/08/2025 Random Glucose- 180 mg/dL, Today Front End Specialist Required: Yes Front End Specialist Language: Water Fabricator Operator Services: Front End Specialist Present Front End Specialist Name: JOSSELYN Vaughn Information Interpreted: non-clinical & clinical Accompanied by: Self / Same As Patient Allergies codeine Allergy (Intermediate, Verified 05/08/25 12:46) fainting fish derived (FISH) Allergy (Intermediate, Verified 05/08/25 12:46) N&V, ABDOMEN DISTENDED, ANAPHYLAXIS Beef Containing Products (BEEF CONTAINING PRODUCTS) Allergy (Mild, Verified 05/08/25 12:46) HIVES/STOMACH ISSUES mayonnaise (MAYONNAISE) Allergy (Mild, Verified 05/08/25 12:46) HIVES HPI Comments Details: Patient is a 69 year-old female with DM type 2 diagnosed 1986 presenting for follow up Past medical history: Diabetes type 2, hypertension, hyperlipidemia, GERD, depression PTSD, QUIRINO, obesity. Micro and macrovascular complications: Neuropathy and h/o CVA Diabetes medications: Toujeo 52 (from 50) Humalog 14 breakfast 18 dinner mounjaro 12.5 mg weekly metformin 1000 mg bid. A1C 7.0% from 7.9% from 7.2% from 8.4%. Using alpha lipoic acid 600 mg daily for neuropathy. Blood glucose monitoring: One touch. 73-228. No more lows between 3 and 7 pm off lunch humalog. Symptoms reported: Mild lower extremity neuropathy Hypoglycemia: when she goes too long without eating, generally afternoon. Infrequent Hyperglycemia: gets body aches Diet: Breakfast: crackers or hot cereal, coffee, Lunch: soup or skips , Dinner: rice, beans, chicken, Snacks: denies , Drinks throughout day: water, cranberry juice Exercise: limited, uses cane Embalmer Assistant - CDE education: in past Clipper Operator: denies Dental exam: goes every 6 months Ophthalmology evaluation: within one year nonproliferative diabetic retinopathy in both eyes ROS CONSTITUTIONAL: Denies weight loss, fever and chills. HEENT: Denies changes in vision and hearing. RESPIRATORY: Denies SOB and cough. CV: Denies palpitations and CP GI: Denies abdominal pain, nausea, vomiting and diarrhea. : Denies dysuria and urinary frequency. MSK: Denies new myalgia and joint pain. SKIN: Denies rash and pruritus. NEUROLOGICAL: Denies headache PSYCHIATRIC: Denies recent changes in mood. PHYSICAL EXAM: GENERAL: Obese Alert and oriented x 3. NAD EYES: EOMI. Anicteric. HENT: Moist mucous membranes. No scleral icterus. No cervical lymphadenopathy. LUNGS: Clear to auscultation bilaterally. CARDIOVASCULAR: Regular rate and rhythm. systolic murmur. No JVD. ABDOMEN: Soft, non-tender +bs EXTREMITIES: No edema. Non-tender. SKIN: No rashes or lesions. Warm. NEUROLOGIC: No focal neurological deficits. CN II-XII grossly intact PSYCHIATRIC: Cooperative. 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 Maternal Grandfather Prostate cancer Maternal Uncle Throat cancer Sister Ovary cancer Social History Housing: Apartment Alcohol intake: never Patient Tobacco Use Status: Former Tobacco user Tobacco use type: Cigarette e-Cigarette/Vaping Use: Never Used Second Hand Smoke Exposure: No service: No Current occupational status: disabled Cognitive needs: Yes Hearing needs: No Vision needs: Yes Female Reproductive History Menstrual Age of Menarche: 13 Physical Exam Vital Signs: Last Vital Signs Pulse 82 05/08/25 12:46 BP 126/64 05/08/25 12:46 Pulse Ox 96 05/08/25 12:46 Oxygen Delivery Method Room Air 05/08/25 12:46 BMI result Body Mass Index 41.8 Results AMB Hemoglobin A1c AMB Hemoglobin A1c 7.0 % Last Edit by JOSSELYN Vaughn on 05/08/25 13:09 Results Reviewed Results Reviewed: Laboratory Last Values Glucose (Clinic) 185 mg/dL (60-115) H 05/08/25 12:57 Hgb A1c (Clinic) 7.0 % (4.0-6.0) H 05/08/25 13:04 Assessment & Plan Assessment & Plan (1) Diabetes mellitus, with long-term current use of insulin: Code(s): E11.9 - Type 2 diabetes mellitus without complications; Z79.4 - jail (current) use of insulin Category: Medical Qualifiers: Diabetes mellitus type: type 2 Diabetes mellitus complication status: with hyperglycemia Qualified Code(s): E11.65 - Type 2 diabetes mellitus with hyperglycemia; Z79.4 - jail (current) use of insulin Plan DM-controlled at current doses without hypoglycemia Glucometer reviewed Eye exam within one year Hypoglycemia treatment-rules of 15s Return in 3 months or sooner as needed Orders: Orders AMB Hemoglobin A1c Today E11.65 - Type 2 diabetes mellitus with hyperglycemia, Z79.4 - jail (current) use of insulin Medications: Changed From insulin lispro (Humalog KwikPen (U-100) Insulin) 12 - 16 units (0.12 - 0.16 mL) subcut BID 30 days 15 mL 6RF E11.65 - Type 2 diabetes mellitus with hyperglycemia To insulin lispro (Humalog KwikPen (U-100) Insulin) 14 - 18 units (0.14 - 0.18 mL) subcut BID 15 mL 6RF 30 days E11.65 - Type 2 diabetes mellitus with hyperglycemia From insulin glargine U-300 conc (Toujeo Max U-300 SoloStar) 54 units (0.18 mL) subcut BEDTIME 90 days 45 mL 4RF E11.65 - Type 2 diabetes mellitus with hyperglycemia To insulin glargine U-300 conc (Toujeo Max U-300 SoloStar) 52 units (0.1733 mL) subcut BEDTIME 15.597 mL 4RF 90 days E11.65 - Type 2 diabetes mellitus with hyperglycemia Coding Level of Care Code Est Pt Level 4 (82906) Diagnoses Type 2 diabetes mellitus with hyperglycemia, with long-term current use of insulin E11.65; Z79.4 Diabetes mellitus type: type 2 Diabetes mellitus complication status: with hyperglycemia
[2025-05-08 12:46] VITALS: BP 126/64; PULSE 82; O2SAT 96; BMI 41.8
[2025-05-08 13:05] LABS: Glucose, Whole Blood 185 mg/dL (60-115)
--- OUTSIDE RECORDS SUMMARY | 2025-05-08 13:33 | XMS_ITS | Patient Health Record ---
Author Organization [facility] Address [address] [place] [address] Care Team Providers Care Residence Supervisor Name Role Phone Jojo Chand Primary Care Provider UnavailMigue Rajput Unavailable [phone] Allergies Allergen (clinical drug ingredient) Drug/Non Drug [...] Problem Status W/U Status Risk Notes Problem 890701498 Colon cancer screening (Z12.11) Active confirmed Problem 896715248 Encounter for screening for malignant neoplasm of colon (Z12.11) Active confirmed Problem 769515475 History of adenomatous polyp of colon (Z86.010) Active confirmed Problem 888614700 Preprocedural examination (Z01.818) Active confirmed Problem 680394823 Hx of adenomatou s colonic polyps (Z86.010) Active confirmed Problem 18074514 Diarrhea, unspecified type (R19.7) Active confirmed Plan Of Treatment Future Test Test Name Order Date COLONOSCOPY 04/12/2017 COLONOSCOPY 06/24/2023 Insurance Providers Payer Name Payer Address Payer Phone Subscriber Number Group Number Insured Name Patient Relationship to Insured Coverage Start Date Coverage End Date [facility] [address] [address] [place] [address] [id number] PRANAY MARX Self - patient is the insured MEDICARE OF [place] [address] [place] [address] [id number] PRANAY MARX Self - patient is the insured MEDICAID OF [facility] [address] [place] [address] [id number] PRANAY MARX Self - patient is the insured Medical (General) History Medical History History ICD Code IDDM type 2 Hypertension Hypercholesterolemia Sciatica Depression Anemia- due to Vit B12 deficiency Asthma GERD Vitamin D deficency Negative colonoscopy in 03/[address] Rodriguez EGD with me in 1999--GERD-no Ortega's Sleep apnea--uses CPAP and nighttime oxy gen Colonoscopy 06/2017--1 small tubular adenoma, diverticulosis--somewhat limited prep Denies [place],CVA,renal disease Surgical History Surgery Date(Month/Year) LYNDA Cholecystectomy Appendectomy
== END 2025-05-08 13:18 | disposition home or self-care (01) ==
LOC: HO.ENCR 12:38
PROVIDERS: PCP Internal Medicine; Visit Provider Internal Medicine
DX: E11.65 Type 2 diabetes mellitus with hyperglycemia (principal); Z79.4 Long term (current) use of insulin

== ENCOUNTER → 2025-05-08 12:37 | Outpatient (BNVA) | payer OTHER, SELFPAY | PROVIDERS: PCP Internal Medicine; Visit Provider Internal Medicine | DX: E11.65 Type 2 diabetes mellitus with hyperglycemia (principal); Z79.4 Long term (current) use of insulin | CPT/HCPCS: 82947; 83036; 99212 ==

== ENCOUNTER 2025-05-21 13:22 | Outpatient (AMB) | payer OTHER, SELFPAY ==
--- NOTE | 2025-05-21 13:33 | A.OFFVIS_ITS ---
Vital Signs 05/21/25 13:34 Height 5 ft 5 in Weight 250 lb 0.067 oz BMI 41.6 BP 108/64 Blood Pressure Location Lt brachial Position Sitting Pulse 88 Pulse Source Monitor Intake Visit Reasons: dyspnea hs pt Program Paraprofessional Required: Yes Program Paraprofessional Name: voice colvin [id number] Allergies codeine Allergy (Intermediate, Verified 05/21/25 13:36) fainting fish derived (FISH) Allergy (Intermediate, Verified 05/21/25 13:36) N&V, ABDOMEN DISTENDED, ANAPHYLAXIS Beef Containing Products (BEEF CONTAINING PRODUCTS) Allergy (Mild, Verified 05/21/25 13:36) HIVES/STOMACH ISSUES mayonnaise (MAYONNAISE) Allergy (Mild, Verified 05/21/25 13:36) HIVES Medication List - Last Reconciled 05/21/25 by Perfecto Sam NP albuterol sulfate 2.5 mg (3 mL) inhalation Q6H PRN 30 days amitriptyline 50 mg PO BEDTIME 90 days blood sugar diagnostic (Invoiceable Verio test strips) Four times a day blood-glucose meter (YouGoDoToLumora Verio Flex Start kit) Four times a day fluticasone furoate-vilanterol 200-25 mcg/dose (Breo Ellipta) 1 inh inhalation DAILY insulin glargine U-300 conc (Toujeo Max U-300 SoloStar) 52 units (0.1733 mL) subcut BEDTIME 90 days insulin lispro (Humalog KwikPen (U-100) Insulin) 14 - 18 units (0.14 - 0.18 mL) subcut BID 30 days lancets (TRUEplus Lancets) 33 gauge miscellaneous QID 30 days linaclotide (Linzess) 145 mcg PO QAM lisinopril 10 mg PO DAILY 90 days metformin 1,000 mg PO BID 90 days montelukast 10 mg PO DAILY 90 days naproxen 500 mg PO BID 90 days nystatin 1 appl topical BID 30 days omeprazole 40 mg PO DAILY 90 days OneTouch Ultra Test (blood sugar diagnostic) 3 times daily NS pen needle, diabetic (BD Mary Lou 2nd Gen Pen Needle) 5 times a day pen needle, diabetic (BD Ultra-Fine Mary Lou Pen Needle) As directed 5 times a day simvastatin 20 mg PO DAILY 90 days tirzepatide (Mounjaro) 12.5 mg (0.5 mL) subcut QWEEK Ventolin HFA 90 mcg/actuation (albuterol sulfate) 2 puffs inhalation Q6H PRN 30 days NS HPI Comments Details: This is a 69-year-old female patient coming in for complaints of chest pain and shortness of breath with exertion, accompanied by her . A armor reconnaissance specialist was used throughout the visit. Patient with a history of hypertens ion, hyperlipidemia, diabetes, sleep apnea, and obesity. Patient was previously seen in the office over a year ago for chest pain for which patient underwent a myocardial perfusion study which was normal. Today, patient reports that she has been having chest pain and shortness of breath with exertion and this has been getting worse over time. Patient also reports symptoms of palpitations which is random in nature. Patient points to her epigastric area when asked more about her chest pain and is reproducible with palpation. However, with minimal exertion such as walking from the waiting area into the room, patient is short of breath. Patient states that she is mostly sedentary and uses a cane to walk around short distances. Patient also had a thorough workup with pulmonology which was basically normal. Patient reports compliance with all of her medications. [facility] Medical History (Updated 05/21/25 @ 14:15 by Perfecto Sam NP) Chest pain Palpitation Physical exam Diabetes type 2, uncontrolled Yeast dermatitis Postmenopausal Sleep apnea Cough Preop pulmonary/respiratory exam Screen for colon cancer Breast calcification, left GERD (gastroesophageal reflux disease) Mild non proliferative diabetic retinopathy Osteopenia Vitamin D deficiency Morbid obesity Dyslipidemia Hypertension longterm (current) use of insulin Diabetic polyneuropathy associated with type 2 diabetes mellitus Surgical History H/O colonoscopy (~07/13/17) History of surgery S/P LYNDA-BSO (total abdominal hysterectomy and bilateral salpingo-oophorectomy) History of cholecystectomy History of appendectomy Family History Father Hypertension Diabetes CVD (cardiovascular disease) Mother No problems noted. Maternal Grandfather Prostate cancer Maternal Uncle Throat cancer Sister Ovary cancer Social History Housing: Apartment Alcohol intake: never Patient Tobacco Use Status: Former Tobacco user Tobacco use type: Cigarette e-Cigarette/Vaping Use: Never Used Second Hand Smoke Exposure: No service: No Current occupational status: disabled Cognitive needs: Yes Hearing needs: No Vision needs: Yes Female Reproductive History Menstrual Age of Menarche: 13 Review of Systems ENT Reports dizziness Card Denies chest pain, Denies chest pain at rest, Denies chest pain with activity, Denies rapid heart rate, Denies pedal edema, Denies edema, Denies leg edema, Denies lightheadedness, Denies palpitations, Denies dyspnea, Denies dyspnea on exertion and Denies orthopnea Resp Denies cough, Denies dyspnea and Denies dyspnea on exertion GI Denies hematochezia and Denies change in stool character Musc Denies abnormal gait, Reports limited range of motion, Reports muscle cramps, Denies muscle weakness, Denies numbness, Denies radiating pain into limb, Denies stiffness and Denies tingling Neuro Denies abnormal gait, Reports dizziness, Denies numbness and Denies tingling Endo Denies palpitations Physical Exam Vital Signs: Last Vital Signs Pulse 88 05/21/25 13:34 BP 108/64 05/21/25 13:34 BMI result Body Mass Index 41.6 Const General: cooperative, healthy appearing, comfortable and no acute distress Orientation/consciousness: patient oriented x3 HEENT Head: Yes normal to inspection Neck Neck: Yes normal visual inspection, Yes trachea midline and Yes supple Chest Chest palpation & inspection: normal inspection of the chest Resp Effort & Inspection: normal respiratory effort Auscultation: clear to auscultation bilaterally, no crackles, no rales, no rhonchi and no wheezes Cardio Jugular venous distension: no JVD Palpation: normal PMI Rate: regular rate Rhythm: regular rhythm Heart sounds: S1 normal heart sound present, S2 normal heart sound present, no click, no gallops, Murmur heart sound present systolic soft and no rubs Peripheral pulses: Peripheral pulses 2+ throughout GI Inspection: Yes normal to inspection Palpation (GI): Soft to palpation Auscultation: normal bowel sounds Skin General skin exam: no rashes or lesions noted Neuro General: patient oriented x3 Extrem General: Yes normal to inspection, No no pedal edema and No calf tenderness Psych Appearance: grossly normal Mental Status: mental status grossly normal Speech and movement: Normal speech and movement present Office Procedures EKG Details: EKG today showed normal sinus rhythm, rate 88 beats per minute, low-voltage QRS, poor R-wave progression, nonspecific ST-T wave, normal ID, [place]. [id number], Complete Assessment & Plan Assessment & Plan (1) Chest pain: Code(s): R07.9 - Chest pain, unspecified Category: Medical Plan: Coronary CTA from 2017 at [facility] showed no significant coronary artery disease. 10/26/2023-patient underwent myocardial perfusion study with Lexiscan which showed normal perfusion. 12/20/2023-echo study showed a normal LV systolic function with the ejection fraction at 63%, with mild aortic valve stenosis. Patient's chest pain is reproducible and reassuring most likely musculoskeletal origin. However, given her multiple risk factors and worsening shortness of breath with exertion, we will proceed with repeating a coronary CTA to assess for coronary artery disease. We will also repeat an echo study to reassess her as well as evaluate for LV systolic and diastolic dysfunction. Signs and symptoms of reviewed with the patient. Clinically euvolemic. Given her reports of palpitations, we will get a Holter study to evaluate for any potential arrhythmias. Further treatment based on findings. (2) Dyspnea on exertion: Code(s): R06.09 - Other forms of dyspnea Category: Medical Plan: As above. (3) Palpitation: Code(s): R00.2 - Palpitations Category: Medical Plan: As above. (4) Hypertension: Code(s): I10 - Essential (primary) hypertension Category: Medical Qualifiers: Hypertension type: essential hypertension Qualified Code(s): I10 - Essential (primary) hypertension Plan: Blood pressure today is well-controlled. Continue current regimen. Advised monitoring blood pressure with a goal less than 130/80. (5) Dyslipidemia: Code(s): E78.5 - Hyperlipidemia, unspecified Category: Medical Plan: Most recent LDL at 55, with an goal of LDL less than 70. Continue simvastatin. (6) Diabetes mellitus, with long-term current use of insulin: Code(s): E11.9 - Type 2 diabetes mellitus without complications; Z79.4 - long term acute care registered nurse (curr ent) use of insulin Category: Medical Qualifiers: Diabetes mellitus type: type 2 Diabetes mellitus complication status: with hyperglycemia Qualified Code(s): E11.65 - Type 2 diabetes mellitus with hyperglycemia; Z79.4 - long term acute care registered nurse (current) use of insulin Plan: Most recent A1c at 7%. Patient states blood sugars at home are stable. Continue aggressive management of diabetes with an A1c goal less than 7%. (7) QUIRINO (obstructive sleep apnea): Code(s): G47.33 - Obstructive sleep apnea (adult) (pediatric) Category: Medical Plan: Continue with CPAP therapy. Advised heart healthy diet, exercise as tolerated, med compliance, and aggressive management of vascular risk factors. Follow-up after completion of the test. In the interim, patient will call the office with any concerns or change in symptoms. Advised to seek ER care in case of exertional chest pain not resolved with rest. This note was generated using voice recognition software. While every effort has been made to ensure accuracy and proper culinary director, there may be occasional errors that could affect the content or meaning of the described symptoms. Orders: Orders CT Cardiac Coronary Angio Today R06.09 - Other forms of dyspnea CA echo transthoracic complete Today R06.09 - Other forms of dyspnea Basic Metabolic Panel Today R06.09 - Other forms of dyspnea ECG 7 day holter monitor Today R00.2 - Palpitations AMB EKG-In Office Today R06.09 - Other forms of dyspnea Coding Level of Care Code Est Pt Level 4 (40631) Complex EM visit Add On G2211 Diagnoses Chest pain R07.9 Dyspnea on exertion R06.09 Palpitation R00.2 Essential hypertension I10 Hypertension type: essential hypertension Dyslipidemia E78.5 Type 2 diabetes mellitus with hyperglycemia, with long-term current use of insulin E11.65; Z79.4 Diabetes mellitus type: type 2 Diabetes mellitus complication status: with hyperglycemia QUIRINO (obstructive sleep apnea) G47.33 CPT Codes EKG - CPT: 80108-[id number], Complete ([id number]) Time Spent (min) 34 Comment Time spent in reviewing the chart, test results, assessment, counseling and documentation.
[2025-05-21 13:34] VITALS: BP 108/64; PULSE 88; BMI 41.6
--- OUTSIDE RECORDS SUMMARY | 2025-05-21 14:11 | XMS_ITS | Patient Health Record ---
Author Organization [facility] Address [address] [place] [address] Care Team Providers Care Engineer Byproduct Name Role Phone Jojo Chand Primary Care Provider UnavailMigue Rajput Unavailable [phone] Allergies Allergen (clinical drug ingredient) Drug/Non Drug [...] Problem Status W/U Status Risk Notes Problem 046089381 Colon cancer screening (Z12.11) Active confirmed Problem 398313674 Encounter for screening for malignant neoplasm of colon (Z12.11) Active confirmed Problem 289108454 History of adenomatous polyp of colon (Z86.010) Active confirmed Problem 603631268 Preprocedural examination (Z01.818) Active confirmed Problem 856617582 Hx of adenomatou s colonic polyps (Z86.010) Active confirmed Problem 39104452 Diarrhea, unspecified type (R19.7) Active confirmed Plan Of Treatment Future Test Test Name Order Date COLONOSCOPY 04/12/2017 COLONOSCOPY 06/24/2023 Insurance Providers Payer Name Payer Address Payer Phone Subscriber Number Group Number Insured Name Patient Relationship to Insured Coverage Start Date Coverage End Date [facility] [address] [address] [place] [address] [id number] PRANAY MARX Self - patient is the insured MEDICARE OF [place] [address] [place] [address] [id number] PRANAY MARX Self - patient is the insured MEDICAID OF [facility] [address] [place] [address] [id number] PRANAY MARX Self - patient is the insured Medical (General) History Medical History History ICD Code IDDM type 2 Hypertension Hypercholesterolemia Sciatica Depression Anemia- due to Vit B12 deficiency Asthma GERD Vitamin D deficency Negative colonoscopy in 03/[address] Rodriguez EGD with me in 1999--GERD-no Ortega's Sleep apnea--uses CPAP and nighttime oxy gen Colonoscopy 06/2017--1 small tubular adenoma, diverticulosis--somewhat limited prep Denies [place],CVA,renal disease Surgical History Surgery Date(Month/Year) LYNDA Cholecystectomy Appendectomy
== END 2025-05-21 14:13 | disposition home or self-care (01) ==
PROVIDERS: PCP Internal Medicine
DX: R07.9 Chest pain, unspecified (principal); R06.09 Other forms of dyspnea; R00.2 Palpitations; I10 Essential (primary) hypertension; E78.5 Hyperlipidemia, unspecified; E11.65 Type 2 diabetes mellitus with hyperglycemia; Z79.4 Long term (current) use of insulin; G47.33 Obstructive sleep apnea (adult) (pediatric)
CPT/HCPCS: 93010; 99214; G2211

== ENCOUNTER → 2025-05-21 13:22 | Outpatient (BNVA) | payer OTHER, SELFPAY | PROVIDERS: PCP Internal Medicine | DX: R06.09 Other forms of dyspnea (principal); R07.9 Chest pain, unspecified; R00.2 Palpitations; I10 Essential (primary) hypertension; E78.5 Hyperlipidemia, unspecified; E11.65 Type 2 diabetes mellitus with hyperglycemia; G47.33 Obstructive sleep apnea (adult) (pediatric); Z79.4 Long term (current) use of insulin; R94.31 Abnormal electrocardiogram [ECG] [EKG] | CPT/HCPCS: 93005; 99212 ==

== ENCOUNTER 2025-06-04 13:15 | Outpatient (AMB) | payer OTHER, SELFPAY ==
--- NOTE | 2025-06-04 13:22 | A.OFFPC_ITS ---
Vital Signs 06/04/25 13:23 Height 5 ft 5 in Weight 248 lb 4 oz BMI 41.3 BP 122/62 Blood Pressure Location Lt brachial Position Sitting Respiration 18 Pulse 86 Pulse Source Pulse Oximeter Temp 97 F Temp Source Temporal Artery Scan Pulse Oximetry (%) 92 Oxygen Delivery Method Room Air Intake Visit Reasons: dm - see comments Ready Mix Truck Driver Required: Yes Ready Mix Truck Driver Name: pakistani Accompanied by: Self / Same As Patient Allergies codeine Allergy (Intermediate, Verified 06/04/25 13:44) fainting fish derived (FISH) Allergy (Intermediate, Verified 06/04/25 13:44) N&V, ABDOMEN DISTENDED, ANAPHYLAXIS Beef Containing Products (BEEF CONTAINING PRODUCTS) Allergy (Mild, Verified 06/04/25 13:44) HIVES/STOMACH ISSUES mayonnaise (MAYONNAISE) Allergy (Mild, Verified 06/04/25 13:44) HIVES Medication List - Last Reconciled 06/04/25 by Jojo Alcantar MD albuterol sulfate 2.5 mg (3 mL) inhalation Q6H PRN 30 days amitriptyline 50 mg PO BEDTIME 90 days blood sugar diagnostic (Mister Belluch Verio test strips) Four times a day blood-glucose meter (WyleTouch Verio Flex Start kit) Four times a day fluticasone furoate-vilanterol 200-25 mcg/dose (Breo Ellipta) 1 inh inhalation DAILY insulin glargine U-300 conc (Toujeo Max U-300 SoloStar) 52 units (0.1733 mL) subcut BEDTIME 90 days insulin lispro (Humalog KwikPen (U-100) Insulin) 14 - 18 units (0.14 - 0.18 mL) subcut BID 30 days lancets (TRUEplus Lancets) 33 gauge miscellaneous QID 30 days linaclotide (Linzess) 145 mcg PO QAM lisinopril 10 mg PO DAILY 90 days metformin 1,000 mg PO BID 90 days montelukast 10 mg PO DAILY 90 days naproxen 500 mg PO BID 90 days nystatin 1 appl topical BID 30 days omeprazole 40 mg PO DAILY 90 days OneTouch Ultra Test (blood sugar diagnostic) 3 times daily NS pen needle, diabetic (BD Mary Lou 2nd Gen Pen Needle) 5 times a day pen needle, diabetic (BD Ultra-Fine Mary Lou Pen Needle) As directed 5 times a day simvastatin 20 mg PO DAILY 90 days tirzepatide (Mounjaro) 12.5 mg (0.5 mL) subcut QWEEK Ventolin HFA 90 mcg/actuation (albuterol sulfate) 2 puffs inhalation Q6H PRN 30 days NS Tobacco use date assessed: 06/04/25 Fall risk assessment: 2 + Falls in past year Last assessed Fall Risk: 06/04/25 Dental Screening Dental Screen Date: 06/04/25 Did you have a dental visit in the last 12 months?: No Did you have a dental problem in the last 6 months where you did not have access to dental care?: No Was dental information given to patient?: Patient has dentist HPI HPI Comments History of Present Illness Details The patient is a 69-year-old female presenting with a follow-up for her chronic conditions, including diabetes and depression. Her Type 2 Diabetes Mellitus is currently managed with insulin and metformin, with the last HbA1c recorded at 7% last month. She is also on a regimen of medications including lisinopril for hypertension, simvastatin for hyperlipidemia, and montelukast. The patient has a history of major depressive disorder, for which she is prescribed amitriptyline. She reports adherence to her medication regimen. The patient is also managing morbid obesity with a BMI of 41.30, and she has been advised to follow a diet and exercise plan to achieve a BMI goal of less than 30. She has lost 2 pounds since May 21, attributing this to her current medication, which suppresses her appetite. Her last colonoscopy was in 2016, and she acknowledges the need for an updated screening. Additionally, she has a history of anemia noted in February, with plans to recheck her hemoglobin in four months. 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 Maternal Grandfather Prostate cancer Maternal Uncle Throat cancer Sister Ovary cancer Social History Housing: Apartment Alcohol intake: never Patient Tobacco Use Status: Former Tobacco user Tobacco use type: Cigarette e-Cigarette/Vaping Use: Never Used Second Hand Smoke Exposure: No service: No Current occupational status: disabled Cognitive needs: Yes Hearing needs: No Vision needs: Yes Female Reproductive History Menstrual Age of Menarche: 13 Questionnaire PHQ-9 Over the last 2 weeks, how often have you been bothered by any of the following problems? 1. Little interest or pleasure in doing things: not at all 2. Feeling down, depressed, or hopeless: not at all 3. Trouble falling or staying asleep, or sleeping too much: not at all 4. Feeling tired or having little energy: not at all 5. Poor appetite or overeating: not at all 6. Feeling bad about yourself - or that you are a failure or have let yourself or your family down: not at all 7. Trouble concentrating on things, such as reading the newspaper or watching television: not at all 8. Moving or speaking so slowly that other people could have noticed. Or the opposite - being so fidgety or restless that you have been moving around a lot more than usual: not at all 9. Thoughts that you would be better off or of hurting yourself in some way: not at all Total score: 0 Depression Screening Interpretation: Negative Depression Screening Done: Yes 77272 - PHQ-9 Billing: Yes Source: Developed by Drs. Migue Coburn, Mone Whatley, Sixto Lynne and colleagues, with an educational pepito from [employer]. Thrive Questionnaire Date Thrive assessed: 06/04/25 I am a: Patient What is your living situation today?: I have a steady place to live Within the past 12 months, did the food you bought not last and you didn't have the money to get more?: Never true Within the past 12 months, did you worry whether your food would run out before you got money to buy more?: Never true Do you have trouble paying for medicines?: No Do you have trouble getting transportation to medical appointments?: No Do you have trouble paying your heating and electricity bill?: No Do you have trouble taking care of your child, family member or friend?: No Do you have trouble with day-to-day activities such as bathing, preparing meals, shopping, managing finances, etc.?: No Are you currently unemployed and looking for a job?: No Are you interested in more education?: No Please select the resources that you would like help with: None Currently or been in a relationship where the following occur: No concerns reported THRIVE Score: 0 AUDIT C Alcohol Use Questionnaire (AUDIT-C) 1. How often do you have a drink containing alcohol?: Never 3. How often do you have six or more drinks on one occasion?: Never Total Score: 0 Score Reviewed/Action Taken: No SABRINA-7 AMB Questionnaire ASBRINA-7 Date SABRINA - 7 assessed: 06/04/25 Feeling nervous, anxious, or on edge: 0 = Not at all Not being able to stop or control worryin = Not at all Worrying too much about different things: 0 = Not at all Trouble relaxin = Not at all Being so restless that it is hard to sit still: 0 = Not at all Becoming easily annoyed or irritable: 0 = Not at all Feeling afraid as if something awful might happen: 0 = Not at all Total SABRINA-7 score (0-4 normal; 5-9 mild; 10-14 moderate; 15-21 severe): 0 Source: Developed by Drs. Migue Coburn, Mone Whatley, Sixto Lynne and colleagues, with an educational pepito from [employer]. SABRINA-7 Assessment Billing SABRINA-7 Assessment Tool: SABRINA-7 Assessment 02896 Review of Systems Const All systems reviewed & are unremarkable except as noted in HPI and below Card Denies chest pain at rest, Denies chest pain with activity, Denies edema, Denies irregular heart rhythm, Denies claudication, Denies dyspnea, Denies dyspnea on exertion, Denies orthopnea, Denies paroxysmal nocturnal dyspnea and Denies slow heart rate Resp Denies cough, Denies dyspnea and Denies dyspnea on exertion Physical exam (Primary Care) Vital Signs: Last Vital Signs Temp 97 F 06/04/25 13:23 Pulse 86 06/04/25 13:23 Resp 18 06/04/25 13:23 BP 122/62 06/04/25 13:23 Pulse Ox 92 06/04/25 13:23 Oxygen Delivery Method Room Air 06/04/25 13:23 BMI result Body Mass Index 41.3 Tobacco/Smoking Status: Tobacco use Status Tobacco use date assessed 06/04/25 06/04/25 13:31 Patient Tobacco Use Status Former Tobacco user 06/04/25 13:23 Tobacco use type Cigarette 06/04/25 13:23 e-Cigarette/Vaping Use Never Used 06/04/25 13:23 PHQ-9: PHQ-9 Score PHQ-9: Total score 0 06/04/25 13:31 Depression Screening Interpretation: Negative Thrive Assessment: Date of Thrive Assessment Date Thrive assessed 06/04/25 06/04/25 13:31 Currently or been in a relationship where the following occur: No concerns reported Resp Effort & Inspection: normal respiratory effort Auscultation: clear to auscultation bilaterally Cardio Jugular venous distension: no JVD Rate: regular rate Rhythm: regular rhythm Heart sounds: S1 normal heart sound present and S2 normal heart sound present Extrem General: Yes full ROM Coding Level of Care Code Est Pt Level 4 (88602) Complex EM visit Add On G2211 Diagnoses Diabetic polyneuropathy associated with type 2 diabetes mellitus E11.42 Morbid obesity E66.01 Gastroesophageal reflux disease, unspecified whether esophagitis present K21.9 Esophagitis presence: esophagitis presence not specified Asthma J45.909 Dyslipidemia E78.5 Essential hypertension I10 Hypertension type: essential hypertension Additional Codes SABRINA-7 Assessment Billing - SABRINA-7 Assessment Tool: SABRINA-7 Assessment 85437 ([id number]) PHQ-9 - 20832 - PHQ-9 Billing: Yes ([id number]) Time Spent (min) 24 Assessment & Plan Assessment & Plan (1) Diabetic polyneuropathy associated with type 2 diabetes mellitus: Code(s): E11.42 - Type 2 diabetes mellitus with diabetic polyneuropathy Category: Medical (2) Morbid obesity: Code(s): E66.01 - Morbid (severe) obesity due to excess calories Category: Medical (3) GERD (gastroesophageal reflux disease): Code(s): K21.9 - Gastro-esophageal reflux disease without esophagitis Category: Medical Qualifiers: Esophagitis presence: esophagitis presence not specified Qualified Code(s): K21.9 - Gastro-esophageal reflux disease without esophagitis (4) Asthma: Code(s): J45.909 - Unspecified asthma, uncomplicated Category: Medical (5) Dyslipidemia: Code(s): E78.5 - Hyperlipidemia, unspecified Category: Medical (6) Hypertension: Code(s): I10 - Essential (primary) hypertension Category: Medical Qualifiers: Hypertension type: essential hypertension Qualified Code(s): I10 - Essential (primary) hypertension Plan The patient will continue her current medication regimen for diabetes, hyperte nsion, and hyperlipidemia, including insulin, metformin, lisinopril, and simvastatin. She is advised to maintain her dietary and exercise plan to address her morbid obesity, with a goal to reduce her BMI to below 30. Her anemia will be monitored with a follow-up hemoglobin test in four months. The patient is reminded of the importance of updating her colonoscopy, which is overdue since 2017. She is also advised to avoid daily use of omeprazole to prevent potential side effects. Patient was informed and verbally consented to the use of an ambient scribe for clinic note documentation during this visit. Orders: Orders IRON PROFILE 4 Months D64.9 - Anemia, unspecified Vitamin D 25-OH Total 4 Months E55.9 - Vitamin D deficiency, unspecified Lipid Panel 4 Months E78.5 - Hyperlipidemia, unspecified Microalbumin, Random (w Creat) 4 Months R80.9 - Proteinuria, unspecified Vitamin B12 and Folate 4 Months E53.8 - Deficiency of other specified B group vitamins Complete Blood Count Auto Diff 4 Months D64.9 - Anemia, unspecified Comprehensive [place]. Panel Fast 4 Months E11.65 - Type 2 diabetes mellitus with hyperglycemia, Z79.4 - non destructive testing scientist (current) use of insulin Medications: New levalbuterol tartrate 45 mcg/actuation (Xopenex HFA) 1 puff inhalation Q6H 15 grams 0RF 30 days
[2025-06-04 13:23] VITALS: BP 122/62; PULSE 86; RESP 18; TEMP 36.1; O2SAT 92; BMI 41.3
--- OUTSIDE RECORDS SUMMARY | 2025-06-04 14:04 | XMS_ITS | Patient Health Record ---
Author Organization [facility] Address [address] [place] [address] Care Team Providers Care Liquor Commissioner Name Role Phone Jojo Chand Primary Care Provider UnavailMigue Rajput Unavailable [phone] Allergies Allergen (clinical drug ingredient) Drug/Non Drug [...] Problem Status W/U Status Risk Notes Problem 981499403 Colon cancer screening (Z12.11) Active confirmed Problem 269909564 Encounter for screening for malignant neoplasm of colon (Z12.11) Active confirmed Problem 327920733 History of adenomatous polyp of colon (Z86.010) Active confirmed Problem 898493630 Preprocedural examination (Z01.818) Active confirmed Problem 585053370 Hx of adenomatou s colonic polyps (Z86.010) Active confirmed Problem 35392546 Diarrhea, unspecified type (R19.7) Active confirmed Plan Of Treatment Future Test Test Name Order Date COLONOSCOPY 04/12/2017 COLONOSCOPY 06/24/2023 Insurance Providers Payer Name Payer Address Payer Phone Subscriber Number Group Number Insured Name Patient Relationship to Insured Coverage Start Date Coverage End Date [facility] [address] [address] [place] [address] [id number] PRANAY MARX Self - patient is the insured MEDICARE OF [place] [address] [place] [address] [id number] PRANAY MARX Self - patient is the insured MEDICAID OF [facility] [address] [place] [address] [id number] PRANAY MARX Self - patient is the [...]
== END 2025-06-04 13:55 | disposition home or self-care (01) ==
LOC: HO.HMCH 13:16
PROVIDERS: PCP Internal Medicine; Visit Provider Internal Medicine
DX: E11.42 Type 2 diabetes mellitus with diabetic polyneuropathy (principal); E66.01 Morbid (severe) obesity due to excess calories; Z68.41 Body mass index [BMI] 40.0-44.9, adult; K21.9 Gastro-esophageal reflux disease without esophagitis; J45.909 Unspecified asthma, uncomplicated; E78.5 Hyperlipidemia, unspecified; I10 Essential (primary) hypertension

== ENCOUNTER → 2025-06-04 13:15 | Outpatient (BNVA) | payer OTHER, SELFPAY | PROVIDERS: PCP Internal Medicine; Visit Provider Internal Medicine | DX: E11.42 Type 2 diabetes mellitus with diabetic polyneuropathy (principal); E66.01 Morbid (severe) obesity due to excess calories; K21.9 Gastro-esophageal reflux disease without esophagitis; J45.909 Unspecified asthma, uncomplicated; E78.5 Hyperlipidemia, unspecified; I10 Essential (primary) hypertension | CPT/HCPCS: 96127; 99212 ==

== ENCOUNTER → 2025-07-01 09:47 | Outpatient (REF) | payer OTHER, SELFPAY ==
--- NOTE | 2025-07-01 09:53 | CA_ITS ---
Transthoracic Echocardiogram Patient (Last, First, Middle): Pura Gamboa, Gender: F Date of : 1955 Age: 69 Procedure Date: 07/01/2025 Procedure Type: Transthoracic Echocardiogram Location: OP Height: 165. cm Weight: 121.57 kg BSA: 2.24 m2 Heart Rate: 75 bpm BP: 120 / 60 mmHg Leaf Tier: GABRIELE Hanley MD: Perfecto Sam NP Loss Claim Clerk: Sami Reyes MD Symptoms: R06.09 - Other forms of dyspnea Study Quality: Fair ECG Rhythm: Sinus Conclusions: - 1. Normal LV ejection fraction 55-60% with good mild LVH with impaired relaxation filling pattern 2. Mild aortic stenosis 3. Normal RV systolic pressure 4. Upper limits of normal ascending aortic size 5. No gross pericardial effusion Findings Left Ventricle Normal left ventricular size and systolic function. There is mildly increased left ventricular wall thickness. The visually estimated ejection fraction is between 55-60%. Spectral Doppler is indicative of an impaired relaxation filling pattern. E/E prime ratio is between 8 and 15 consistent with indeterminate filling pressures. Right Ventricle Normal right ventricular cavity size and systolic function. Atria The left atrium is normal in size. There is lipomatous hypertrophy of the interatrial septum. There is no evidence of interatrial shunt. The right atrium is normal in size. Aortic Valve The aortic valve was not well visualized. There is mild calcification of the aortic valve. There is mild aortic valve stenosis. The peak aortic velocity is 2.38 m/s with a calculated peak gradient of 23 mmHg. The mean gradient is 12 mmHg. The aortic valve area is 1.88 cm2. There is no aortic valve regurgitation. Mitral Valve The mitral valve was not well visualized. There is trace mitral valve regurgitation. There is no mitral valve stenosis. Pulmonic Valve The pulmonic valve was not well visualized. Tricuspid Valve Likely normal tricuspid valve structure and function. There is trace tricuspid valve regurgitation. The right ventricular systolic pressure is normal. The right ventricular systolic pressure is 17 mmHg. Normal right atrial pressure. There is no evidence of pulmonary hypertension. Great Vessels The aorta was not well visualized. The pulmonary artery was not well visualized. Venous The inferior vena cava is normal in size and collapses greater than 50% with inspiration. Pericardium/Pleural There is no evidence of pericardial effusion. Prior Study Comparison No significant change compared to prior study dated: 12/20/2023. Measurements 2D Linear Measurements IVSd: 1.17 0.6-0.9/0.6-1.0 cm LVIDd: 5.08 3.9-5.3/4.2-5.9 cm LVIDd Index: 2.27 2.4-3.2/2.2-3.1 cm/m2 LVIDs: 2.44 2.0-3.6 cm LVPWd: 1.21 0.7-1.1 cm LA Diam: 4.20 2.7-3.8/3.0-4.0 cm LAIDs Index: 1.88 1.5-2.3 cm/m2 LV Mass: 295.43 67-162/88-224 g LV Mass Index: 131.89 43-95/49-115 g/m2 LVOT Diam: 2.20 3.0+(-)1.3 cm 2D Systolic Function EF 4C: 57.90 >55% EF 2C: 59.40 >55% Mitral Valve MV Pk E: 0.58 MV PK A: 0.85 MV Decel Time: 252.00 E/A: 0.70 E'Lateral: 10.90 E'Medial: 9.90 E/E' Med: 5.80 E/E' Lat: 5.30 PHT: 74.00 MVA PHT: 2.97 Decel [place]: 2.30 Aortic Valve AoV Pk [place]: 2.38 AoV Mn [place]: 1.59 AoV VTI: 0.45 AoV Pk Grad: 23.00 Aov Mn Grad: 12.00 LYDIA Cont.VTI: 1.88 LVOT LVOT Pk [place]: 1.29 LVOT Mn [place]: 0.81 LVOT VTI: 0.22 LVOT Pk Grad: 7.00 LVOT Mn Grad: 3.00 LVOT Diam: 2.20 LVOT Area: 3.80 Diastolic Function MV Pk E: 0.58 MV Pk A: 0.85 E/A: 0.70 E'Medial: 9.90 E/E' Med: 5.80 E' Laterial: 10.90 E/E' Lat: 5.30 Right Ventricle TAPSE (mm): 28.20 TVS' [place]: 12.90 Tricuspid Valve TR Pk [place]: 1.85 TR Pk Grad: 14.00 RA Press: 3.00 RVSP: 17.00 Great Vessels Aorta Sinus of Valsalva: 3.20 2.0-3.5 cm Ao Asc: 3.50 2.1-3.4 cm Ao Arch: 2.90 Pulmonary Veins Pulm Vein S/D 1.50 Pulmonary Valve PV Pk [place]: 1.18 Peak PV Grad: 6.00 Updated in Other Vendor System with Status of Final Sami Reyes MD electronically signed on 07/02/2025 11:50:29 AM with status of Final
--- OUTSIDE RECORDS SUMMARY | 2025-07-01 11:20 | XMS_ITS | Patient Health Record ---
Author Organization [facility] Address [address] [place] [address] Care Team Providers Care Qualitative Field Project Manager Name Role Phone Jojo Chand Primary Care Provider UnavailMigue Rajput Unavailable [phone] Allergies Allergen (clinical drug ingredient) Drug/Non Drug [...] Problem Status W/U Status Risk Notes Problem 255137174 Colon cancer screening (Z12.11) Active confirmed Problem 611060742 Encounter for screening for malignant neoplasm of colon (Z12.11) Active confirmed Problem 785097933 History of adenomatous polyp of colon (Z86.010) Active confirmed Problem 662390847 Preprocedural examination (Z01.818) Active confirmed Problem 484415191 Hx of adenomatou s colonic polyps (Z86.010) Active confirmed Problem 01364937 Diarrhea, unspecified type (R19.7) Active confirmed Plan Of Treatment Future Test Test Name Order Date COLONOSCOPY 04/12/2017 COLONOSCOPY 06/24/2023 Insurance Providers Payer Name Payer Address Payer Phone Subscriber Number Group Number Insured Name Patient Relationship to Insured Coverage Start Date Coverage End Date [facility] [address] [address] [place] [address] [id number] PRANAY MARX Self - patient is the insured MEDICARE OF [place] [address] [place] [address] [id number] PRANAY MARX Self - patient is the insured MEDICAID OF [facility] [address] [place] [address] [id number] PRANAY MARX Self - patient is the insured Medical (General) History Medical History History ICD Code IDDM type 2 Hypertension Hypercholesterolemia Sciatica Depression Anemia- due to Vit B12 deficiency Asthma GERD Vitamin D deficency Negative colonoscopy in 03/[address] Rodriguez EGD with me in 1999--GERD-no Ortega's Sleep apnea--uses CPAP and nighttime oxy gen Colonoscopy 06/2017--1 small tubular adenoma, diverticulosis--somewhat limited prep Denies [place],CVA,renal disease Surgical History Surgery Date(Month/Year) LYNDA Cholecystectomy Appendectomy
== END ==
LOC: HO.CARD 09:47
DX: R00.2 Palpitations (principal); R06.09 Other forms of dyspnea
CPT/HCPCS: 93242; 93306

== ENCOUNTER → 2025-07-01 09:53 | Outpatient (BNV) | payer OTHER, SELFPAY | PROVIDERS: Visit Provider Internal Medicine Cardiovascular Disease | DX: I35.0 Nonrheumatic aortic (valve) stenosis (principal); I51.89 Other ill-defined heart diseases; R06.09 Other forms of dyspnea | CPT/HCPCS: 93306 ==

== ENCOUNTER 2025-08-07 12:45 | Outpatient (AMB) | payer OTHER, SELFPAY ==
--- NOTE | 2025-08-07 12:48 | A.OFFVIS_ITS ---
Vital Signs 08/07/25 12:51 Height 5 ft 5 in Weight 244 lb 11.41 oz BMI 40.7 BP 126/72 Blood Pressure Location Rt brachial Position Sitting Pulse 95 Pulse Source Pulse Oximeter Pulse Oximetry (%) 94 Oxygen Delivery Method Room Air Intake Visit Reasons: T2DM Intake Note: Patient presents today for follow-up on Type 2 Diabetes Mellitus: Last Diabetic eye exam was on: 07/22/2025, [facility]. Last Podiatry exam was on: Does not see a Top Bottom Attaching Machine Operator Most recent HbA1c: 6.5%, 08/07/2025 Random Glucose- 94 mg/dL, Today Director Packaging Required: Yes Director Packaging Language: Condenser Winder Services: Director Packaging Present Director Packaging Name: JOSSELYN Vaughn Information Interpreted: non-clinical & clinical Accompanied by: Self / Same As Patient Allergies codeine Allergy (Intermediate, Verified 08/07/25 12:57) fainting fish derived (FISH) Allergy (Intermediate, Verified 08/07/25 12:57) N&V, ABDOMEN DISTENDED, ANAPHYLAXIS Beef Containing Products (BEEF CONTAINING PRODUCTS) Allergy (Mild, Verified 08/07/25 12:57) HIVES/STOMACH ISSUES mayonnaise (MAYONNAISE) Allergy (Mild, Verified 08/07/25 12:57) HIVES HPI Comments Details: Patient is a 69 year-old female with DM type 2 diagnosed 1986 presenting for follow up Past medical history: Diabetes type 2, hypertension, hyperlipidemia, GERD, depression PTSD, QUIRINO, obesity. Micro and macrovascular complications: Neuropathy and h/o CVA Diabetes medications: Toujeo 52 units daily Humalog 14 breakfast 18 dinner mounjaro 12.5 mg weekly metformin 1000 mg bid A1C 6.5% from 7.0% from 7.9% from 7.2% from 8.4%. Using alpha lipoic acid 600 mg daily for neuropathy. Lost some weight Blood glucose monitoring: One touch 63-381 average. She is now interested in CGM Symptoms reported: Mild lower extremity neuropathy Hypoglycemia: when she goes too long without eating Hyperglycemia: gets body aches Diet: Breakfast: crackers or hot cereal, coffee, Lunch: soup or skips , Dinner: rice, beans, chicken, Snacks: denies , Drinks throughout day: water, cranberry juice Exercise: limited, uses cane Extension Service Specialist In Charge - CDE education: in past Top Bottom Attaching Machine Operator: denies Dental exam: goes every 6 months Ophthalmology evaluation: within one year nonproliferative diabetic retinopathy in both eyes ROS CONSTITUTIONAL: Denies weight loss, fever and chills. HEENT: Denies changes in vision and hearing. RESPIRATORY: Denies SOB and cough. CV: Denies palpitations and CP GI: Denies abdominal pain, nausea, vomiting and diarrhea. : Denies dysuria and urinary frequency. MSK: Denies new myalgia and joint pain. SKIN: Denies rash and pruritus. NEUROLOGICAL: Denies headache PSYCHIATRIC: Denies recent changes in mood. PHYSICAL EXAM: GENERAL: Obese Alert and oriented x 3. NAD EYES: EOMI. Anicteric. HENT: Moist mucous membranes. No scleral icterus. No cervical lymphadenopathy. LUNGS: Clear to auscultation bilaterally. CARDIOVASCULAR: Regular rate and rhythm. systolic murmur. No JVD. ABDOMEN: Soft, non-tender +bs EXTREMITIES: No edema. Non-tender. SKIN: No rashes or lesions. Warm. NEUROLOGIC: No focal neurological deficits. CN II-XII grossly intact PSYCHIATRIC: Cooperative. Appropriate mood and affect PFSH Medical History Chest pain Palpitation Physical exam Diabetes type 2, uncontrolled Yeast dermatitis Postmenopausal Sleep apnea Cough Preop pulmonary/respiratory exam Screen for colon cancer Breast calcification, left GERD (gastroesophageal reflux disease) Mild non proliferative diabetic retinopathy Osteopenia Vitamin D deficiency Morbid obesity Dyslipidemia Hypertension FCI (current) use of insulin Diabetic polyneuropathy associated with type 2 diabetes mellitus Surgical History H/O colonoscopy (~07/13/17) History of surgery S/P LYNDA-BSO (total abdominal hysterectomy and bilateral salpingo-oophorectomy) History of cholecystectomy History of appendectomy Family History Father Hypertension Diabetes CVD (cardiovascular disease) Mother No problems noted. Maternal Grandfather Prostate cancer Maternal Uncle Throat cancer Sister Ovary cancer Social History Housing: Apartment Alcohol intake: never Patient Tobacco Use Status: Former Tobacco user Tobacco use type: Cigarette e-Cigarette/Vaping Use: Never Used Second Hand Smoke Exposure: No service: No Current occupational status: disabled Cognitive needs: Yes Hearing needs: No Vision needs: Yes Female Reproductive History Menstrual Age of Menarche: 13 Physical Exam Vital Signs: Last Vital Signs Pulse 95 08/07/25 12:51 BP 126/72 08/07/25 12:51 Pulse Ox 94 08/07/25 12:51 Oxygen Delivery Method Room Air 08/07/25 12:51 BMI result Body Mass Index 40.7 Results AMB Hemoglobin A1c AMB Hemoglobin A1c 6.5 % Last Edit by JOSSELYN Vaughn on 08/07/25 13:10 Results Reviewed Results Reviewed: Laboratory Last Values Glucose (Clinic) 94 mg/dL (60-115) 08/07/25 12:56 Hgb A1c (Clinic) 6.5 % (4.0-6.0) H 08/07/25 13:06 Assessment & Plan Assessment & Plan (1) Diabetes mellitus, with long-term current use of insulin: Code(s): E11.9 - Type 2 diabetes mellitus without complications; Z79.4 - [facility]CI (current) use of insulin Category: Medical Qualifiers: Diabetes mellitus complication status: with hyperglycemia Diabetes mellitus type: type 2 Qualified Code(s): E11.65 - Type 2 diabetes mellitus with hyperglycemia; Z79.4 - [facility] (current) use of insulin Plan DM-Controlled on current medications Decrease humalog by 2 units at each meal Treat hypoglycemia by rules of 15s On insulin therapy, neuropathy, would greatly benefit from CGM which is ordered Return in 3 months or sooner as needed Orders: Orders AMB Hemoglobin A1c Today E11.65 - Type 2 diabetes mellitus with hyperglycemia, Z79.4 - manager terminal (current) use of insulin Medications: New FreeStyle Abena 3 Plus Sensor (blood-glucose sensor) every 15 days 6 ea 3RF NS E11.65 - Type 2 diabetes mellitus with hyperglycemia, Z79.4 - [facility] (current) use of insulin FreeStyle Abena 3 [place] (blood-glucose,hedge fund accountant,cont) As directed 1 ea 0RF NS E11.65 - Type 2 diabetes mellitus with hyperglycemia, Z79.4 - [facility] (current) use of insulin Changed From insulin lispro (Humalog KwikPen (U-100) Insulin) 14 - 18 units (0.14 - 0.18 mL) subcut BID 30 days 15 mL 6RF E11.65 - Type 2 diabetes mellitus with hyperglycemia To insulin lispro (Humalog KwikPen (U-100) Insulin) max 36 units / 24 hours 12 - 16 units (0.12 - 0.16 mL) subcut BID 15 mL 6RF 30 days E11.65 - Type 2 diabetes mellitus with hyperglycemia Coding Level of Care Code Est Pt Level 4 (85455) Diagnoses Type 2 diabetes mellitus with hyperglycemia, with long-term current use of insulin E11.65; Z79.4 Diabetes mellitus complication status: with hyperglycemia Diabetes mellitus type: type 2
[2025-08-07 12:51] VITALS: BP 126/72; PULSE 95; O2SAT 94; BMI 40.7
[2025-08-07 13:01] LABS: Glucose, Whole Blood 94 mg/dL (60-115)
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
== END 2025-08-07 13:25 | disposition home or self-care (01) ==
LOC: HO.ENCR 12:46
PROVIDERS: PCP Internal Medicine; Visit Provider Internal Medicine
DX: E11.65 Type 2 diabetes mellitus with hyperglycemia (principal); Z79.4 Long term (current) use of insulin

== ENCOUNTER → 2025-08-07 12:45 | Outpatient (BNVA) | payer OTHER, SELFPAY | PROVIDERS: PCP Internal Medicine; Visit Provider Internal Medicine | DX: E11.65 Type 2 diabetes mellitus with hyperglycemia (principal); E11.40 Type 2 diabetes mellitus with diabetic neuropathy, unspecified; Z79.4 Long term (current) use of insulin; Z83.3 Family history of diabetes mellitus; Z86.73 Personal history of transient ischemic attack (TIA), and cerebral infarction without residual deficits; Z87.891 Personal history of nicotine dependence | CPT/HCPCS: 82947; 83036; 99212 ==

== ENCOUNTER 2025-08-15 13:58 | Outpatient (REF) | payer OTHER, SELFPAY ==
[2025-08-15 15:09] LABS: Anion Gap 11 (12-20); Blood Urea Nitrogen 15 mg/dL (9-16); Calcium 9.5 mg/dL (8.4-10.2); Carbon Dioxide 31 mmol/L (22-29); Chloride 107 mmol/L (96-108); Estimated Glomerular Filt Rate 47; Potassium 5.0 mmol/L (3.3-5.1); Sodium 144 mmol/L (135-145)
--- OUTSIDE RECORDS SUMMARY | 2025-08-15 17:51 | XMS_ITS | Patient Health Record ---
Author Organization [facility] Address [address] [place] [address] Care Team Providers Care Assembler Body Name Role Phone Jojo Chand Primary Care Provider UnavailMigue Rajput Unavailable [phone] Allergies Allergen (clinical drug ingredient) Drug/Non Drug [...] Status Risk Notes Problem Colon cancer screening (333328024) Colon cancer screening (Z12.11) Active confirmed Problem Screening for malignant neoplasm of colon (924117085) Encounter for screening for malignant neoplasm of colon (Z12.11) Active confirmed Problem History of adenomatous polyp of colon (332685030) History of adenomatous polyp of colon (Z86.010) Active confirmed Problem Preprocedural examination (162403489478409) Preprocedural examination (Z01.818) Active confirmed Problem History of adenomatous polyp of colon (379288744) Hx of adenomatous colonic polyps (Z86.010) Active confirmed Problem Diarrhea (17892108) Diarrhea, unspecified type (R19.7) Active confirmed Plan Of Treatment Future Test Test Name Order Date COLONOSCOPY 04/12/2017 COLONOSCOPY 06/24/2023 Insurance Providers Payer Name Payer Address Payer Phone Subscriber Number Group Number Insured Name Patient Relationship to Insured Coverage Start Date Coverage End Date [facility] [address] [address] [place] [address] [id number] PRANAY MARX Self - patient is the insured MEDICARE OF [place] [address] [place] [address] [id number] PRANAY MARX Self - patient is the insured MEDICAID OF [facility] [address] [place] [address] [id number] PRANAY MARX Self - patient is the insured Medical (General) History Medical History History ICD Code IDDM type 2 Hypertension Hypercholesterolemia Sciatica Depression Anemia- due to Vit B12 deficiency Asthma GERD Vitamin D deficency Negative colonoscopy in 03/[address] Rodriguez EGD with me in 1999--GERD-no Ortega's Sleep apnea--uses CPAP and nighttime oxy gen Colonoscopy 06/2017--1 small tubular adenoma, diverticulosis--somewhat limited prep Denies [place],CVA,renal disease Surgical History Surgery Date(Month/Year) LYNDA Cholecystectomy Appendectomy
== END 2025-08-15 13:59 | disposition home or self-care (01) ==
LOC: HO.LAB 13:58
PROVIDERS: PCP Internal Medicine
DX: R06.09 Other forms of dyspnea (principal)
CPT/HCPCS: 36415; 80048

== ENCOUNTER 2025-09-11 14:15 | Outpatient (AMB) | payer OTHER, SELFPAY ==
[2025-09-11 14:20] VITALS: BP 116/60; PULSE 87; BMI 39.6
--- NOTE | 2025-09-11 14:20 | MHC.OFFVIS ---
Vital Signs 09/11/25 14:20 Height 5 ft 5 in Weight 238 lb 1.588 oz BMI 39.6 BP 116/60 Blood Pressure Location Lt brachial Position Sitting Pulse 87 Pulse Source Pulse Oximeter Intake Visit Reasons: 4 mth f/up cta/ echo/ holter Retirement Consultant Required: Yes Retirement Consultant Name: JEANNINE [id number] Allergies codeine Allergy (Intermediate, Verified 08/07/25 12:57) fainting fish derived (FISH) Allergy (Intermediate, Verified 08/07/25 12:57) N&V, ABDOMEN DISTENDED, ANAPHYLAXIS Beef Containing Products (BEEF CONTAINING PRODUCTS) Allergy (Mild, Verified 08/07/25 12:57) HIVES/STOMACH ISSUES mayonnaise (MAYONNAISE) Allergy (Mild, Verified 08/07/25 12:57) HIVES Medication List - Last Reconciled 09/11/25 by Perfecto Sam NP albuterol sulfate 2.5 mg (3 mL) inhalation Q6H PRN 30 days amitriptyline 50 mg PO BEDTIME 90 days blood sugar diagnostic ([employer] Verio test strips) Four times a day blood-glucose meter ([employer] Verio Flex Start kit) Four times a day fluticasone furoate-vilanterol 200-25 mcg/dose (Breo Ellipta) 1 inh inhalation DAILY FreeStyle Abena 3 Plus Sensor (blood-glucose sensor) every 15 days NS FreeStyle Abena 3 [place] (blood-glucose,experimental electronics developer,cont) As directed NS insulin glargine U-300 conc (Toujeo Max U-300 SoloStar) 52 units (0.1733 mL) subcut BEDTIME 90 days insulin lispro (Humalog KwikPen (U-100) Insulin) 12 - 16 units (0.12 - 0.16 mL) subcut BID 30 days lancets (TRUEplus Lancets) 33 gauge miscellaneous QID 30 days levalbuterol tartrate 45 mcg/actuation (Xopenex HFA) 1 puff inhalation Q6H 30 days linaclotide (Linzess) 145 mcg PO QAM lisinopril 10 mg PO DAILY 90 days metformin 1,000 mg PO BID 90 days montelukast 10 mg PO DAILY 90 days naproxen 500 mg PO BID 90 days nystatin 1 appl topical BID 30 days omeprazole 40 mg PO DAILY 90 days OneTouch Ultra Test (blood sugar diagnostic) 3 times daily NS pen needle, diabetic (BD Mary Lou 2nd Gen Pen Needle) 5 times a day pen needle, diabetic (BD Ultra-Fine Mary Lou Pen Needle) As directed 5 times a day simvastatin 20 mg PO DAILY 90 days tirzepatide (Mounjaro) 12.5 mg (0.5 mL) subcut QWEEK Ventolin HFA 90 mcg/actuation (albuterol sulfate) 2 puffs inhalation Q6H PRN 30 days NS HPI Comments Details: This is a 70-year-old female patient coming in for a follow-up visit, accompanied by her . A medical interpreter was used throughout the visit. Patient with history of hypertension, hyperlipidemia, diabetes, sleep apnea, and obesity was previously for seen in the office for chest pain and shortness of breath on exertion. Patient had undergone a myocardial perfusion study which was normal but due to ongoing symptoms and multiple risk factors, patient underwent a coronary CTA and is here to review the results with this. Today, patient is reporting feeling well overall and is otherwise denying any exertional chest pain, shortness of breath, palpitations, dizziness, orthopnea, PND, leg edema, presyncope or syncope. Patient is reporting compliance with all her medications. 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 Maternal Grandfather Prostate cancer Maternal Uncle Throat cancer Sister Ovary cancer Social History Housing: Apartment Alcohol intake: never Patient Tobacco Use Status: Former Tobacco user Tobacco use type: Cigarette e-Cigarette/Vaping Use: Never Used Second Hand Smoke Exposure: No service: No Current occupational status: disabled Cognitive needs: Yes Hearing needs: No Vision needs: Yes Female Reproductive History Menstrual Age of Menarche: 13 Review of Systems Const Denies weakness ENT Denies dizziness Card Reports no additional complaints, Denies chest pain, Denies chest pain with activity, Denies syncope, Denies rapid heart rate, Denies pedal edema, Denies edema, Denies leg edema, Denies lightheadedness, Denies palpitations, Denies dyspnea, Denies dyspnea on exertion and Denies orthopnea Resp Denies cough, Denies dyspnea and Denies dyspnea on exertion GI Denies hematochezia and Denies change in stool character Musc Denies abnormal gait, Denies muscle cramps, Denies muscle weakness, Denies numbness, Denies radiating pain into limb and Denies tingling Neuro Denies abnormal gait, Denies dizziness, Denies syncope, Denies numbness, Denies tingling and Denies weakness Endo Denies palpitations Physical Exam Vital Signs: Last Vital Signs Pulse 87 09/11/25 14:20 BP 116/60 09/11/25 14:20 BMI result Body Mass Index 39.6 Const General: cooperative, healthy appearing, comfortable and no acute distress Orientation/consciousness: patient oriented x3 HEENT Head: Yes normal to inspection Neck Neck: Yes normal visual inspection, Yes trachea midline and Yes supple Chest Chest palpation & inspection: normal inspection of the chest Resp Effort & Inspection: normal respiratory effort Auscultation: clear to auscultation bilaterally, no crackles, no rales, no rhonchi and no wheezes Cardio Jugular venous distension: no JVD Palpation: normal PMI Rate: regular rate Rhythm: regular rhythm Heart sounds: S1 normal heart sound present, S2 normal heart sound present, no click, no gallops, Murmur heart sound present systolic soft and no rubs Peripheral pulses: Peripheral pulses 2+ throughout GI Inspection: Yes normal to inspection Palpation (GI): Soft to palpation Auscultation: normal bowel sounds Skin General skin exam: no rashes or lesions noted Neuro General: patient oriented x3 Extrem General: Yes normal to inspection, No no pedal edema and No calf tenderness Psych Appearance: grossly normal Mental Status: mental status grossly normal Speech and movement: Normal speech and movement present Assessment & Plan Assessment & Plan (1) Coronary artery disease: Code(s): I25.10 - Atherosclerotic heart disease of [place] coronary artery without angina pectoris Category: Medical Plan: Coronary CTA from 2017 at [facility] showed no significant coronary artery disease. 10/26/2023-patient underwent myocardial perfusion study with Lexiscan which showed normal perfusion. 07/01/2025-Holter study showed underlying normal sinus rhythm with rare PVCs. 07/01/2025-echo study showed a normal LV systolic function with an ejection fraction between 55-60% with mild LVH, mild aortic stenosis, and upper limits of normal ascending aortic size. Given her ongoing symptoms and multiple risk factors, patient underwent a coronary CTA on 08/22/2025 that showed mild stenosis in the distal left main, 25-49% stenosis to the proximal LAD, and 25-49% stenosis to the left circumflex, and minimal stenosis in the ramus intermedius. Reviewed above testing with patient in detail. Given patient's resolution of symptoms, no further indications for testing at this time. Start low-dose baby aspirin therapy. Most recent LDL at 55. Continue statin therapy with the LDL goal less than 70. Advised on aggressive vascular risk factors management. (2) Hypertension: Code(s): I10 - Essential (primary) hypertension Category: Medical Qualifiers: Hypertension type: essential hypertension Qualified Code(s): I10 - Essential (primary) hypertension Plan: Blood pressure today is well-controlled. Continue current regimen. Advised monitoring blood pressure with a goal less than 130/80. (3) Dyslipidemia: Code(s): E78.5 - Hyperlipidemia, unspecified Category: Medical Plan: As above. (4) Diabetes mellitus, with long-term current use of insulin: Code(s): E11.9 - Type 2 diabetes mellitus without complications; Z79.4 - [facility]PC (current) use of insulin Category: Medical Qualifiers: Diabetes mellitus type: type 2 Diabetes mellitus complication status: with hyperglycemia Qualified Code(s): E11.65 - Type 2 diabetes mellitus with hyperglycemia; Z79.4 - [facility] (current) use of insulin Plan: Most recent A1c at 7%. Continue aggressive diabetes management with an A1c goal less than 7%. Followed by PCP. (5) QUIRINO (obstructive sleep apnea): Code(s): G47.33 - Obstructive sleep apnea (adult) (pediatric) Category: Medical Plan: Continue with CPAP therapy. Advised heart healthy diet, exercise, weight loss, med compliance, and aggressive management of vascular risk factors. Follow up in 1 year, sooner if needed. In the interim, patient will call the office with any concerns or change in symptoms. Advised to seek ER care in case of exertional chest pain not resolved with rest. This note was generated using voice recognition software. While every effort has been made to ensure accuracy and proper ocean rescue lieutenant, there may be occasional errors that could affect the content or meaning of the described symptoms. Medications: New aspirin (Adult Low Dose Aspirin) 81 mg PO DAILY 90 tabs 3RF Coding Level of Care Code Est Pt Level 4 (25346) Complex EM visit Add On G2211 Diagnoses Coronary artery disease I25.10 Essential hypertension I10 Hypertension type: essential hypertension Dyslipidemia E78.5 Type 2 diabetes mellitus with hyperglycemia, with long-term current use of insulin E11.65; Z79.4 Diabetes mellitus type: type 2 Diabetes mellitus complication status: with hyperglycemia QUIRINO (obstructive sleep apnea) G47.33 Time Spent (min) 31 Comment Time spent in reviewing the chart, test results, assessment, counseling and documentation.
--- OUTSIDE RECORDS SUMMARY | 2025-09-12 02:45 | XMS_ITS | Patient Health Record ---
Author Organization [facility] Address [address] [place] [address] Care Team Providers Care Cook Apprentice Name Role Phone Jojo Chand Primary Care Provider UnavailMigue Rajput Unavailable [phone] Allergies Allergen (clinical drug ingredient) Drug/Non Drug Allergy documented on EMR Reaction Allergy Type Onset Date Status beef, mayonaise (uncoded) Unknown Allergy Active Codeine Phosphate Unknown Drug Allergy Active Reason For Referral No Information Medications Medication SIG (Take, Route, Frequency, Duration) Notes Start Date End Date Status Dulcolax (colon prep) 5 MG Tablet Delayed Release take at 3:00 p.m and 7:00p.m. Orally two tablets twice a day for one day; Duration: 1 day 06/24/2023 Active ProAir HFA Active flovent HFA Active Simvastatin Active MiraLax (colon prep) 17 GM/SCOOP Powder 1 238Gm bottle mixed with Gatorade or Crystal Light Orally begin at 5:00 p.m. the day before the procedure; Duration: 1 days 06/24/2023 Active Amitriptyline HCl Ac tive iron Not-Taking /PRN Calcium Carbonate-Vitamin D3 Active Vitamin B12 Active V-Go 30 Active Ergocalciferol Activ e Cyanocobalamin ER Ac tive Omeprazole 20 MG Capsule Delayed Release Orally Once a day Active Lisinopril Active HumaLOG Active Singulair Active metFORMIN HCl Active Aspir-81 81 MG Tablet Delayed Release 1 tablet Orally Once a day Not-Taking/PRN Victoza Active Acetaminophen 500 MG Capsule 2 capsules as needed Orally every 6 hrs Active Immunizations Vaccine Route Administration Date Status Comme nts Influenza Unknown 09/14/2022 Administered Social History Tobacco Use: Social History Observation Description Date Details (start date - stop date) Former Smoker NA - NA Social History Drugs/Alcohol: Social Info Question Answer Notes Alcohol Screen Did you have a drink containing alcohol in the past year? No Points 0 Interpretation Negative Tobacco Use: Social Info Question Answer Notes Tobacco Use/Smoking Patient is a former smoker How long has it been since you last smoked? 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: house Section Notes: Former smoker over 30 years ago; no sig alcohol Former smoker over 30 years ago; no sig alcohol Former smoker over 30 years ago; no sig alcohol Problems Problem Type SNOMED Code ICD Code Onset Dates Problem Status W/U Status Risk Notes Problem Colon cancer screening (100535391) Colon cancer screening (Z12.11) Active confirmed Problem Screening for malignant neoplasm of colon (568951407) Encounter for screening for malignant neoplasm of colon (Z12.11) Active confirmed Problem History of adenomatous polyp of colon (646245018) History of adenomatous polyp of colon (Z86.010) Active confirmed Problem Preprocedural examination (965110186457712) Preprocedural examination (Z01.818) Active confirmed Problem History of adenomatous polyp of colon (354215654) Hx of adenomatous colonic polyps (Z86.010) Active confirmed Problem Diarrhea (01788078) Diarrhea, unspecified type (R19.7) Active confirmed Plan Of Treatment Future Test Test Name Order Date COLONOSCOPY 04/12/2017 COLONOSCOPY 06/24/2023 Insurance Providers Payer Name Payer Address Payer Phone Subscriber Number Group Number Insured Name Patient Relationship to Insured Coverage Start Date Coverage End Date [facility] [address] [address] [place] [address] [id number] PRANAY MARX Self - patient is the insured MEDICARE OF [place] [address] [place] [id number] PRANAY MARX Self - patient is the insured MEDICAID OF [facility] [address] [place] [address] [id number] PRANAY MARX Self - patient is the insured Medical (General) History Medical History History ICD Code IDDM type 2 Hypertension Hypercholesterolemia Sciatica Depression Anemia- due to Vit B12 deficiency Asthma GERD Vitamin D deficency Negative colonoscopy in 03/[address] Rodriguez EGD with me in 1999--GERD-no Ortega's Sleep apnea--uses CPAP and nighttime oxy gen Colonoscopy 06/2017--1 small tubular adenoma, diverticulosis--somewhat limited prep Denies [place],CVA,renal disease Surgical History Surgery Date(Month/Year) LYNDA Cholecystectomy Appendectomy
== END 2025-09-11 14:56 | disposition home or self-care (01) ==
LOC: HO.HCS 14:16
PROVIDERS: PCP Internal Medicine
DX: I25.10 Atherosclerotic heart disease of native coronary artery without angina pectoris (principal); I10 Essential (primary) hypertension; E78.5 Hyperlipidemia, unspecified; E11.65 Type 2 diabetes mellitus with hyperglycemia; Z79.4 Long term (current) use of insulin; G47.33 Obstructive sleep apnea (adult) (pediatric)
CPT/HCPCS: 99214; G2211

== ENCOUNTER → 2025-09-11 14:15 | Outpatient (BNVA) | payer OTHER, SELFPAY | PROVIDERS: PCP Internal Medicine | DX: I10 Essential (primary) hypertension (principal); I25.10 Atherosclerotic heart disease of native coronary artery without angina pectoris; E78.5 Hyperlipidemia, unspecified; Z87.891 Personal history of nicotine dependence; G47.33 Obstructive sleep apnea (adult) (pediatric); Z99.89 Dependence on other enabling machines and devices; E11.65 Type 2 diabetes mellitus with hyperglycemia; Z79.84 Long term (current) use of oral hypoglycemic drugs; Z79.4 Long term (current) use of insulin; E66.01 Morbid (severe) obesity due to excess calories; Z68.39 Body mass index [BMI] 39.0-39.9, adult | CPT/HCPCS: 99212 ==